=== PATIENT | male | born 1945 | race Caucasian/White ===

== ENCOUNTER → 2022-12-18 | Outpatient (CLI) | payer MEDICARE, SELFPAY ==
[2022-12-18 12:15] LABS: Hematocrit 44.1 % (40-54); Hemoglobin 13.9 g/dL (13.0-16.5); Mean Corp Hgb Conc 31.5 g/dL (32-36); Mean Corpuscular Volume 98.2 fL (80-94); Mean Platelet Vol. 10.6 fl (6.2-12.0); Platelet Count 202 K/mm3 (150-450); RBC Distribution Width CV 15.1 % (11.6-14.6); RBC Distribution Width SD 54.8 fl (35.1-43.9); Red Blood Count 4.49 M/mm3 (4.6-6.2); White Blood Count 6.7 K/mm3 (4.4-11.0)
[2022-12-18 12:52] LABS: PTHIN 68.7 pg/mL (18.4-80.1)
[2022-12-18 12:55] LABS: Vitamin D,25 Hydroxy 64.5 ng/mL
[2022-12-18 13:02] LABS: ALB/GLOB Ratio 0.9 RATIO (0.9-2.4); AST(SGOT) 14 U/L (15-37); Alanine Aminotransfer ALT/SGPT 20 U/L (16-61); Albumin, Serum 3.6 g/dL (3.2-5.0); Alkaline Phosphatase 113 U/L (45-117); Anion Gap 4 (5-15); BUN 25 mg/dL (7-18); BUN/Creat Ratio 13.6 RATIO (10-20); Chloride 108 mmol/L (98-107); Cholesterol 133 mg/dL (200); Creatinine, Serum 1.84 mg/dL (0.70-1.30); EST Glomerular Filtration Rate 38 mL/min (>60); Est Glom Filt Rate - Afr Amer 46 mL/min (>60); Globulin 3.9 g/dL (2.2-4.2); Glucose 97 mg/dL (74-106); High Density Lipoprotein 52 mg/dL; Iron 42 ug/dL (65-175); Potassium 3.5 mmol/L (3.5-5.1); Protein, Total 7.5 g/dL (6.4-8.2); Sodium Level 142 mmol/L (136-145); Triglycerides 62 mg/dL; Uric Acid 6.8 mg/dL (3.5-7.2); Very Low Density Lipoprotein 12 mg/dL (5-40)
== END | disposition home or self-care (01) ==
LOC: MTLAB 09:44
PROVIDERS: PCP Family Medicine; Referring Provider Family Medicine; Visit Provider Family Medicine
DX: I12.9 Hypertensive chronic kidney disease with stage 1 through stage 4 chronic kidney disease, or unspecified chronic kidney disease (principal); N18.9 Chronic kidney disease, unspecified; E78.5 Hyperlipidemia, unspecified; M10.9 Gout, unspecified
CPT/HCPCS: 36415; 80053; 80061; 82306; 83540; 83970; 84550; 85027

== ENCOUNTER → 2023-03-09 | Outpatient (CLI) | payer MEDICARE, SELFPAY ==
--- NOTE | 2023-03-09 12:45 | RAD_ITS ---
STUDY: X-RAY CHEST REASON FOR EXAM: Male, 78 years old. Chest pain. TECHNIQUE: Frontal and lateral views of the chest. COMPARISON: None. FINDINGS: Elevation of the left hemidiaphragm with hyperinflation of the lungs and scattered healed parenchymal granulomatous calcifications. Cardiomegaly with aortic tortuosity and prominent central pulmonary arteries. Diffuse mild thoracic spondylosis. No abnormality of the visualized soft tissue structures of the upper abdomen. RAD/Chest PA and Lateral IMPRESSION: Cardiomegaly with hyperinflation and no acute or active cardiopulmonary disease. Electronically Signed: Austin Portillo MD at 15:46 EST ,
== END | disposition home or self-care (01) ==
LOC: MTRAD 12:41
PROVIDERS: PCP Family Medicine; Referring Provider Family Medicine; Visit Provider Family Medicine
DX: J40 Bronchitis, not specified as acute or chronic (principal)
CPT/HCPCS: 71046

== ENCOUNTER → 2023-03-19 | Outpatient (CLI) | payer MEDICARE, SELFPAY ==
--- OUTSIDE RECORDS SUMMARY | 2023-03-19 09:52 | XMS RPT_ITS | CCD ---
Author Name Unknown Address [address] [place] [address] Organization [facility] Care Team Providers Care Milk Pasteurizer Name Role Phone Blangozi HOOKER INSPECTOR.STRUCTURAL DESIGN ENGINEER, DNP, Adama Primary Care Provider Tammy GATES, Denise Canela Primary Care Provider Tammy GATES, Denise Canela Primary Care Provider ADAMA HENSON Attending Unavailable BLAZ, ADAMA Primary Care Unavailable BLAZ, ADAMA Primary Care Unavailable ANA MARÍA CRAWFORD Referring Unavailable BLAZ, ADAMA Primary Care Unavailable BLAADAMA Cortes Attending Unavailable BLAZ, ADAMA Referring Unavailable BLAZ, ADAMA Primary Care Unavailable BLAZ, ADAMA Primary Care Unavailable BLAZ, ADAMA Referring Unavailable BLAZ, ADAMA Primary Care Unavailable DENISE MUNOZ Attending Unavailable BLAZ, ADAMA Primary Care Unavailable DENISE MUNOZ A Referring Unavailable BLAZ, ADAMA Primary Care Unavailable DENISE MUNOZ A Referring Unavailable TAMMYDENISE JACKSON A Primary Care Unavailable DENISE MUNOZ A Referring Unavailable BLAZ, ADAMA Primary Care Unavailable BLAZ, ADAMA Referring Unavailable EDSON KING Attending Unavailable BLAZ, ADAMA Primary Care Unavailable DENISE MUNOZ A Primary Care Unavailable DENISE MUNOZ Referring Unavailable BLAZ, ADAMA Referring Unavailable BLAZ, ADAMA Primary Care Unavailable YUNIOR HENSONEL Attending Unavailable BLAZ, ADAMA Primary Care Unavailable BLAZ, ADAMA Referring Unavailable BLAZ, ADAMA Primary Care Unavailable BLAZ, ADAMA Referring Unavailable BLAZ, ADAMA Primary Care Unavailable MD MANE ZENAB Attending Unavailable Allergies Allergy Classification Reported Allergen(s) Allergy Type Date of Onset Reaction(s) Facility (14 sources) environmental [Other] Propensity to adverse reactions 9 [facility] Work Phone: (1 source) OTHER; Translations: [OTHER] Propensity to adverse reactions (disorder) 9 [facility] Repository Medications Current Medications Medication Drug Class(es) Dates Sig (Normalized) Sig (Original) perflutren lipid microspheres 1.3 mL in NaCl (PF) 0.9% 10 mL injection (DEFINITY) (7 sources) Start: 10-20-2021 End: 01-19-2023 perflutren lipid microspheres 1.3 mL in NaCl (PF) 0.9% 10 mL injection (DEFINITY) 125 ml sodium chloride 9 mg/ml prefilled syringe (7 sources) Start: 10-20-2021 End: 01-19-2023 sodium chloride 0.9 % (flush) 10 mL (BD POSIFLUSH) triamcinolone acetonide 1 mg/ml topical cream (9 sources) Corticosteroid Start: 07-22-2021 End: 08-05-2021 triamcinolone acetonide (KENALOG) 0.1 % cream Indications: Dermatitis due to plants, including poison taurus, sumac, and oak Apply to affected area twice daily for 14 days. 80 g 0 07/22/2021 08/05/2021 Active Completed/Discontinued Medications Medication Drug Class(es) Dates Sig (Normalized) Sig (Original) acetaminophen 500 mg oral tablet (20 sources) Start: 05-03-2008 ACETAMINOPHEN 500 MG TAB Indications: Gout, unspecified Take two tablets as needed 0 05/03/2008 Active Problems Active Problems Problem Classification Problem Date Documented Date Episodic/Chronic Administrative/social admission (2 sources) Patient encounter status; Translations: [Other specified counseling] Episodic Cardiac dysrhythmias (2 sources) Nonsustained ventricular tachycardia ; Translations: [Ventricular tachycardia] Chronic Chronic kidney disease (20 sources) Chronic kidney disease stage 3B ; Translations: [Stage 3b chronic kidney disease (HCC)] Onset: 06-13-2008 Chronic Chronic kidney disease (2 sources) Chronic kidney disease; Translations: [Stage 3b chronic kidney disease (HCC)] Onset: 08-14-2021 Disorders of lipid metabolism (20 sources) Mixed hyperlipidemia; Translations: [Mixed hyperlipidemia] Onset: 05-03-2008 Chronic Essential hypertension (20 sources) Benign essential hypertension; Translations: [Essential (primary) hypertension] Onset: 05-03-2008 Chronic Gout and other crystal arthropathies (20 sources) Gout; Translations: [Gout, unspecified] Onset: 05-03-2008 Chronic Osteoarthritis (20 sources) Osteoarthritis; Translations: [Unspecified osteoarthritis, unspecified site] Onset: 05-03-2008 2009 Chronic Other connective tissue disease (1 source) Swelling of left lower limb; Translations: [Other specified soft tissue disorders] Episodic Other nutritional; endocrine; and metabolic disorders (20 sources) Obese class II; Translations: [Obesity, unspecified] Onset: 07-10-2020 Chronic Other nutritional; endocrine; and metabolic disorders (1 source) Obesity, unspecified; Translations: [Obesity, Class II, BMI 35-39.9] Onset: 07-10-2020 Chronic Other nutritional; endocrine; and metabolic disorders (2 sources) Unintentional weight loss; Translations: [Abnormal weight loss] Episodic Other screening for suspected conditions (not mental disorders or infectious disease) (20 sources) Raised prostate specific antigen; Translations: [Elevated prostate specific antigen [PSA]] Onset: 05-25-2008 Episodic Other skin disorders (3 sources) Localized swelling of left lower leg; Translations: [Localized swelling, mass and lump, left lower limb] Episodic Other upper respiratory disease (20 sources) Allergic rhinitis; Translations: [Allergic rhinitis, unspecified] Onset: 05-03-2008 2009 Chronic Past or Other Problems Problem Classification Problem Date Documented Da te Episodic/Chronic Acquired foot deformities (20 sources) Bunion; Translations: [Bunion of unspecified foot] Onset: 08-29-2008 2009 Episodic Allergic reactions (20 sources) Contact dermatitis; Translations: [Unspecified contact dermatitis, unspecified cause] Onset: 05-03-2008 2009 Episodic Anal and rectal conditions (14 sources) Perirectal abscess; Translations: [Rectal abscess] Onset: 05-26-2012 05-26-2012 Episodic Diabetes mellitus without complication (20 sources) Prediabetes; Translations: [Prediabetes] Onset: 01-09-2021 Episodic Other and unspecified benign neoplasm (20 sources) Benign neoplasm of colon; Translations: [Benign neoplasm of colon, unspecified] Onset: 06-25-2008 2009 Episodic Other and unspecified benign neoplasm (20 sources) History of polyp of colon; Translations: [Personal history of colonic polyps] Onset: 08-24-2011 01-08-2017 Episodic Other connective tissue disease (14 sources) Calcaneal spur; Translations: [Calcaneal spur, unspecified foot] Onset: 07-11-2008 2009 Episodic Other connective tissue disease (20 sources) Pain in limb; Translations: [Pain in unspecified limb] Onset: 07-11-2008 06-07-2009 Episodic Other connective tissue disease (1 source) Other specified soft tissue disorders; Translations: [Left leg swelling] Onset: 07-28-2021 Episodic Other nutritional; endocrine; and metabolic disorders (1 source) Abnormal weight loss; Translations: [Weight loss, unintentional] Onset: 12-18-2021 Episodic Other skin disorders (1 source) Localized swelling, mass and lump, left lower limb; Translations: [Localized swelling of left lower leg] Onset: 08-14-2021 Episodic Screening and history of mental health and substance abuse codes (9 sources) Ex-smoker; Translations: [Personal history of nicotine dependence] Onset: 12-18-2021 Episodic Syncope (8 sources) Collapse; Translations: [Syncope and collapse] Onset: 08-05-2021 Episodic Viral infection (20 sources) Postherpetic neuralgia; Translations: [Other postherpetic nervous system involvement] Onset: 05-03-2008 Episodic Results Test Name Value Interpretation Reference Range Facil ity Vital Signs Date Time Vital Sign Value Performing Clinician Jasbir hughes 12-18-2021 09:10-0400 Body weight 102.06 kg Denise Munoz MD Work Phone: [facility] 12-18-2021 09:10-0400 Diastolic blood pressure 60 mm[Hg] Denise Munoz MD Work Phone: [facility] 12-18-2021 09:10-0400 Heart rate 76 /min Denise Munoz MD Work Phone: [facility] 12-18-2021 09:10-0400 Respiratory rate 16 /min Denise Munoz MD Work Phone: [facility] 12-18-2021 09:10-0400 Systolic blood pressure 108 mm[Hg] Denise Munoz MD Work Phone: [facility] 10-20-2021 10:27-0400 Body weight 102.06 kg Ryan Mane MD Work Phone: [facility] 10-20-2021 10:27-0400 Diastolic blood pressure 60 mm[Hg] Ryan Mane MD Work Phone: [facility] 10-20-2021 10:27-0400 Heart rate 72 /min Ryan Mane MD Work Phone: [facility] 10-20-2021 10:27-0400 Systolic blood pressure 120 mm[Hg] Ryan Mane MD Work Phone: [facility] 08-14-2021 10:41-0400 Body weight 107.05 kg Adama Henson APRN.STRUCTURAL DESIGN ENGINEER, DNP Work Phone: [facility] 08-14-2021 10:41-0400 Diastolic blood pressure 68 mm[Hg] Adama Henson APRN.STRUCTURAL DESIGN ENGINEER, DNP Work Phone: [facility] 08-14-2021 10:41-0400 Heart rate 79 /min Adama Henson APRN.STRUCTURAL DESIGN ENGINEER, DNP Work Phone: [facility] 08-14-2021 10:41-0400 Respiratory rate 16 /min Adama Henson APRN.STRUCTURAL DESIGN ENGINEER, DNP Work Phone: [facility] 08-14-2021 10:41-0400 SaO2% (BldA) [Mass fraction] 97 % Adama Henson APRN.STRUCTURAL DESIGN ENGINEER, DNP Work Phone: [facility] 08-14-2021 10:41-0400 Systolic blood pressure 126 mm[Hg] Adama Henson APRN.STRUCTURAL DESIGN ENGINEER, DNP Work Phone: [facility] 08-05-2021 09:16-0400 Body temperature 97.9 [degF] Adama Henson APRN.STRUCTURAL DESIGN ENGINEER, DNP Work Phone: [facility] 08-05-2021 09:16-0400 Body weight 108.86 kg Adama Henson APRN.STRUCTURAL DESIGN ENGINEER, DNP Work Phone: [facility] 08-05-2021 09:16-0400 Diastolic blood pressure 76 mm[Hg] Adama Henson APRN.STRUCTURAL DESIGN ENGINEER, DNP Work Phone: [facility] 08-05-2021 09:16-0400 Heart rate 82 /min Adama Henson APRN.STRUCTURAL DESIGN ENGINEER, DNP Work Phone: [facility] 08-05-2021 09:16-0400 Respiratory rate 14 /min Adama Henson APRN.STRUCTURAL DESIGN ENGINEER, DNP Work Phone: [facility] 08-05-2021 09:16-0400 SaO2% (BldA) [Mass fraction] 97 % Adama Henson APRN.STRUCTURAL DESIGN ENGINEER, DNP Work Phone: [facility] 08-05-2021 09:16-0400 Systolic blood pressure 128 mm[Hg] Adama Henson APRN.STRUCTURAL DESIGN ENGINEER, DNP Work Phone: [facility] 07-29-2021 09:13-0400 Body temperature 97.2 [degF] Adama Henson APRN.STRUCTURAL DESIGN ENGINEER, DNP Work Phone: [facility] 07-29-2021 09:13-0400 Body weight 108.86 kg Adama Henson APRN.STRUCTURAL DESIGN ENGINEER, DNP Work Phone: [facility] 07-29-2021 09:13-0400 Diastolic blood pressure 66 mm[Hg] Adama Henson APRN.STRUCTURAL DESIGN ENGINEER, DNP Work Phone: [facility] 07-29-2021 09:13-0400 Heart rate 86 /min Adama eHnson APRN.STRUCTURAL DESIGN ENGINEER, DNP Work Phone: [facility] 07-29-2021 09:13-0400 Respiratory rate 16 /min Adama Henson APRN.STRUCTURAL DESIGN ENGINEER, DNP Work Phone: [facility] 07-29-2021 09:13-0400 SaO2% (BldA) [Mass fraction] 96 % Adama Henson APRN.STRUCTURAL DESIGN ENGINEER, DNP Work Phone: [facility] 07-29-2021 09:13-0400 Systolic blood pressure 122 mm[Hg] Adama Henson APRN.STRUCTURAL DESIGN ENGINEER, DNP Work Phone: [facility] 07-28-2021 08:14-0400 Body temperature 97.7 [degF] Ana María Yvette HOOKER INSPECTOR.STRUCTURAL DESIGN ENGINEER Work Phone: [facility] 07-28-2021 08:14-0400 Body weight 108.41 kg Ana María Yvette HOOKER INSPECTOR.[facility] Work Phone: [facility] 07-28-2021 08:14-0400 Diastolic blood pressure 60 mm[Hg] Ana María Yvette HOOKER INSPECTOR.STRUCTURAL DESIGN ENGINEER Work Phone: [facility] 07-28-2021 08:14-0400 Heart rate 88 /min Ana María Yvette HOOKER INSPECTOR.[facility] Work Phone: [facility] 07-28-2021 08:14-0400 Respiratory rate 16 /min Ana María Yvette HOOKER INSPECTOR.[facility] Work Phone: [facility] 07-28-2021 08:14-0400 SaO2% (BldA) [Mass fraction] 95 % Ana María Yvette HOOKER INSPECTOR.STRUCTURAL DESIGN ENGINEER Work Phone: [facility] 07-28-2021 08:14-0400 Systolic blood pressure 124 mm[Hg] Ana María Yvette HOOKER INSPECTOR.STRUCTURAL DESIGN ENGINEER Work Phone: [facility] 07-22-2021 10:12-0400 Body weight 110.68 kg Edson King PA-C Work Phone: [facility] 07-22-2021 10:12-0400 Diastolic blood pressure 62 mm[Hg] Edson King PA-C Work Phone: [facility] 07-22-2021 10:12-0400 Heart rate 74 /min Edson King PA-C Work Phone: [facility] 07-22-2021 10:12-0400 SaO2% (BldA) [Mass fraction] 96 % Edson King PA-C Work Phone: [facility] 07-22-2021 10:12-0400 Systolic blood pressure 110 mm[Hg] Edson King PA-C Work Phone: [facility] 06-30-2021 13:40-0400 Body weight 111.13 kg Adama Henson APRN.[facility] Work Phone: [facility] 06-30-2021 13:40-0400 Diastolic blood pressure 70 mm[Hg] Adama Henson APRN.[employer]ES[employer] BALTAZAR Work Phone: [facility] 06-30-2021 13:40-0400 Heart rate 84 /min Adama Henson APRN.[employer]ES[employer] BALTAZAR Work Phone: [facility] 06-30-2021 13:40-0400 Respiratory rate 14 /min Adama Henson APRN.JES[employer] MANUEL BALTAZAR Work Phone: [facility] 06-30-2021 13:40-0400 SaO2% (BldA) [Mass fraction] 97 % Adama Henson APRN.CNP, DNP Work Phone: [facility] 06-30-2021 13:40-0400 Systolic blood pressure 122 mm[Hg] Adama Henson APRN.JESUS MANUEL BALTAZAR Work Phone: [facility] Encounters Encounter Date Encounter Type Care Provider Facility Start: 06-25-2022 Orders Only Edson King PA-C Work Phone: Urology Procedures Date Procedure Procedure Detail Performing Clinician Start: 12-18-2021 INFLUENZA SEASONAL QUADRIVALENT HIGH DOSE AGE 65+ Denise Munoz MD Work Phone: Start: 07-22-2021 Urnls dip stick/tabl et rgnt auto w/o microscopy Edson King PA-C Work Phone: Start: 06-30-2021 Adult depression scr eening assessment Adama Henson APRN.[employer] BALTAZAR Work Phone: Plan of Treatment Date Care Activity Detail Author Start: 12-18-2024 DIABETES SCREEN DIABETES SCREEN [facility] Start: 08-14-2024 DIABETES SCREEN DIABETES SCREEN [facility] Start: 07-29-2024 DIABETES SCREEN DIABETES SCREEN [facility] Start: 07-01-2024 DIABETES SCREEN DIABETES SCREEN [facility] Start: 01-07-2024 DIABETES SCREEN DIABETES SCREEN [facility] Start: 12-18-2022 ANNUAL PCP TEAM ENGINEERING RESEARCH MANAGER VÍCTOR DISEASE VISIT ANNUAL PCP TEAM CHRONIC DISEASE VISIT [facility] Start: 12-18-2022 BP CONTROLLED (<130/80) BP CONTROLLE D (<130/80) [facility] Start: 12-18-2022 HEMOGLOBIN/HEMATOCRIT HEMOGLOBIN/HEM ATOCRIT [facility] Start: 12-18-2022 SERUM CREATININE SERUM CREATININE Cl [facility] Start: 12-18-2022 Urine microalbumin profile DTAP,TDAP ,TD (1 - Tdap) [facility] Immunizations Immunization Date Immunization Notes Care Provider Fa cility 12-18-2021 influenza, high-dose , quadrivalent vaccine (FLUZONE HIGH DOSE QUADRIVALENT) Denise Munoz MD Work Phone: [facility] 12-18-2021 pneumococcal (PCV20) vaccine, 20 valent (PREVNAR 20) Denise Munoz MD Work Phone: [facility] 12-18-2021 pneumococcal Conjuga te, unspecified formulation Denise Munoz MD Work Phone: [facility] Work Phone: 12-11-2021 COVID-19 booster vaccine, age 12+ yr, bivalent ([employer]) Denise Munoz MD Work Phone: [facility] 01-09-2021 influenza, high-dose , quadrivalent vaccine (FLUZONE HIGH DOSE QUADRIVALENT) Adama Henson APRN.JESUS MANUEL BALTAZAR Work Phone: [facility] 04-16-2020 influenza, high-dose , quadrivalent vaccine (FLUZONE HIGH DOSE QUADRIVALENT) Adama Henson APRN.CNP, DNP Work Phone: [facility] 12-01-2008 influenza virus vacc ine, unspecified formulation Adama Henson APRN.CNP, DNP Work Phone: [facility] Work Phone: 12-01-2008 pneumococcal polysaccharide vaccine, 23 valent Adama Henson APRN.CNP, DNP Work Phone: [facility] Work Phone: 04-15-2007 tetanus and diphther ia toxoids, adsorbed, preservative free, for adult use (2 Lf of tetanus toxoid and 2 Lf of diphtheria toxoid) Adama Henson APRN.STRUCTURAL DESIGN ENGINEER, DNP Work Phone: [facility] Work Phone: Payers Date Payer Category Payer Medicare [id number] 2014 Medicare HU[employer]NA MEDICARE HU[employer]NA GOLD PLUS [id number] 2014-Present [phone] [address] [address] [place] [address] HMO [id number] 2014 Private Health Insurance [id number] Social History Date Type Detail Facility Start: 04-16-2020 End: 12-18-2021 Tobacco smoking status NHIS Ex-smoker [facility] Work Phone: End: 04-15-1972 History of tobacco use Current smoker [facility] Work Phone: Start: 01-09-2021 End: 06-25-2022 Alcohol intake Current drinker of alcohol (finding) [facility] Start: 08-12-2011 History SDOH Alcohol Comment once q 2mo. [facility] Start: 1945 Sex Assigned At Male C [facility] Work Phone: Start: 06-13-2021 End: 12-18-2021 Exposure to SARS-CoV-2 (event) Not sure [facility] Start: 07-21-2021 End: 07-31-2021 Exposure to SARS-CoV-2 (event) Unable to assess [facility] Work Phone: End: 04-15-1972 History of tobacco use Cigarette Smoker [facility] Work Phone: Start: 04-16-2020 End: 12-18-2021 Cigarettes smoked current (pack per day) - Reported 2 [facility] Start: 04-16-2020 End: 12-18-2021 Tobacco use and exposure Smokeless tobacco non-user [facility] Work Phone: Clinical Notes 06-13-2008 to 06-25-2022 Josette Diaz LPN - 06/25/2022 2:17 PM EDTTelephone Encounter - Rom Reese LPN - 01/07/2022 10:18 AM EDTTelephone Encounter - Denise Munoz MD - 01/06/2022 9:40 PM EDTPatient Instructions Note Date & Type Note Facility 06-25-2022 Note HNO ID: [id number] Author: Josette Diaz LPN Service: ? Author Type: ? Type: Progress Notes Filed: 07/15/2022 8:28 PM Note Text: Patient has appointment July 17, 2022 for yearly. Last office visit 07/19/2021 to follow up with PSA a week prior. PSA done 08/14/2021. Josette Diaz LPN [facility] 06-25-2022 History of Present illness Narrative Patient has appointment July 17, 2022 for yearly. Last office visit 07/19/2021 to follow up with PSA a week prior. PSA done 08/14/2021. Josette Diaz LPN documented in this encounter [facility] 01-07-2022 Miscellaneous Notes Pt notified of same. Rom Reese LPN Let patient know urine test was ok. No blood. documented in this encounter [facility] 12-25-2021 Note HNO ID: [id number] Author: Clau Ugalde RDMS Service: ? Author Type: Color Consultant Type: Progress Notes Filed: 12/25/2021 10:49 AM Note Text: Radiology Service Progress Note PATIENT NAME: Ag Hayes DATE OF SERVICE: December 25, 2021 TIME: 10:49 AM PATIENT IDENTITY VERIFICATION COMPLETED USING TWO (2) IDENTIFIERS: Name and Date of confirmed by patient verbally. FALL SCREENING: Has the patient had 2 falls in the last year or 1 fall with injury or currently using an Ambulatory Assistive Device (Walker, Cane, Wheelchair, Crutches, etc.)? No PATIENT GENDER DATA: Male PATIENT RELEVANT IMPLANT DATA REVIEWED: Not Applicable RADIOLOGY DEPARTMENT: Ultrasound PERIPHERAL IV DATA: Not applicable SIGNED BY: Clau Ugalde RDMS December 25, 2021 10:49 AM [facility] 12-25-2021 History of Present illness Narrative Radiology Service Progress Note PATIENT NAME: Ag Hayes DATE OF SERVICE: December 25, 2021 TIME: 10:49 AM PATIENT IDENTITY VERIFICATION COMPLETED USING TWO (2) IDENTIFIERS: Name and Date of confirmed by patient verbally. FALL SCREENING: Has the patient had 2 falls in the last year or 1 fall with injury or currently using an Ambulatory Assistive Device (Walker, Cane, Wheelchair, Crutches, etc.)? No PATIENT GENDER DATA: Male PATIENT RELEVANT IMPLANT DATA REVIEWED: Not Applicable RADIOLOGY DEPARTMENT: Ultrasound PERIPHERAL IV DATA: Not applicable SIGNED BY: Clau Ugalde RDMS December 25, 2021 10:49 AM documented in this encounter [facility] 12-24-2021 Miscellaneous Notes Patient notified and voiced understanding. Lisa Chavez MA Let patient know that his a1c is 5.8% which is still prediabetes but pretty stable/slightly improved. Kidney function is stable. Cholesterol normal Thyroid normal Blood counts are normal. Uric acid level in okay range Urine is still in process. Will call only if abnormal Thanks. Avis Gonzalez PA-C documented in this encounter [facility] 12-18-2021 Note HNO ID: [id number] Author: RT Shira(R) Service: Radiology Author Type: Technologist Type: Progress Notes Filed: 12/18/2021 10:46 AM Note Text: Radiology Service Progress Note PATIENT NAME: Ag Hayes DATE OF SERVICE: December 18, 2021 TIME: 10:20 AM PATIENT IDENTITY VERIFICATION COMPLETED USING TWO (2) IDENTIFIERS: Name and Date of confirmed by patient verbally. FALL SCREENING: Has the patient had 2 falls in the last year or 1 fall with injury or currently using an Ambulatory Assistive Device (Walker, Cane, Wheelchair, Crutches, etc.)? No PATIENT GENDER DATA: Male PATIENT RELEVANT IMPLANT DATA REVIEWED: Yes RADIOLOGY DEPARTMENT: General X-ray: Exam(s) Completed: Chest X-Ray PERIPHERAL IV DATA: Not applicable SIGNED BY: RT Shira(R) December 18, 2021 10:20 AM [facility] 12-18-2021 Note HNO ID: [id number] Author: Denise Munoz MD Service: ? Author Type: Physician Type: Progress Notes Filed: 12/18/2021 8:16 PM Note Text: Chief Complaint Patient presents with: Establish Care HPI Ag Hayes is a 76 year old male who presents here today for Transfer of care. Patient with Hx of HTN, Hyperlipidemia, elevated A1c, CKD, post-herpetic neuralgia, obesity, gout, allergic rhinitis, general arthritis as well as those reviewed and addressed below and in ROS. Patient has been doing ok. Patient needs new PCP since his previous provider left the practice. The gabapentin has helped cut down on the post herpetic pain and the allopurinol has reduced gout attacks. Last colonoscopy was 2017 with suggestion to repeat in 5 years. Past medical history, appointments, medications, allergies reviewed. 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 06/30/2021 Contact dermatitis and other eczema, due to unspecified cause 05/03/2008 Recurrent, fixed location; finger, right arm, thighs; always appears in same location; FIXED DRUG ERUPTION Coronary artery disease Elevated hemoglobin A1c 01/09/2021 Essential hypertension, benign 05/03/2008 Generalized arthritis 05/03/2008 Right knee, hands, feet Gout, unspecified Herpes zoster without mention of complication History of colonic polyps 08/24/2011 Hyperlipidemia, mixed 05/03/2008 Mental disorder Nonspecific abnormal results of liver function study 06/13/2008 Elevated Alk phos -- previously normal 01/19 ### Isoenzymes normal 2008 Obesity, Class II, BMI 35-39.9 07/10/2020 Pain in limb 07/11/2008 Chronic foot pain -- previously saw Dr. Ordoñez (podiatry) -- without improvement Perirectal abscess 05/26/2012 POST-HERPETIC NEURALGIA 05/03/2008 Pain is in the left back, thoracic at left nipple dermatome; chest and back Stage 3a chronic kidney disease (HCC) 08/14/2021 Previous Surgical History PAST SURGICAL HISTORY Procedure Laterality Date COLSC FLX W/RMVL OF TUMOR POLYP LESION SNARE TQ polyps at hepatic flexure, descending colon, 20cm COLSC FLX W/RMVL OF TUMOR POLYP LESION SNARE TQ 08/25/11/ polyps at 15 and 30cm - follow up in 3 years PAST SURGICAL HISTORY OF 1999 lump removed from left breast PAST SURGICAL HISTORY OF 1976 pilonidal cyst PAST SURGICAL HISTORY OF 09/12/2009 right finger surgery PAST SURGICAL HISTORY OF 2nd surgery on right finger TONSILLECTOMY PRIMARY/SECONDARY Tonsillectomy Family History FAMILY HISTORY Problem Relation Age of Onset Coronary Artery Disease Mother ruptured cardiac wall (aneurysm?) Alcohol/Drug Father Coronary Artery Disease Father severe alcoholism COPD Sister Patient Allergies ALLERGIES Allergen Reactions Environmental [Othe* Current Medications Current Outpatient Medications on File Prior to Visit Medication Sig gabapentin (NEURONTIN) 600 mg tablet Take 1 tablet by mouth three times daily. Take with 300 mg three times a day allopurinol (ZYLOPRIM) 300 mg tablet Take 1 tablet by mouth once daily. hydroCHLOROthiazide (HYDRODIURIL, ESIDRIX) 25 mg tablet Take 1 tablet by mouth once daily. atorvastatin (LIPITOR) 20 mg tablet Take 1 tablet by mouth daily at bedtime. For cholesterol. ACETAMINOPHEN 500 MG TAB Take two tablets as needed furosemide (LASIX) 20 mg tablet Take 1 tablet by mouth once daily for 7 days. gabapentin (NEURONTIN) 300 mg capsule Take 1 capsule by mouth three times daily. Take with 600 mg three times a day Current Facility-Administered Medications on File Prior to Visit Medication perflutren lipid microspheres 1.3 mL in NaCl (PF) 0.9% 10 mL injection (DEFINITY) sodium chloride 0.9 % (flush) 10 mL (BD POSIFLUSH) Social History Social History Tobacco Use Smoking status: Former Packs/day: 2.00 Years: 15.00 Pack years: 30.00 Types: Cigarettes Quit date: 04/15/1972 Years since quittin.7 Smokeless tobacco: Never Vaping Use Vaping Use: Never used Substance Use Topics Alcohol use: Yes Comment: once q 2mo. Drug use: No Review of Symptoms REVIEW OF SYSTEMS GENERAL: No malaise or fevers. Patient has lost roughly 30 lbs in the past 12-15 months with no changes to promote this. NECK: Negative for lumps, goiter, pain and significant neck swelling RESPIRATORY: Negative for cough, hemoptysis, wheezing, COPD, dyspnea or shortness of breath CARDIOVASCULAR: Negative for chest pain, hypertension, CHF or palpitations. No leg swelling GI: No nausea, vomiting, or diarrhea and No heartburn or reflux symptoms MUSCULOSKELETAL: see HPI ENDOCRINE: Negative for cold or heat intolerance, polyuria, polydipsia and goiter NEURO: No history of headaches, syncope, paralysis, seizures or tremors EXAM: BP 108/60 (BP Site: Le (more content not included)... [facility] 12-18-2021 History of Present illness Narrative Chief Complaint Patient presents with: Establish Care HPI Ag Hayes is a 76 year old male who presents here today for Transfer of care. Patient with Hx of HTN, Hyperlipidemia, elevated A1c, CKD, post-herpetic neuralgia, obesity, gout, allergic rhinitis, general arthritis as well as those reviewed and addressed below and in ROS. Patient has been doing ok. Patient needs new PCP since his previous provider left the practice. The gabapentin has helped cut down on the post herpetic pain and the allopurinol has reduced gout attacks. Last colonoscopy was 2016 with suggestion to repeat in 5 years. Past medical history, appointments, medications, allergies reviewed. 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 06/30/2021 Contact dermatitis and other eczema, due to unspecified cause 05/03/2008 Recurrent, fixed location; finger, right arm, thighs; always appears in same location; FIXED DRUG ERUPTION Coronary artery disease Elevated hemoglobin A1c 01/09/2021 Essential hypertension, benign 05/03/2008 Generalized arthritis 05/03/2008 Right knee, hands, feet Gout, unspecified Herpes zoster without mention of complication History of colonic polyps 08/24/2011 Hyperlipidemia, mixed 05/03/2008 Mental disorder Nonspecific abnormal results of liver function study 06/13/2008 Elevated Alk phos -- previously normal 01/19 ### Isoenzymes normal 2008 Obesity, Class II, BMI 35-39.9 07/10/2020 Pain in limb 07/11/2008 Chronic foot pain -- previously saw Dr. Ordoñez (podiatry) -- without improvement Perirectal abscess 05/26/2012 POST-HERPETIC NEURALGIA 05/03/2008 Pain is in the left back, thoracic at left nipple dermatome; chest and back Stage 3a chronic kidney disease (HCC) 08/14/2021 Previous Surgical History PAST SURGICAL HISTORY Procedure Laterality Date COLSC FLX W/RMVL OF TUMOR POLYP LESION SNARE TQ polyps at hepatic flexure, descending colon, 20cm COLSC FLX W/RMVL OF TUMOR POLYP LESION SNARE TQ 08/25/11/ polyps at 15 and 30cm - follow up in 3 years PAST SURGICAL HISTORY OF 1999 lump removed from left breast PAST SURGICAL HISTORY OF 1976 pilonidal cyst PAST SURGICAL HISTORY OF 09/12/2009 right finger surgery PAST SURGICAL HISTORY OF 2nd surgery on right finger TONSILLECTOMY PRIMARY/SECONDARY <AGE 10 Tonsillectomy Family History FAMILY HISTORY Problem Relation Age of Onset Coronary Artery Disease Mother ruptured cardiac wall (aneurysm?) Alcohol/Drug Father Coronary Artery Disease Father severe alcoholism COPD Sister Patient Allergies ALLERGIES Allergen Reactions Environmental [Othe* Current Medications Current Outpatient Medications on File Prior to Visit Medication Sig gabapentin (NEURONTIN) 600 mg tablet Take 1 tablet by mouth three times daily. Take with 300 mg three times a day allopurinol (ZYLOPRIM) 300 mg tablet Take 1 tablet by mouth once daily. hydroCHLOROthiazide (HYDRODIURIL, ESIDRIX) 25 mg tablet Take 1 tablet by mouth once daily. atorvastatin (LIPITOR) 20 mg tablet Take 1 tablet by mouth daily at bedtime. For cholesterol. ACETAMINOPHEN 500 MG TAB Take two tablets as needed furosemide (LASIX) 20 mg tablet Take 1 tablet by mouth once daily for 7 days. gabapentin (NEURONTIN) 300 mg capsule Take 1 capsule by mouth three times daily. Take with 600 mg three times a day Current Facility-Administered Medications on File Prior to Visit Medication perflutren lipid microspheres 1.3 mL in NaCl (PF) 0.9% 10 mL injection (DEFINITY) sodium chloride 0.9 % (flush) 10 mL (BD POSIFLUSH) Social History Social History Tobacco Use Smoking status: Former Packs/day: 2.00 Years: 15.00 Pack years: 30.00 Types: Cigarettes Quit date: 04/15/1972 Years since quittin.7 Smokeless tobacco: Never Vaping Use Vaping Use: Never used Substance Use Topics Alcohol use: Yes Comment: once q 2mo. Drug use: No Review of Symptoms REVIEW OF SYSTEMS GENERAL: No malaise or fevers. Patient has lost roughly 30 lbs in the past 12-15 months with no changes to promote this. NECK: Negative for lumps, goiter, pain and significant neck swelling RESPIRATORY: Negative for cough, hemoptysis, wheezing, COPD, dyspnea or shortness of breath CARDIOVASCULAR: Negative for chest pain, hypertension, CHF or palpitations. No leg swelling GI: No nausea, vomiting, or diarrhea and No heartburn or reflux symptoms MUSCULOSKELETAL: see HPI ENDOCRINE: Negative for cold or heat intolerance, polyuria, polydipsia and goiter NEURO: No history of headaches, syncope, paralysis, seizures or tremors EXAM: BP 108/60 (BP Site: Left Arm, BP Position: Sitting, BP Cuff Size: Large Adult) Pulse 76 Resp 16 Wt 102.1 kg (225 lb) BMI 32.28 kg/m Last 10 Encounter Wt Readings: Date: Wt: 12/18/2021 102.1 kg (225 lb) 10/20/2021 102.1 kg (225 lb) 08/14/2021 107 kg (236 lb) 08/05/2021 108.9 kg (240 lb) 07/29/2021 108.9 kg (240 lb) 07/28/2021 108.4 kg (239 lb) 07/22/2021 110.7 kg (244 lb) 06/30/2021 111.1 kg (245 lb) 01/09/2021 112.9 kg (249 lb) 09/13/2020 115.2 kg (254 lb) General Appearance: Well appearing, alert, in no acute distress, well-hydrated, well nourished. and Obese. Neck: Supple, no adenopathy; thyroid symmetric, normal size, no bruits. Lungs: Lungs clear to auscultation. No wheezing, rhonchi, rales.. Heart: RRR without murmur, gallop, or rubs. No ectopy. Abdomen: Normal abdominal exam, Abdomen soft, non-tender. Bowel sounds normal. No masses, organomegaly. Extremities: No deformities, edema, skin discoloration, Good capillary refill. . Peripheral Pulses: Normal. Health Maintenance List SHINGRIX VACCINE(1 of 2) Never done DTAP,TDAP,TD(1 - Tdap) due on 04/16/2007 PNEUMOCOCCAL: 65+(2 - PCV) due on 12/01/2009 DEPRESSION ASSESSMENT Never done INFLUENZA(1) due on 11/13/2021 HEMOGLOBIN/HEMATOCRIT due on 07/01/2022 ANNUAL PCP TEAM CHRONIC DISEASE VISIT due on 08/14/2022 BP CONTROLLED (<130/80) due on 10/20/2022 SERUM CREATININE due on 11/18/2022 DIABETES SCREEN due on 11/18/2024 ADVANCE DIRECTIVE DISCUSSION Completed HEPATITIS C SCREENING Completed COVID-19 VACCINE Completed Data reviewed Component Latest Ref Rng & Units 07/01/2021 WBC 3.70 - 11.00 k/uL 5.95 RBC 4.20 - 6.00 m/uL 4.77 Hemoglobin 13.0 - 17.0 g/dL 14.4 Hematocrit 39.0 - 51.0 % 45.8 MCV 80.0 - 100.0 fL 96.0 MCH 26.0 - 34.0 pg 30.2 MCHC 30.5 - 36.0 g/dL 31.4 RDW-CV 11.5 - 15.0 % 14.6 Platelet Count 150 - 400 k/uL 207 MPV 9.0 - 12.7 fL 10.3 Neut% % 60.8 Abs Neut (ANC) 1.45 - 7.50 k/uL 3.62 Lymph% % 28.7 Abs Lymph 1.00 - 4.00 k/uL 1.71 Graves% % 6.4 Abs Graves <0.87 k/uL 0.38 Eosin% % 2.2 Abs Eosin <0.46 k/uL 0.13 Baso% % 0.7 Abs Baso <0.11 k/uL 0.04 Immature Gran % % 1.2 IMMATURE GRANS (ABS) <0.10 k/uL 0.07 NRBC /100 WBC 0.0 Absolute nRBC <0.01 k/uL <0.01 DTYPE Auto Protein, Total 6.3 - 8.0 g/dL 7.3 Albumin 3.9 - 4.9 g/dL 4.0 Calcium 8.5 - 10.2 mg/dL 9.5 Bilirubin, Total 0.2 - 1.3 mg/dL 0.8 Alkaline Phosphatase 38 - 113 U/L 100 AST 14 - 40 U/L 18 ALT 10 - 54 U/L 17 Glucose 74 - 99 mg/dL 90 BUN 9 - 24 mg/dL 21 Creatinine 0.73 - 1.22 mg/dL 1.73 (H) Sodium 136 - 144 mmol/L 145 (H) Potassium 3.7 - 5.1 mmol/L 3.7 Chloride 97 - 105 mmol/L 105 CO2 22 - 30 mmol/L 28 Anion Gap 9 - 18 mmol/L 12 eGFR >=60 mL/min/1.73m 40 (L) Cholesterol, Total <200 mg/dL 130 Triglyceride <150 mg/dL 89 HDL Cholesterol >39 mg/dL 43 Non HDL Cholesterol <130 mg/dL 87 Fasting Time hrs 12 VLDL Cholesterol <30 mg/dL 18 TC:HDL Ratio <5.10 3.02 LDL Cholesterol <100 mg/dL 69 LDL:HDL Ratio <2.54 1.60 Hemoglobin A1C 4.3 - 5.6 % 5.9 (H) Estimated Average Glucose mg/dL 123 A/P ASSESSMENT/PLAN: 1. Essential hypertension, benign - ICD9: 401.1, ICD10: I10 (primary diagnosis) - good control - Continue current medication(s) - Recommended regular aerobic exercise. - Recommend home blood pressure monitoring, to bring results in on next visit - Goal of BP <130/80 check - COMP METABOLIC PANEL - URINALYSIS, WITH MICROSCOPIC - LIPID PANEL, NONFASTING 2. Hyperlipidemia, mixed - ICD9: 272.2, ICD10: E78.2 - to be determined upon return of lab results - Encouraged following a low fat, low cholesterol diet. - Discussed the benefits of regular aerobic exercise and weight loss. - Encouraged following a low carbohydrate, healthy oil intake diet. - Continue current therapy. Check - COMP METABOLIC PANEL - URINALYSIS, WITH MICROSCOPIC - LIPID PANEL, NONFASTING 3. Stage 3b chronic kidney disease (HCC) - ICD9: 585.3, ICD10: N18.32 - cont current tx. Check - COMP METABOLIC PANEL - URINALYSIS, WITH MICROSCOPIC - CBC + DIFF - CONSULT TO NEPHROLOGY: Luanne Flood 4. Elevated hemoglobin A1c - ICD9: 790.29, ICD10: R73.09 Check - COMP METABOLIC PANEL - HGB A1C 5. Obesity, Class II, BMI 35-39.9 - ICD9: 278.00, ICD10: E66.9 Weight decreasing 6. Post herpetic neuralgia - ICD9: 053.19, ICD10: B02.29 - cont gabapentin 7. Chronic gout without tophus, unspecified cause, unspecified site - ICD9: 274.02, ICD10: M1A.9XX0 Cont allopurinol. Check - URIC ACID BLOOD 8. Ex-smoker - ICD9: V15.82, ICD10: Z87.891 Check - XR CHEST 2V FRONTAL/LAT - US ABDOMEN COMPLETE 9. Weight loss, unintentional - ICD9: 783.21, ICD10: R63.4 Check - COMP METABOLIC PANEL - TSH BLD - CBC + DIFF - XR CHEST 2V FRONTAL/LAT - US ABDOMEN COMPLETE 10. Encounter for immunization - ICD9: V03.89, ICD10: Z23 - INFLUENZA SEASONAL QUADRIVALENT HIGH DOSE AGE 65+: given - PNEUMOCOCCAL VACCINE (PREVNAR 20): given If chest x-ray and abd US ok will proceed with CT of chest and Abd/pelv. Patient's weight loss developed after loss of and may be benign in nature. F/u 6 months extensive I spent a total of 45 minutes on the date of the service which included preparing to see the patient, [id number] patient care, completing clinical documentation, performing a medically appropriate examination, counseling and educating the patient/family/caregiver and ordering medications, tests, or procedures. Denise Munoz MD documented in this encounter [facility] 10-23-2021 Miscellaneous Notes Patient called. Verified name and date of . Informed of message from Carolyn Dey CNP. Patient states he doesn't care what it (echocardiogram) is for and is not having it done just to feed the pockets of so called specialist. Josette Diaz LPN Called pt and left message for pt to return call. Want to explain rationale for ordering of echocardiogram to pt when he returns call. Court Hayes RN Images from the original note were not included. Carolyn Dey APRN.[email or web address] You 3 hours ago (9:49 AM) It looks like Dr. Mane ordered an echocardiogram for further evaluation of syncope. It is usually standard to evaluate cardiac structure and function with an echocardiogram in a work-up for cause of syncope. Of course, it is the patient's right to decline if he does not want further testing and evaluation. Thank you, Carolyn Dey APRN.STRUCTURAL DESIGN ENGINEER Patient called in very upset about an echo being order. He feels that this test was only ordered to collect money from he, he cancelled and refused to reschedule. documented in this encounter [facility] 10-20-2021 Note HNO ID: [id number] Author: Ryan Mane MD Service: ? Author Type: Physician Type: Progress Notes Filed: 10/20/2021 11:47 AM Note Text: CARDIOLOGY CLINIC CONSULT NOTE REASON FOR CONSULT: Abnormal Holter monitor Episode of syncope REQUESTING PHYSICIAN: Adama Henson CNP HPI: Mr. Hayes is a 76 year old male with history of essential hypertension, hyperlipidemia and gout who is presenting for evaluation of an episode of syncope and findings on Holter monitor. Patient states he had an episode of syncope a couple of months ago. He recalls having sudden onset of lightheadedness while standing followed by a brief episode of loss of consciousness. The episode was witnessed and he was out only for a few seconds. He has had another similar episode last year. He subsequently had event monitor that did show evidence of PVCs, PACs and a run of nonsustained ventricular tachycardia. He also had carotid ultrasound that did not reveal any significant stenosis. PAST MEDICAL HISTORY Diagnosis Date Benign neoplasm of colon Coronary artery disease Essential hypertension, benign 05/03/2008 Gout, unspecified Herpes zoster without mention of complication Kidney disease Mental disorder Mixed hyperlipidemia 05/03/2008 Other and unspecified hyperlipidemia Snoring Unspecified essential hypertension PAST SURGICAL HISTORY Procedure Laterality Date COLSC FLX W/RMVL OF TUMOR POLYP LESION SNARE TQ polyps at hepatic flexure, descending colon, 20cm COLSC FLX W/RMVL OF TUMOR POLYP LESION SNARE TQ 08/25/11/ polyps at 15 and 30cm - follow up in 3 years PAST SURGICAL HISTORY OF 1999 lump removed from left breast PAST SURGICAL HISTORY OF 1976 pilonidal cyst PAST SURGICAL HISTORY OF 09/12/2009 right finger surgery PAST SURGICAL HISTORY OF 2nd surgery on right finger TONSILLECTOMY PRIMARY/SECONDARY Tonsillectomy SOCIAL HISTORY Social History Tobacco Use Smoking status: Former Packs/day: 2.00 Years: 15.00 Pack years: 30.00 Types: Cigarettes Quit date: 04/15/1972 Years since quittin.5 Smokeless tobacco: Never Vaping Use Vaping Use: Never used Substance Use Topics Alcohol use: Yes Comment: once q 2mo. Drug use: No FAMILY HISTORY Problem Relation Age of Onset Coronary Artery Disease Mother ruptured cardiac wall (aneurysm?) Alcohol/Drug Father Coronary Artery Disease Father severe alcoholism COPD Sister Family history was reviewed ALLERGIES Allergen Reactions Environmental [Othe* MEDICATIONS: gabapentin (NEURONTIN) 300 mg capsule Take 1 capsule by mouth three times daily. Take with 600 mg three times a day allopurinol (ZYLOPRIM) 300 mg tablet Take 1 tablet by mouth once daily. hydroCHLOROthiazide (HYDRODIURIL, ESIDRIX) 25 mg tablet Take 1 tablet by mouth once daily. atorvastatin (LIPITOR) 20 mg tablet Take 1 tablet by mouth daily at bedtime. For cholesterol. ACETAMINOPHEN 500 MG TAB Take two tablets as needed furosemide (LASIX) 20 mg tablet Take 1 tablet by mouth once daily for 7 days. gabapentin (NEURONTIN) 600 mg tablet Take 1 tablet by mouth three times daily. Take with 300 mg three times a day REVIEW OF SYSTEMS: GENERAL: Negative for:Weight loss and Weight gain HEENT: Negative for:Nosebleeds RESPIRATORY: Negative for:Shortness of breath GASTROINTESTINAL: Negative for:Blood in stool MUSCULOSKELETAL: Negtive for: Muscle or joint pain, stiffness, Joint swelling SKIN: No rash HEMATOLOGICAL/LYMPHATIC: Negative for: Easy bruising and Easy bleeding CARDIOVASCULAR: As stated in HPI. 10 system review negative except as stated in HPI PHYSICAL EXAMINATION: BP 120/60 (BP Site: Right Arm, BP Position: Sitting, BP Cuff Size: Large Adult) Pulse 72 Wt 102.1 kg (225 lb) BMI 32.28 kg/m? General: Well appearing, appears stated age and in no acute distress. Psych: Normal Affect. Alert and oriented to person, place and time. HEENT: Sclera are anicteric, conjunctive IV are moist without subconjunctival hemorrhage. PERRLA. Head is atraumatic. Oropharynx clear with moist mucous membranes. Neck: Neck is supple. No jugular venous distention, no carotid bruits. Lungs: Clear to auscultation bilaterally, no wheezing or rhonchi. Heart: S1, S2 normal, no murmur Abdomen. Soft, nontender, no organomegaly. Extremities: No peripheral edema Skin. Normal temperature, turgor and texture. No rashes, ulcers or subcutaneous nodules noted. Neuro: Grossly nonfocal LABS TSH 2.640 05/17/2019 Triglyceride 89 07/01/2021 HDL Cholesterol 43 07/01/2021 LDL Chol, Luanne 69 07/01/2021 Cholesterol, Total 130 07/01/2021 EK lead EKG 06/30/2021 shows normal sinus rhythm. IN and QT intervals are normal. There are no ST segment changes suggestive of ischemia or infarction. Holter monitor Patient had a min HR of 54 bpm, max HR of 182 bpm, and avg HR of 70 bpm. Predominant underlying rhythm was Sinus Rhythm. 1 run of Ventricular Tachyc (more content not included)... [facility] 10-20-2021 History of Present illness Narrative CARDIOLOGY CLINIC CONSULT NOTE REASON FOR CONSULT: Abnormal Holter monitor Episode of syncope REQUESTING PHYSICIAN: Adama Henson CNP HPI: Mr. Hayes is a 76 year old male with history of essential hypertension, hyperlipidemia and gout who is presenting for evaluation of an episode of syncope and findings on Holter monitor. Patient states he had an episode of syncope a couple of months ago. He recalls having sudden onset of lightheadedness while standing followed by a brief episode of loss of consciousness. The episode was witnessed and he was out only for a few seconds. He has had another similar episode last year. He subsequently had event monitor that did show evidence of PVCs, PACs and a run of nonsustained ventricular tachycardia. He also had carotid ultrasound that did not reveal any significant stenosis. PAST MEDICAL HISTORY Diagnosis Date Benign neoplasm of colon Coronary artery disease Essential hypertension, benign 05/03/2008 Gout, unspecified Herpes zoster without mention of complication Kidney disease Mental disorder Mixed hyperlipidemia 05/03/2008 Other and unspecified hyperlipidemia Snoring Unspecified essential hypertension PAST SURGICAL HISTORY Procedure Laterality Date COLSC FLX W/RMVL OF TUMOR POLYP LESION SNARE TQ polyps at hepatic flexure, descending colon, 20cm COLSC FLX W/RMVL OF TUMOR POLYP LESION SNARE TQ 08/25/11/ polyps at 15 and 30cm - follow up in 3 years PAST SURGICAL HISTORY OF 1999 lump removed from left breast PAST SURGICAL HISTORY OF 1976 pilonidal cyst PAST SURGICAL HISTORY OF 09/12/2009 right finger surgery PAST SURGICAL HISTORY OF 2nd surgery on right finger TONSILLECTOMY PRIMARY/SECONDARY <AGE 10 Tonsillectomy SOCIAL HISTORY Social History Tobacco Use Smoking status: Former Packs/day: 2.00 Years: 15.00 Pack years: 30.00 Types: Cigarettes Quit date: 04/15/1972 Years since quittin.5 Smokeless tobacco: Never Vaping Use Vaping Use: Never used Substance Use Topics Alcohol use: Yes Comment: once q 2mo. Drug use: No FAMILY HISTORY Problem Relation Age of Onset Coronary Artery Disease Mother ruptured cardiac wall (aneurysm?) Alcohol/Drug Father Coronary Artery Disease Father severe alcoholism COPD Sister Family history was reviewed ALLERGIES Allergen Reactions Environmental [Othe* MEDICATIONS: gabapentin (NEURONTIN) 300 mg capsule Take 1 capsule by mouth three times daily. Take with 600 mg three times a day allopurinol (ZYLOPRIM) 300 mg tablet Take 1 tablet by mouth once daily. hydroCHLOROthiazide (HYDRODIURIL, ESIDRIX) 25 mg tablet Take 1 tablet by mouth once daily. atorvastatin (LIPITOR) 20 mg tablet Take 1 tablet by mouth daily at bedtime. For cholesterol. ACETAMINOPHEN 500 MG TAB Take two tablets as needed furosemide (LASIX) 20 mg tablet Take 1 tablet by mouth once daily for 7 days. gabapentin (NEURONTIN) 600 mg tablet Take 1 tablet by mouth three times daily. Take with 300 mg three times a day REVIEW OF SYSTEMS: GENERAL: Negative for:Weight loss and Weight gain HEENT: Negative for:Nosebleeds RESPIRATORY: Negative for:Shortness of breath GASTROINTESTINAL: Negative for:Blood in stool MUSCULOSKELETAL: Negtive for: Muscle or joint pain, stiffness, Joint swelling SKIN: No rash HEMATOLOGICAL/LYMPHATIC: Negative for: Easy bruising and Easy bleeding CARDIOVASCULAR: As stated in HPI. 10 system review negative except as stated in HPI PHYSICAL EXAMINATION: BP 120/60 (BP Site: Right Arm, BP Position: Sitting, BP Cuff Size: Large Adult) Pulse 72 Wt 102.1 kg (225 lb) BMI 32.28 kg/m General: Well appearing, appears stated age and in no acute distress. Psych: Normal Affect. Alert and oriented to person, place and time. HEENT: Sclera are anicteric, conjunctive IV are moist without subconjunctival hemorrhage. PERRLA. Head is atraumatic. Oropharynx clear with moist mucous membranes. Neck: Neck is supple. No jugular venous distention, no carotid bruits. Lungs: Clear to auscultation bilaterally, no wheezing or rhonchi. Heart: S1, S2 normal, no murmur Abdomen. Soft, nontender, no organomegaly. Extremities: No peripheral edema Skin. Normal temperature, turgor and texture. No rashes, ulcers or subcutaneous nodules noted. Neuro: Grossly nonfocal LABS TSH 2.640 05/17/2019 Triglyceride 89 07/01/2021 HDL Cholesterol 43 07/01/2021 LDL Chol, Luanne 69 07/01/2021 Cholesterol, Total 130 07/01/2021 EK lead EKG 06/30/2021 shows normal sinus rhythm. IN and QT intervals are normal. There are no ST segment changes suggestive of ischemia or infarction. Holter monitor Patient had a min HR of 54 bpm, max HR of 182 bpm, and avg HR of 70 bpm. Predominant underlying rhythm was Sinus Rhythm. 1 run of Ventricular Tachycardia occurred lasting 14 beats with a max rate of 182 bpm (avg 155 bpm). 12 Supraventricular Tachycardia runs occurred, the run with the fastest interval lasting 14 beats with a max rate of 141 bpm, the longest lasting 19 beats with an avg rate of 115 bpm. Some episodes of Supraventricular Tachycardia may be possible Atrial Tachycardia with variable block. Isolated SVEs were rare (<1.0%), SVE Couplets were rare (<1.0%), and SVE Triplets were rare (<1.0%). Isolated VEs were rare (<1.0%, 5609), VE Couplets were rare (<1.0%, 14), and VE Triplets were rare Impression/Recommendations Abnormal Holter monitor with nonsustained ventricular tachycardia, SVT, rare premature atrial and premature ventricular complexes History of syncope Difficult to determine whether his 1 episode of syncope this summer may have been due to the rhythm abnormalities described above. We will start further work-up with doing an echocardiogram. He does not have any symptoms of myocardial ischemia and for that reason I will defer stress testing for now. It is possible that the syncopal episode may be due to orthostatic hypotension or vasovagal. Encouraged him to keep himself hydrated. He does not have any symptoms such as palpitations so we will hold off on starting him on a beta-stan right now. Essential hypertension Continue on hydrochlorothiazide Hyperlipidemia Continue on atorvastatin 20 mg daily. Follow-up in 6 months. Thank you for allowing me to participate in the care of this patient. Please don't hesitate to contact me if there are any questions regarding the care of our mutual patient. Ryan Mane MD, [facility] Cardiovascular Medicine Pager: [phone] October 20, 2021 documented in this encounter [facility] 08-14-2021 Note HNO ID: [id number] Author: Adama Henson APRN.DELANEY, JESUS MANUEL Service: ? Author Type: Nurse Practitioner Type: Progress Notes Filed: 08/14/2021 11:31 AM Note Text: Chief Complaint Patient presents with: Recheck HPI Ag Hayes is a 76 year old male who presents here today for a follow up on leg swelling. Presents to the [facility] as an established patient of mine. New patient of mine. No recent urgent care visits, ER visits, or hospitalizations. Past medical history: Hyperlipidemia, hypertension, obesity, stage III CKD, colon polyps, allergic rhinitis, gout, osteoarthritis, postherpetic neuralgia, shingles, elevated PSA, Obesity Specialist: Nephrology: Seen approximately every 6 months to monitor CKD Leg swelling: Seen last week for left lower leg swelling. Given Lasix x 7 days. Denies redness or pain. Ultrasound to rule out DVT was obtained and was negative for DVT. Here today for follow-up. States improvement in his symptoms compared to last week. Denies chest pain, shortness of breath, lightheadedness or dizziness. Denies fever or chills. Denies redness of the lower leg. No pain in the leg. No swelling of the right leg. Denies trauma or injury. No recent changes in his medication regimen. -I have been following him for episodes of collapsing over the past 6 months. He has had no further collapsing episodes. EKG and Zio patch heart monitor was completed. Cardiology appointment is scheduled for October. Carotid US to be completed tomorrow. Hypertension: Blood pressure controlled. Takes hydrochlorothiazide 25 mg daily. Denies elevated blood pressures. No chest pain or SOB. Otherwise feeling well. CKD stage III: Previously followed by nephrology every 6 months. Continues to maintain hydration throughout the day and monitor his blood pressure. No current urinary symptoms. Past medical history, appointments, medications, allergies reviewed 08/14/2021 Previous Medical History PAST MEDICAL HISTORY Diagnosis Date - Benign neoplasm of colon - Coronary artery disease - Essential hypertension, benign 05/03/2008 - Gout, unspecified - Herpes zoster without mention of complication - Kidney disease - Mental disorder - Mixed hyperlipidemia 05/03/2008 - Other and unspecified hyperlipidemia - Snoring - Unspecified essential hypertension Previous Surgical History PAST SURGICAL HISTORY Procedure Laterality Date - COLSC FLX W/RMVL OF TUMOR POLYP LESION SNARE TQ polyps at hepatic flexure, descending colon, 20cm - COLSC FLX W/RMVL OF TUMOR POLYP LESION SNARE TQ 08/25/11/ polyps at 15 and 30cm - follow up in 3 years - PAST SURGICAL HISTORY OF 2000 lump removed from left breast - PAST SURGICAL HISTORY OF 1976 pilonidal cyst - PAST SURGICAL HISTORY OF 09/12/2009 right finger surgery - PAST SURGICAL HISTORY OF 2nd surgery on right finger - TONSILLECTOMY PRIMARY/SECONDARY Tonsillectomy Family History FAMILY HISTORY Problem Relation Age of Onset - Coronary Artery Disease Mother ruptured cardiac wall (aneurysm?) - Alcohol/Drug Father - Coronary Artery Disease Father severe alcoholism - COPD Sister Patient Allergies ALLERGIES Allergen Reactions - Environmental [Othe* Current Medications Current Outpatient Medications on File Prior to Visit Medication Sig - cephALEXin (KEFLEX) 500 mg capsule Take 500 mg by mouth four times daily. - ATORVASTATIN CALCIUM (ATORVASTATIN ORAL) Take by mouth. - HYDROCHLOROTHIAZIDE 25 mg tablet Take 0.5 tablets by mouth once daily. TAKE ONEHALF(1/2) TABLET DAILY. - gabapentin 300 mg capsule Take 1 capsule by mouth three times daily. Start with one at bedtime and gradually increase to tid. - ALLOPURINOL 300 MG TAB Take one(1) tablet daily. - TRIAMCINOLONE ACETONIDE 0.1 % TOPICAL CREAM Apply to affected area(s) twice daily. - ASPIRIN 81 MG TAB Take one(1) tablet daily. - ACETAMINOPHEN 500 MG TAB Take two tablets as needed No current facility-administered medications on file prior to visit. Social History Social History Tobacco Use - Smoking status: Former Smoker Packs/day: 2.00 Years: 15.00 Pack years: 30.00 Quit date: 04/15/1972 Years since quittin.3 - Smokeless tobacco: Never Used Vaping Use - Vaping Use: Never used Substance Use Topics - Alcohol use: Yes Comment: once q 2mo. - Drug use: No Review of Symptoms GENERAL: No unintentional weight loss, malaise or fevers. NECK: Negative for lumps, pain RESPIRATORY: No wheezing, dyspnea or shortness of breath CARDIOVASCULAR: Negative for chest pain, leg swelling GI: No nausea, vomiting MUSCULOSKELETAL: generalized joint pain. No swelling HEMATOLOGY/LYMPHOLOGY: Negative for swollen nodes EXAM: BP 126/68 Pulse 79 Resp 16 Wt 107 kg (236 lb) SpO2 97% BMI 33.86 kg/m? General Appearance: Chronically ill appearing, but alert, in no acute distress, hydrated, well nourished. Obese Skin: Skin color, texture, turgor (more content not included)... [facility] 08-14-2021 Instructions Adama Henson APRN.JESUS MANUEL BALTAZAR - 08/14/2021 11:16 AM EDT Follow up in 6 months Complete lab work: Check kidney function and electrolytes today Carotid ultrasound scheduled for tomorrow. Clinic to call with results Return to the clinic or seek care at Express[facility]Urgent [facility] for any worsening signs or symptoms: such as fevers, chills, worsening swelling. For severe symptoms seek care at the closest ER. Plan of care, medicaiton side effects and management reviewed with patient. Healthy Habits: Recommend regular physical activity, nutrition and healthy eating habits. Consume a variety of foods every day focusing on fruits, vegetables and lean meats). Eat foods low in fat, saturated fat and cholesterol. Eat a limited amount of salt and sodium. Drink adequate amounts of water and limit sugary drinks. Exercise portion control in meal selection. Establish a mindset of a wellness approach to health. Thank you for allowing me to provide your care today. I look forward to seeing you again and maintaining your health. Adama Henson APRN.JESUS MANUEL BALTAZAR documented in this encounter [facility] 08-14-2021 History of Present illness Narrative Chief Complaint Patient presents with: Recheck HPI Ag Hayes is a 76 year old male who presents here today for a follow up on leg swelling. Presents to the [facility] as an established patient of mine. New patient of mine. No recent urgent care visits, ER visits, or hospitalizations. Past medical history: Hyperlipidemia, hypertension, obesity, stage III CKD, colon polyps, allergic rhinitis, gout, osteoarthritis, postherpetic neuralgia, shingles, elevated PSA, Obesity Specialist: Nephrology: Seen approximately every 6 months to monitor CKD Leg swelling: Seen last week for left lower leg swelling. Given Lasix x 7 days. Denies redness or pain. Ultrasound to rule out DVT was obtained and was negative for DVT. Here today for follow-up. States improvement in his symptoms compared to last week. Denies chest pain, shortness of breath, lightheadedness or dizziness. Denies fever or chills. Denies redness of the lower leg. No pain in the leg. No swelling of the right leg. Denies trauma or injury. No recent changes in his medication regimen. -I have been following him for episodes of collapsing over the past 6 months. He has had no further collapsing episodes. EKG and Zio patch heart monitor was completed. Cardiology appointment is scheduled for October. Carotid US to be completed tomorrow. Hypertension: Blood pressure controlled. Takes hydrochlorothiazide 25 mg daily. Denies elevated blood pressures. No chest pain or SOB. Otherwise feeling well. CKD stage III: Previously followed by nephrology every 6 months. Continues to maintain hydration throughout the day and monitor his blood pressure. No current urinary symptoms. Past medical history, appointments, medications, allergies reviewed 08/14/2021 Previous Medical History PAST MEDICAL HISTORY Diagnosis Date Benign neoplasm of colon Coronary artery disease Essential hypertension, benign 05/03/2008 Gout, unspecified Herpes zoster without mention of complication Kidney disease Mental disorder Mixed hyperlipidemia 05/03/2008 Other and unspecified hyperlipidemia Snoring Unspecified essential hypertension Previous Surgical History PAST SURGICAL HISTORY Procedure Laterality Date COLSC FLX W/RMVL OF TUMOR POLYP LESION SNARE TQ polyps at hepatic flexure, descending colon, 20cm COLSC FLX W/RMVL OF TUMOR POLYP LESION SNARE TQ 08/25/11/ polyps at 15 and 30cm - follow up in 3 years PAST SURGICAL HISTORY OF 1999 lump removed from left breast PAST SURGICAL HISTORY OF 1976 pilonidal cyst PAST SURGICAL HISTORY OF 09/12/2009 right finger surgery PAST SURGICAL HISTORY OF 2nd surgery on right finger TONSILLECTOMY PRIMARY/SECONDARY <AGE 10 Tonsillectomy Family History FAMILY HISTORY Problem Relation Age of Onset Coronary Artery Disease Mother ruptured cardiac wall (aneurysm?) Alcohol/Drug Father Coronary Artery Disease Father severe alcoholism COPD Sister Patient Allergies ALLERGIES Allergen Reactions Environmental [Othe* Current Medications Current Outpatient Medications on File Prior to Visit Medication Sig cephALEXin (KEFLEX) 500 mg capsule Take 500 mg by mouth four times daily. ATORVASTATIN CALCIUM (ATORVASTATIN ORAL) Take by mouth. HYDROCHLOROTHIAZIDE 25 mg tablet Take 0.5 tablets by mouth once daily. TAKE ONEHALF(1/2) TABLET DAILY. gabapentin 300 mg capsule Take 1 capsule by mouth three times daily. Start with one at bedtime and gradually increase to tid. ALLOPURINOL 300 MG TAB Take one(1) tablet daily. TRIAMCINOLONE ACETONIDE 0.1 % TOPICAL CREAM Apply to affected area(s) twice daily. ASPIRIN 81 MG TAB Take one(1) tablet daily. ACETAMINOPHEN 500 MG TAB Take two tablets as needed No current facility-administered medications on file prior to visit. Social History Social History Tobacco Use Smoking status: Former Smoker Packs/day: 2.00 Years: 15.00 Pack years: 30.00 Quit date: 04/15/1972 Years since quittin.3 Smokeless tobacco: Never Used Vaping Use Vaping Use: Never used Substance Use Topics Alcohol use: Yes Comment: once q 2mo. Drug use: No Review of Symptoms GENERAL: No unintentional weight loss, malaise or fevers. NECK: Negative for lumps, pain RESPIRATORY: No wheezing, dyspnea or shortness of breath CARDIOVASCULAR: Negative for chest pain, leg swelling GI: No nausea, vomiting MUSCULOSKELETAL: generalized joint pain. No swelling HEMATOLOGY/LYMPHOLOGY: Negative for swollen nodes EXAM: BP 126/68 Pulse 79 Resp 16 Wt 107 kg (236 lb) SpO2 97% BMI 33.86 kg/m General Appearance: Chronically ill appearing, but alert, in no acute distress, hydrated, well nourished. Obese Skin: Skin color, texture, turgor normal Head: Normocephalic, no masses Eyes: Anicteric sclera. Neck: Supple, no adenopathy; thyroid symmetric, normal size, no bruits. Lungs: Lungs clear to auscultation. No wheezing, rhonchi, rales. Heart: RRR without murmur, gallop, or rubs. No ectopy. Normal S1 and S2. Extremities: No deformities, edema, skin discoloration. MSK: FROM of upper and lower extremities. No joint swelling or redness. LE: Right leg at mid calf measures 40 cm and left leg measures 42 cm. no pitting edema noted on the left. No pitting edema or swelling noted on the right. No swelling above the knee on the left. No pain upon palpation. No redness. No cellulitis. No varicosities. Peripheral Pulses: Normal - radial and carotid 2+ Dorsalis pedis pulses are 1+ on the left side. Posterior tibial pulses are 1+ on the left side. Comments: No calf tenderness Psych: Attitude - Cooperative, easily engaged in conversation Appearance - Normal hygiene and grooming appropriate Affect - Euthymic (normal mood), Mental status: Alert, attentive. Speech is clear and fluent with good repetition, comprehension Coordination: No abnormal or extraneous movements. Gait/Stance: Posture is normal. Gait is steady with normal steps Health Maintenance List ANNUAL PCP TEAM CHRONIC DISEASE VISIT due on 1961 HEPATITIS C SCREENING due on 1961 BP CONTROLLED (<130/80) due on 1961 DTAP,TDAP,TD(1 - Tdap) due on 1962 SHINGRIX VACCINE(1 of 2) due on 1993 ADVANCE DIRECTIVE DISCUSSION due on 2008 INFLUENZA(1) due on 11/14/2019 COLORECTAL CANCER SCREENING due on 01/13/2020 SERUM CREATININE due on 02/08/2021 HEMOGLOBIN/HEMATOCRIT due on 02/08/2021 DIABETES SCREEN due on 05/16/2022 PNEUMOVAX AGE 65 AND OVER WITH 5YR LOOKBACK Completed MENINGOCOCCAL CONJUGATE Completed Data reviewed Last 5 Encounter BP Readings: Date: BP: 07/29/2021 122/66 07/28/2021 124/60 07/22/2021 110/62 06/30/2021 122/70 01/09/2021 124/66 BMI Readings from Last 5 Encounters: 08/14/21 : 33.86 kg/m 08/05/21 : 34.44 kg/m 07/29/21 : 34.44 kg/m 07/28/21 : 34.29 kg/m 07/22/21 : 35.01 kg/m Last 5 Encounter Wt Readings: Date: Wt: 07/29/2021 108.9 kg (240 lb) 07/28/2021 108.4 kg (239 lb) 07/22/2021 110.7 kg (244 lb) 06/30/2021 111.1 kg (245 lb) 01/09/2021 112.9 kg (249 lb) Medication and allergy list reviewed, reconciled and updated 08/05/2021 Results US DVT LOWER LT (Order [id number]) Patient Info Patient Name Sex Ag Lugo ([id number]) Male 1945 07/28/2021 12:08 PM - Radiology, [place] In Impression IMPRESSION: Negative study for proximal DVT in the left lower extremity. Negative study for calf DVT in the left lower extremity. Negative study for superficial thrombophlebitis in the imaged segments of the left lower extremity. Desulphuring Operator: GUILLERMO Transcribe Date/Time: Jul 28 2021 12:04P Dictated by : BRADLY YOUNGBLOOD MD This examination was interpreted and the report reviewed and electronically signed by: BRADLY YOUNGBLOOD MD on Jul 28 2021 12:06PM EST Results-Findings * * *Final Report* * * DATE OF EXAM: Jul 28 2021 12:02PM WRU 1006 - US DVT LOWER LT / PROCEDURE REASON: Left leg swelling * * * * Physician Interpretation * * * * EXAMINATION: LEFT LOWER EXTREMITY DEEP VENOUS ULTRASOUND WITH DOPPLER IMAGING CLINICAL HISTORY: Left leg swelling TECHNIQUE: Grayscale with compression maneuvers, color Doppler and spectral Doppler imaging of the left proximal deep veins was performed. Grayscale with compression maneuvers of the peroneal and posterior tibial veins was performed. The left great and small saphenous veins were evaluated at their insertion to the deep system. The contralateral common femoral vein was imaged for comparison. Images were obtained and stored in a permanent archive. MQ: [id number] COMPARISON: None RESULT: LEFT LOWER EXTREMITY PROXIMAL DEEP VEINS Distal External Iliac, Common Femoral and proximal Profunda Veins: Compression: Normal Doppler: Normal, spontaneous respirophasic flow. Normal response to augmentation. Femoral vein: Compression: Normal Doppler: Normal, spontaneous flow. Normal response to augmentation. Popliteal vein: Compression: Normal Doppler: Normal, spontaneous flow. Normal response to augmentation. CALF DEEP VEINS Peroneal veins: Normal compression. Posterior tibial veins: Normal compression. Gastrocnemius and Soleal veins: Not imaged. SUPERFICIAL VEINS Great saphenous: Patent and compressible at insertion into common femoral vein; not otherwise assessed. Small Saphenous: Patent and compressible in the proximal calf, not otherwise assessed. RIGHT LOWER EXTREMITY (FOR COMPARISON) Common Femoral Vein: Compression: Normal Doppler: Normal, spontaneous respirophasic flow. Normal response to augmentation. Result History US DVT LOWER LT (Order #[id number]) on 07/28/2021 - Order Result History Report Result Information Status Provider Status Component Latest Ref Rng & Units 07/29/2021 Protein, Total 6.3 - 8.0 g/dL 7.2 Albumin 3.9 - 4.9 g/dL 4.1 Calcium 8.5 - 10.2 mg/dL 9.8 Bilirubin, Total 0.2 - 1.3 mg/dL 1.2 Alkaline Phosphatase 38 - 113 U/L 104 AST 14 - 40 U/L 18 ALT 10 - 54 U/L 12 Glucose 74 - 99 mg/dL 112 (H) BUN 9 - 24 mg/dL 22 Creatinine 0.73 - 1.22 mg/dL 1.66 (H) Sodium 136 - 144 mmol/L 140 Potassium 3.7 - 5.1 mmol/L 3.5 (L) Chloride 97 - 105 mmol/L 100 CO2 22 - 30 mmol/L 29 Anion Gap 9 - 18 mmol/L 11 eGFR >=60 mL/min/1.73m 42 (L) NT Pro BNP <450 pg/mL 62 ASSESSMENT/PLAN: 1. Localized swelling of left lower leg - ICD9: 782.2, ICD10: R22.42 (primary diagnosis) MDM: Improved/resolving Ultrasound negative for DVT. Reviewed labs with patient. Labs clinically stable. No acute findings. No chest pain, shortness of breath, fevers or chills. Plan: check BMP Continue with his regular medications Carotid vascular US - tomorrow Pending cardiology consultation Consider compression stocking Elevate leg during day. Go to ER for any worsening symptoms, chest pain, shortness of breath, redness of the lower extremity. Contact my office for any worsening swelling. 2. Collapse fleeting - ICD9: 780.2, ICD10: R55 MDM: Clinically stable with an unremarkable exam today. - Unclear etiology for these episodes where he collapses but does not lose consciousness or blackout. Does not appear to be musculoskeletal related. No further episodes since his Zio patch completed an additional work-up. He was referred to cardiology and has appointment scheduled for early October. Inform patient for any recurrent episodes to follow-up with me here in the clinic and we can see about a sooner cardiology consultation. Plan: Cardiology consult pending. Carotid US is scheduled for tomorrow. 3. Stage 3b chronic kidney disease (HCC) - ICD9: 585.3, ICD10: N18.32 (primary diagnosis) Clinically stable. Reviewed labs with patient. Stable GFR. Continue to monitor renal function. Repeat lab work for kidney function today Continue follow-up with nephrology - open to seeing [facility] Neprhology team. Maintain adequate blood pressure, low protein diet and adequate hydration to maintain adequate kidney function follow up in 6 months 4. Obesity, Class II, BMI 35-39.9 - ICD9: 278.00, ICD10: E66.9 Recommend regular physical activity, nutrition and healthy eating habits. Consume a variety of foods every day focusing on fruits, vegetables and lean meats). Eat foods low in fat, saturated fat and cholesterol. Eat a limited amount of salt and sodium. Drink adequate amounts of water and limit sugary drinks. Exercise portion control in meal selection. Establish a mindset of a wellness approach to health. 5. Prediabetes - ICD9: 790.29, ICD10: R73.03 Reviewed lab work with patient Hemoglobin A1c was stable. Recommend repeat A1c and check BS Goals: 1. Healthful eating pattern to improve overall health 2. Attain individualized glycemic, BP, and lipid goals 3. Achieve and maintain body weight goals 4. Delay or prevent diabetes complications follow up in 6 months 6. Essential hypertension, benign - ICD9: 401.1, ICD10: I10 - good control - Continue current medication(s) - Encouraged dietary sodium restriction/DASH diet - Recommended regular aerobic exercise. - Discussed need and benefit for weight loss. - Goal of BP <140/90 - Recommend home or pharmacy blood pressure monitoring follow up in 6 months Adama Henson APRN.JESUS MANUEL BALTAZAR This note was completed with [employer] dictation software. Note was reviewed for accuracy. There may be minor misspellings or grammar miscues with [employer] Dictation. I spent a total of 26 minutes on the date of the service which included preparing to see the patient, [id number] patient care, completing clinical documentation, performing a medically appropriate examination, counseling and educating the patient/family/caregiver and ordering medications, tests, or procedures. [place] [id number] This note was copied from previous note and exam dated 08/05/21 . Author is Adama Henson APRN.JESUS MANUEL BALTAZAR note reviewed and changes have been made or updates noted in the copy & paste portion of an encounter. documented in this encounter [facility] 08-05-2021 Note HNO ID: [id number] Author: Adama Henson APRN.JESUS MANUEL BALTAZAR Service: ? Author Type: Nurse Practitioner Type: Progress Notes Filed: 08/05/2021 10:14 AM Note Text: Chief Complaint Patient presents with: Recheck HPI Ag Hayes is a 76 year old male who presents here today for a follow up from urgent care. Presents to the [facility] as an established patient of [facility]. New patient of [facility]. No recent urgent care visits, ER visits, or hospitalizations. Past medical history: Hyperlipidemia, hypertension, obesity, stage III CKD, colon polyps, allergic rhinitis, gout, osteoarthritis, postherpetic neuralgia, shingles, elevated PSA, Obesity Specialist: Nephrology: Seen approximately every 6 months to monitor CKD Leg swelling: Seen last week for left lower leg swelling. Given Lasix x 4 days. Denies redness or pain. Ultrasound to rule out DVT was obtained and was negative for DVT. Here today for follow-up. States minor improvement in his symptoms compared to last week. Denies chest pain, shortness of breath, lightheadedness or dizziness. Denies fever or chills. Denies redness of the lower leg. No pain in the leg. No swelling of the right leg. Denies trauma or injury. No recent changes in his medication regimen. -I have been following him for episodes of collapsing over the past 6 months. He has had no further collapsing episodes. EKG and Zio patch heart monitor was completed. Cardiology appointment is scheduled for October. Yesterday I ordered a carotid US to be completed. Will need to schedule. Hypertension: Blood pressure controlled. Takes hydrochlorothiazide 25 mg daily. Denies elevated blood pressures. No chest pain or SOB. Otherwise feeling well. CKD stage III: Previously followed by nephrology every 6 months. Recent lab work completed shows slightly decreased GFR to 43. Continues to maintain hydration throughout the day and monitor his blood pressure. No current urinary symptoms. Elevated PSA: Recently seen by Edson King in urology on July 22. Repeat PSA was improved. Recommended follow-up in 1 year Past medical history, appointments, medications, allergies reviewed 08/05/2021 Previous Medical History PAST MEDICAL HISTORY Diagnosis Date - Benign neoplasm of colon - Coronary artery disease - Essential hypertension, benign 05/03/2008 - Gout, unspecified - Herpes zoster without mention of complication - Kidney disease - Mental disorder - Mixed hyperlipidemia 05/03/2008 - Other and unspecified hyperlipidemia - Snoring - Unspecified essential hypertension Previous Surgical History PAST SURGICAL HISTORY Procedure Laterality Date - COLSC FLX W/RMVL OF TUMOR POLYP LESION SNARE TQ polyps at hepatic flexure, descending colon, 20cm - COLSC FLX W/RMVL OF TUMOR POLYP LESION SNARE TQ 08/25/11/ polyps at 15 and 30cm - follow up in 3 years - PAST SURGICAL HISTORY OF 1999 lump removed from left breast - PAST SURGICAL HISTORY OF 1976 pilonidal cyst - PAST SURGICAL HISTORY OF 09/12/2009 right finger surgery - PAST SURGICAL HISTORY OF 2nd surgery on right finger - TONSILLECTOMY PRIMARY/SECONDARY Tonsillectomy Family History FAMILY HISTORY Problem Relation Age of Onset - Coronary Artery Disease Mother ruptured cardiac wall (aneurysm?) - Alcohol/Drug Father - Coronary Artery Disease Father severe alcoholism - COPD Sister Patient Allergies ALLERGIES Allergen Reactions - Environmental [Othe* Current Medications Current Outpatient Medications on File Prior to Visit Medication Sig - cephALEXin (KEFLEX) 500 mg capsule Take 500 mg by mouth four times daily. - ATORVASTATIN CALCIUM (ATORVASTATIN ORAL) Take by mouth. - HYDROCHLOROTHIAZIDE 25 mg tablet Take 0.5 tablets by mouth once daily. TAKE ONEHALF(1/2) TABLET DAILY. - gabapentin 300 mg capsule Take 1 capsule by mouth three times daily. Start with one at bedtime and gradually increase to tid. - ALLOPURINOL 300 MG TAB Take one(1) tablet daily. - TRIAMCINOLONE ACETONIDE 0.1 % TOPICAL CREAM Apply to affected area(s) twice daily. - ASPIRIN 81 MG TAB Take one(1) tablet daily. - ACETAMINOPHEN 500 MG TAB Take two tablets as needed No current facility-administered medications on file prior to visit. Social History Social History Tobacco Use - Smoking status: Former Smoker Packs/day: 2.00 Years: 15.00 Pack years: 30.00 Quit date: 04/15/1972 Years since quittin.3 - Smokeless tobacco: Never Used Vaping Use - Vaping Use: Never used Substance Use Topics - Alcohol use: Yes Comment: once q 2mo. - Drug use: No Review of Symptoms GENERAL: No unintentional weight loss, malaise or fevers. NECK: Negative for lumps, pain RESPIRATORY: No wheezing, dyspnea or shortness of breath CARDIOVASCULAR: Negative for chest pain, leg swelling GI: No nausea, vomiting, or diarrhea. : No dysuria, No hematuria. MUSCULOSKELETAL: generalized joint pain. No swelling HEMATOLO (more content not included)... [facility] 08-05-2021 Instructions Adama Henson APRN.CNP, DNP - 08/05/2021 9:48 AM EDT Follow up with Adama Henson APRN.CNP, DNP in 1 week Schedule carotid ultrasound -clinic to call with results Lasix x7 days Complete advance directives form Return to the clinic or seek care at [facility] for any worsening signs or symptoms: such as fevers, chills, worsening pain, or swelling. For severe symptoms seek care at the closest ER. Plan of care, medicaiton side effects and management reviewed with patient. Healthy Habits: Recommend regular physical activity, nutrition and healthy eating habits. Consume a variety of foods every day focusing on fruits, vegetables and lean meats). Eat foods low in fat, saturated fat and cholesterol. Eat a limited amount of salt and sodium. Drink adequate amounts of water and limit sugary drinks. Exercise portion control in meal selection. Establish a mindset of a wellness approach to health. Thank you for allowing me to provide your care today. I look forward to seeing you again and maintaining your health. Adama Henson APRN.JESUS MANUEL BALTAZAR documented in this encounter [facility] 08-05-2021 History of Present illness Narrative Chief Complaint Patient presents with: Recheck HPI Ag Hayes is a 76 year old male who presents here today for a follow up from urgent care. Presents to the [facility] as an established patient of Functional Neuromodulation. New patient of Functional Neuromodulation. No recent urgent care visits, ER visits, or hospitalizations. Past medical history: Hyperlipidemia, hypertension, obesity, stage III CKD, colon polyps, allergic rhinitis, gout, osteoarthritis, postherpetic neuralgia, shingles, elevated PSA, Obesity Specialist: Nephrology: Seen approximately every 6 months to monitor CKD Leg swelling: Seen last week for left lower leg swelling. Given Lasix x 4 days. Denies redness or pain. Ultrasound to rule out DVT was obtained and was negative for DVT. Here today for follow-up. States minor improvement in his symptoms compared to last week. Denies chest pain, shortness of breath, lightheadedness or dizziness. Denies fever or chills. Denies redness of the lower leg. No pain in the leg. No swelling of the right leg. Denies trauma or injury. No recent changes in his medication regimen. -I have been following him for episodes of collapsing over the past 6 months. He has had no further collapsing episodes. EKG and Zio patch heart monitor was completed. Cardiology appointment is scheduled for October. Yesterday I ordered a carotid US to be completed. Will need to schedule. Hypertension: Blood pressure controlled. Takes hydrochlorothiazide 25 mg daily. Denies elevated blood pressures. No chest pain or SOB. Otherwise feeling well. CKD stage III: Previously followed by nephrology every 6 months. Recent lab work completed shows slightly decreased GFR to 43. Continues to maintain hydration throughout the day and monitor his blood pressure. No current urinary symptoms. Elevated PSA: Recently seen by Edson King in urology on July 22. Repeat PSA was improved. Recommended follow-up in 1 year Past medical history, appointments, medications, allergies reviewed 08/05/2021 Previous Medical History PAST MEDICAL HISTORY Diagnosis Date Benign neoplasm of colon Coronary artery disease Essential hypertension, benign 05/03/2008 Gout, unspecified Herpes zoster without mention of complication Kidney disease Mental disorder Mixed hyperlipidemia 05/03/2008 Other and unspecified hyperlipidemia Snoring Unspecified essential hypertension Previous Surgical History PAST SURGICAL HISTORY Procedure Laterality Date COLSC FLX W/RMVL OF TUMOR POLYP LESION SNARE TQ polyps at hepatic flexure, descending colon, 20cm COLSC FLX W/RMVL OF TUMOR POLYP LESION SNARE TQ 08/25/11/ polyps at 15 and 30cm - follow up in 3 years PAST SURGICAL HISTORY OF 1999 lump removed from left breast PAST SURGICAL HISTORY OF 1976 pilonidal cyst PAST SURGICAL HISTORY OF 09/12/2009 right finger surgery PAST SURGICAL HISTORY OF 2nd surgery on right finger TONSILLECTOMY PRIMARY/SECONDARY <AGE 10 Tonsillectomy Family History FAMILY HISTORY Problem Relation Age of Onset Coronary Artery Disease Mother ruptured cardiac wall (aneurysm?) Alcohol/Drug Father Coronary Artery Disease Father severe alcoholism COPD Sister Patient Allergies ALLERGIES Allergen Reactions Environmental [Othe* Current Medications Current Outpatient Medications on File Prior to Visit Medication Sig cephALEXin (KEFLEX) 500 mg capsule Take 500 mg by mouth four times daily. ATORVASTATIN CALCIUM (ATORVASTATIN ORAL) Take by mouth. HYDROCHLOROTHIAZIDE 25 mg tablet Take 0.5 tablets by mouth once daily. TAKE ONEHALF(1/2) TABLET DAILY. gabapentin 300 mg capsule Take 1 capsule by mouth three times daily. Start with one at bedtime and gradually increase to tid. ALLOPURINOL 300 MG TAB Take one(1) tablet daily. TRIAMCINOLONE ACETONIDE 0.1 % TOPICAL CREAM Apply to affected area(s) twice daily. ASPIRIN 81 MG TAB Take one(1) tablet daily. ACETAMINOPHEN 500 MG TAB Take two tablets as needed No current facility-administered medications on file prior to visit. Social History Social History Tobacco Use Smoking status: Former Smoker Packs/day: 2.00 Years: 15.00 Pack years: 30.00 Quit date: 04/15/1972 Years since quittin.3 Smokeless tobacco: Never Used Vaping Use Vaping Use: Never used Substance Use Topics Alcohol use: Yes Comment: once q 2mo. Drug use: No Review of Symptoms GENERAL: No unintentional weight loss, malaise or fevers. NECK: Negative for lumps, pain RESPIRATORY: No wheezing, dyspnea or shortness of breath CARDIOVASCULAR: Negative for chest pain, leg swelling GI: No nausea, vomiting, or diarrhea. : No dysuria, No hematuria. MUSCULOSKELETAL: generalized joint pain. No swelling HEMATOLOGY/LYMPHOLOGY: Negative for swollen nodes EXAM: BP 128/76 Pulse 82 Temp 36.6 C (97.9 F) Resp 14 Wt 108.9 kg (240 lb) SpO2 97% BMI 34.44 kg/m General Appearance: Chronically ill appearing, but alert, in no acute distress, hydrated, well nourished. Obese Skin: Skin color, texture, turgor normal Head: Normocephalic, no masses Eyes: Anicteric sclera. Neck: Supple, no adenopathy; thyroid symmetric, normal size, no bruits. Lungs: Lungs clear to auscultation. No wheezing, rhonchi, rales. Heart: RRR without murmur, gallop, or rubs. No ectopy. Normal S1 and S2. Extremities: No deformities, edema, skin discoloration. Good capillary refill. MSK: FROM of upper and lower extremities. No joint swelling or redness. LE: Right leg at mid calf measures 40 cm and left leg measures 44 cm. Mild swelling, no pitting edema noted on the left. No pitting edema or swelling noted on the right. No swelling above the knee on the left. No pain upon palpation. No redness. No cellulitis. No varicosities. Peripheral Pulses: Normal - radial and carotid 2+ Dorsalis pedis pulses are 2+ on the right side and 1+ on the left side. Posterior tibial pulses are 2+ on the right side and 1+ on the left side. Comments: No calf tenderness Psych: Attitude - Cooperative, easily engaged in conversation Appearance - Normal hygiene and grooming appropriate Affect - Euthymic (normal mood), Mental status: Alert, attentive. Speech is clear and fluent with good repetition, comprehension Coordination: No abnormal or extraneous movements. Gait/Stance: Posture is normal. Gait is steady with normal steps Health Maintenance List ANNUAL PCP TEAM CHRONIC DISEASE VISIT due on 1961 HEPATITIS C SCREENING due on 1961 BP CONTROLLED (<130/80) due on 1961 DTAP,TDAP,TD(1 - Tdap) due on 1962 SHINGRIX VACCINE(1 of 2) due on 1993 ADVANCE DIRECTIVE DISCUSSION due on 2008 INFLUENZA(1) due on 11/14/2019 COLORECTAL CANCER SCREENING due on 01/13/2020 SERUM CREATININE due on 02/08/2021 HEMOGLOBIN/HEMATOCRIT due on 02/08/2021 DIABETES SCREEN due on 05/16/2022 PNEUMOVAX AGE 65 AND OVER WITH 5YR LOOKBACK Completed MENINGOCOCCAL CONJUGATE Completed Data reviewed Last 5 Encounter BP Readings: Date: BP: 07/29/2021 122/66 07/28/2021 124/60 07/22/2021 110/62 06/30/2021 122/70 01/09/2021 124/66 BMI Readings from Last 5 Encounters: 08/05/21 : 34.44 kg/m 07/29/21 : 34.44 kg/m 07/28/21 : 34.29 kg/m 07/22/21 : 35.01 kg/m 06/30/21 : 35.15 kg/m Last 5 Encounter Wt Readings: Date: Wt: 07/29/2021 108.9 kg (240 lb) 07/28/2021 108.4 kg (239 lb) 07/22/2021 110.7 kg (244 lb) 06/30/2021 111.1 kg (245 lb) 01/09/2021 112.9 kg (249 lb) Medication and allergy list reviewed, reconciled and updated 08/05/2021 Results US DVT LOWER LT (Order [id number]) Patient Info Patient Name Sex Ag Lugo ([id number]) Male 1945 07/28/2021 12:08 PM - Radiology, [facility] In Impression IMPRESSION: Negative study for proximal DVT in the left lower extremity. Negative study for calf DVT in the left lower extremity. Negative study for superficial thrombophlebitis in the imaged segments of the left lower extremity. Desulphuring Operator: PSCB Transcribe Date/Time: Jul 28 2021 12:04P Dictated by : BRADLY YOUNGBLOOD MD This examination was interpreted and the report reviewed and electronically signed by: BRADLY YOUNGBLOOD MD on Jul 28 2021 12:06PM EST Results-Findings * * *Final Report* * * DATE OF EXAM: Jul 28 2021 12:02PM WRU 1006 - US DVT LOWER LT / PROCEDURE REASON: Left leg swelling * * * * Physician Interpretation * * * * EXAMINATION: LEFT LOWER EXTREMITY DEEP VENOUS ULTRASOUND WITH DOPPLER IMAGING CLINICAL HISTORY: Left leg swelling TECHNIQUE: Grayscale with compression maneuvers, color Doppler and spectral Doppler imaging of the left proximal deep veins was performed. Grayscale with compression maneuvers of the peroneal and posterior tibial veins was performed. The left great and small saphenous veins were evaluated at their insertion to the deep system. The contralateral common femoral vein was imaged for comparison. Images were obtained and stored in a permanent archive. MQ: [id number] COMPARISON: None RESULT: LEFT LOWER EXTREMITY PROXIMAL DEEP VEINS Distal External Iliac, Common Femoral and proximal Profunda Veins: Compression: Normal Doppler: Normal, spontaneous respirophasic flow. Normal response to augmentation. Femoral vein: Compression: Normal Doppler: Normal, spontaneous flow. Normal response to augmentation. Popliteal vein: Compression: Normal Doppler: Normal, spontaneous flow. Normal response to augmentation. CALF DEEP VEINS Peroneal veins: Normal compression. Posterior tibial veins: Normal compression. Gastrocnemius and Soleal veins: Not imaged. SUPERFICIAL VEINS Great saphenous: Patent and compressible at insertion into common femoral vein; not otherwise assessed. Small Saphenous: Patent and compressible in the proximal calf, not otherwise assessed. RIGHT LOWER EXTREMITY (FOR COMPARISON) Common Femoral Vein: Compression: Normal Doppler: Normal, spontaneous respirophasic flow. Normal response to augmentation. Result History US DVT LOWER LT (Order #[id number]) on 07/28/2021 - Order Result History Report Result Information Status Provider Status Component Latest Ref Rng & Units 07/29/2021 Protein, Total 6.3 - 8.0 g/dL 7.2 Albumin 3.9 - 4.9 g/dL 4.1 Calcium 8.5 - 10.2 mg/dL 9.8 Bilirubin, Total 0.2 - 1.3 mg/dL 1.2 Alkaline Phosphatase 38 - 113 U/L 104 AST 14 - 40 U/L 18 ALT 10 - 54 U/L 12 Glucose 74 - 99 mg/dL 112 (H) BUN 9 - 24 mg/dL 22 Creatinine 0.73 - 1.22 mg/dL 1.66 (H) Sodium 136 - 144 mmol/L 140 Potassium 3.7 - 5.1 mmol/L 3.5 (L) Chloride 97 - 105 mmol/L 100 CO2 22 - 30 mmol/L 29 Anion Gap 9 - 18 mmol/L 11 eGFR >=60 mL/min/1.73m 42 (L) NT Pro BNP <450 pg/mL 62 ASSESSMENT/PLAN: 1. Localized swelling of left lower leg - ICD9: 782.2, ICD10: R22.42 (primary diagnosis) MDM: Mild improvement. Ultrasound negative for DVT. Reviewed labs with patient. Labs clinically stable. No acute findings. No chest pain, shortness of breath, fevers or chills. Swelling with minor improvement in the lower extremity with lasix. No use of compression stockings. Clinically he is stable. Consider recheck potassium levels at follow up DDx: Rule out electrolyte imbalance/derangement/early CHF, worsening CKD/venous insufficiency. Plan: Short course of Lasix at 20 mg daily x 7days. Continue with his regular medications Consider echocardiogram Schedule Carotid vascular US Pending cardiology consultation Consider compression stocking Elevate leg during day. Go to ER for any worsening symptoms, chest pain, shortness of breath, redness of the lower extremity. Contact my office for any worsening swelling. - FUROSEMIDE 20 MG TABLET 2. Collapse fleeting - ICD9: 780.2, ICD10: R55 MDM: Clinically stable with an unremarkable exam today. - Unclear etiology for these episodes where he collapses but does not lose consciousness or blackout. Does not appear to be musculoskeletal related. No further episodes since his Zio patch completed an additional work-up. He was referred to cardiology and has appointment scheduled for early October. Inform patient for any recurrent episodes to follow-up with me here in the clinic and we can see about a sooner cardiology consultation. Plan: Cardiology consult pending. I would consider a echocardiogram, bilat carotid US, or NCCT of brain to further evaluate. Zio results pending. Patient to schedule Bilat carotid US. 3. Stage 3b chronic kidney disease (HCC) - ICD9: 585.3, ICD10: N18.32 (primary diagnosis) Clinically stable. Reviewed labs with patient. Stable GFR. Continue to monitor renal function. Repeat lab work for kidney function Continue follow-up with nephrology - open to seeing [facility] Neprhology team. Maintain adequate blood pressure, low protein diet and adequate hydration to maintain adequate kidney function. - US KIDNEY/BLADDER 4. Obesity, Class II, BMI 35-39.9 - ICD9: 278.00, ICD10: E66.9 Recommend regular physical activity, nutrition and healthy eating habits. Consume a variety of foods every day focusing on fruits, vegetables and lean meats). Eat foods low in fat, saturated fat and cholesterol. Eat a limited amount of salt and sodium. Drink adequate amounts of water and limit sugary drinks. Exercise portion control in meal selection. Establish a mindset of a wellness approach to health. 5. Prediabetes - ICD9: 790.29, ICD10: R73.03 Reviewed lab work with patient Hemoglobin A1c was 5.9%. Recommend repeat A1c and check BS Goals: 1. Healthful eating pattern to improve overall health 2. Attain individualized glycemic, BP, and lipid goals 3. Achieve and maintain body weight goals 4. Delay or prevent diabetes complications 6. Essential hypertension, benign - ICD9: 401.1, ICD10: I10 - good control - Continue current medication(s) - Encouraged dietary sodium restriction/DASH diet - Recommended regular aerobic exercise. - Discussed need and benefit for weight loss. - Goal of BP <140/90 - Recommend home or pharmacy blood pressure monitoring 7. Advanced care planning/counseling discussion - ICD9: V65.49, ICD10: Z71.89 - ADVANCE CARE PLAN DISCUSSION Adama Blaz, HOOKER INSPECTOR.JESUS MANUEL BALTAZAR This note was completed with [employer] dictation software. Note was reviewed for accuracy. There may be minor misspellings or grammar miscues with [employer] Dictation. I spent a total of 22 minutes on the date of the service which included preparing to see the patient, [id number] patient care, completing clinical documentation, performing a medically appropriate examination, counseling and educating the patient/family/caregiver and ordering medications, tests, or procedures. [place] [id number] This note was copied from previous note and exam dated 07/29/21 . Author is Adama Henson APRN.JESUS MANUEL BALTAZAR note reviewed and changes have been made or updates noted in the copy & paste portion of an encounter. documented in this encounter [facility] 08-05-2021 Miscellaneous Notes Patient notified and verbalized understanding Ani Lombardo Cma Team - Inform the patient that it looks like he has a cardiology appointment in October. His Zio patch heart monitor showed several periods of increased heart rate versus possible atrial flutter. I did already refer him to cardiology. Please make sure he has that appointment scheduled. I think given his past episodes of collapsing it would be reasonable to ultrasound his carotid arteries to rule out stenosis/narrowing of his carotid arteries as the cause for his collapsing episodes. If his cardiology work-up would be unremarkable then I would recommend we obtain a noncontrast CT of his brain to further evaluate along with neurology consultation. But for right now I think we should just proceed with the ultrasound of the carotids and cardiology consult. Orders signed Orders Placed This Encounter US CAROTID ARTERIES [facility] Order Comments: 76-year-old male with episodes of collapsing. Presyncope. Pending cardiology consultation. Zio patch Holter monitor completed. Please evaluate Standing Status: Future Standing Expiration Date: 08/04/2022 Adama Henson DNP, CNP [facility] documented in this encounter [facility] 07-31-2021 Miscellaneous Notes Attempted to contact pt, phone number listed not working. Patient called stating he has received multiple calls regarding his appt. Please call patient and advise. I have been unable to find any documentation other than that patient is to be scheduled on 10/20. He is upset and wants to know why calls are being made. documented in this encounter [facility] 07-30-2021 Miscellaneous Notes Pt notified of lab results & states understanding. Liz Elias LPN Left message for patient to return call to office Ani Lombardo Cma ----- Message from Adama Henson APRN.JESUS MANUEL BALTAZAR sent at 07/30/2021 7:41 AM EDT ----- Please inform the patient: Lab results show, slightly improved kidney function. Potassium was just slightly low. Recommend eating potassium rich foods. Otherwise the rest of his lab work was in the acceptable range. Continue with current plan Adama Henson APRN.CNP, DNP documented in this encounter [facility] 07-29-2021 Note HNO ID: [id number] Author: Adama Henson APRN.JESUS MANUEL BALTAZAR Service: ? Author Type: Nurse Practitioner Type: Progress Notes Filed: 08/03/2021 1:51 PM Note Text: Chief Complaint Patient presents with: Leg Edema: left leg HPI Ag Hayes is a 76 year old male who presents here today for a follow up from urgent care. Presents to the [facility] as an established patient of Functional Neuromodulation. New patient of Functional Neuromodulation. No recent urgent care visits, ER visits, or hospitalizations. Past medical history: Hyperlipidemia, hypertension, obesity, stage III CKD, colon polyps, allergic rhinitis, gout, osteoarthritis, postherpetic neuralgia, shingles, elevated PSA, Obesity Specialist: Nephrology: Seen approximately every 6 months to monitor CKD Seen 1 month ago. Leg swelling: Seen yesterday in urgent care for left lower leg swelling. Denied redness or pain. Ultrasound to rule out DVT was obtained yesterday and was negative for DVT. Here today for follow-up. No lab work completed yesterday. Patient states no significant change in his symptoms compared to yesterday. Denies chest pain, shortness of breath, lightheadedness or dizziness. Denies fever or chills. Denies redness of the lower leg. No pain in the leg. No swelling of the right leg. Denies trauma or injury. No recent changes in his medication regimen. -I have been following him for episodes of collapsing over the past 6 months. He has had no further collapsing episodes. EKG and Zio patch heart monitor was completed. Cardiology appointment is scheduled for October. Hypertension: Blood pressure controlled. Takes hydrochlorothiazide 25 mg daily. Denies elevated blood pressures. No chest pain or SOB. Otherwise feeling well. CKD stage III: Previously followed by nephrology every 6 months. Recent lab work completed shows slightly decreased GFR to 43. Continues to maintain hydration throughout the day and monitor his blood pressure. No current urinary symptoms. Elevated PSA: Recently seen by Edson King in urology on July 22. Repeat PSA was improved. Recommended follow-up in 1 year Past medical history, appointments, medications, allergies reviewed 06/30/2021 Previous Medical History PAST MEDICAL HISTORY Diagnosis Date - Benign neoplasm of colon - Coronary artery disease - Essential hypertension, benign 05/03/2008 - Gout, unspecified - Herpes zoster without mention of complication - Kidney disease - Mental disorder - Mixed hyperlipidemia 05/03/2008 - Other and unspecified hyperlipidemia - Snoring - Unspecified essential hypertension Previous Surgical History PAST SURGICAL HISTORY Procedure Laterality Date - COLSC FLX W/RMVL OF TUMOR POLYP LESION SNARE TQ polyps at hepatic flexure, descending colon, 20cm - COLSC FLX W/RMVL OF TUMOR POLYP LESION SNARE TQ 08/25/11/ polyps at 15 and 30cm - follow up in 3 years - PAST SURGICAL HISTORY OF 1999 lump removed from left breast - PAST SURGICAL HISTORY OF 1976 pilonidal cyst - PAST SURGICAL HISTORY OF 09/12/2009 right finger surgery - PAST SURGICAL HISTORY OF 2nd surgery on right finger - TONSILLECTOMY PRIMARY/SECONDARY Tonsillectomy Family History FAMILY HISTORY Problem Relation Age of Onset - Coronary Artery Disease Mother ruptured cardiac wall (aneurysm?) - Alcohol/Drug Father - Coronary Artery Disease Father severe alcoholism - COPD Sister Patient Allergies ALLERGIES Allergen Reactions - Environmental [Othe* Current Medications Current Outpatient Medications on File Prior to Visit Medication Sig - cephALEXin (KEFLEX) 500 mg capsule Take 500 mg by mouth four times daily. - ATORVASTATIN CALCIUM (ATORVASTATIN ORAL) Take by mouth. - HYDROCHLOROTHIAZIDE 25 mg tablet Take 0.5 tablets by mouth once daily. TAKE ONEHALF(1/2) TABLET DAILY. - gabapentin 300 mg capsule Take 1 capsule by mouth three times daily. Start with one at bedtime and gradually increase to tid. - ALLOPURINOL 300 MG TAB Take one(1) tablet daily. - TRIAMCINOLONE ACETONIDE 0.1 % TOPICAL CREAM Apply to affected area(s) twice daily. - ASPIRIN 81 MG TAB Take one(1) tablet daily. - ACETAMINOPHEN 500 MG TAB Take two tablets as needed No current facility-administered medications on file prior to visit. Social History Social History Tobacco Use - Smoking status: Former Smoker Packs/day: 2.00 Years: 15.00 Pack years: 30.00 Quit date: 04/15/1972 Years since quittin.3 - Smokeless tobacco: Never Used Vaping Use - Vaping Use: Never used Substance Use Topics - Alcohol use: Yes Comment: once q 2mo. - Drug use: No Review of Symptoms GENERAL: No unintentional weight loss, malaise or fevers. NECK: Negative for lumps, pain RESPIRATORY: No wheezing, dyspnea or shortness of breath CARDIOVASCULAR: Negative for chest pain, leg swelling GI: No nausea, vomiting, or diarrhea. : No dysuria, No hematuria. MUSCULOSKELETAL: generalized joint pain. No swelling ELIO (more content not included)... [facility] 07-29-[facility] Instructions Adama Henson APRN.JESUS MANUEL BALTAZAR - 07/29/2021 9:36 AM EDT Follow up with Adama Henson APRN.CNP, DNP in 1 week Trial of Lasix for 4 days Lab work today Continue to monitor symptoms. Elevate legs throughout the day Avoid strenuous activity or being on your feet all day Go to ER for any worsening symptoms Return to the clinic or seek care at [facility] for any worsening signs or symptoms: such as fevers, chills, worsening pain or swelling. For severe symptoms seek care at the closest ER. Plan of care, medicaiton side effects and management reviewed with patient. Healthy Habits: Recommend regular physical activity, nutrition and healthy eating habits. Consume a variety of foods every day focusing on fruits, vegetables and lean meats). Eat foods low in fat, saturated fat and cholesterol. Eat a limited amount of salt and sodium. Drink adequate amounts of water and limit sugary drinks. Exercise portion control in meal selection. Establish a mindset of a wellness approach to health. Thank you for allowing me to provide your care today. I look forward to seeing you again and maintaining your health. Adama Henson APRN.JESUS MANUEL BALTAZAR documented in this encounter [facility] 07-29-2021 History of Present illness Narrative Chief Complaint Patient presents with: Leg Edema: left leg HPI Ag Hayes is a 76 year old male who presents here today for a follow up from urgent care. Presents to the [facility] as an established patient of Functional Neuromodulation. New patient of Functional Neuromodulation. No recent urgent care visits, ER visits, or hospitalizations. Past medical history: Hyperlipidemia, hypertension, obesity, stage III CKD, colon polyps, allergic rhinitis, gout, osteoarthritis, postherpetic neuralgia, shingles, elevated PSA, Obesity Specialist: Nephrology: Seen approximately every 6 months to monitor CKD Seen 1 month ago. Leg swelling: Seen yesterday in urgent care for left lower leg swelling. Denied redness or pain. Ultrasound to rule out DVT was obtained yesterday and was negative for DVT. Here today for follow-up. No lab work completed yesterday. Patient states no significant change in his symptoms compared to yesterday. Denies chest pain, shortness of breath, lightheadedness or dizziness. Denies fever or chills. Denies redness of the lower leg. No pain in the leg. No swelling of the right leg. Denies trauma or injury. No recent changes in his medication regimen. -I have been following him for episodes of collapsing over the past 6 months. He has had no further collapsing episodes. EKG and Zio patch heart monitor was completed. Cardiology appointment is scheduled for October. Hypertension: Blood pressure controlled. Takes hydrochlorothiazide 25 mg daily. Denies elevated blood pressures. No chest pain or SOB. Otherwise feeling well. CKD stage III: Previously followed by nephrology every 6 months. Recent lab work completed shows slightly decreased GFR to 43. Continues to maintain hydration throughout the day and monitor his blood pressure. No current urinary symptoms. Elevated PSA: Recently seen by Edson King in urology on July 22. Repeat PSA was improved. Recommended follow-up in 1 year Past medical history, appointments, medications, allergies reviewed 06/30/2021 Previous Medical History PAST MEDICAL HISTORY Diagnosis Date Benign neoplasm of colon Coronary artery disease Essential hypertension, benign 05/03/2008 Gout, unspecified Herpes zoster without mention of complication Kidney disease Mental disorder Mixed hyperlipidemia 05/03/2008 Other and unspecified hyperlipidemia Snoring Unspecified essential hypertension Previous Surgical History PAST SURGICAL HISTORY Procedure Laterality Date COLSC FLX W/RMVL OF TUMOR POLYP LESION SNARE TQ polyps at hepatic flexure, descending colon, 20cm COLSC FLX W/RMVL OF TUMOR POLYP LESION SNARE TQ 08/25/11/ polyps at 15 and 30cm - follow up in 3 years PAST SURGICAL HISTORY OF 1999 lump removed from left breast PAST SURGICAL HISTORY OF 1976 pilonidal cyst PAST SURGICAL HISTORY OF 09/12/2009 right finger surgery PAST SURGICAL HISTORY OF 2nd surgery on right finger TONSILLECTOMY PRIMARY/SECONDARY <AGE 10 Tonsillectomy Family History FAMILY HISTORY Problem Relation Age of Onset Coronary Artery Disease Mother ruptured cardiac wall (aneurysm?) Alcohol/Drug Father Coronary Artery Disease Father severe alcoholism COPD Sister Patient Allergies ALLERGIES Allergen Reactions Environmental [Othe* Current Medications Current Outpatient Medications on File Prior to Visit Medication Sig cephALEXin (KEFLEX) 500 mg capsule Take 500 mg by mouth four times daily. ATORVASTATIN CALCIUM (ATORVASTATIN ORAL) Take by mouth. HYDROCHLOROTHIAZIDE 25 mg tablet Take 0.5 tablets by mouth once daily. TAKE ONEHALF(1/2) TABLET DAILY. gabapentin 300 mg capsule Take 1 capsule by mouth three times daily. Start with one at bedtime and gradually increase to tid. ALLOPURINOL 300 MG TAB Take one(1) tablet daily. TRIAMCINOLONE ACETONIDE 0.1 % TOPICAL CREAM Apply to affected area(s) twice daily. ASPIRIN 81 MG TAB Take one(1) tablet daily. ACETAMINOPHEN 500 MG TAB Take two tablets as needed No current facility-administered medications on file prior to visit. Social History Social History Tobacco Use Smoking status: Former Smoker Packs/day: 2.00 Years: 15.00 Pack years: 30.00 Quit date: 04/15/1972 Years since quittin.3 Smokeless tobacco: Never Used Vaping Use Vaping Use: Never used Substance Use Topics Alcohol use: Yes Comment: once q 2mo. Drug use: No Review of Symptoms GENERAL: No unintentional weight loss, malaise or fevers. NECK: Negative for lumps, pain RESPIRATORY: No wheezing, dyspnea or shortness of breath CARDIOVASCULAR: Negative for chest pain, leg swelling GI: No nausea, vomiting, or diarrhea. : No dysuria, No hematuria. MUSCULOSKELETAL: generalized joint pain. No swelling HEMATOLOGY/LYMPHOLOGY: Negative for swollen nodes EXAM: BP 122/66 Pulse 86 Temp 36.2 C (97.2 F) Resp 16 Wt 108.9 kg (240 lb) SpO2 96% BMI 34.44 kg/m General Appearance: Chronically ill appearing, but alert, in no acute distress, hydrated, well nourished. Obese Skin: Skin color, texture, turgor normal, no suspicious rashes Head: Normocephalic, no masses, lesions, tenderness Eyes: Anicteric sclera. Neck: Supple, no adenopathy; thyroid symmetric, normal size, no bruits. Lymph Nodes: No cervical lymphadenopathy, No supraclavicular lymphadenopathy Lungs: Lungs clear to auscultation. No wheezing, rhonchi, rales. Heart: RRR without murmur, gallop, or rubs. No ectopy. Normal S1 and S2. Abdomen: Abdomen soft, round, non-tender. No masses, organomegaly. No epigastric tenderness. No upper quadrant abdominal tenderness. No lower quadrant abdominal tenderness. No rebound tenderness Extremities: No deformities, edema, skin discoloration. Good capillary refill. MSK: FROM of upper and lower extremities. No joint swelling or redness. LE: Right leg at mid calf measures 40.5 cm and left leg measures 45 cm. Mild swelling with 1+ pitting edema noted on the left. No pitting edema or swelling noted on the right. No swelling above the knee on the left. No pain upon palpation. No redness. No cellulitis. No varicosities. Peripheral Pulses: Normal - radial and carotid 2+ Dorsalis pedis pulses are 2+ on the right side and 1+ on the left side. Posterior tibial pulses are 2+ on the right side and 1+ on the left side. Comments: No calf tenderness Psych: Attitude - Cooperative, easily engaged in conversation Appearance - Normal hygiene and grooming appropriate Affect - Euthymic (normal mood), Mental status: Alert, attentive. Speech is clear and fluent with good repetition, comprehension Coordination: No abnormal or extraneous movements. Gait/Stance: Posture is normal. Gait is steady with normal steps Health Maintenance List ANNUAL PCP TEAM CHRONIC DISEASE VISIT due on 1961 HEPATITIS C SCREENING due on 1961 BP CONTROLLED (<130/80) due on 1961 DTAP,TDAP,TD(1 - Tdap) due on 1962 SHINGRIX VACCINE(1 of 2) due on 1993 ADVANCE DIRECTIVE DISCUSSION due on 2008 INFLUENZA(1) due on 11/14/2019 COLORECTAL CANCER SCREENING due on 01/13/2020 SERUM CREATININE due on 02/08/2021 HEMOGLOBIN/HEMATOCRIT due on 02/08/2021 DIABETES SCREEN due on 05/16/2022 PNEUMOVAX AGE 65 AND OVER WITH 5YR LOOKBACK Completed MENINGOCOCCAL CONJUGATE Completed Data reviewed Last 5 Encounter BP Readings: Date: BP: 07/28/2021 124/60 07/22/2021 110/62 06/30/2021 122/70 01/09/2021 124/66 09/13/2020 122/72 BMI Readings from Last 5 Encounters: 07/29/21 : 34.44 kg/m 07/28/21 : 34.29 kg/m 07/22/21 : 35.01 kg/m 06/30/21 : 35.15 kg/m 01/09/21 : 35.73 kg/m Last 5 Encounter Wt Readings: Date: Wt: 07/28/2021 108.4 kg (239 lb) 07/22/2021 110.7 kg (244 lb) 06/30/2021 111.1 kg (245 lb) 01/09/2021 112.9 kg (249 lb) 09/13/2020 115.2 kg (254 lb) Medication and allergy list reviewed, reconciled and updated 07/29/2021 Results US DVT LOWER LT (Order [id number]) Patient Info Patient Name Sex Ag Lugo ([id number]) Male 1945 07/28/2021 12:08 PM - Radiology, [place] In Impression IMPRESSION: Negative study for proximal DVT in the left lower extremity. Negative study for calf DVT in the left lower extremity. Negative study for superficial thrombophlebitis in the imaged segments of the left lower extremity. Desulphuring Operator: GUILLERMO Transcribe Date/Time: Jul 28 2021 12:04P Dictated by : BRADLY YOUNGBLOOD MD This examination was interpreted and the report reviewed and electronically signed by: BRADLY YOUNGBLOOD MD on Jul 28 2021 12:06PM EST Results-Findings * * *Final Report* * * DATE OF EXAM: Jul 28 2021 12:02PM WRU 1006 - US DVT LOWER LT / PROCEDURE REASON: Left leg swelling * * * * Physician Interpretation * * * * EXAMINATION: LEFT LOWER EXTREMITY DEEP VENOUS ULTRASOUND WITH DOPPLER IMAGING CLINICAL HISTORY: Left leg swelling TECHNIQUE: Grayscale with compression maneuvers, color Doppler and spectral Doppler imaging of the left proximal deep veins was performed. Grayscale with compression maneuvers of the peroneal and posterior tibial veins was performed. The left great and small saphenous veins were evaluated at their insertion to the deep system. The contralateral common femoral vein was imaged for comparison. Images were obtained and stored in a permanent archive. MQ: [id number] COMPARISON: None RESULT: LEFT LOWER EXTREMITY PROXIMAL DEEP VEINS Distal External Iliac, Common Femoral and proximal Profunda Veins: Compression: Normal Doppler: Normal, spontaneous respirophasic flow. Normal response to augmentation. Femoral vein: Compression: Normal Doppler: Normal, spontaneous flow. Normal response to augmentation. Popliteal vein: Compression: Normal Doppler: Normal, spontaneous flow. Normal response to augmentation. CALF DEEP VEINS Peroneal veins: Normal compression. Posterior tibial veins: Normal compression. Gastrocnemius and Soleal veins: Not imaged. SUPERFICIAL VEINS Great saphenous: Patent and compressible at insertion into common femoral vein; not otherwise assessed. Small Saphenous: Patent and compressible in the proximal calf, not otherwise assessed. RIGHT LOWER EXTREMITY (FOR COMPARISON) Common Femoral Vein: Compression: Normal Doppler: Normal, spontaneous respirophasic flow. Normal response to augmentation. Result History US DVT LOWER LT (Order #[id number]) on 07/28/2021 - Order Result History Report Result Information Status Provider Status ASSESSMENT/PLAN: 1. Localized swelling of left lower leg - ICD9: 782.2, ICD10: R22.42 (primary diagnosis) MDM: Ultrasound negative for DVT. No lab work completed yesterday. Will perform follow-up lab work with a BNP and a CMP today. No chest pain, shortness of breath, fevers or chills. Swelling has not worsened in the lower extremity. No use of compression stockings. Clinically he is stable and no significant change as compared to yesterday. DDx: Rule out electrolyte imbalance/derangement/early CHF, worsening CKD/venous insufficiency. Plan: Short course of Lasix at 20 mg daily. Continue with his regular medications Check a CMP and BNP today Consider echocardiogram Pending cardiology consultation Consider compression stocking Elevate leg during day. Go to ER for any worsening symptoms, chest pain, shortness of breath, redness of the lower extremity. Contact my office for any worsening swelling. - FUROSEMIDE 20 MG TABLET - COMP METABOLIC PANEL - NT PRO BNP 2. Collapse fleeting - ICD9: 780.2, ICD10: R55 MDM: Clinically stable with an unremarkable exam today. - Unclear etiology for these episodes where he collapses but does not lose consciousness or blackout. Does not appear to be musculoskeletal related. No further episodes since his Zio patch completed an additional work-up. He was referred to cardiology and has appointment scheduled for early October. Inform patient for any recurrent episodes to follow-up with me here in the clinic and we can see about a sooner cardiology consultation. Plan: Cardiology consult pending. Additionally with the swelling that is noted I would consider a echocardiogram to further evaluate. 3. Stage 3b chronic kidney disease (HCC) - ICD9: 585.3, ICD10: N18.32 (primary diagnosis) Clinically stable. Reviewed labs with patient. Stable GFR. Continue to monitor renal function. Repeat lab work for kidney function Continue follow-up with nephrology - open to seeing [facility] Neprhology team. Maintain adequate blood pressure, low protein diet and adequate hydration to maintain adequate kidney function. - US KIDNEY/BLADDER 4. Obesity, Class II, BMI 35-39.9 - ICD9: 278.00, ICD10: E66.9 Recommend regular physical activity, nutrition and healthy eating habits. Consume a variety of foods every day focusing on fruits, vegetables and lean meats). Eat foods low in fat, saturated fat and cholesterol. Eat a limited amount of salt and sodium. Drink adequate amounts of water and limit sugary drinks. Exercise portion control in meal selection. Establish a mindset of a wellness approach to health. 5. Prediabetes - ICD9: 790.29, ICD10: R73.03 Reviewed lab work with patient Hemoglobin A1c was 5.9%. Recommend repeat A1c and check BS Goals: 1. Healthful eating pattern to improve overall health 2. Attain individualized glycemic, BP, and lipid goals 3. Achieve and maintain body weight goals 4. Delay or prevent diabetes complications 6. Essential hypertension, benign - ICD9: 401.1, ICD10: I10 - good control - Continue current medication(s) - Encouraged dietary sodium restriction/DASH diet - Recommended regular aerobic exercise. - Discussed need and benefit for weight loss. - Goal of BP <140/90 - Recommend home or pharmacy blood pressure monitoring Adama Henson This note was completed with [employer] dictation software. Note was reviewed for accuracy. There may be minor misspellings or grammar miscues with [employer] Dictation. I spent a total of 35 minutes on the date of the service which included preparing to see the patient, [id number] patient care, completing clinical documentation, performing a medically appropriate examination, counseling and educating the patient/family/caregiver and ordering medications, tests, or procedures. [place] [id number] This note was copied from previous note and exam dated 06/30/21 . Author is Adama Henson APRN.STRUCTURAL DESIGN ENGINEER, DNP note reviewed and changes have been made or updates noted in the copy & paste portion of an encounter. documented in this encounter [facility] 07-28-2021 Miscellaneous Notes Patient notified that US did not show any DVT. Advise that we will set up follow up with PCP for further evaluation documented in this encounter [facility] 07-28-2021 Note HNO ID: [id number] Author: Ana María Crawford APRN.CNP Service: ? Author Type: Nurse Practitioner Type: Progress Notes Filed: 07/29/2021 2:34 PM Note Text: Subjective The history is provided by the patient. No manager of business operations was used. BURT Hayes is a 76 year old male who presents today for CC of unilateral left leg swelling. This started over the weekend. He denies any pain or tenderness. He has not used any medication. H/o CKD, HTN. BP 124/60 Pulse 88 Temp 36.5 ?C (97.7 ?F) Resp 16 Wt 108.4 kg (239 lb) SpO2 95% BMI 34.29 kg/m? Social History Tobacco Use - Smoking status: Former Smoker Packs/day: 2.00 Years: 15.00 Pack years: 30.00 Quit date: 04/15/1972 Years since quittin.3 - Smokeless tobacco: Never Used Vaping Use - Vaping Use: Never used Substance Use Topics - Alcohol use: Yes Comment: once q 2mo. - Drug use: No PAST MEDICAL HISTORY Diagnosis Date - Benign neoplasm of colon - Coronary artery disease - Essential hypertension, benign 05/03/2008 - Gout, unspecified - Herpes zoster without mention of complication - Kidney disease - Mental disorder - Mixed hyperlipidemia 05/03/2008 - Other and unspecified hyperlipidemia - Snoring - Unspecified essential hypertension I have confirmed and edited as necessary, the [facility] Review of Systems Constitutional: Negative for chills and fever. Musculoskeletal: Negative for joint pain and myalgias. Left lower leg swelling Skin: Negative for itching and rash. All other systems reviewed and are negative. Objective Physical Exam Vitals and nursing note reviewed. Cardiovascular: Pulses: Dorsalis pedis pulses are 2+ on the right side and 1+ on the left side. Posterior tibial pulses are 2+ on the right side and 1+ on the left side. Comments: No calf tenderness Pulmonary: Effort: Pulmonary effort is normal. Musculoskeletal: Right lower leg: No edema. Left lower le+ Edema present. Skin: General: Skin is warm and dry. Neurological: Mental Status: He is alert and oriented to person, place, and time. Psychiatric: Mood and Affect: Affect normal. [facility] 07-28-2021 Instructions Ana María Crawford APRN.CNP - 07/28/2021 8:42 AM EDT Left lower leg swelling Will check ultrasound to check for clot If negative, would recommend to follow up with PCP for further treatment and evaluation. Ana María Crawford APRN.DELANEY documented in this encounter [facility] 07-28-2021 History of Present illness Narrative Subjective The history is provided by the patient. No manager of business operations was used. HPI Ag Hayes is a 76 year old male who presents today for CC of unilateral left leg swelling. This started over the weekend. He denies any pain or tenderness. He has not used any medication. H/o CKD, HTN. BP 124/60 Pulse 88 Temp 36.5 C (97.7 F) Resp 16 Wt 108.4 kg (239 lb) SpO2 95% BMI 34.29 kg/m Social History Tobacco Use Smoking status: Former Smoker Packs/day: 2.00 Years: 15.00 Pack years: 30.00 Quit date: 04/15/1972 Years since quittin.3 Smokeless tobacco: Never Used Vaping Use Vaping Use: Never used Substance Use Topics Alcohol use: Yes Comment: once q 2mo. Drug use: No PAST MEDICAL HISTORY Diagnosis Date Benign neoplasm of colon Coronary artery disease Essential hypertension, benign 05/03/2008 Gout, unspecified Herpes zoster without mention of complication Kidney disease Mental disorder Mixed hyperlipidemia 05/03/2008 Other and unspecified hyperlipidemia Snoring Unspecified essential hypertension I have confirmed and edited as necessary, the [facility]\ Review of Systems Constitutional: Negative for chills and fever. Musculoskeletal: Negative for joint pain and myalgias. Left lower leg swelling Skin: Negative for itching and rash. All other systems reviewed and are negative. Objective Physical Exam Vitals and nursing note reviewed. Cardiovascular: Pulses: Dorsalis pedis pulses are 2+ on the right side and 1+ on the left side. Posterior tibial pulses are 2+ on the right side and 1+ on the left side. Comments: No calf tenderness Pulmonary: Effort: Pulmonary effort is normal. Musculoskeletal: Right lower leg: No edema. Left lower le+ Edema present. Skin: General: Skin is warm and dry. Neurological: Mental Status: He is alert and oriented to person, place, and time. Psychiatric: Mood and Affect: Affect normal. documented in this encounter [facility] 07-22-2021 Miscellaneous Notes Team - Inform patient he should not be using this continuously. It should be used for only 2 weeks at at time. Then he should not need it anymore. If he is using this topical steroid continuously it can significantly thin his skin. I would recommend a Dermatology evaluation if he is using it continually. The following approved medication requests have been transmitted electronically. Pending Prescriptions Disp Refills TRIAMCINOLONE ACETONIDE 0.1 % TOPICAL CREAM 80 g 0 Sig: Apply to affected area twice daily for 14 days. BRIEN: No Adama Henson APRN.JESUS MANUEL BALTAZAR Patient has been identified by name and date of : Yes Patient phones for refill(s): Pending Prescriptions Disp Refills TRIAMCINOLONE ACETONIDE 0.1 % TOPICAL CREAM 80 g 1 Sig: APPLY TO THE AFFECTED AREA(S) TWO TIMES DAILY BRIEN: Yes Date of last office visit in primary care: 06/30/21 Last 2 Encounter Wt Readings: Date: Wt: 07/22/2021 110.7 kg (244 lb) 06/30/2021 111.1 kg (245 lb) Previous labs/tests for medication: Not applicable Please advise. Thank you. Tamie Shah LPN documented in this encounter [facility] 07-22-2021 Note HNO ID: [id number] Author: Edson King PA-C Service: ? Author Type: Physician Upper And Bottom Lacer Hand Type: Progress Notes Filed: 07/22/2021 3:43 PM Note Text: [facility] [place] [facility] UROLOGY CONSULT PATIENT INFO: Ag Hayes 76 year old HPI: Ag Hayes 5 year old male who presents today for recent elevated PSA of 3.31, patient states no history of prostate problems Pt. found to have a slightly elevated PSA,. Does not take any prostate medications. PVR 0 ml PSA (ng/mL) Date Value 07/01/2021 3.05 07/10/2020 3.31 PSA Screening (ng/mL) Date Value 07/08/2020 3.40 MEDICATIONS: Current Outpatient Medications Medication Sig Dispense Refill - gabapentin (NEURONTIN) 600 mg tablet Take 1 tablet by mouth three times daily. Take with 300 mg three times a day 270 tablet 3 - gabapentin (NEURONTIN) 300 mg capsule Take 1 capsule by mouth three times daily. Take with 600 mg three times a day 270 capsule 3 - allopurinol (ZYLOPRIM) 300 mg tablet Take 1 tablet by mouth once daily. 90 tablet 3 - hydroCHLOROthiazide (HYDRODIURIL, ESIDRIX) 25 mg tablet Take 1 tablet by mouth once daily. 90 tablet 3 - atorvastatin (LIPITOR) 20 mg tablet Take 1 tablet by mouth daily at bedtime. For cholesterol. 90 tablet 3 - ACETAMINOPHEN 500 MG TAB Take two tablets as needed 0 No current facility-administered medications for this visit. MEDICATION ALLERGIES: ALLERGIES Allergen Reactions - Environmental [Othe* PAST MEDICAL HISTORY: PAST MEDICAL HISTORY Diagnosis Date - Benign neoplasm of colon - Coronary artery disease - Essential hypertension, benign 05/03/2008 - Gout, unspecified - Herpes zoster without mention of complication - Kidney disease - Mental disorder - Mixed hyperlipidemia 05/03/2008 - Other and unspecified hyperlipidemia - Snoring - Unspecified essential hypertension PHYSICAL EXAM: Blood pressure 110/62, pulse 74, weight 110.7 kg (244 lb), SpO2 96 %. GENERAL:WNL nutrition, no deformities, healthy appearing GENITOURINARY: MALE EXAM: Rectal Exam: Prostate: size (30 grams), symmetrical, nontender, w/o nodules. Procedures: PVR:0 ml LABS: Urine dip shows: Results for orders placed or performed in visit on 07/22/21 UA DIP, URINE (POC) Result Value Ref Range GLUCOSE UA (POCT) Negative Negative mg/dL BILIRUBIN UA (POCT) Negative Negative KETONE UA (POCT) Negative Negative mg/dL SPECIFIC GRAVITY UA (POCT) 1.015 1.005 - 1.030 HEMOGLOBIN/BLOOD UA (POCT) Negative Negative PH UA (POCT) 6.0 4.5 - 8.0 PROTEIN UA (POCT) Negative Negative mg/dL UROBILINOGEN UA (POCT) 0.2 Normal E.U./dL NITRITE UA (POCT) Negative Negative LEUKOCYTES UA (POCT) Negative Negative COLOR UA (POCT) Yellow CLARITY UA (POCT) Clear ASSESSMENT/PLAN: 76 year old male Elevated PSA, of 3.05 down from [place] > No LUTS > 1 year Appt maye/ CHEKO [place], NEAL with PSA prior CHEKO [place], FAITHC [facility] 07-22-2021 History of Present illness Narrative Images from the original note were not included. [facility] [place] [facility] UROLOGY CONSULT PATIENT INFO: Ag Hayes 76 year old HPI: Ag Hayes 5 year old male who presents today for recent elevated PSA of 3.31, patient states no history of prostate problems Pt. found to have a slightly elevated PSA,. Does not take any prostate medications. PVR 0 ml PSA (ng/mL) Date Value 07/01/2021 3.05 07/10/2020 3.31 PSA Screening (ng/mL) Date Value 07/08/2020 3.40 MEDICATIONS: Current Outpatient Medications Medication Sig Dispense Refill gabapentin (NEURONTIN) 600 mg tablet Take 1 tablet by mouth three times daily. Take with 300 mg three times a day 270 tablet 3 gabapentin (NEURONTIN) 300 mg capsule Take 1 capsule by mouth three times daily. Take with 600 mg three times a day 270 capsule 3 allopurinol (ZYLOPRIM) 300 mg tablet Take 1 tablet by mouth once daily. 90 tablet 3 hydroCHLOROthiazide (HYDRODIURIL, ESIDRIX) 25 mg tablet Take 1 tablet by mouth once daily. 90 tablet 3 atorvastatin (LIPITOR) 20 mg tablet Take 1 tablet by mouth daily at bedtime. For cholesterol. 90 tablet 3 ACETAMINOPHEN 500 MG TAB Take two tablets as needed 0 No current facility-administered medications for this visit. MEDICATION ALLERGIES: ALLERGIES Allergen Reactions Environmental [Othe* PAST MEDICAL HISTORY: PAST MEDICAL HISTORY Diagnosis Date Benign neoplasm of colon Coronary artery disease Essential hypertension, benign 05/03/2008 Gout, unspecified Herpes zoster without mention of complication Kidney disease Mental disorder Mixed hyperlipidemia 05/03/2008 Other and unspecified hyperlipidemia Snoring Unspecified essential hypertension PHYSICAL EXAM: Blood pressure 110/62, pulse 74, weight 110.7 kg (244 lb), SpO2 96 %. GENERAL:WNL nutrition, no deformities, healthy appearing GENITOURINARY: MALE EXAM: Rectal Exam: Prostate: size (30 grams), symmetrical, nontender, w/o nodules. Procedures: PVR:0 ml LABS: Urine dip shows: Results for orders placed or performed in visit on 07/22/21 UA DIP, URINE (POC) Result Value Ref Range GLUCOSE UA (POCT) Negative Negative mg/dL BILIRUBIN UA (POCT) Negative Negative KETONE UA (POCT) Negative Negative mg/dL SPECIFIC GRAVITY UA (POCT) 1.015 1.005 - 1.030 HEMOGLOBIN/BLOOD UA (POCT) Negative Negative PH UA (POCT) 6.0 4.5 - 8.0 PROTEIN UA (POCT) Negative Negative mg/dL UROBILINOGEN UA (POCT) 0.2 Normal E.U./dL NITRITE UA (POCT) Negative Negative LEUKOCYTES UA (POCT) Negative Negative COLOR UA (POCT) Yellow CLARITY UA (POCT) Clear ASSESSMENT/PLAN: 76 year old male Elevated PSA, of 3.[address] [facility] > No LUTS > 1 year Appt w/ CHEKO Lassiter MT, PA-C with PSA prior CHEKO Castro MT, PA-C documented in this encounter [facility] 07-18-2021 Miscellaneous Notes Patient contacted and given provider's message below and patient verbalized understanding. Transferred to animation artist to make cardiology appt. Frankie Ibrahim RN Team - Inform the patient he had 1 short run of V. tach along with SVT (essentially his heart beating very fast for short amounts of time). This could be the cause of his syncopal episodes. I would like him to follow-up with cardiology for consultation and further evaluation/testing. I went ahead and placed a cardiology consult. Orders signed Orders Placed This Encounter CONSULT TO CARDIOLOGY Order Comments: 76-year-old male with a 6-month history of intermittent episodes of presyncope/syncope. Recent Holter monitor showed run of Ventricular Tachycardia occurred lasting 14 beats with a max rate of 182 bpm (avg 155 bpm). 12 Supraventricular Tachycardia runs occurred, the run with the fastest interval lasting 14 beats with a max rate of 141 bpm, the longest lasting 19 beats with an avg rate of 115 bpm. Some episodes of Supraventricular Tachycardia may be possible Atrial Tachycardia with variable block. Please eval and treat. Standing Status: Future Standing Expiration Date: 07/18/2022 Order Specific Question: Does consulting provider have [facility] Epic access? Answer: Yes Adama Henson DNP, CNP [facility] documented in this encounter [facility] 07-02-2021 Miscellaneous Notes Orders signed. Patch was placed in office but a second patch was mailed to patient by our clinical team.. Orders Placed This Encounter OUTSIDE VENDOR CARDIAC OUTPATIENT EXTENDED RHYTHM RECORDING (WITHOUT TELEMETRY) Order Comments: 76-year-old male with Zio patch placed in office. This is administrative order as another Zio patch was mailed out to the patient by [facility] staff Order Specific Question: Vendor Answer: ZIO Order Specific Question: ICD/Pacemaker? Answer: Yes Order Specific Question: Duration Answer: 14 Days Order Specific Question: Prior Testing Performed? Answer: Holter Adama Henson DNP, CNP [facility] ----- Message from Maria Guadalupe Krishna sent at 07/02/2021 11:48 AM EDT ----- Regarding: zio patch Amadoulo May you place another zio order, we had a mail out on accident and it was actually placed in office. Sorry for the inconvenience Thank you! Maria Guadalupe Krishna documented in this encounter [facility] 06-30-2021 History of Present illness Narrative EVENT MONITOR DISPOSABLE PATCH INSTRUCTIONS Patient Name: Ag Hayes Clinic Number: [id number] Skin prepped and cleansed with alcohol Patch secured to prepped area Monitor Activated Serial #: [id number] Patient Instructed: 1.) Prescribed order timeframe 2.) Bathing guidelines 3.) Usage of event button and diary documentation 4.) Return of monitor at the end of prescribed order 5.) Call with problems [phone] or [phone] ext. [phone] Patient expresses a good understanding of instructions nAi Lombardo Cma Chief Complaint Patient presents with: F/U 6 months HPI Ag Hayes is a 76 year old male who presents here today for a established physical exam. Presents to the [facility] as an established patient of Functional Neuromodulation. New patient of Functional Neuromodulation. No recent urgent care visits, ER visits, or hospitalizations. Past medical history: Hyperlipidemia, hypertension, obesity, stage III CKD, colon polyps, allergic rhinitis, gout, osteoarthritis, postherpetic neuralgia, shingles, elevated PSA, Obesity Specialist: Nephrology: Seen approximately every 6 months to monitor CKD Collapsing: Seen the patient 6 months ago for a visit. Previous patient of Dr. Ezra bruno. Over the past year he states he has been having intermittent periods where he falls down and collapses. States he does not lose consciousness. Denies any fever, chills. Denies lightheadedness or dizziness. Denies chest pain, shortness of breath, headache,knee pain. Denies passing out. States he is not blacking out. States he just feels a sense that he is going to fall and then does and is unable to catch himself. Last time this occurred was approximately 3 to 4 weeks ago. Denies previous EKG. No previous cardiology evaluation. No previous cardiac testing. Hypertension: Blood pressure controlled. Takes hydrochlorothiazide 25 mg daily. Denies elevated blood pressures. No chest pain or SOB. Otherwise feeling well. CKD stage III: Previously followed by nephrology every 6 months. Recent lab work completed shows slightly decreased GFR to 43. Continues to maintain hydration throughout the day and monitor his blood pressure. No current urinary symptoms. Elevated PSA: Elevated PSA of 3.4. Was referred to urology. Not experience any LUTS. Occasional nighttime frequency. Denies blood in urine. Otherwise feeling well. Was seen by Edson King for urology. Plan is continue to monitor and follow up in July of 2021 with Edson King. Past medical history, appointments, medications, allergies reviewed 06/30/2021 Previous Medical History PAST MEDICAL HISTORY Diagnosis Date Benign neoplasm of colon Coronary artery disease Essential hypertension, benign 05/03/2008 Gout, unspecified Herpes zoster without mention of complication Kidney disease Mental disorder Mixed hyperlipidemia 05/03/2008 Other and unspecified hyperlipidemia Snoring Unspecified essential hypertension Previous Surgical History PAST SURGICAL HISTORY Procedure Laterality Date COLONOS W/REM POLYP SNARE polyps at hepatic flexure, descending colon, 20cm COLONOS W/REM POLYP SNARE 08/25/11/ polyps at 15 and 30cm - follow up in 3 years PAST SURGICAL HISTORY OF 1999 lump removed from left breast PAST SURGICAL HISTORY OF 1976 pilonidal cyst PAST SURGICAL HISTORY OF 09/12/2009 right finger surgery PAST SURGICAL HISTORY OF 2nd surgery on right finger REMOVAL OF TONSILS,<12 Y/O Tonsillectomy Family History FAMILY HISTORY Problem Relation Age of Onset Coronary Artery Disease Mother ruptured cardiac wall (aneurysm?) Alcohol/Drug Father Coronary Artery Disease Father severe alcoholism COPD Sister Patient Allergies ALLERGIES Allergen Reactions Environmental [Othe* Current Medications Current Outpatient Medications on File Prior to Visit Medication Sig cephALEXin (KEFLEX) 500 mg capsule Take 500 mg by mouth four times daily. ATORVASTATIN CALCIUM (ATORVASTATIN ORAL) Take by mouth. HYDROCHLOROTHIAZIDE 25 mg tablet Take 0.5 tablets by mouth once daily. TAKE ONEHALF(1/2) TABLET DAILY. gabapentin 300 mg capsule Take 1 capsule by mouth three times daily. Start with one at bedtime and gradually increase to tid. ALLOPURINOL 300 MG TAB Take one(1) tablet daily. TRIAMCINOLONE ACETONIDE 0.1 % TOPICAL CREAM Apply to affected area(s) twice daily. ASPIRIN 81 MG TAB Take one(1) tablet daily. ACETAMINOPHEN 500 MG TAB Take two tablets as needed No current facility-administered medications on file prior to visit. Social History Social History Tobacco Use Smoking status: Former Smoker Packs/day: 2.00 Years: 15.00 Pack years: 30.00 Quit date: 04/15/1972 Years since quittin.2 Smokeless tobacco: Never Used Vaping Use Vaping Use: Never used Substance Use Topics Alcohol use: Yes Comment: once q 2mo. Drug use: No Review of Symptoms GENERAL: No unintentional weight loss, malaise or fevers. NECK: Negative for lumps, pain RESPIRATORY: No wheezing, dyspnea or shortness of breath CARDIOVASCULAR: Negative for chest pain, leg swelling GI: No nausea, vomiting, or diarrhea. : No dysuria, No hematuria. MUSCULOSKELETAL: generalized joint pain. No swelling HEMATOLOGY/LYMPHOLOGY: Negative for swollen nodes EXAM: BP 122/70 Pulse 84 Resp 14 Wt 111.1 kg (245 lb) SpO2 97% BMI 35.15 kg/m General Appearance: Chronically ill appearing, but alert, in no acute distress, hydrated, well nourished. Obese Skin: Skin color, texture, turgor normal, no suspicious rashes Head: Normocephalic, no masses, lesions, tenderness Eyes: Anicteric sclera. Neck: Supple, no adenopathy; thyroid symmetric, normal size, no bruits. Lymph Nodes: No cervical lymphadenopathy, No supraclavicular lymphadenopathy Lungs: Lungs clear to auscultation. No wheezing, rhonchi, rales. Heart: RRR without murmur, gallop, or rubs. No ectopy. Normal S1 and S2. Abdomen: Abdomen soft, round, non-tender. No masses, organomegaly. No epigastric tenderness. No upper quadrant abdominal tenderness. No lower quadrant abdominal tenderness. No rebound tenderness Extremities: No deformities, edema, skin discoloration. Good capillary refill. MSK: FROM of upper and lower extremities. No joint swelling or redness. Peripheral Pulses: Normal - radial and carotid 2+ Psych: Attitude - Cooperative, easily engaged in conversation Appearance - Normal hygiene and grooming appropriate Affect - Euthymic (normal mood), Mental status: Alert, attentive. Speech is clear and fluent with good repetition, comprehension Coordination: No abnormal or extraneous movements. Gait/Stance: Posture is normal. Gait is steady with normal steps Health Maintenance List ANNUAL PCP TEAM CHRONIC DISEASE VISIT due on 1961 HEPATITIS C SCREENING due on 1961 BP CONTROLLED (<130/80) due on 1961 DTAP,TDAP,TD(1 - Tdap) due on 1962 SHINGRIX VACCINE(1 of 2) due on 1993 ADVANCE DIRECTIVE DISCUSSION due on 2008 INFLUENZA(1) due on 11/14/2019 COLORECTAL CANCER SCREENING due on 01/13/2020 SERUM CREATININE due on 02/08/2021 HEMOGLOBIN/HEMATOCRIT due on 02/08/2021 DIABETES SCREEN due on 05/16/2022 PNEUMOVAX AGE 65 AND OVER WITH 5YR LOOKBACK Completed MENINGOCOCCAL CONJUGATE Completed Data reviewed Last 5 Encounter BP Readings: Date: BP: 06/30/2021 122/70 01/09/2021 124/66 09/13/2020 122/72 07/19/2020 118/74 07/10/2020 138/74 BMI Readings from Last 5 Encounters: 06/30/21 : 35.15 kg/m 01/09/21 : 35.73 kg/m 09/13/20 : 36.45 kg/m 07/19/20 : 37.31 kg/m 07/10/20 : 37.02 kg/m Last 5 Encounter Wt Readings: Date: Wt: 06/30/2021 111.1 kg (245 lb) 01/09/2021 112.9 kg (249 lb) 09/13/2020 115.2 kg (254 lb) 07/19/2020 117.9 kg (260 lb) 07/10/2020 117 kg (258 lb) Medication and allergy list reviewed, reconciled and updated 06/30/2021 Component Latest Ref Rng & Units 07/08/2020 07/08/2020 8:25 AM 8:25 AM WBC 3.70 - 11.00 k/uL 6.87 RBC 4.20 - 6.00 m/uL 4.76 Hemoglobin 13.0 - 17.0 g/dL 14.6 Hematocrit 39.0 - 51.0 % 46.1 MCV 80.0 - 100.0 fL 96.8 MCH 26.0 - 34.0 pG 30.7 MCHC 30.5 - 36.0 g/dL 31.7 RDW-CV 11.5 - 15.0 % 14.6 Platelet Count 150 - 400 k/uL 206 MPV 9.0 - 12.7 fL 10.7 Neut% % 67.7 Abs Neut (ANC) 1.45 - 7.50 k/uL 4.65 Lymph% % 23.1 Abs Lymph 1.00 - 4.00 k/uL 1.59 Graves% % 7.0 Abs Graves <0.87 k/uL 0.48 Eosin% % 1.6 Abs Eosin <0.46 k/uL 0.11 Baso% % 0.6 Abs Baso <0.11 k/uL 0.04 Nucleated Reds 0 /100 WBC 0.0 Absolute nRBC <0.01 k/uL <0.01 Diff Type Auto Diff Protein, Total 6.3 - 8.0 g/dL 6.9 6.9 Albumin 3.9 - 4.9 g/dL 4.0 4.0 Calcium 8.5 - 10.2 mg/dL 9.5 9.5 Bilirubin, Total 0.2 - 1.3 mg/dL 0.7 0.7 Alkaline Phosphatase 38 - 113 U/L 104 104 AST 14 - 40 U/L 20 22 Glucose 74 - 99 mg/dL 96 98 BUN 9 - 24 mg/dL 20 20 Creatinine 0.73 - 1.22 mg/dL 1.81 (H) 1.76 (H) Sodium 136 - 144 mmol/L 145 (H) 144 Potassium 3.7 - 5.1 mmol/L 4.3 4.5 Chloride 97 - 105 mmol/L 103 104 CO2 22 - 30 mmol/L 28 27 Anion Gap 9 - 18 mmol/L 14 13 ALT 10 - 54 U/L 13 12 eGFR- 44 46 eGFR-All Other Races . 37 38 Cholesterol, Total <200 mg/dL 133 Triglyceride <150 mg/dL 109 HDL Cholesterol >39 mg/dL 39 (L) LDL Cholesterol <100 mg/dL 72 Non HDL Cholesterol <130 mg/dL 94 Fasting Time hrs 10 VLDL Cholesterol <30 mg/dL 22 TC:HDL Ratio <5.10 3.41 LDL:HDL Ratio <2.54 1.85 Hemoglobin A1C 4.3 - 5.6 % 5.9 (H) Estimated Average Glucose mg/dL 123 PSA Screening 0.00 - 2.59 ng/mL 3.40 (H) Component Latest Ref Rng & Units 01/06/2021 Albumin 3.9 - 4.9 g/dL 4.1 Calcium 8.5 - 10.2 mg/dL 9.5 Phosphorus 2.7 - 4.8 mg/dL 2.9 Glucose 74 - 99 mg/dL 98 BUN 9 - 24 mg/dL 24 Creatinine 0.73 - 1.22 mg/dL 1.57 (H) Sodium 136 - 144 mmol/L 142 Potassium 3.7 - 5.1 mmol/L 3.8 Chloride 97 - 105 mmol/L 104 CO2 22 - 30 mmol/L 25 Anion Gap 9 - 18 mmol/L 13 eGFR- 52 eGFR-All Other Races . 43 Hemoglobin A1C 4.3 - 5.6 % 5.9 (H) Estimated Average Glucose mg/dL 123 ASSESSMENT/PLAN: 1. Collapse fleeting - ICD9: 780.2, ICD10: R55 MDM: Clinically stable with an unremarkable exam today. - Unclear etiology for these episodes where he collapses but does not lose consciousness or blackout. Does not appear to be musculoskeletal related. He does not appear to be physically debilitated at this time. He is prediabetic but last 2 blood sugar was under 100. Does not appear to be hypoglycemia. Twelve-lead EKG completed today. There was a moderate amount of artifact on the EKG but otherwise it was normal sinus rhythm. No acute ST or T wave changes. Ventricular rate was 73. IN interval was 146 and QRS was 96. He could be experiencing a silent arrhythmia. I am recommending a Zio patch 14-day heart monitor to see if we can capture any type of silent arrhythmia that he may be experiencing. Given patient instructions to go to the ER if he would have an episode where he did lose consciousness or blackout. No neurologic flags during today's exam. 12 Lead EKG completed and initial review below: - normal sinus rhythm at 73 beats per minute, normal axis, normal intervals, no acute ST-T wave changes. Reviewed by Adama Henson, JESUS MANUEL, STRUCTURAL DESIGN ENGINEER Plan: Ziopatch, labs, and go to ER for any further episodes or worsening symptoms. Pending results consider Cardiology consult. - ZIOPACTH COMMERCIAL RETOUCHER - HGB A1C - COMP METABOLIC PANEL - CBC + DIFF - ECG COMPLETE - SED RATE WESTERGREN 2. Stage 3b chronic kidney disease (HCC) - ICD9: 585.3, ICD10: N18.32 (primary diagnosis) Clinically stable. Reviewed labs with patient. Stable GFR. Continue to monitor renal function. Repeat lab work for kidney function Repeat renal bladder ultrasound for surveillance. Have patient schedule Continue follow-up with nephrology - open to seeing [facility] Neprhology team. Maintain adequate blood pressure, low protein diet and adequate hydration to maintain adequate kidney function. - US KIDNEY/BLADDER 3. Obesity, Class II, BMI 35-39.9 - ICD9: 278.00, ICD10: E66.9 Recommend regular physical activity, nutrition and healthy eating habits. Consume a variety of foods every day focusing on fruits, vegetables and lean meats). Eat foods low in fat, saturated fat and cholesterol. Eat a limited amount of salt and sodium. Drink adequate amounts of water and limit sugary drinks. Exercise portion control in meal selection. Establish a mindset of a wellness approach to health. 4. Elevated PSA - ICD9: 790.93, ICD10: R97.20 Stable. Repeat PSA Continue follow-up with urology in July 5. Prediabetes - ICD9: 790.29, ICD10: R73.03 Reviewed lab work with patient Hemoglobin A1c was 5.9%. Recommend repeat A1c and check BS Goals: 1. Healthful eating pattern to improve overall health 2. Attain individualized glycemic, BP, and lipid goals 3. Achieve and maintain body weight goals 4. Delay or prevent diabetes complications 6. Essential hypertension, benign - ICD9: 401.1, ICD10: I10 - good control - Continue current medication(s) - Encouraged dietary sodium restriction/DASH diet - Recommended regular aerobic exercise. - Discussed need and benefit for weight loss. - Goal of BP <140/90 - Recommend home or pharmacy blood pressure monitoring 7. Gout, unspecified - ICD9: 274.9, ICD10: M10.9 Clinically stable. Continue current medications - ALLOPURINOL 300 MG TABLET 8. Hyperlipidemia, mixed - ICD9: 272.2, ICD10: E78.2 - good control and - to be determined upon return of lab results - Continue current medication. - Encouraged following a low fat, low cholesterol diet. - Check fasting lipid panel - Encouraged following a low carbohydrate, healthy oil intake diet. - Continue current therapy. - ATORVASTATIN 20 MG TABLET 9. Post herpetic neuralgia - ICD9: 053.19, ICD10: B02.29 Clinically stable. Continue current medications - GABAPENTIN 600 MG TABLET - GABAPENTIN 300 MG CAPSULE Adama Henson This note was completed with [employer] dictation software. Note was reviewed for accuracy. There may be minor misspellings or grammar miscues with [employer] Dictation. I spent a total of 35 minutes on the date of the service which included preparing to see the patient, [id number] patient care, completing clinical documentation, performing a medically appropriate examination, counseling and educating the patient/family/caregiver and ordering medications, tests, or procedures. [place] [id number] This note was copied from previous note and exam dated 01/09/21 . Author is Adama Henson APRN.JESUS MANUEL BALTAZAR note reviewed and changes have been made or updates noted in the copy & paste portion of an encounter. documented in this encounter [facility] 06-30-2021 Instructions Adama Henson APRN.CNP, DNP - 06/30/2021 2:32 PM EDT Follow up with Adama Henson APRN.CNP, DNP in 6 months - Heart monitor patch applied today for two weeks. - Schedule renal ultrasound - Complete fasting lab work - follow up with Urology in July - Encouraged regular physical activity and weight loss - Adhere to a low-cholesterol, low-fat, and low carb diet. Please ensure that they are eating lots of fruits and vegetables, eat lean cuts of meat, and limit surgry drinks. Perform regular physical activity and limit fast food. - BP goal of <130/80 - LDL goal of <100 - A1C Goal <7%. - Recheck labs to monitor A1C, blood sugar and kidney function Return to the clinic or seek care at [facility] for any worsening signs or symptoms. Go to ER for any episodes where you lose consciousness or blackout. Healthy Habits: Recommend regular physical activity, nutrition and healthy eating habits. Consume a variety of foods every day focusing on fruits, vegetables and lean meats). Eat foods low in fat, saturated fat and cholesterol. Eat a limited amount of salt and sodium. Drink adequate amounts of water and limit sugary drinks. Exercise portion control in meal selection. Establish a mindset of a wellness approach to health. Thank you for allowing me to provide your care today. I look forward to seeing you again and maintaining your health. Adama Henson APRN.JESUS MANUEL BALTAZAR documented in this encounter [facility] documented as of this encounter (statuses as of 08/14/2021) [facility] History of Past illness Narrative* Problem Noted Date Resolved Date Chronic kidney disease, unspecified 06/13/2008 08/14/2021 Overview: Creat 1.8-2.1 dating back to 2005, per old records review 07/05/08 -- [facility] documented as of this encounter (statuses as of 09/03/2021) [facility] History of Past illness Narrative* Problem Noted Date Resolved Date Chronic kidney disease, unspecified 06/13/2008 08/14/2021 Overview: Creat 1.8-2.1 dating back to 2005, per old records review 07/05/08 -- [facility] documented as of this encounter (statuses as of 10/20/2021) [facility] History of Past illness Narrative* Problem Noted Date Resolved Date Chronic kidney disease, unspecified 06/13/2008 08/14/2021 Overview: Creat 1.8-2.1 dating back to 2005, per old records review 07/05/08 -- [facility] documented as of this encounter (statuses as of 12/19/2021) [facility] History of Past illness Narrative* Problem Noted Date Resolved Date Chronic kidney disease, unspecified 06/13/2008 08/14/2021 Overview: Creat 1.8-2.1 dating back to 2005, per old records review 07/05/08 -- [facility] documented as of this encounter (statuses as of 12/24/2021) [facility] History of Past illness Narrative* Problem Noted Date Resolved Date Chronic kidney disease, unspecified 06/13/2008 08/14/2021 Overview: Creat 1.8-2.1 dating back to 2005, per old records review 07/05/08 -- [facility] documented as of this encounter (statuses as of 12/26/2021) [facility] History of Past illness Narrative* Problem Noted Date Resolved Date Chronic kidney disease, unspecified 06/13/2008 08/14/2021 Overview: Creat 1.8-2.1 dating back to 2005, per old records review 07/05/08 -- [facility] documented as of this encounter (statuses as of 01/07/2022) [facility] History of Past illness Narrative* Problem Noted Date Resolved Date Chronic kidney disease, unspecified 06/13/2008 08/14/2021 Overview: Creat 1.8-2.1 dating back to 2005, per old records review 07/05/08 -- [facility] documented as of this encounter (statuses as of 01/18/2022) [facility] History of Past illness Narrative* Problem Noted Date Resolved Date Chronic kidney disease, unspecified 06/13/2008 08/14/2021 Overview: Creat 1.8-2.1 dating back to 2005, per old records review 07/05/08 -- [facility] documented as of this encounter (statuses as of 07/16/2022) [facility] Collapse fleeting- Primary Syncope and collapse Stage 3b chronic kidney disease (HCC) Obesity, Class II, BMI 35-39.9 Obesity, unspecified Elevated PSA Elevated prostate specific antigen (PSA) Prediabetes Other abnormal glucose Essential hypertension, benign Gout, unspecified Hyperlipidemia, mixed Mixed hyperlipidemia Post herpetic neuralgia Herpes zoster with other nervous system complications 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, unspecified laterality [facility] Diagnosis Collapse fleeting- Primary Syncope and collapse [facility] Diagnosis Collapse fleeting- Primary Syncope and collapse Abnormal Holter monitor finding Nonspecific abnormal electrocardiogram (ECG) (EKG) [facility] Diagnosis Dermatitis due to plants, including poison taurus, sumac, and oak Contact dermatitis and other eczema due to plants (except food) [facility] Diagnosis Elevated PSA- Primary Elevated prostate specific antigen (PSA) [facility] Diagnosis Localized swelling of left lower leg- Primary Collapse fleeting Syncope and collapse Stage 3b chronic kidney disease (HCC) Obesity, Class II, BMI 35-39.9 Obesity, unspecified Prediabetes Other abnormal glucose Essential hypertension, benign [facility] Diagnosis Left leg swelling- Primary Swelling of limb [facility] Diagnosis Collapse fleeting- Primary Syncope and collapse [facility] Diagnosis Localized swelling of left lower leg- Primary Collapse fleeting Syncope and collapse Stage 3b chronic kidney disease (HCC) Obesity, Class II, BMI 35-39.9 Obesity, unspecified Prediabetes Other abnormal glucose Essential hypertension, benign Advanced care planning/counseling discussion Other specified counseling [facility] Diagnosis Localized swelling of left lower leg- Primary Collapse fleeting Syncope and collapse Stage 3a chronic kidney disease (HCC) Obesity, Class II, BMI 35-39.9 Obesity, unspecified Prediabetes Other abnormal glucose Essential hypertension, benign [facility] Diagnosis NSVT (nonsustained ventricular tachycardia) ([facility])- Primary Paroxysmal ventricular tachycardia Premature atrial complex Supraventricular premature beats Essential hypertension Unspecified essential hypertension Mixed hyperlipidemia [facility]* Diagnosis Essential hypertension, benign- Primary Hyperlipidemia, mixed Mixed hyperlipidemia Stage 3b chronic kidney disease (HCC) Elevated hemoglobin A1c Other abnormal blood chemistry Obesity, Class II, BMI 35-39.9 Obesity, unspecified Post herpetic neuralgia Herpes zoster with other nervous system complications Chronic gout without tophus, unspecified cause, unspecified site Ex-smoker Personal history of tobacco use, presenting hazards to health Weight loss, unintentional Loss of weight Encounter for immunization Need for other specified prophylactic vaccination against single bacterial disease [facility] Diagnosis Ex-smoker Personal history of tobacco use, presenting hazards to health Weight loss, unintentional Loss of weight [facility] Diagnosis Elevated PSA- Primary Elevated prostate specific antigen (PSA) documented in this encounter [facility] for referral (narrative)* Outpatient Procedure (Routine) - Pending Review Specialty Diagnoses / Procedures Referred By Contac t Referred To Contact [facility] [place] Diagnoses Essential hypertension, benign Collapse fleeting Procedures ECG COMPLETE ECG ROUTINE ECG W/LEAST 12 LDS W/I&R Adama Henson APRN.CNP, DNP [address] [place] [address] [facility] [place] [address] [place] [address] Referral ID Status Reason Start Date Expiration Date Visits Requested Visits Authorized [id number] Pending Review Auto-Generat ed Referral 06/30/2021 06/30/2022 1 1 [facility] for referral (narrative)* Diagnostic Procedure Only (Urgent) - Closed Specialty Diagnoses / Procedures Referred By Contac t Referred To Contact US IMAGING Diagnoses Left leg swelling Procedures US DVT LOWER LT DUP-SCAN XTR VEINS UNILATERAL/LIMITED STUDY Ana María Crawford APRN.CNP [address] [place] [address] Us Imaging Referral ID Status Reason Start Date Expiration Date V isits Requested Visits Authorized [id number] Closed Auto-Generate d Referral 07/28/2021 08/27/2022 1 1 [facility] for referral (narrative)* Outpatient Procedure (Routine) - Authorized Specialty Diagnoses / Procedures Referred By Contac t Referred To Contact [facility] [place] Diagnoses Collapse fleeting Procedures US CAROTID ARTERIES EMELY VAS LAB DUPLEX SCAN EXTRACRANIAL ART COMPL BI STUDY Adama Henson APRN.CNP, DNP [address] [place] [address] [address] Referral ID Status Reason Start Date Expiration Date Visits Requested Visits Authorized [id number] Authorized Auto-Generat ed Referral 08/11/2021 08/04/2022 1 1 [facility] for referral (narrative)* Outpatient Procedure (Routine) - Pending Review Specialty Diagnoses / Procedures Referred By Contac t Referred To Contact [facility] [place] Diagnoses NSVT (nonsustained ventricular tachycardia) (HCC) Procedures ECHO ECHO TTHRC R-T 2D W/WOM-MODE COMPL SPEC&COLR D Ryan Mane MD [address], [address] [place] [address] [place] [id number] Referral ID Status Reason Start Date Expiration Date Visits Requested Visits Authorized [id number] Pending Review Auto-Generat ed Referral 10/20/2021 10/20/2022 1 1 [facility] for referral (narrative)* Diagnostic Procedure Only (Routine) - Closed Specialty Diagnoses / Procedures Referred By Contac t Referred To Contact US IMAGING Diagnoses Ex-smoker Weight loss, unintentional Procedures US ABDOMEN COMPLETE US ABDOMINAL REAL TIME W/IMAGE DOCUMENTATION Denise Munoz MD [address] [place] [address] Us Imaging Referral ID Status Reason Start Date Expiration Date V isits Requested Visits Authorized [id number] Closed Auto-Generate d Referral 12/18/2021 01/17/2023 1 1 [facility] Advance Directives No Advanced Directives Records FoundDocuments on File Type Date Recorded 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) 01/12/2017 7:27 AM Documents on File Type Date Recorded 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) 01/12/2017 7:27 AM Documents on File Type Date Recorded 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) 11/03/2021 1:18 PM Documents on File Type Date Recorded 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) 11/03/2021 1:18 PM Reason for Referral Specialty Diagnoses / Procedures Referred By Contac t Referred To Contact Cardiology Diagnoses Collapse fleeting Abnormal Holter monitor finding Procedures CONSULT TO CARDIOLOGY OFFICE/OUTPATIENT [facility] 60-74 MINUTES Adama Henson APRN.STRUCTURAL DESIGN ENGINEER, DNP [address] [place] [address] Referral ID Status Reason Start Date Expiration Date Visits Requested Visits Authorized [id number] Pending Review PCP Requested Referral 08/01/2021 07/18/2022 1 1 Specialty Diagnoses / Procedures Referred By Contac t Referred To Contact Nephrology Diagnoses Stage 3b chronic kidney disease (HCC) Procedures CONSULT TO NEPHROLOGY OFFICE/OUTPATIENT [facility] 60-74 MINUTES Denise Munoz MD [address] [place] [address] Referral ID Status Reason Start Date Expiration Date Visits Requested Visits Authorized [id number] Pending Review PCP Requested Referral 12/18/2021 12/18/2022 1 1 Specialty Diagnoses / Procedures Referred By Contac t Referred To Contact US IMAGING Diagnoses Ex-smoker Weight loss, unintentional Procedures US ABDOMEN COMPLETE US ABDOMINAL REAL TIME W/IMAGE DOCUMENTATION Denise Munoz MD [address] [place] [address] Us Imaging Referral ID Status Reason Start Date Expiration Date Visits Requested Visits Authorized [id number] Authorized Auto-Generat ed Referral 12/18/2021 01/17/2023 1 1 Summary Purpose Family History No Family History Records Found Additional Source Comments Source Comments (unrecognize d section and content) In the event this informatio n is protected by the Federal Confidentiality of Alcohol and Drug Abuse Patient Records regulations: The Federal rules restrict any use of the information to criminally investigate or prosecute any alcohol or drug abuse patient.[facility] this information is protected by the Federal Confidentiality of Alcohol and Drug Abuse Patient Records regulations: The Federal rules restrict any use of the information to criminally investigate or prosecute any alcohol or drug abuse patient.[facility] event this information is protected by the Federal Confidentiality of Alcohol and Drug Abuse Patient Records regulations: The Federal rules restrict any use of the information to criminally investigate or prosecute any alcohol or drug abuse patient.[facility] event this information is protected by the Federal Confidentiality of Alcohol and Drug Abuse Patient Records regulations: The Federal rules restrict any use of the information to criminally investigate or prosecute any alcohol or drug abuse patient.[facility] event this information is protected by the Federal Confidentiality of Alcohol and Drug Abuse Patient Records regulations: The Federal rules restrict any use of the information to criminally investigate or prosecute any alcohol or drug abuse patient.[facility] the event this information is protected by the Federal Confidentiality of Alcohol and Drug Abuse Patient Records regulations: The Federal rules restrict any use of the information to criminally investigate or prosecute any alcohol or drug abuse patient.[facility] the event this information is protected by the Federal Confidentiality of Alcohol and Drug Abuse Patient Records regulations: The Federal rules restrict any use of the information to criminally investigate or prosecute any alcohol or drug abuse patient.[facility] the event this information is protected by the Federal Confidentiality of Alcohol and Drug Abuse Patient Records regulations: The Federal rules restrict any use of the information to criminally investigate or prosecute any alcohol or drug abuse patient.[facility] the event this information is protected by the Federal Confidentiality of Alcohol and Drug Abuse Patient Records regulations: The Federal rules restrict any use of the information to criminally investigate or prosecute any alcohol or drug abuse patient.[facility] the event this information is protected by the Federal Confidentiality of Alcohol and Drug Abuse Patient Records regulations: The Federal rules restrict any use of the information to criminally investigate or prosecute any alcohol or drug abuse patient.[facility] the event this information is protected by the Federal Confidentiality of Alcohol and Drug Abuse Patient Records regulations: The Federal rules restrict any use of the information to criminally investigate or prosecute any alcohol or drug abuse patient.[facility] the event this information is protected by the Federal Confidentiality of Alcohol and Drug Abuse Patient Records regulations: The Federal rules restrict any use of the information to criminally investigate or prosecute any alcohol or drug abuse patient.[facility] the event this information is protected by the Federal Confidentiality of Alcohol and Drug Abuse Patient Records regulations: The Federal rules restrict any use of the information to criminally investigate or prosecute any alcohol or drug abuse patient.[facility] the event this information is protected by the Federal Confidentiality of Alcohol and Drug Abuse Patient Records regulations: The Federal rules restrict any use of the information to criminally investigate or prosecute any alcohol or drug abuse patient.[facility] the event this information is protected by the Federal Confidentiality of Alcohol and Drug Abuse Patient Records regulations: The Federal rules restrict any use of the information to criminally investigate or prosecute any alcohol or drug abuse patient.[facility] the event this information is protected by the Federal Confidentiality of Alcohol and Drug Abuse Patient Records regulations: The Federal rules restrict any use of the information to criminally investigate or prosecute any alcohol or drug abuse patient.[facility] the event this information is protected by the Federal Confidentiality of Alcohol and Drug Abuse Patient Records regulations: The Federal rules restrict any use of the information to criminally investigate or prosecute any alcohol or drug abuse patient.[facility] the event this information is protected by the Federal Confidentiality of Alcohol and Drug Abuse Patient Records regulations: The Federal rules restrict any use of the information to criminally investigate or prosecute any alcohol or drug abuse patient.[facility] the event this information is protected by the Federal Confidentiality of Alcohol and Drug Abuse Patient Records regulations: The Federal rules restrict any use of the information to criminally investigate or prosecute any alcohol or drug abuse patient.[facility] event this information is protected by the Federal Confidentiality of Alcohol and Drug Abuse Patient Records regulations: The Federal rules restrict any use of the information to criminally investigate or prosecute any alcohol or drug abuse patient.[facility] Reason for Visit (unrecogniz ed section and content) Reason Comments Orders Reason Comments Results Orders Reason Comments Refill Request Reason Comments Follow Up Elevated PSA Reason Comments Leg Edema left leg Reason Comments Edema left foot, ankle and calf and swelling x 3 days Reason Comments Results Reason Comments Patient Question Reason Comments Recheck Reason Comments Appointment Specialty Diagnoses / Procedures Referred By Contac t Referred To Contact Cardiology Diagnoses Collapse fleeting Abnormal Holter monitor finding Procedures CONSULT TO CARDIOLOGY OFFICE/OUTPATIENT [facility] 60-74 MINUTES Adama Henson APRN.CNP, DNP [address] [place] [address] Referral ID Status Reason Start Date Expiration Date Visits Requested Visits Authorized [id number] Pending Review PCP Requested Referral 08/01/2021 07/18/2022 1 1 Reason Comments Establish Care Reason Comments Radiology US Specialty Diagnoses / Procedures Referred By Contac t Referred To Contact US IMAGING Diagnoses Ex-smoker Weight loss, unintentional Procedures US ABDOMEN COMPLETE US ABDOMINAL REAL TIME W/IMAGE DOCUMENTATION Denise Munoz MD [address] [place] [address] Us Imaging Referral ID Status Reason Start Date Expiration Date V isits Requested Visits Authorized [id number] Closed Auto-Generate d Referral 12/18/2021 01/17/2023 1 1 Reason Comments Appointment Cancelled Care Teams (unrecognized sec tion and content) Milk Pasteurizer Relationship Specialty Start Date End Date Adama Henson APRN.CNP, DNP [address] [place], [place] [id number] PCP - General Family Practice 04/16/20 Milk Pasteurizer Relationship Specialty Start Date End Date Adama Henson APRN.CNP, DNP [address] [place], [place] [id number] PCP - General Family Practice 04/16/20 Milk Pasteurizer Relationship Specialty Start Date End Date Adama Henson HOOKER INSPECTOR.STRUCTURAL DESIGN ENGINEER, DNP [address] [place] [address] PCP - General Family Practice 04/16/20 Milk Pasteurizer Relationship Specialty Start Date End Date Adama Henson, HOOKER INSPECTOR.DELANEY, JESUS MANUEL [address] [facility] [address] PCP - General Family Practice 04/16/20 Milk Pasteurizer Relationship Specialty Start Date End Date Adama Henson, HOOKER INSPECTOR.STRUCTURAL DESIGN ENGINEER, JESUS MANUEL [address] [place] [address] PCP - General Family Practice 04/16/20 Milk Pasteurizer Relationship Specialty Start Date End Date Adama Henson, HOOKER INSPECTOR.JESUS MANUEL BALTAZAR [address] [place] [address] PCP - General Family Practice 04/16/20 Milk Pasteurizer Relationship Specialty Start Date End Date Adama Henson, HOOKER INSPECTOR.DELANEY, JESUS MANUEL [address] [place] [address] PCP - General Family Practice 04/16/20 Milk Pasteurizer Relationship Specialty Start Date End Date Adama Henson, HOOKER INSPECTOR.JESUS MANUEL BALTAZAR [address] [place] [address] PCP - General Family Practice 04/16/20 Milk Pasteurizer Relationship Specialty Start Date End Date Adama Henson, HOOKER INSPECTOR.DELANEY, DNP [address] [place] [address] PCP - General Family Practice 04/16/20 Milk Pasteurizer Relationship Specialty Start Date End Date Adama Henson, HOOKER INSPECTOR.DELANEY, DNP [address] [place] [address] PCP - General Family Practice 04/16/20 Milk Pasteurizer Relationship Specialty Start Date End Date Denise Munzo MD [address] [place] [address] PCP - General Family [facility] 12/18/21 Milk Pasteurizer Relationship Specialty Start Date End Date Denise Munoz MD [address] [place] [address] PCP - General Family [facility] 12/18/21 Milk Pasteurizer Relationship Specialty Start Date End Date Denise Munoz MD [address] [place] [address] PCP - General [facility] 12/18/21 Milk Pasteurizer Relationship Specialty Start Date End Date Denise Munoz MD [address] [place] [address] PCP - [facility] 12/18/21 Milk Pasteurizer Relationship Specialty Start Date End Date Adama Henson APRN.STRUCTURAL DESIGN ENGINEER, DNP [address] [place] [address] PCP - General [facility] 04/16/20 12/17/21 Denise Munoz MD [address] [place] [address] PCP - General [facility] 12/18/21 Milk Pasteurizer Relationship Specialty Start Date End Date Denise Munoz MD [address] [place] [address] [facility] - General [facility] 12/18/21 (unrecognized sect ion and content) No Status Records Found INFORMATION SOURCE (unrecogn ized section and content) FOR RECORDS PERTAINING TO PATIENTS WHO ARE OR HAVE BEEN ENROLLED IN A CHEMICAL DEPENDENCY/SUBSTANCEABUSE PROGRAM, SOME INFORMATION MAY BE OMITTED. This clinical summary was aggregated from multiple sources. Caution should be exercised in using it in the provision of clinical care. This summary normalizes information from multiple sources, and as a consequence, information in this document may materially change the coding, format and clinical context of patient data. In addition, data may be omitted in some cases. CLINICAL DECISIONS SHOULD BE BASED ON THE PRIMARY CLINICAL RECORDS. [facility] provides no warranty or guarantee of the accuracy or completeness of information in this document.
[2023-03-19 11:17] LABS: Anion Gap 10 (5-15); BUN 28 mg/dL (7-18); BUN/Creat Ratio 17.5 RATIO (10-20); Calcium,Total 9.2 mg/dL (8.5-10.1); Chloride 108 mmol/L (98-107); EST Glomerular Filtration Rate 44 mL/min (>60); Est Glom Filt Rate - Afr Amer 54 mL/min (>60); Glucose 96 mg/dL (74-106); Potassium 4.3 mmol/L (3.5-5.1); Sodium Level 144 mmol/L (136-145)
== END | disposition home or self-care (01) ==
LOC: MFPLAB 09:08
PROVIDERS: PCP Family Medicine; Visit Provider Family Medicine
DX: N18.9 Chronic kidney disease, unspecified (principal)
CPT/HCPCS: 36415; 80048

== ENCOUNTER → 2023-05-04 | Outpatient (CLI) | payer MEDICARE, SELFPAY ==
[2023-05-04 15:45] LABS: Anion Gap 2 (5-15); BUN 24 mg/dL (7-18); Calcium,Total 9.3 mg/dL (8.5-10.1); Chloride 110 mmol/L (98-107); Creatinine, Serum 1.72 mg/dL (0.70-1.30); EST Glomerular Filtration Rate 41 mL/min (>60); Est Glom Filt Rate - Afr Amer 49 mL/min (>60); Glucose 92 mg/dL (74-106); Potassium 4.3 mmol/L (3.5-5.1); Sodium Level 142 mmol/L (136-145)
== END | disposition home or self-care (01) ==
LOC: MFPLAB 12:04
PROVIDERS: PCP Family Medicine; Visit Provider Family Medicine
DX: I10 Essential (primary) hypertension (principal)
CPT/HCPCS: 36415; 80048

== ENCOUNTER → 2023-05-14 | Outpatient (CLI) | payer MEDICARE, SELFPAY ==
--- OUTSIDE RECORDS SUMMARY | 2023-05-14 12:18 | XMS RPT_ITS | CCD ---
Author Name Unknown Address [address] [place] [address] Organization [facility] Care Team Providers Care Predator Control Trapper Name Role Phone Blangozi BATTERY CHARGER.DIRECTOR OF LEARNING, DNP, Adama Primary Care Provider Tammy GATES, Denise Canela Primary Care Provider Tammy GATES, Denise Canela Primary Care Provider [phone] ADAMA HENSON Attending Unavailable BLAZ, ADAMA Primary [...] Referring Unavailable BLAZ, ADAMA Primary Care Unavailable DENIES MUNOZ A Referring Unavailable TAMMYDENISE JACKSON A [...] environmental [Other] Propensity to adverse reactions [address] [facility] Work Phone: (1 source) OTHER; Translations: [OTHER] Propensity to adverse reactions (disorder) 9 [facility] Repository Medications Current Medications Medication Drug Class(es) [...] 102.06 kg Denise Munoz MD Work Phone: [facility] 12-18-2021 09:10-0400 Diastolic blood pressure 60 mm[Hg] Denise Munoz MD Work Phone: [facility] 12-18-2021 09:10-0400 Heart rate 76 /min Denise Munoz MD Work Phone: [facility] 12-18-2021 09:10-0400 Respiratory rate 16 /min Denise Munoz MD Work Phone: [facility] 12-18-2021 09:10-0400 Systolic blood pressure 108 mm[Hg] Denise Munoz MD Work Phone: [facility] 10-20-2021 10:27-0400 Body weight 102.06 kg Ryan Mane MD Work Phone: [facility] 10-20-2021 10:27-0400 Diastolic blood pressure 60 mm[Hg] Ryan Mane MD Work Phone: [facility] 10-20-2021 10:27-0400 Heart rate 72 /min Ryan Mane MD Work Phone: [facility] 10-20-2021 10:27-0400 Systolic blood pressure 120 mm[Hg] Ryan Mane MD Work Phone: [facility] 08-14-2021 10:41-0400 Body weight 107.05 kg Adama Henson APRN.DELANEY, DNP Work Phone: [facility] 08-14-2021 10:41-0400 Diastolic blood pressure 68 mm[Hg] Adama Henson APRN.DIRECTOR OF LEARNING, DNP Work Phone: [facility] 08-14-2021 10:41-0400 Heart rate 79 /min Adama Henson APRN.DIRECTOR OF LEARNING, DNP Work Phone: [facility] 08-14-2021 10:41-0400 Respiratory rate 16 /min Adama Henson APRN.DIRECTOR OF LEARNING, DNP Work Phone: [facility] 08-14-2021 10:41-0400 SaO2% (BldA) [Mass fraction] 97 % Adaam Henson APRN.DIRECTOR OF LEARNING, DNP Work Phone: [facility] 08-14-2021 10:41-0400 Systolic blood pressure 126 mm[Hg] Adama Henson APRN.DIRECTOR OF LEARNING, DNP Work Phone: [facility] 08-05-2021 09:16-0400 Body temperature 97.9 [degF] Adama Henson APRN.DIRECTOR OF LEARNING, DNP Work Phone: [facility] 08-05-2021 09:16-0400 Body weight 108.86 kg Adama Henson APRN.DIRECTOR OF LEARNING, DNP Work Phone: [facility] 08-05-2021 09:16-0400 Diastolic blood pressure 76 mm[Hg] Adama Henson APRN.DIRECTOR OF LEARNING, DNP Work Phone: [facility] 08-05-2021 09:16-0400 Heart rate 82 /min Adama Henson APRN.DIRECTOR OF LEARNING, DNP Work Phone: [facility] 08-05-2021 09:16-0400 Respiratory rate 14 /min Adama Henson APRN.DIRECTOR OF LEARNING, DNP Work Phone: [facility] 08-05-2021 09:16-0400 SaO2% (BldA) [Mass fraction] 97 % Adama Henson APRN.DIRECTOR OF LEARNING, DNP Work Phone: [facility] 08-05-2021 09:16-0400 Systolic blood pressure 128 mm[Hg] Adama Henson APRN.DIRECTOR OF LEARNING, DNP Work Phone: [facility] 07-29-2021 09:13-0400 Body temperature 97.2 [degF] Adama Henson APRN.DIRECTOR OF LEARNING, DNP Work Phone: [facility] 07-29-2021 09:13-0400 Body weight 108.86 kg Adama Henson APRN.DIRECTOR OF LEARNING, DNP Work Phone: [facility] 07-29-2021 09:13-0400 Diastolic blood pressure 66 mm[Hg] Adama Henson APRN.DIRECTOR OF LEARNING, DNP Work Phone: [facility] 07-29-2021 09:13-0400 Heart rate 86 /min Adama Henson APRN.DIRECTOR OF LEARNING, DNP Work Phone: [facility] 07-29-2021 09:13-0400 Respiratory rate 16 /min Adama Henson APRN.DIRECTOR OF LEARNING, DNP Work Phone: [facility] 07-29-2021 09:13-0400 SaO2% (BldA) [Mass fraction] 96 % Adama Henson APRN.DIRECTOR OF LEARNING, DNP Work Phone: [facility] 07-29-2021 09:13-0400 Systolic blood pressure 122 mm[Hg] Adama Henson APRN.DIRECTOR OF LEARNING, DNP Work Phone: [facility] 07-28-2021 08:14-0400 Body temperature 97.7 [degF] Ana María Yvette BATTERY CHARGER.DIRECTOR OF LEARNING Work Phone: [facility] 07-28-2021 08:14-0400 Body weight 108.41 kg Ana María Yvette BATTERY CHARGER.[facility] Work Phone: [facility] 07-28-2021 08:14-0400 Diastolic blood pressure 60 mm[Hg] Ana María Yvette BATTERY CHARGER.DIRECTOR OF LEARNING Work Phone: [facility] 07-28-2021 08:14-0400 Heart rate 88 /min Ana María Yvette BATTERY CHARGER.[facility] Work Phone: [facility] 07-28-2021 08:14-0400 Respiratory rate 16 /min Ana María Yvette BATTERY CHARGER.[facility] Work Phone: [facility] 07-28-2021 08:14-0400 SaO2% (BldA) [Mass fraction] 95 % Ana María Yvette BATTERY CHARGER.DIRECTOR OF LEARNING Work Phone: [facility] 07-28-2021 08:14-0400 Systolic blood pressure 124 mm[Hg] Ana María Yvette BATTERY CHARGER.DIRECTOR OF LEARNING Work Phone: [facility] 07-22-2021 10:12-0400 Body weight 110.68 kg Edson King PA-C Work Phone: [facility] 07-22-2021 10:12-0400 Diastolic blood pressure 62 mm[Hg] Edson King PA-C Work Phone: [facility] 07-22-2021 10:12-0400 Heart rate 74 /min Edson King PA-C Work Phone: [facility] 07-22-2021 10:12-0400 SaO2% (BldA) [Mass fraction] 96 % Edson King PA-C Work Phone: [facility] 07-22-2021 10:12-0400 Systolic blood pressure 110 mm[Hg] Edson King PA-C Work Phone: [facility] 06-30-2021 13:40-0400 Body weight 111.13 kg Adama Henson APRN.JESUS MANUEL BALTAZAR Work Phone: [facility] 06-30-2021 13:40-0400 Diastolic blood pressure 70 mm[Hg] Adama Henson APRN.JESUS MANUEL BALTAZAR Work Phone: [facility] 06-30-2021 13:40-0400 Heart rate 84 /min Adama Henson APRN.JESUS MANUEL BALTAZAR Work Phone: [facility] 06-30-2021 13:40-0400 Respiratory rate 14 /min Adama Henson APRN.JESUS MANUEL BALTAZAR Work Phone: [facility] 06-30-2021 13:40-0400 SaO2% (BldA) [Mass fraction] 97 % Adama Henson APRN.CNP, DNP Work Phone: [facility] 06-30-2021 13:40-0400 Systolic blood pressure 122 mm[Hg] Adama Henson APRN.JESUS MANUEL BALTAZAR Work Phone: [facility] Encounters Encounter Date Encounter Type Care [...] Author Start: 12-18-2024 DIABETES SCREEN DIABETES SCREEN [facility] Start: 08-14-2024 DIABETES SCREEN DIABETES SCREEN [facility] Start: 07-29-2024 DIABETES SCREEN DIABETES SCREEN [facility] Start: 07-01-2024 DIABETES SCREEN DIABETES SCREEN [facility] Start: 01-07-2024 DIABETES SCREEN DIABETES SCREEN [facility] Start: 12-18-2022 ANNUAL PCP TEAM WAITER VÍCTOR DISEASE VISIT ANNUAL PCP TEAM CHRONIC DISEASE VISIT [facility] Start: 12-18-2022 BP CONTROLLED (<130/80) BP CONTROLLE D (<130/80) [facility] Start: 12-18-2022 HEMOGLOBIN/HEMATOCRIT HEMOGLOBIN/HEM ATOCRIT [facility] Start: 12-18-2022 SERUM CREATININE SERUM CREATININE Cl [facility] Start: 12-18-2022 Urine microalbumin profile DTAP,TDAP ,TD (1 - Tdap) [facility] Immunizations Immunization Date Immunization Notes Care Provider Fa cility 12-18-2021 influenza, high-dose , quadrivalent vaccine (FLUZONE HIGH DOSE QUADRIVALENT) Denise Munoz MD Work Phone: [facility] 12-18-2021 pneumococcal (PCV20) vaccine, 20 valent (PREVNAR 20) Denise Munoz MD Work Phone: [facility] 12-18-2021 pneumococcal Conjuga te, unspecified formulation Denise Munoz MD Work Phone: [facility] Work Phone: 12-11-2021 COVID-19 booster vaccine, age 12+ yr, bivalent ([email or web address]) Denise Munoz MD Work Phone: [facility] 01-09-2021 influenza, high-dose , quadrivalent vaccine (FLUZONE HIGH DOSE QUADRIVALENT) Adama Henson APRN.JESUS MANUEL BALTAZAR Work Phone: [facility] 04-16-2020 influenza, high-dose , quadrivalent vaccine (FLUZONE HIGH DOSE QUADRIVALENT) Adama Henson APRN.CNP, DNP Work Phone: [facility] 12-01-2008 influenza virus vacc ine, unspecified formulation Adama Henson APRN.CNP, DNP Work Phone: [facility] Work Phone: 12-01-2008 pneumococcal polysaccharide vaccine, 23 valent Adama Henson APRN.CNP, DNP Work Phone: [facility] Work Phone: 04-15-2007 tetanus and diphther ia toxoids, adsorbed, preservative free, for adult use (2 Lf of tetanus toxoid and 2 Lf of diphtheria toxoid) Adama Henson APRN.DIRECTOR OF LEARNING, DNP Work Phone: [facility] Work Phone: Payers Date Payer Category Payer Medicare [id number] 2014 Medicare HUMANA MEDICARE HU[employer]NA GOLD PLUS [id number] 2014-Present [phone] [address] [address] [place] [address] HMO [id number] 2014 Private Health Insurance [id number] Social History Date Type Detail Facility Start: 04-16-2020 End: 12-18-2021 Tobacco smoking status NHIS Ex-smoker [facility] Work Phone: End: 04-15-1972 History of tobacco use Current smoker [facility] Work Phone: Start: 01-09-2021 End: 06-25-2022 Alcohol intake Current drinker of alcohol (finding) [facility] Start: 08-12-2011 History SDOH Alcohol Comment once q 2mo. [facility] Start: 1945 Sex Assigned At Male [facility] Work Phone: Start: 06-13-2021 End: 12-18-2021 Exposure to SARS-CoV-2 (event) Not sure [facility] Start: 07-21-2021 End: 07-31-2021 Exposure to SARS-CoV-2 (event) Unable to assess [facility] Work Phone: End: 04-15-1972 History of tobacco use Cigarette Smoker [facility] Work Phone: Start: 04-16-2020 End: 12-18-2021 Cigarettes smoked current (pack per day) - Reported [address] [facility] Start: 04-16-2020 End: 12-18-2021 Tobacco use and exposure Smokeless tobacco non-user [facility] Work Phone: Clinical Notes 06-13-2008 to 06-25-2022 Josette Diaz LPN - 06/25/2022 2:17 PM EDTTelephone Encounter - Rom Reese LPN - 01/07/2022 10:18 AM EDTTelephone Encounter - Denise Munoz MD - 01/06/2022 9:40 PM EDTPatient Instructions Note Date & Type Note Facility 06-25-2022 Note HNO ID: [id number] Author: Josette Diaz LPN Service: ? Author Type: ? Type: Progress Notes Filed: 07/15/2022 8:28 PM Note Text: Patient has appointment July 17, 2022 for yearly. Last office visit 07/19/2021 to follow up with PSA a week prior. PSA done 08/14/2021. Josette Diaz LPN [facility] 06-25-2022 History of Present illness Narrative Patient has appointment July 17, 2022 for yearly. Last office visit 07/19/2021 to follow up with PSA a week prior. PSA done 08/14/2021. Josette Diaz LPN documented in this encounter [facility] 01-07-2022 Miscellaneous Notes Pt notified of same. oRm Reese LPN Let patient know urine test was ok. No blood. documented in this encounter [facility] 12-25-2021 Note HNO ID: [id number] Author: Clau Ugalde RDMS Service: ? Author Type: Jewel Hole Driller Type: Progress Notes Filed: 12/25/2021 10:49 AM [...] Ugalde RDMS December 25, 2021 10:49 AM [facility] 12-25-2021 History of Present illness Narrative Radiology [...] 2021 10:49 AM documented in this encounter [facility] 12-24-2021 Miscellaneous Notes Patient notified and [...] Avis Gonzalez PA-C documented in this encounter [facility] 12-18-2021 Note HNO ID: [id number] Author: RT Shira(R) Service: Radiology Author Type: [...] RT Shira(R) December 18, 2021 10:20 AM [facility] 12-18-2021 Note HNO ID: [id number] Author: Denise Munoz MD Service: ? Author [...] (BP Site: Le (more content not included)... [facility] 12-18-2021 History of Present illness Narrative Chief [...] Abs Lymph 1.00 - 4.00 k/uL 1.71 Greene% % 6.4 Abs Greene <0.87 k/uL 0.38 Eosin% % 2.2 Abs [...] which included preparing to see the patient, [id number] patient care, completing clinical documentation, performing a medically appropriate examination, counseling and educating the patient/family/caregiver and ordering medications, tests, or procedures. Denise Munoz MD documented in this encounter [facility] 10-23-2021 Miscellaneous Notes Patient called. Verified [...] to pt when he returns call. Court Haeys RN Images from the original note were [...] testing and evaluation. Thank you, Carolyn Dey APRN.DIRECTOR OF LEARNING Patient called in very upset about an echo being order. He feels that this test was only ordered to collect money from he, he cancelled and refused to reschedule. documented in this encounter [facility] 10-20-2021 Note HNO ID: [id number] Author: Ryan Mane MD Service: ? Author [...] lead EKG 06/30/2021 shows normal sinus rhythm. AZ and QT intervals are normal. There are no ST segment changes suggestive of ischemia or infarction. Holter monitor Patient had a min HR of 54 bpm, max HR of 182 bpm, and avg HR of 70 bpm. Predominant underlying rhythm was Sinus Rhythm. 1 run of Ventricular Tachyc (more content not included)... [facility] 10-20-2021 History of Present illness Narrative CARDIOLOGY [...] lead EKG 06/30/2021 shows normal sinus rhythm. AZ and QT intervals are normal. There are [...] of our mutual patient. Ryan Mane MD, [facility] Cardiovascular Medicine Pager: [phone] October 20, 2021 documented in this encounter [facility] 08-14-2021 Note HNO ID: [id number] Author: Adama Henson APRN.DELANEY, JESUS MANUEL Service: ? Author Type: Nurse Practitioner Type: Progress Notes Filed: 08/14/2021 11:31 AM Note Text: Chief Complaint Patient presents with: Recheck HPI gA Hayes is a 76 year old male who presents here today for a follow up on leg swelling. Presents to the [facility] as an established patient of mine. [...] color, texture, turgor (more content not included)... [facility] 08-14-2021 Instructions Adama Henson APRN.JESUS MANUEL BALTAZAR [...] APRN.JESUS MANUEL BALTAZAR documented in this encounter [facility] 08-14-2021 History of Present illness Narrative Chief Complaint Patient presents with: Recheck HPI Ag Hayes is a 76 year old male who presents here today for a follow up on leg swelling. Presents to the [facility] as an established patient of [...] 08/05/2021 Results US DVT LOWER LT (Order [id number]) Patient Info Patient Name Sex Ag Lugo ([id number]) Male 1945 07/28/2021 12:08 PM - Radiology, Oru In Impression IMPRESSION: Negative study for proximal DVT in the left lower extremity. Negative study for calf DVT in the left lower extremity. Negative study for superficial thrombophlebitis in the imaged segments of the left lower extremity. Firebreak Cutter: GUILLERMO Transcribe Date/Time: Jul 28 2021 12:04P [...] Result History US DVT LOWER LT (Order #[id number]) on 07/28/2021 - Order Result History Report [...] MANUEL BALTAZAR This note was completed with Pie Digital dictation software. Note was reviewed for accuracy. There may be minor misspellings or grammar miscues with Pie Digital Dictation. I spent a total of 26 minutes on the date of the service which included preparing to see the patient, [id number] patient care, completing clinical documentation, performing a medically appropriate examination, counseling and educating the patient/family/caregiver and ordering medications, tests, or procedures. [place] [id number] This note was copied from previous note and exam dated 08/05/21 . Author is Adama Henson APRN.JESUS MANUEL BALTAZAR note reviewed and changes have been made or updates noted in the copy & paste portion of an encounter. documented in this encounter [facility] 08-05-2021 Note HNO ID: [id number] Author: Adama Henson APRN.JESUS MANUEL BALTAZAR Service: ? Author Type: Nurse Practitioner Type: Progress Notes Filed: 08/05/2021 10:14 AM Note Text: Chief Complaint Patient presents with: Recheck HPI Ag Hayes is a 76 year old male who presents here today for a follow up from urgent care. Presents to the [facility] as an established patient of [facility]. New patient of [facility]. No recent urgent care visits, ER visits, [...] No swelling HEMATOLO (more content not included)... [facility] 08-05-2021 Instructions Adama Henson APRN.CNP, DNP - [...] APRN.JESUS MANUEL BALTAZAR documented in this encounter [facility] 08-05-2021 History of Present illness Narrative Chief Complaint Patient presents with: Recheck HPI Ag Hayes is a 76 year old male who presents here today for a follow up from urgent care. Presents to the [facility] as an established patient of [facility]. New patient of [facility]. No recent urgent care visits, ER visits, [...] 08/05/2021 Results US DVT LOWER LT (Order [id number]) Patient Info Patient Name Sex Ag Lugo ([id number]) Male 1945 07/28/2021 12:08 PM - Radiology, Oru In Impression IMPRESSION: Negative study for proximal DVT in the left lower extremity. Negative study for calf DVT in the left lower extremity. Negative study for superficial thrombophlebitis in the imaged segments of the left lower extremity. Firebreak Cutter: PSCB Transcribe Date/Time: Jul 28 2021 12:04P [...] Result History US DVT LOWER LT (Order #[id number]) on 07/28/2021 - Order Result History Report [...] - ADVANCE CARE PLAN DISCUSSION Adama Blaz, BATTERY CHARGER.JESUS MANUEL BALTAZAR This note was completed with Pie Digital dictation software. Note was reviewed for accuracy. There may be minor misspellings or grammar miscues with Pie Digital Dictation. I spent a total of 22 minutes on the date of the service which included preparing to see the patient, [id number] patient care, completing clinical documentation, performing a medically appropriate examination, counseling and educating the patient/family/caregiver and ordering medications, tests, or procedures. [place] [id number] This note was copied from previous note and exam dated 07/29/21 . Author is Adama Henson APRN.JESUS MANUEL BALTAZAR note reviewed and changes have been made or updates noted in the copy & paste portion of an encounter. documented in this encounter [facility] 08-05-2021 Miscellaneous Notes Patient notified and [...] Expiration Date: 08/04/2022 Adama Henson DNP, CNP [facility] documented in this encounter [facility] 07-31-2021 Miscellaneous Notes Attempted to contact pt, phone number listed not working. Patient called stating he has received multiple calls regarding his appt. Please call patient and advise. I have been unable to find any documentation other than that patient is to be scheduled on 10/20. He is upset and wants to know why calls are being made. documented in this encounter [facility] 07-30-2021 Miscellaneous Notes Pt notified of [...] Henson APRN.CNP, DNP documented in this encounter [facility] 07-29-2021 Note HNO ID: [id number] Author: Adama Henson APRN.JESUS MANUEL BALTAZAR Service: ? Author Type: Nurse Practitioner Type: Progress Notes Filed: 08/03/2021 1:51 PM Note Text: Chief Complaint Patient presents with: Leg Edema: left leg HPI Ag Hayes is a 76 year old male who presents here today for a follow up from urgent care. Presents to the [facility] as an established patient of [facility]. New patient of [facility]. No recent urgent care visits, ER visits, [...] APRN.JESUS MANUEL BALTAZAR documented in this encounter [facility] 07-29-2021 History of Present illness Narrative Chief Complaint Patient presents with: Leg Edema: left leg HPI Ag Hayes is a 76 year old male who presents here today for a follow up from urgent care. Presents to the [facility] as an established patient of [facility]. New patient of [facility]. No recent urgent care visits, ER visits, [...] 07/29/2021 Results US DVT LOWER LT (Order [id number]) Patient Info Patient Name Sex Ag Lugo ([id number]) Male 1945 07/28/2021 12:08 PM - Radiology, Oru In Impression IMPRESSION: Negative study for proximal DVT in the left lower extremity. Negative study for calf DVT in the left lower extremity. Negative study for superficial thrombophlebitis in the imaged segments of the left lower extremity. Firebreak Cutter: GUILLERMO Transcribe Date/Time: Jul 28 2021 12:04P [...] Result History US DVT LOWER LT (Order #[id number]) on 07/28/2021 - Order Result History Report [...] Adama Henson This note was completed with Pie Digital dictation software. Note was reviewed for accuracy. There may be minor misspellings or grammar miscues with Pie Digital Dictation. I spent a total of 35 minutes on the date of the service which included preparing to see the patient, [id number] patient care, completing clinical documentation, performing a medically appropriate examination, counseling and educating the patient/family/caregiver and ordering medications, tests, or procedures. [place] [id number] This note was copied from previous note and exam dated 06/30/21 . Author is Adama Henson APRN.DIRECTOR OF LEARNING, DNP note reviewed and changes have been made or updates noted in the copy & paste portion of an encounter. documented in this encounter [facility] 07-28-2021 Miscellaneous Notes Patient notified that US did not show any DVT. Advise that we will set up follow up with PCP for further evaluation documented in this encounter [facility] 07-28-2021 Note HNO ID: [id number] Author: Ana María Crwaford APRN.CNP Service: ? Author Type: Nurse Practitioner Type: Progress Notes Filed: 07/29/2021 2:34 PM Note Text: Subjective The history is provided by the patient. No educational sign language interpreter was used. BURT Hayes is a 76 [...] have confirmed and edited as necessary, the [facility] Review of Systems Constitutional: Negative for chills [...] time. Psychiatric: Mood and Affect: Affect normal. [facility] 07-28-2021 Instructions Ana María Crawford APRN.CNP - 07/28/2021 8:42 AM EDT Left lower leg swelling Will check ultrasound to check for clot If negative, would recommend to follow up with PCP for further treatment and evaluation. Ana María Crawford APRN.DELANEY documented in this encounter [facility] 07-28-2021 History of Present illness Narrative Subjective The history is provided by the patient. No educational sign language interpreter was used. HPI Ag Hayes is a [...] have confirmed and edited as necessary, the [facility]\ Review of Systems Constitutional: Negative for chills [...] Affect: Affect normal. documented in this encounter [facility] 07-22-2021 Miscellaneous Notes Team - Inform [...] Tamie Shah LPN documented in this encounter [facility] 07-22-2021 Note HNO ID: [id number] Author: Edson King PA-C Service: ? Author Type: Physician Manpower Development Specialist Manager Type: Progress Notes Filed: 07/22/2021 3:43 PM Note Text: [facility] [place] [facility] UROLOGY CONSULT PATIENT INFO: Ag Hayes 76 [...] with PSA prior CHEKO [place], FAITHC [facility] 07-22-2021 History of Present illness Narrative Images from the original note were not included. [facility] [place] [facility] UROLOGY CONSULT PATIENT INFO: Ag Hayes 76 [...] male Elevated PSA, of 3.05 down from [facility] > No LUTS > 1 year Appt w/ CHEKO Lassiter MT, PA-C with PSA prior CHEKO Castro MT, PA-C documented in this encounter [facility] 07-18-2021 Miscellaneous Notes Patient contacted and given provider's message below and patient verbalized understanding. Transferred to food photographer to make cardiology appt. Frankie Ibrahim RN [...] access? Answer: Yes Adama Henson DNP, CNP [facility] documented in this encounter [facility] 07-02-2021 Miscellaneous Notes Orders signed. Patch [...] Performed? Answer: Holter Adama Henson DNP, CNP [facility] ----- Message from Maria Guadalupe Krishna sent at 07/02/2021 11:48 AM EDT ----- Regarding: zio patch Amadoulo May you place another zio order, we had a mail out on accident and it was actually placed in office. Sorry for the inconvenience Thank you! Maria Guadalupe Krishna documented in this encounter [facility] 06-30-2021 History of Present illness Narrative EVENT MONITOR DISPOSABLE PATCH INSTRUCTIONS Patient Name: Ag Hayes Clinic Number: [id number] Skin prepped and cleansed with alcohol Patch secured to prepped area Monitor Activated Serial #: [id number] Patient Instructed: 1.) Prescribed order timeframe 2.) Bathing guidelines 3.) Usage of event button and diary documentation 4.) Return of monitor at the end of prescribed order 5.) Call with problems [phone] or [phone] ext. [phone] Patient expresses a good understanding of instructions Ani Lombardo Cma Chief Complaint Patient presents with: F/U 6 months HPI Ag Hayes is a 76 year old male who presents here today for a established physical exam. Presents to the [facility] as an established patient of [facility]. New patient of [facility]. No recent urgent care visits, ER visits, [...] Abs Lymph 1.00 - 4.00 k/uL 1.59 Greene% % 7.0 Abs Greene <0.87 k/uL 0.48 Eosin% % 1.6 Abs [...] T wave changes. Ventricular rate was 73. [place] interval was 146 and QRS was 96. [...] changes. Reviewed by Adama Henson, JESUS MANUEL, DIRECTOR OF LEARNING Plan: Ziopatch, labs, and go to ER for any further episodes or worsening symptoms. Pending results consider Cardiology consult. - ZIOPACTH POLITICAL ANTHROPOLOGIST - HGB A1C - COMP METABOLIC PANEL [...] Adama Henson This note was completed with [employer] dictation software. Note was reviewed for accuracy. There may be minor misspellings or grammar miscues with [employer] Dictation. I spent a total of 35 minutes on the date of the service which included preparing to see the patient, [id number] patient care, completing clinical documentation, performing a medically appropriate examination, counseling and educating the patient/family/caregiver and ordering medications, tests, or procedures. [place] [id number] This note was copied from previous note and exam dated 01/09/21 . Author is Adama Henson APRN.JESUS MANUEL BALTAZAR note reviewed and changes have been made or updates noted in the copy & paste portion of an encounter. documented in this encounter [facility] 06-30-2021 Instructions Adama Henson APRN.CNP, DNP [...] APRN.JESUS MANUEL BALTAZAR documented in this encounter [facility] documented as of this encounter (statuses as of 08/14/2021) [facility] History of Past illness Narrative* Problem Noted Date Resolved Date Chronic kidney disease, unspecified 06/13/2008 08/14/2021 Overview: Creat 1.8-2.1 dating back to 2005, per old records review 07/05/08 -- [facility] documented as of this encounter (statuses as of 09/03/2021) [facility] History of Past illness Narrative* Problem Noted Date Resolved Date Chronic kidney disease, unspecified 06/13/2008 08/14/2021 Overview: Creat 1.8-2.1 dating back to 2005, per old records review 07/05/08 -- [facility] documented as of this encounter (statuses as of 10/20/2021) [facility] History of Past illness Narrative* Problem Noted Date Resolved Date Chronic kidney disease, unspecified 06/13/2008 08/14/2021 Overview: Creat 1.8-2.1 dating back to 2005, per old records review 07/05/08 -- [facility] documented as of this encounter (statuses as of 12/19/2021) [facility] History of Past illness Narrative* Problem Noted Date Resolved Date Chronic kidney disease, unspecified 06/13/2008 08/14/2021 Overview: Creat 1.8-2.1 dating back to 2005, per old records review 07/05/08 -- [facility] documented as of this encounter (statuses as of 12/24/2021) [facility] History of Past illness Narrative* Problem Noted Date Resolved Date Chronic kidney disease, unspecified 06/13/2008 08/14/2021 Overview: Creat 1.8-2.1 dating back to 2005, per old records review 07/05/08 -- [facility] documented as of this encounter (statuses as of 12/26/2021) [facility] History of Past illness Narrative* Problem Noted Date Resolved Date Chronic kidney disease, unspecified 06/13/2008 08/14/2021 Overview: Creat 1.8-2.1 dating back to 2005, per old records review 07/05/08 -- [facility] documented as of this encounter (statuses as of 01/07/2022) [facility] History of Past illness Narrative* Problem Noted Date Resolved Date Chronic kidney disease, unspecified 06/13/2008 08/14/2021 Overview: Creat 1.8-2.1 dating back to 2005, per old records review 07/05/08 -- [facility] documented as of this encounter (statuses as of 01/18/2022) [facility] History of Past illness Narrative* Problem Noted Date Resolved Date Chronic kidney disease, unspecified 06/13/2008 08/14/2021 Overview: Creat 1.8-2.1 dating back to 2005, per old records review 07/05/08 -- [facility] documented as of this encounter (statuses as of 07/16/2022) [facility] Diagnosis Collapse fleeting- Primary Syncope [...] tophus, unspecified laterality [facility] [place] [facility] Diagnosis Collapse fleeting- Primary Syncope and collapse [facility] [place] [facility] Diagnosis Collapse fleeting- Primary Syncope and collapse Abnormal Holter monitor finding Nonspecific abnormal electrocardiogram (ECG) (EKG) [facility] [place] [facility]* Diagnosis Dermatitis due to plants, including poison taurus, sumac, and oak Contact dermatitis and other eczema due to plants (except food) [facility] [place] [facility]* Diagnosis Elevated PSA- Primary Elevated prostate specific antigen (PSA) [facility] [place] [facility]* Diagnosis Localized swelling of left lower leg- Primary Collapse fleeting Syncope and collapse Stage 3b chronic kidney disease (HCC) Obesity, Class II, BMI 35-39.9 Obesity, unspecified Prediabetes Other abnormal glucose Essential hypertension, benign [facility] [place] [facility]* Diagnosis Left leg swelling- Primary Swelling of limb [facility] [place] [facility]* Diagnosis Collapse fleeting- Primary Syncope and collapse [facility] [place] [facility]* Diagnosis Localized swelling of left lower leg- Primary Collapse fleeting Syncope and collapse Stage 3b chronic kidney disease (HCC) Obesity, Class II, BMI 35-39.9 Obesity, unspecified Prediabetes Other abnormal glucose Essential hypertension, benign Advanced care planning/counseling discussion Other specified counseling [facility] [place] [facility] Diagnosis Localized swelling of left lower leg- Primary Collapse fleeting Syncope and collapse Stage 3a chronic kidney disease (HCC) Obesity, Class II, BMI 35-39.9 Obesity, unspecified Prediabetes Other abnormal glucose Essential hypertension, benign [facility] [place] [facility]* Diagnosis NSVT (nonsustained ventricular tachycardia) ([facility])- Primary Paroxysmal ventricular tachycardia Premature atrial complex Supraventricular premature beats Essential hypertension Unspecified essential hypertension Mixed hyperlipidemia [facility] [place] [facility]* Diagnosis Essential hypertension, benign- Primary Hyperlipidemia, [...] single bacterial disease [facility] [place] [facility]* Diagnosis Ex-smoker Personal history of tobacco use, presenting hazards to health Weight loss, unintentional Loss of weight [facility] [place] [facility]* Diagnosis Elevated PSA- Primary Elevated prostate specific antigen (PSA) documented in this encounter [facility] for referral (narrative)* Outpatient Procedure (Routine) - Pending Review Specialty Diagnoses / Procedures Referred By Contac t Referred To Contact [facility] [place] Diagnoses Essential hypertension, benign Collapse fleeting Procedures ECG COMPLETE ECG ROUTINE ECG W/LEAST 12 LDS W/I&R Adama Henson APRN.CNP, DNP [address] [place] [address] [facility] [place] [address] [place] [address] Referral ID Status Reason Start Date Expiration Date Visits Requested Visits Authorized [id number] Pending Review Auto-Generat ed Referral 06/30/2021 06/30/2022 1 1 [facility] for referral (narrative)* Diagnostic Procedure Only (Urgent) - Closed Specialty Diagnoses / Procedures Referred By Contac t Referred To Contact US IMAGING Diagnoses Left leg swelling Procedures US DVT LOWER LT DUP-SCAN XTR VEINS UNILATERAL/LIMITED STUDY Ana María Crawford APRN.CNP [address] [place] [address] Us Imaging Referral ID Status Reason Start Date Expiration Date V isits Requested Visits Authorized [id number] Closed Auto-Generate d Referral 07/28/2021 08/27/2022 1 1 [facility] for referral (narrative)* Outpatient Procedure (Routine) - Authorized Specialty Diagnoses / Procedures Referred By Contac t Referred To Contact [facility] [place] Diagnoses Collapse fleeting Procedures US CAROTID ARTERIES EMELY VAS LAB DUPLEX SCAN EXTRACRANIAL ART COMPL BI STUDY Adama Henson APRN.CNP, DNP [address] [place] [address] [address] Referral ID Status Reason Start Date Expiration Date Visits Requested Visits Authorized [id number] Authorized Auto-Generat ed Referral 08/11/2021 08/04/2022 1 1 [facility] for referral (narrative)* Outpatient Procedure (Routine) - Pending Review Specialty Diagnoses / Procedures Referred By Contac t Referred To Contact [facility] [place] Diagnoses NSVT (nonsustained ventricular tachycardia) (HCC) Procedures ECHO ECHO TTHRC R-T 2D W/WOM-MODE COMPL SPEC&COLR D Ryan Mane MD [address], [address] [place] [address] [place] [id number] Referral ID Status Reason Start Date Expiration Date Visits Requested Visits Authorized [id number] Pending Review Auto-Generat ed Referral 10/20/2021 10/20/2022 1 1 [facility] for referral (narrative)* Diagnostic Procedure Only (Routine) - Closed Specialty Diagnoses / Procedures Referred By Contac t Referred To Contact US IMAGING Diagnoses Ex-smoker Weight loss, unintentional Procedures US ABDOMEN COMPLETE US ABDOMINAL REAL TIME W/IMAGE DOCUMENTATION Denise Munoz MD [address] [place] [address] Us Imaging Referral ID Status Reason Start Date Expiration Date V isits Requested Visits Authorized [id number] Closed Auto-Generate d Referral 12/18/2021 01/17/[address] [facility] Advance Directives No Advanced Directives Records FoundDocuments on File Type Date Recorded Patient Greenskeeper Head Expl anation Advance Directive(s) 01/12/2017 7:27 AM Documents on File Type Date Recorded Patient Greenskeeper Head Expl anation Advance Directive(s) 01/12/2017 7:27 AM Documents on File Type Date Recorded Patient Greenskeeper Head Expl anation Advance Directive(s) 11/03/2021 1:18 PM Documents on File Type Date Recorded Patient Greenskeeper Head Expl anation Advance Directive(s) 11/03/2021 1:18 PM Reason for Referral Specialty Diagnoses / Procedures Referred By Contac t Referred To Contact Cardiology Diagnoses Collapse fleeting Abnormal Holter monitor finding Procedures CONSULT TO CARDIOLOGY OFFICE/OUTPATIENT [facility] 60-74 MINUTES Adama Henson APRN.DIRECTOR OF LEARNING, DNP [address] [place] [address] Referral ID Status Reason Start Date Expiration Date Visits Requested Visits Authorized [id number] Pending Review PCP Requested Referral 08/01/2021 07/18/2022 1 1 Specialty Diagnoses / Procedures Referred By Contac t Referred To Contact Nephrology Diagnoses Stage 3b chronic kidney disease (HCC) Procedures CONSULT TO NEPHROLOGY OFFICE/OUTPATIENT [facility] 60-74 MINUTES Denise Munoz MD [address] [place] [address] Referral ID Status Reason Start Date Expiration Date Visits Requested Visits Authorized [id number] Pending Review PCP Requested Referral 12/18/2021 12/18/2022 1 1 Specialty Diagnoses / Procedures Referred By Contac t Referred To Contact US IMAGING Diagnoses Ex-smoker Weight loss, unintentional Procedures US ABDOMEN COMPLETE US ABDOMINAL REAL TIME W/IMAGE DOCUMENTATION Denise Munoz MD [address] [place] [address] Us Imaging Referral ID Status Reason Start Date Expiration Date Visits Requested Visits Authorized [id number] Authorized Auto-Generat ed Referral 12/18/2021 01/17/2023 1 [...] or prosecute any alcohol or drug abuse patient.[facility] the event this information is protected by the Federal Confidentiality of Alcohol and Drug Abuse Patient Records regulations: The Federal rules restrict any use of the information to criminally investigate or prosecute any alcohol or drug abuse patient.[facility] the event this information is protected by the Federal Confidentiality of Alcohol and Drug Abuse Patient Records regulations: The Federal rules restrict any use of the information to criminally investigate or prosecute any alcohol or drug abuse patient.[facility] the event this information is protected by the Federal Confidentiality of Alcohol and Drug Abuse Patient Records regulations: The Federal rules restrict any use of the information to criminally investigate or prosecute any alcohol or drug abuse patient.[facility] the event this information is protected by the Federal Confidentiality of Alcohol and Drug Abuse Patient Records regulations: The Federal rules restrict any use of the information to criminally investigate or prosecute any alcohol or drug abuse patient.[facility] the event this information is protected by the Federal Confidentiality of Alcohol and Drug Abuse Patient Records regulations: The Federal rules restrict any use of the information to criminally investigate or prosecute any alcohol or drug abuse patient.[facility] the event this information is protected by the Federal Confidentiality of Alcohol and Drug Abuse Patient Records regulations: The Federal rules restrict any use of the information to criminally investigate or prosecute any alcohol or drug abuse patient.[facility] the event this information is protected by the Federal Confidentiality of Alcohol and Drug Abuse Patient Records regulations: The Federal rules restrict any use of the information to criminally investigate or prosecute any alcohol or drug abuse patient.[facility] the event this information is protected by the Federal Confidentiality of Alcohol and Drug Abuse Patient Records regulations: The Federal rules restrict any use of the information to criminally investigate or prosecute any alcohol or drug abuse patient.[facility] the event this information is protected by the Federal Confidentiality of Alcohol and Drug Abuse Patient Records regulations: The Federal rules restrict any use of the information to criminally investigate or prosecute any alcohol or drug abuse patient.[facility] the event this information is protected by the Federal Confidentiality of Alcohol and Drug Abuse Patient Records regulations: The Federal rules restrict any use of the information to criminally investigate or prosecute any alcohol or drug abuse patient.[facility] the event this information is protected by the Federal Confidentiality of Alcohol and Drug Abuse Patient Records regulations: The Federal rules restrict any use of the information to criminally investigate or prosecute any alcohol or drug abuse patient.[facility] the event this information is protected by the Federal Confidentiality of Alcohol and Drug Abuse Patient Records regulations: The Federal rules restrict any use of the information to criminally investigate or prosecute any alcohol or drug abuse patient.[facility] the event this information is protected by the Federal Confidentiality of Alcohol and Drug Abuse Patient Records regulations: The Federal rules restrict any use of the information to criminally investigate or prosecute any alcohol or drug abuse patient.[facility] the event this information is protected by the Federal Confidentiality of Alcohol and Drug Abuse Patient Records regulations: The Federal rules restrict any use of the information to criminally investigate or prosecute any alcohol or drug abuse patient.[facility] the event this information is protected by the Federal Confidentiality of Alcohol and Drug Abuse Patient Records regulations: The Federal rules restrict any use of the information to criminally investigate or prosecute any alcohol or drug abuse patient.[facility] the event this information is protected by the Federal Confidentiality of Alcohol and Drug Abuse Patient Records regulations: The Federal rules restrict any use of the information to criminally investigate or prosecute any alcohol or drug abuse patient.[facility] the event this information is protected by the Federal Confidentiality of Alcohol and Drug Abuse Patient Records regulations: The Federal rules restrict any use of the information to criminally investigate or prosecute any alcohol or drug abuse patient.[facility] the event this information is protected by the Federal Confidentiality of Alcohol and Drug Abuse Patient Records regulations: The Federal rules restrict any use of the information to criminally investigate or prosecute any alcohol or drug abuse patient.[facility] the event this information is protected by the Federal Confidentiality of Alcohol and Drug Abuse Patient Records regulations: The Federal rules restrict any use of the information to criminally investigate or prosecute any alcohol or drug abuse patient.[facility] Reason for Visit (unrecogniz ed section [...] monitor finding Procedures CONSULT TO CARDIOLOGY OFFICE/OUTPATIENT [facility] [place] 60-74 MINUTES Adama Henson APRN.CNP, DNP [address] [place] [address] Referral ID Status Reason Start Date Expiration Date Visits Requested Visits Authorized [id number] Pending Review PCP Requested Referral 08/01/2021 07/18/2022 1 1 Reason Comments Establish Care Reason Comments Radiology US Specialty Diagnoses / Procedures Referred By Contac t Referred To Contact US IMAGING Diagnoses Ex-smoker Weight loss, unintentional Procedures US ABDOMEN COMPLETE US ABDOMINAL REAL TIME W/IMAGE DOCUMENTATION Denise Munoz MD [address] [place] [address] Us Imaging Referral ID Status Reason Start Date Expiration Date V isits Requested Visits Authorized [id number] Closed Auto-Generate d Referral 12/18/2021 01/17/2023 1 1 Reason Comments Appointment Cancelled Care Teams (unrecognized sec tion and content) Predator Control Trapper Relationship Specialty Start Date End Date Adama Henson APRN.CNP, DNP [address] [place], [place] [id number] PCP - General Family Practice 04/16/20 Predator Control Trapper Relationship Specialty Start Date End Date Adama Henson APRN.CNP, DNP [address] [place], [place] [id number] PCP - General Family Practice 04/16/20 Predator Control Trapper Relationship Specialty Start Date End Date Adama Henson BATTERY CHARGER.DIRECTOR OF LEARNING, DNP [address] [place] [address] PCP - General Family Practice 04/16/20 Predator Control Trapper Relationship Specialty Start Date End Date Adama Henson, BATTERY CHARGER.DELANEY, JESUS MANUEL [address] [place] [address] PCP - General Family Practice 04/16/20 Predator Control Trapper Relationship Specialty Start Date End Date Adama Henson, BATTERY CHARGER.DIRECTOR OF LEARNING, JESUS MANUEL [address] [place] [address] PCP - General Family Practice 04/16/20 Predator Control Trapper Relationship Specialty Start Date End Date Adama Henson, BATTERY CHARGER.JESUS MANUEL BALTAZAR [address] [place] [address] PCP - General Family Practice 04/16/20 Predator Control Trapper Relationship Specialty Start Date End Date Adama Henson, BATTERY CHARGER.DELANEY, JESUS MANUEL [address] [place] [address] PCP - General Family Practice 04/16/20 Predator Control Trapper Relationship Specialty Start Date End Date Adama Henson, BATTERY CHARGER.JESUS MANUEL BALTAZAR [address] [place] [address] PCP - General Family Practice 04/16/20 Predator Control Trapper Relationship Specialty Start Date End Date Adama Henson, BATTERY CHARGER.DELANEY, DNP [address] [place] [address] PCP - General Family Practice 04/16/20 Predator Control Trapper Relationship Specialty Start Date End Date Adama Henson, BATTERY CHARGER.DELANEY, DNP [address] [place] [address] PCP - General Family Practice 04/16/20 Predator Control Trapper Relationship Specialty Start Date End Date Denise Munoz MD [address] [facility] [place] [address] PCP - General Family [facility] 12/18/21 Predator Control Trapper Relationship Specialty Start Date End Date Denise Munoz MD [address] [facility] [place] [address] PCP - General Family [facility] 12/18/21 Predator Control Trapper Relationship Specialty Start Date End Date Denise Munoz MD [address] [place] [address] PCP - General [facility] 12/18/21 Predator Control Trapper Relationship Specialty Start Date End Date Denise Munoz MD [address] [place] [address] PCP - [facility] 12/18/21 Predator Control Trapper Relationship Specialty Start Date End Date Adama Henson APRN.DIRECTOR OF LEARNING, DNP [address] [place] [address] PCP - General [facility] 04/16/20 12/17/21 Denise Munoz MD [address] [place] [address] PCP - General [facility] 12/18/21 Predator Control Trapper Relationship Specialty Start Date End Date Denise Munoz MD [address] [place] [address] [facility] - General [facility] 12/18/21 (unrecognized sect ion and content) No [...] BE BASED ON THE PRIMARY CLINICAL RECORDS. [facility]. provides no warranty or guarantee of the accuracy or completeness of information in this document.
[2023-05-14 16:14] LABS: Anion Gap 5 (5-15); BUN 19 mg/dL (7-18); BUN/Creat Ratio 12.9 RATIO (10-20); Calcium,Total 8.9 mg/dL (8.5-10.1); Chloride 110 mmol/L (98-107); Creatinine, Serum 1.47 mg/dL (0.70-1.30); EST Glomerular Filtration Rate 49 mL/min (>60); Est Glom Filt Rate - Afr Amer 59 mL/min (>60); Glucose 86 mg/dL (74-106); Sodium Level 143 mmol/L (136-145)
== END | disposition home or self-care (01) ==
LOC: MFPLAB 11:56
PROVIDERS: PCP Family Medicine; Visit Provider Family Medicine
DX: I10 Essential (primary) hypertension (principal)
CPT/HCPCS: 36415; 80048

== ENCOUNTER → 2023-08-31 | Outpatient (CLI) | payer MEDICARE, SELFPAY ==
--- NOTE | 2023-08-31 10:48 | RAD_ITS ---
STUDY: X-RAY - THORACIC SPINE REASON FOR EXAM: Male, 78 years old. Pain following a fall. TECHNIQUE: 3 view(s) of the thoracic spine were obtained. COMPARISON: None. FINDINGS: Normal kyphosis of the thoracic spine. There is no substantial scoliosis. There is multilevel endplate spondylosis of the thoracic vertebrae. There is multilevel disc space narrowing of the thoracic spine. The soft tissue structures are unremarkable. RAD/Thoracic Spine 3 Views IMPRESSION: Multilevel disc space narrowing and spondylosis. Electronically Signed: Guzman Robin MD at 11:51 EDT ,
--- NOTE | 2023-08-31 10:56 | RAD_ITS ---
STUDY: X-RAY - LUMBAR SPINE REASON FOR EXAM: Male, 78 years old. Lumbar spine pain following a fall. TECHNIQUE: 3 view(s) of the lumbar spine were obtained. COMPARISON: None FINDINGS: Normal lumbar lordosis. There is no substantial scoliosis. There is a normal alignment of the vertebrae. There is multilevel endplate spondylosis of the lumbar vertebrae. There is multi-level degenerative disc disease with multi-level disc space narrowing. Facet joint osteoarthritis. There is atherosclerotic calcification of the abdominal aorta without a demonstrated aneurysm. RAD/Lumbar Spine 2 or 3 Views IMPRESSION: Degenerative changes of the spine, as detailed above. Electronically Signed: Guzman Robin MD at 11:50 EDT ,
== END | disposition home or self-care (01) ==
LOC: MTRAD 10:48
PROVIDERS: PCP Family Medicine; Referring Provider Physician Assistant; Visit Provider Physician Assistant
DX: M54.50 Low back pain, unspecified (principal); W19.XXXA Unspecified fall, initial encounter
CPT/HCPCS: 72072; 72100

== ENCOUNTER → 2023-09-21 | Outpatient (CLI) | payer MEDICARE, SELFPAY ==
[2023-09-21 13:34] LABS: Anion Gap 7 (5-15); BUN 18 mg/dL (7-18); BUN/Creat Ratio 11.2 RATIO (10-20); Calcium,Total 8.9 mg/dL (8.5-10.1); Chloride 110 mmol/L (98-107); Creatinine, Serum 1.61 mg/dL (0.70-1.30); EST Glomerular Filtration Rate 44 mL/min (>60); Est Glom Filt Rate - Afr Amer 53 mL/min (>60); Glucose 101 mg/dL (74-106); Potassium 4.3 mmol/L (3.5-5.1); Sodium Level 143 mmol/L (136-145)
== END | disposition home or self-care (01) ==
LOC: MFPLAB 08:27
PROVIDERS: PCP Family Medicine; Visit Provider Family Medicine
DX: I10 Essential (primary) hypertension (principal)
CPT/HCPCS: 36415; 80048

== ENCOUNTER → 2023-10-07 | Outpatient (CLI) | payer MEDICARE, SELFPAY ==
[2023-10-07 12:33] LABS: Anion Gap 6 (5-15); BUN 27 mg/dL (7-18); BUN/Creat Ratio 15.8 RATIO (10-20); Calcium,Total 9.1 mg/dL (8.5-10.1); Chloride 107 mmol/L (98-107); Creatinine, Serum 1.71 mg/dL (0.70-1.30); EST Glomerular Filtration Rate 41 mL/min (>60); Est Glom Filt Rate - Afr Amer 50 mL/min (>60); Glucose 100 mg/dL (74-106); Potassium 3.7 mmol/L (3.5-5.1); Sodium Level 141 mmol/L (136-145)
== END | disposition home or self-care (01) ==
LOC: MTLAB 09:32
PROVIDERS: PCP Family Medicine; Referring Provider Family Medicine; Visit Provider Family Medicine
DX: N18.30 Chronic kidney disease, stage 3 unspecified (principal)
CPT/HCPCS: 36415; 80048

== ENCOUNTER → 2023-11-04 | Outpatient (CLI) | payer MEDICARE, SELFPAY ==
[2023-11-04 15:05] LABS: Hematocrit 43.5 % (40-54); Hemoglobin 13.8 g/dL (13.0-16.5); Mean Corp Hgb Conc 31.7 g/dL (32-36); Mean Corpuscular Hgb 29.9 pg (27.0-32.0); Mean Corpuscular Volume 94.2 fL (80-94); Mean Platelet Vol. 10.9 fl (6.2-12.0); Platelet Count 206 K/mm3 (150-450); RBC Distribution Width CV 15.8 % (11.6-14.6); RBC Distribution Width SD 54.5 fl (35.1-43.9); Red Blood Count 4.62 M/mm3 (4.6-6.2); White Blood Count 8.3 K/mm3 (4.4-11.0)
[2023-11-04 15:22] LABS: Anion Gap 9 (5-15); BUN 21 mg/dL (7-18); BUN/Creat Ratio 10.6 RATIO (10-20); Calcium,Total 9.1 mg/dL (8.5-10.1); Chloride 101 mmol/L (98-107); Creatinine, Serum 1.99 mg/dL (0.70-1.30); EST Glomerular Filtration Rate 35 mL/min (>60); Est Glom Filt Rate - Afr Amer 42 mL/min (>60); Glucose 94 mg/dL (74-106); Iron 29 ug/dL (65-175); Potassium 3.4 mmol/L (3.5-5.1); Sodium Level 138 mmol/L (136-145); Vitamin D,25 Hydroxy 64.8 ng/mL
[2023-11-04 15:44] LABS: PTHIN 110.3 pg/mL (18.4-80.1)
== END | disposition home or self-care (01) ==
LOC: MFPLAB 11:30
PROVIDERS: PCP Family Medicine; Visit Provider Family Medicine
DX: N18.30 Chronic kidney disease, stage 3 unspecified (principal)
CPT/HCPCS: 36415; 80048; 82306; 83540; 83970; 85027

== ENCOUNTER → 2023-11-10 | Outpatient (CLI) | payer MEDICARE, SELFPAY ==
[2023-11-10 15:57] LABS: BNP,B-Type NATRIURETIC PEPTIDE 18.6 pg/mL (0-100)
[2023-11-10 16:00] LABS: Anion Gap 8 (5-15); BUN 23 mg/dL (7-18); BUN/Creat Ratio 11.8 RATIO (10-20); Calcium,Total 9.3 mg/dL (8.5-10.1); Chloride 102 mmol/L (98-107); Creatinine, Serum 1.95 mg/dL (0.70-1.30); EST Glomerular Filtration Rate 35 mL/min (>60); Est Glom Filt Rate - Afr Amer 43 mL/min (>60); Glucose 101 mg/dL (74-106); Potassium 3.5 mmol/L (3.5-5.1); Sodium Level 139 mmol/L (136-145)
== END | disposition home or self-care (01) ==
LOC: MFPLAB 12:14
PROVIDERS: PCP Family Medicine; Visit Provider Family Medicine
DX: N18.30 Chronic kidney disease, stage 3 unspecified (principal)
CPT/HCPCS: 36415; 80048; 83880

== ENCOUNTER → 2023-11-19 | Outpatient (CLI) | payer MEDICARE, SELFPAY ==
--- NOTE | 2023-11-19 07:45 | VDLE_ITS ---
Reason For Study: LLE Edema RIGHT LEFT CFV is compressible, spontaneous, phasic, GSV is normal. competent and demonstrates normal CFV is compressible, spontaneous, phasic, augmentation. competent, and demonstrates normal Procedure augmentation. This is a venous duplex using B-mode, color FV is compressible, spontaneous, phasic, flow and spectral Doppler. competent and demonstrates normal Exam performed in department. augmentation. The exam was diagnostic. POP V is compressible, spontaneous, phasic, competent and demonstrates normal augmentation. T/P Trunk is compressible. PTV is compressible. LT PerV is compressible. VL/Venous Duplex US, Unilateral Interpretation Summary Deep veins of the left lower extremity are patent and compressible segmentally. There is no evidence of left lower extremity deep vein thrombosis. Valvular competence appears intac t within the proximal deep venous system on the left . The left great saphenous vein appears patent a nd compressible segmentally. The right common femoral vein is patent and compressible . Ordering Physician: Freddie Grande Referring Physician: Freddie Grande Performed By: Sharif Hawk RVT
== END | disposition home or self-care (01) ==
LOC: CVS 07:43
PROVIDERS: PCP Family Medicine; Referring Provider Family Medicine; Visit Provider Family Medicine
DX: R60.0 Localized edema (principal)
CPT/HCPCS: 93971

== ENCOUNTER → 2023-12-01 | Outpatient (CLI) | payer MEDICARE, SELFPAY ==
--- NOTE | 2023-12-01 09:45 | ECHOD_ITS ---
Reason For Study: EDEMA Procedure This was a 2D Doppler, Color Flow transthoracic echocardiogram. The study was technically difficult. Exam performed in department. Left Ventricle Mild concentric left ventricular hypertrophy. The left ventricular ejection fraction is 65 %. Normal diastology for age. Right Ventricle Normal right ventricle. Atria The left and right atria are normal. Mitral Valve The mitral valve is structurally normal. No prolapse or stenosis seen. Tricuspid Valve The tricuspid valve is not well visualized. Aortic Valve Aortic valve not well-visualized. Mildly calcified. Mildly increased gradient. Mild aortic valve stenosis. Pulmonic Valve The pulmonic valve is not well visualized. Great Vessels The aortic root is not well visualized. Pericardium/Pleural No pericardial effusion. MMode/2D Measurements & Calculations LVIDd: 4.9 cm IVSd: 1.4 cm LVOT diam: 2.1 cm LVIDs: 2.6 cm LVPWd: 1.4 cm LVOT area: 3.4 cm2 RVDd: 3.5 cm FS: 47.0 % Ao root diam: 3.5 cm LAV(MOD-bp): 39.5 ml LVAd ap4: 18.6 cm2 LAV(MOD-bp) Indexed: 17.3 ml/m2 LVLd ap4: 6.6 cm LAV(MOD-sp2): 41.8 ml EDV(MOD-sp4): 42.6 ml LAV(MOD-sp4): 32.8 ml EDV(sp4-el): 44.6 ml LVAs ap4: 9.5 cm2 LVLs ap4: 5.3 cm ESV(MOD-sp4): 13.6 ml ESV(sp4-el): 14.3 ml EF(MOD-sp4): 68.1 % EF(sp4-el): 67.9 % LVAd ap2: 17.3 cm2 SV(MOD-sp4): 29.0 ml SV(MOD-sp2): 28.6 ml LVLd ap2: 6.0 cm EDV(MOD-sp2): 41.4 ml EDV(sp2-el): 42.4 ml LVAs ap2: 8.7 cm2 LVLs ap2: 5.3 cm ESV(MOD-sp2): 12.9 ml ESV(sp2-el): 12.3 ml EF(MOD-sp2): 69.0 % SV(sp4-el): 30.3 ml LA dimension(2D): 4.4 cm LA A4 area: 14.9 cm2 RA A4 area: 12.7 cm2 TAPSE: 1.9 cm Time Measurements MV dec time: 0.28 sec Doppler Measurements & Calculations MV E max gurmeet: 67.2 cm/sec Lat Peak E' Gurmeet: 7.4 cm/sec Med Peak E' Gurmeet: 6.7 cm/sec MV A max gurmeet: 79.6 cm/sec E/E' lat: 9.0 E/E' med: 10.1 MV E/A: 0.84 Ao V2 max: 213.2 cm/sec LV V1 max: 105.3 cm/sec MV dec slope: 239.3 cm/sec2 Ao max P.2 mmHg LV V1 max P.4 mmHg Ao V2 mean: 149.5 cm/sec LV V1 mean P.4 mmHg Ao mean P.9 mmHg LV V1 mean: 71.6 cm/sec Ao V2 VTI: 38.1 cm LV V1 VTI: 22.3 cm AV (velocity ratio): 0.59 VALENTINO(I,D): 2.0 cm2 VALENTINO(V,D): 1.7 cm2 SV(LVOT): 76.0 ml ECHO/Echo Complete Interpretation Summary Mild concentric left ventricular hypertrophy. The left ventricular ejection fraction is 65 %. Aortic valve not well-visualized. Mildly calcified. Mildly increased gradient. Mild aortic valve stenosis. Technically difficult study. Ordering Physician: Freddie Grande Referring Physician: Ferddie Grande Performed By: Malorie Verde RDCS
== END | disposition home or self-care (01) ==
LOC: CVS 09:41
PROVIDERS: PCP Family Medicine; Referring Provider Family Medicine; Visit Provider Family Medicine
DX: E78.5 Hyperlipidemia, unspecified (principal); R60.0 Localized edema
CPT/HCPCS: 93306

== ENCOUNTER 2023-12-28 10:26 | Emergency (ER) | payer MEDICARE, SELFPAY ==
[2023-12-28 10:28] VITALS: PULSE 93; RESP 18; TEMP 36.6; O2SAT 97; BMI 35.6
[2023-12-28 12:22] VITALS: BP 142/66; PULSE 74; RESP 18
--- NOTE | 2023-12-28 12:56 | EDS_ITS ---
HPI History of Present Illness Chief Complaint: GI Bleed [facility] Medical History (Updated 08/31/23 @ 14:04 by Shukri SAMS, PA) Edema of both legs Backache Arthritis Home Medications ?Medication ?Instructions ?Recorded ?Last Taken ?Type B-complex with vitamin C 1 cap PO DAILY 08/31/23 Unknown History allopurinol 300 mg tablet 300 mg PO DAILY 08/31/23 Unknown History amlodipine 5 mg tablet 5 mg PO QDAY 08/31/23 Unknown History atorvastatin 20 mg tablet 20 mg PO QHS 08/31/23 Unknown History cholecalciferol (vitamin D3) 50 50 mcg PO DAILY 08/31/23 Unknown History mcg (2,000 unit) capsule gabapentin 600 mg tablet 1,200 mg PO BID 08/31/23 Unknown History hydrochlorothiazide 12.5 mg capsule 12.5 mg PO DAILY #14 caps 08/31/23 Unknown Rx mecobalamin (vitamin B12) 1,000 1,000 mcg sublingual DAILY 08/31/23 Unknown History mcg disintegrating tablet,sublingual milk thistle 175 mg tablet 175 mg PO BID 08/31/23 Unknown History psyllium husk 0.4 gram capsule 0.4 g PO DAILY 08/31/23 Unknown History (Daily Fiber) Allergy/AdvReac Type Severity Reaction Status Date / Time No Known Allergies Allergy Unverified 08/31/23 10:46 Social History Smoking Status: Former smoker EXAM Physical Exam Const Vital Signs: 12/28/23 10:28 12/28/23 12:22 12/28/23 14:08 Temperature 97.8 F Temperature Source Oral Pulse Rate 93 74 71 Respiratory Rate 18 18 18 Blood Pressure 142/66 H 142/73 H Blood Pressure Mean 91 96 Pulse Ox 97 96 Oxygen Delivery Method Room Air Room Air 12/28/23 14:08 Temperature 98.0 F Temperature Source Pulse Rate 71 Respiratory Rate 18 Blood Pressure 142/73 H Blood Pressure Mean 96 Pulse Ox 95 Oxygen Delivery Method MDM MDM MDM Narrative Medical decision making narrative: HISTORY OF PRESENT ILLNESS: 78 old male presents with bright red blood when wiping. States happened 15 years ago. He denies being on blood thinner. Denies Lightheadedness, dizziness, fatigue, chest pain, palpitation, shortness of breath, weakness dizziness REVIEW OF SYSTEMS: Pertinent positives: Bright red blood per rectum Pertinent negatives: Vomiting, fatigue, chest pain, lightheadedness, syncope PHYSICAL EXAM: Nursing triage notes reviewed, Vital signs reviewed Constitutional: please see mdm HENT: MMM Eyes: Pupils equal round and reactive to light, Extraocular muscles intact Neck: No stridor, no JVD, full neck ROM Lungs: Clear to auscultation, No wheezing or rales. No increased work of breathing, no conversational dyspnea, no accessory muscle use, no nasal flaring. No respiratory distress noted Heart: Regular rate and rhythm, No murmurs, No rubs and No gallops, 2+ distal pulses (radial, femoral, posterior tibial) in all extremities Abdomen: Soft, there is no tenderness, rigidity, rebound or guarding, no obvious peritoneal signs, no palpable pulsatile abdominal masses, no auscultated abdominal bruit : No CVAT Extremities: No edema Neuro: No focal neurological deficits, cranial nerves II through XII intact, 5/5 strength in all extremities. Intact sensation to light touch in all extremities, 2+ reflexes bilateral patella tendons. Normal gait. No ataxia. Skin: No rash or lesions noted Rectal: Performed dye colorist formulator in room MEDICAL DECISION MAKING: Chief Complaint: Primary blood per rectum External records reviewed: Prior medications reviewed Factors affecting care: Arthritis [facility] Narrative: Patient was hemodynamically stable, afebrile, nontoxic. Exam with obvious external rectal cleft fissure without active bleeding. No obvious foreign bodies noted. Fissure/skin tear was repaired with 3 absorbable 5-0 Chromic Gut sutures with close approximation and hemostasis. Silver nitrate was used into this to further prevent bleeding. Labs showed no evidence evidence of significant anemia Patient is appropriate discharge home with close PCP follow-up for reevaluation. The patient and/or family, caregivers express understanding. The patient and/or family, caregivers agrees with the plan. Shared decision making: I will have a discussion with the patient and or visitors regarding risk/benefits of further testing or admission. They will be made aware of of the risk/benefits inherent in this decision they will be given the opportunity to voice understanding. Total critical care time today provided was at least 0 minutes. This excludes separately billable procedures. Critical care time (if documented) is secondary to the patient having high probability of clinically significant/life threatening deterioration in the patient's condition which required my urgent intervention. Impression: 1. Bright red blood per rectum 2. Skin tear Dispo: Discharge home This note was generated with Celeno dictation software. It may contain incorrect words, spelling, and punctuation that were not noted in review of the chart prior to signing. Lab Data Labs: Laboratory Results - last 24 hr 12/28/23 13:15 WBC 7.0 RBC 4.43 L Hgb 13.5 Hct 42.1 MCV 95.0 H MCH 30.5 MCHC 32.1 RDW Std Deviation 52.4 H RDW Coeff of Winsome 15.0 H Plt Count 175 MPV 9.7 Sodium 141 Potassium 3.9 Chloride 106 Carbon Dioxide 32.0 Anion Gap 3 L BUN 24 H Creatinine 1.80 H Estim Creat Clear Calc 41.19 Est GFR (MDRD) Af Amer 47 L Est GFR (MDRD) Non-Af 39 L BUN/Creatinine Ratio 13.3 Glucose 96 Calcium 9.3 Discharge Plan Triage Chief Complaint: GI Bleed ED Provider: Ranjit Mcclain Dx/Rx/DC Orders Instructions: ED Skin Tear (Skin Avulsion) Prescriptions: No Action gabapentin 600 mg tablet 1,200 mg PO BID milk thistle 175 mg tablet 175 mg PO BID Rx Instructions: give with meal/snack allopurinol 300 mg tablet 300 mg PO DAILY atorvastatin 20 mg tablet 20 mg PO QHS amlodipine 5 mg tablet 5 mg PO QDAY mecobalamin (vitamin B12) 1,000 mcg tablet,disintegrating 1,000 mcg sublingual DAILY Rx Instructions: place tablet under tongue and allow to dissolve for at least30 secs before swallowing psyllium husk [Daily Fiber] 0.4 gram capsule 0.4 g PO DAILY B-complex with vitamin C Capsule 1 cap PO DAILY cholecalciferol (vitamin D3) 50 mcg (2,000 unit) capsule 50 mcg PO DAILY hydrochlorothiazide 12.5 mg capsule 12.5 mg PO DAILY Qty: 14 0RF Primary Care Provider: Freddie Grande Referrals: Freddie Grande MD [Primary Care Provider] - Activity Restrictions/Additional Instructions: Thank you for trusting us with your care today! A skin tear or gluteal cleft fistula was noted as a cause of your bleeding. Your labs show no evidence of significant blood loss or anemia. Absorbable stitches were placed. These should resorb in their own in 7 to 10 days. Please look out for signs of infection which include increasing pain, white-yellow discharge, fevers. Please follow with your primary care physician for reexamination the next 1 week. Please return to the emergency department if your symptoms change or worsen. Please follow with your primary care physician for further outpatient evaluation and management. Print Language: Persian Disposition Disposition: Home, Self Care
[2023-12-28] MEDS: Lidocaine 1% /Epi 1:100 (20ml) 20 ML Vial 5 ML INFILT (13:22)
[2023-12-28 13:23] LABS: Hematocrit 42.1 % (40-54); Hemoglobin 13.5 g/dL (13.0-16.5); Mean Corp Hgb Conc 32.1 g/dL (32-36); Mean Corpuscular Hgb 30.5 pg (27.0-32.0); Mean Platelet Vol. 9.7 fl (6.2-12.0); Platelet Count 175 K/mm3 (150-450); RBC Distribution Width SD 52.4 fl (35.1-43.9); Red Blood Count 4.43 M/mm3 (4.6-6.2)
[2023-12-28 13:37] LABS: Anion Gap 3 (5-15); BUN 24 mg/dL (7-18); BUN/Creat Ratio 13.3 RATIO (10-20); Calcium,Total 9.3 mg/dL (8.5-10.1); Chloride 106 mmol/L (98-107); EST Glomerular Filtration Rate 39 mL/min (>60); Est Glom Filt Rate - Afr Amer 47 mL/min (>60); Estimated Creatinine Clearance 41.19 ml/min; Glucose 96 mg/dL (74-106); Potassium 3.9 mmol/L (3.5-5.1); Sodium Level 141 mmol/L (136-145)
[2023-12-28 14:08] VITALS: BP 142/73; PULSE 71; RESP 18; TEMP 36.7; O2SAT 95; O2SAT 96
[2023-12-28] MEDS: Silver Nitrate (BKC) 2 EACH TOPICAL (14:26)
== END 2023-12-28 14:28 | disposition home or self-care (01) ==
PROVIDERS: Emergency Provider Emergency Medicine; PCP Family Medicine; Visit Provider Emergency Medicine
DX: K62.81 Anal sphincter tear (healed) (nontraumatic) (old) (principal); Z87.891 Personal history of nicotine dependence; K60.2 Anal fissure, unspecified
CPT/HCPCS: 80048; 85027; 99283

== ENCOUNTER → 2024-08-10 | Outpatient (CLI) | payer MEDICARE, SELFPAY ==
[2024-08-10 12:40] LABS: Hematocrit 41.9 % (40-54); Hemoglobin 13.5 g/dL (13.0-16.5); Mean Corp Hgb Conc 32.2 g/dL (32-36); Mean Corpuscular Hgb 30.5 pg (27.0-32.0); Mean Corpuscular Volume 94.6 fL (80-94); Mean Platelet Vol. 10.3 fl (6.2-12.0); Platelet Count 192 K/mm3 (150-450); RBC Distribution Width CV 15.2 % (11.6-14.6); RBC Distribution Width SD 53.2 fl (35.1-43.9); Red Blood Count 4.43 M/mm3 (4.6-6.2); White Blood Count 6.5 K/mm3 (4.4-11.0)
[2024-08-10 13:33] LABS: PTHIN 47 pg/mL (11-61)
[2024-08-10 13:54] LABS: AST(SGOT) 20 U/L (<=37); Alanine Aminotransfer ALT/SGPT 11 U/L (<=46); Albumin, Serum 3.8 g/dL (3.4-4.8); Alkaline Phosphatase 118 U/L (40-129); Anion Gap 12 (5-15); BUN 20 mg/dL (4-19); BUN/Creat Ratio 12.2 RATIO (10-20); Bilirubin, Direct 0.43 mg/dL (0.00-0.30); Carbon Dioxide 24.3 mmol/L (21.0-32.0); Chloride 106 mmol/L (98-108); Creatinine, Serum 1.64 mg/dL (0.70-1.20); EST Glomerular Filtration Rate 42 (>60); Globulin 3.1 g/dL (2.2-4.2); Glucose 97 mg/dL (70-99); Iron 44 ug/dL (65-175); Protein, Total 6.9 g/dL (5.9-8.4); Sodium Level 143 mmol/L (133-145); Total Bilirubin 1.02 mg/dL (0.00-1.30); Vitamin D,25 Hydroxy 48.4 ng/mL (30-100)
[2024-08-10 14:46] LABS: Cholesterol 119 mg/dL (<=200); High Density Lipoprotein 44 mg/dL; Low Density Lipoprotein Calc. 62 mg/dL; Triglycerides 64 mg/dL; Very Low Density Lipoprotein 13 mg/dL (5-40); cholesterol:hdl ratio screen 2.69
== END | disposition home or self-care (01) ==
LOC: MFPLAB 10:43
PROVIDERS: PCP Family Medicine; Referring Provider Family Medicine; Visit Provider Family Medicine
DX: N18.30 Chronic kidney disease, stage 3 unspecified (principal); E78.5 Hyperlipidemia, unspecified
CPT/HCPCS: 36415; 80048; 80061; 80076; 82306; 83540; 83970; 85027

== ENCOUNTER 2024-11-25 18:35 | Emergency (ER) | payer MEDICARE, SELFPAY ==
[2024-11-25 18:36] VITALS: BP 120/70; PULSE 92; RESP 18; TEMP 36.7; O2SAT 96
[2024-11-25 18:38] VITALS: BMI 36.3
[2024-11-25] MEDS: Lidocaine 1% (20 ml mdv) 20 ML Vial INFILT (19:37)
--- OUTSIDE RECORDS SUMMARY | 2024-11-25 19:39 | XMS RPT_ITS | CCD ---
Author Organization [facility]ini[facility] Care Team Providers Care Bottling Attendant Name Role Phone Sixto BUN MACHINE OPERATOR.PURCHASING EXPEDITOR, DNP, Adama Primary Care Provider Shantanu Munoz MD Primary Care Provider Shantanu Munoz MD Primary Care Provider ADAMA PRIDE Attending Unavailable BLAZ, ADAMA Primary Care Unavailable BLAZ, ADAMA Primary Care Unavailable ANA MARÍA CRAWFORD Referring Unavailable BLAZ, ADAMA Primary Care Unavailable BLAADAMA Cortes Attending Unavailable BLAZADAMA Referring Unavailable BLAZ, ADAMA Primary Care Unavailable BLAZ, ADAMA Primary Care Unavailable BLAZ, ADAMA Referring Unavailable BLAZ, ADAMA Primary Care Unavailable SHANTANU MUNOZ Attending Unavailable BLAZ, ADAMA Primary Care Unavailable SHANTANU MUNOZ Referring Unavailable BLAZ, ADAMA Primary Care Unavailable SHANTANU MUNOZ Referring Unavailable SHANTANU MUNOZ Primary Care Unavailable SHANTANU MUNOZ Referring Unavailable BLAZ, ADAMA Primary Care Unavailable BLAZ, ADAMA Referring Unavailable EDUAR KING Attending Unavailable BLAZ, ADAMA Primary Care Unavailable SHANTANU MUNOZ Primary Care Unavailable SHANTANU MUNOZ Referring Unavailable BLAZ, ADAMA Referring Unavailable BLAZ, ADAMA Primary Care Unavailable BLAADAMA Cortes Attending Unavailable BLAZ, ADAMA Primary Care Unavailable BLAZ, ADAMA Referring Unavailable BLAZ, ADAMA Primary Care Unavailable BLAZ, ADAMA Referring Unavailable BLAZ, ADAMA Primary Care Unavailable MD ALHAJI, RYAN Attending Unavailable Shantanu Munoz MD Primary Care Provider Freddie Grande Primary Care Unavailable Freddie Grande Attending Unavailable Freddie Grande Referring Unavailable Freddie Grande Primary Care Unavailable Ranjit Mcclain Attending Unavailable Shukri Beal Attending Unavailable Shukri Beal Referring Unavailable Ranney, Christopher Primary Care Unavailable Ranney, Christopher Primary Care Unavailable Christiane, Juner Attending Unavailable Ranney, Christopher Primary Care Unavailable Christiane, Freddie Attending Unavailable Ranney, Christjohner Referring Unavailable Ranney, Christopher Primary Care Unavailable Ranney, Christjohner Attending Unavailable Ranney, Christopher Primary Care Unavailable Shukri Beal Attending Unavailable Ranney, Christjohner Referring Unavailable Shukri Beal Attending Unavailable Ranney, Christopher Primary Care Unavailable Ranney, Christjohner Referring Unavailable Ranney, Christopher Primary Care Unavailable Martina Benavides Attending Unavailable Ranney, Christopher Primary Care Unavailable Tyshawnney, Juner Attending Unavailable Ranney, Christopher Primary Care Unavailable Christiane, Freddie Attending Unavailable Christiane, Juner Referring Unavailable Ranney, Christopher Primary Care Unavailable Freddie Grande Attending Unavailable Christiane, Freddie Referring Unavailable Christiane GATES, Dr. Frazier Primary Care Provider Christiane GATES, Dr. Frazier Attending Provider Dr. Freddie Grande MD Referring Provider Allergies Allergy Classification Reported Allergen(s) Allergy Type Date of Onset Reaction(s) Facility (14 sources) environmental [Other] Propensity to adverse reactions 9 [facility] Work Phone: (1 source) OTHER; Translations: [OTHER] Propensity to adverse reactions (disorder) 9 [facility] Repository Medications Current Medications Medication Drug Class(es) Dates Sig (Normalized) Sig (Original) acetaminophen 500 mg oral tablet (20 sources) Start: 05-03-2008 ACETAMINOPHEN 500 MG TAB Indications: Gout, unspecified Take two tablets as needed 0 05/03/2008 Active Comment on above: Take two tablets as needed allopurinol 300 mg oral tablet (20 sources) Xanthine Oxidase Inhibitor Start: 08-31-2023 take 1 tablet by mouth once daily Allopurinol 300 mg tablet Active 300 mg PO DAILY August 31, 2023 12:00am Start: 02-10-2021 End: 06-30-2021 take 1 tablet by mouth once daily allopurinol (ZYLOPRIM) 300 mg tablet Indications: Gout, unspecified Take 1 tablet by mouth once daily. 90 tablet 3 06/30/2021 Active Comment on above: Take 1 tablet by zainab th once daily. amLODIPine 5 mg oral tablet (1 source) Dihydropyridine Calcium Channel Stan Start: 08-31-19 take 1 tablet by mouth once daily Amlodipine 5 mg tablet Active 5 mg PO daily August 31, 2023 12:00am atorvastatin 20 mg oral tablet (20 sources) HMG-CoA Reductase Inhibitor Start: 08-31-19 take 1 tablet by mouth at bedtime Atorvastatin 20 mg tablet Active 20 mg PO AT BEDTIME August 31, 2023 12:00am Start: 02-10-2021 End: 06-30-2021 take 1 tablet by mouth once daily at bedtime for hyperlipidemia atorvastatin (LIPITOR) 20 mg tablet Indications: Hyperlipidemia, mixed Take 1 tablet by mouth daily at bedtime. For cholesterol. 90 tablet 3 06/30/2021 Active Comment on above: Take 1 tablet by zainab th daily at bedtime. For cholesterol. B-Complex With Vitamin C capsule (1 source) Start: B-Complex With Vitamin C capsule Active 1 NMA PO DAILY August 31, 2023 12:00am benzonatate 200 mg oral capsule (1 source) Non-narcotic Antitussive Start: take 1 capsule by mouth three times daily as needed for cough Benzonatate 200 mg capsule Active 200 mg PO THREE TIMES A DAY as needed for cough April 05, 2024 1:00am cholecalciferol 0.05 mg oral capsule (1 source) Vitamin D Start: take 1 capsule by mouth once daily Cholecalciferol (Vitamin D3) 50 mcg (2,000 unit) capsule Active 50 ug PO DAILY August 31, 2023 12:00am gabapentin 600 mg oral tablet (20 sources) Anti-epileptic Agent Start: take 2 tablets by mouth twice daily Gabapentin 600 mg tablet Active 1200 mg PO TWICE A DAY August 31, 2023 12:00am Start: 03-01-2021 End: 06-30-2022 take 1 capsule by mouth three times daily gabapentin (NEURONTIN) 300 mg capsule Indications: Post herpetic neuralgia Take 1 capsule by mouth three times daily. Take with 600 mg three times a day 270 capsule 3 06/30/2021 Active Start: 12-09-2020 End: 06-30-2022 take 1 tablet by mouth three times daily gabapentin (NEURONTIN) 600 mg tablet Indications: Post herpetic neuralgia Take 1 tablet by mouth three times daily. Take with 300 mg three times a day 270 tablet 3 06/30/2021 Active Comment on above: Take 1 tablet by [facility] three times daily. Take with 300 mg three times a day Take 1 capsule by [facility] three times daily. Take with 600 mg three times a day Take 1 tablet by [facility] three times daily for 180 days. Take with 300 mg three times a day Take 1 capsule by [facility] three times daily for 180 days. Take with 600 mg three times a day hydroCHLOROthiazide 12.5 mg oral capsule (20 sources) Thiazide Diuretic Start: 2023 take 1 capsule by mouth once daily Hydrochlorothiazide 12.5 mg capsule Active 12.5 mg PO DAILY August 31, 2023 12:00am Start: 02-10-2021 End: 06-30-2021 take 1 tablet by mouth once daily hydroCHLOROthiazide (HYDRODIURIL, ESIDRIX) 25 mg tablet Indications: Essential hypertension, benign Take 1 tablet by mouth once daily. 90 tablet 3 06/30/2021 Active Comment on above: Take 1 tablet by [facility] once daily. mecobalamin 1 mg sublingual tablet (1 source) Start: 2023 Mecobalamin (Vitamin B12) 1,000 mcg tablet,disintegrating Active 1000 ug SL DAILY August 31, 2023 12:00am place tablet under tongue and allow to dissolve for at least30 secs before swallowing methylPREDNISolone 4 mg oral tablet (1 source) Corticosteroid Start: 2024 take 1 tablet by mouth once Methylprednisolone (Medrol (Jefry)) 4 mg tablets,dose pack Active 0 PO per package directions April 05, 2024 1:00am PO PER PKG DIR Milk Thistle (1 source) Start: 2023 take 1 tablet by mouth twice daily Milk Thistle 175 mg tablet Active 175 mg PO TWICE A DAY August 31, 2023 12:00am give with meal/snack psyllium 400 mg oral capsule (1 source) Start: 2023 Psyllium Husk (Daily Fiber) 0.4 gram capsule Active 0.4 g PO DAILY August 31, 2023 12:00am triamcinolone acetonide 1 mg/ml topical cream (9 sources) Corticosteroid Start: 2021 End: 2021 triamcinolone acetonide (KENALOG) 0.1 % cream Indications: Dermatitis due to plants, including poison taurus, sumac, and oak Apply to affected area twice daily for 14 days. 80 g 0 07/22/2021 08/05/2021 Active Start: 06-06-2021 End: 07-12-2021 triamcinolone acetonide (MARISELA ALOG) 0.1 % cream Indications: Dermatitis due to plants, including poison taurus, sumac, and oak APPLY TO THE AFFECTED AREA(S) TWO TIMES DAILY 80 g 1 06/06/2021 07/12/2021 Active Comment on above: APPLY TO THE AFFECTE D AREA(S) TWO TIMES DAILY Apply to affected ar ea twice daily for 14 days. Completed/Discontinued Medications Medication Drug Class(es) Dates Sig (Normalized) Sig (Original) furosemide 20 mg oral tablet (8 sources) Loop Diuretic Start: 07-29-2021 End: 12-18-2021 take 1 tablet by mouth once daily furosemide (LASIX) 20 mg tablet Indications: Localized swelling of left lower leg Take 1 tablet by mouth once daily for 7 days. 7 tablet 0 08/05/2021 12/18/2021 Discontinued Comment on above: Take 1 tablet by zainab th once daily for 4 days. Take 1 tablet by zainab th once daily for 7 days. perflutren lipid microspheres 1.3 mL in NaCl (PF) 0.9% 10 mL injection (DEFINITY) (8 sources) Start: 10-20-2021 End: 01-19-2023 perflutren lipid microspheres 1.3 mL in NaCl (PF) 0.9% 10 mL injection (DEFINITY) 125 ml sodium chloride 9 mg/ml prefilled syringe (8 sources) Start: 10-20-2021 End: 01-19-2023 sodium chloride 0.9 % (flush) 10 mL (BD POSIFLUSH) Problems Active Problems Problem Classification Problem Date Documented Date Episodic/Chronic Administrative/social admission (2 sources) Patient encounter status; Translations: [Other specified counseling] Episodic Cardiac dysrhythmias (2 sources) Nonsustained ventricular tachycardia ; Translations: [Ventricular tachycardia] Chronic Chronic kidney disease (20 sources) Chronic kidney disease stage 3B ; Translations: [Stage 3b chronic kidney disease (HCC)] Onset: 06-13-2008 Resolved: 08-14-2021 Chronic Chronic kidney disease (3 sources) Chronic kidney disease; Translations: [Stage 3b [...] Chronic Other nutritional; endocrine; and metabolic disorders (3 sources) Unintentional weight loss; Translations: [Abnormal weight loss] Episodic Other skin disorders (3 sources) Localized swelling of left lower leg; Translations: [Localized swelling, mass and lump, left lower limb] Episodic Other upper respiratory disease (20 sources) Allergic rhinitis; Translations: [Allergic rhinitis, unspecified] Onset: 05-03-2008 2009 Chronic Residual codes; unclassified (1 source) Bilateral lower limb edema; Translations: [Localized edema] 08-31-2023 Episodic Screening and history of mental health and substance abuse codes (11 sources) Ex-smoker; Translations: [Personal history of nicotine dependence] Onset: 12-18-2021 Episodic Spondylosis; intervertebral disc disorders; other back problems (1 source) Backache; Translations: [Dorsalgia, unspecified] 08-31-2023 Episodic Unclassified (1 source) Cough, unspecified; Translations: [Cough, unspecified] Onset: 04-05-2024 Unclassified (1 source) Low back pain, unspecified; Translations: [Low back pain, unspecified] Onset: 09-13-2023 Past or Other Problems Problem Classification Problem Date Documented Da te Episodic/Chronic Acquired foot deformities (20 sources) Bunion; Translations: [Bunion of unspecified foot] Onset: 9 2009 Episodic Allergic reactions (20 sources) Contact dermatitis; Translations: [Unspecified contact dermatitis, unspecified cause] Onset: 9 2009 Episodic Anal and rectal conditions (14 sources) Perirectal abscess; Translations: [Rectal abscess] Onset: 3 05-26-2012 Episodic Diabetes mellitus without complication (20 sources) Prediabetes; Translations: [Prediabetes] Onset: 1 Episodic E Codes: Fall (1 source) Unspecified fall, initial encounter; Translations: [Unspecified fall, initial encounter] Onset: 4 Episodic Gastrointestinal hemorrhage (1 source) Gastrointestinal hemorrhage, unspecified; Translations: [Gastrointestinal hemorrhage, unspecified] Onset: 4 Episodic Other and unspecified benign neoplasm (20 sources) Benign neoplasm of colon; Translations: [Benign neoplasm of colon, unspecified] Onset: 9 2009 Episodic Other and unspecified benign neoplasm (20 sources) History of polyp of colon; Translations: [Personal history of colonic polyps] Onset: 2 01-08-2017 Episodic Other connective tissue disease (14 sources) Calcaneal spur; Translations: [Calcaneal spur, unspecified foot] Onset: 9 2009 Episodic Other connective tissue disease (20 sources) Pain in limb; Translations: [Pain in unspecified limb] Onset: 9 06-07-2009 Episodic Other connective tissue disease (1 source) Other specified soft tissue disorders; Translations: [Left leg swelling] Onset: 2 Episodic Other nutritional; endocrine; and metabolic disorders (1 source) Abnormal weight loss; Translations: [Weight loss, unintentional] Onset: 2 Episodic Other screening for suspected conditions (not mental disorders or infectious disease) (20 sources) Raised prostate specific antigen; Translations: [Elevated prostate specific antigen [PSA]] Onset: 9 Episodic Other skin disorders (1 source) Localized swelling, mass and lump, left lower limb; Translations: [Localized swelling of left lower leg] Onset: 2 Episodic Residual codes; unclassified (1 source) Localized edema; Translations: [Localized edema] Onset: 4 Episodic Syncope (8 sources) Collapse; Translations: [Syncope and collapse] Onset: 2 Episodic Viral infection (20 sources) Postherpetic neuralgia; Translations: [Other postherpetic nervous system involvement] Onset: 9 Episodic Results Test Name Value Interpretation Reference Range Facility Anion gap in Serum or Plasma Ordered By: Freddie Grande on 08-10-2024 Anion gap [Moles/Vol] 12 mmol/L 07-27 [facility] BUN/creatinine ratioOrdered By: Freddie Grande on 08-10-2024 Urea nitrogen/Creatinine [Mass ratio] 12.2 mg/mg 01-01 [facility] Basic Metabolic Profile (BMP )on 08-10-2024 BUN/CRE 12.2 RATIO Normal 01-01 [facility] Comment on above: Order Comment: Order Date: 11/10/23 Order Info: 0667- - BMP Performed By: #### L 500.2500 #### [facility] [address] [place], [address] Calcium [Mass/Vol] 9.0 mg/dL Normal 7.6-11.0 [facility] Comment on above: Order Comment: Order Date: 11/10/23 Order Info: 0667- - BMP Performed By: #### L 500.2500 #### [facility] [address] [place], [address] Chloride [Moles/Vol] 106 mmol/L Normal 98-108 [facility] Comment on above: Order Comment: Order Date: 11/10/23 Order Info: 0667- - BMP Performed By: #### L 500.2500 #### [facility] [address] [place], [address] CO2 [Moles/Vol] 24.3 mmol/L Normal 21.0-32.0 [facility] Comment on above: Order Comment: Order Date: 11/10/23 Order Info: 0667 - BMP Performed By: #### L 500.2500 #### [facility] [address] [place], [address] Creatinine [Mass/Vol] 1.64 mg/dL High 0.70-1.20 [facility] Comment on above: Order Comment: Order Date: 11/10/23 Order Info: 666-03 - BMP Performed By: #### L 500.2500 #### [facility] [address] [place], [address] GAP 12 Normal 5-15 [facility] Comment on above: Order Comment: Order Date: 11/10/23 Order Info: 666-03 - BMP Performed By: #### L 500.2500 #### [facility] [address] [place], [address] GFR/1.73 sq M.predicted among non-blacks MDRD (S/P/Bld) [Vol rate/Area] 42 mL/min/{1.73_m2} Low >60 [facility] Comment on above: Order Comment: Order Date: 11/10/23 Order Info: 06 - BMP Result Comment: mL/m in/1.73m2 CKD-EPI Creatinine Equation (2020) Performed By: #### L 500.2500 #### [facility] [address] [place], [address] Glucose [Mass/Vol] 97 mg/dL Normal 70-99 [facility] Comment on above: Order Comment: Order Date: 11/10/23 Order Info: 0667 - BMP Performed By: #### L 500.2500 #### [facility] [address] [place], [address] Potassium [Moles/Vol] 4.0 mmol/L Normal 3.3-5.1 [facility] Comment on above: Order Comment: Order Date: 11/10/23 Order Info: 666-03 - BMP Performed By: #### L 500.2500 #### [facility] [address] [place], [place], [id number] Sodium [Moles/Vol] 143 mmol/L Normal 133-145 [facility] Comment on above: Order Comment: Order Date: 11/10/23 Order Info: 666-03 - BMP Performed By: #### L 500.2500 #### [facility] [address] [place], [place], [address] Urea nitrogen [Mass/Vol] 20 mg/dL High 4-19 [facility] Comment on above: Order Comment: Order Date: 11/10/23 Order Info: 666-03 - BMP Performed By: #### L 500.2500 #### [facility] [address] [place], [place], [address] Bilirubin directOrdered By: Freddie Grande on 08-10-2024 Bilirubin.direct [Mass/Vol] 0.43 mg/dL High 0.00-0.30 [facility] Bilirubin, totalOrdered By: Freddie Grande on 08-10-2024 Bilirubin [Mass/Vol] 1.02 mg/dL 0.00-1.30 [facility] CBC-Complete Blood Cnt No Di ffon 08-10-2024 Erythrocyte distribution width (RBC) [Ratio] 15.2 % High 11.6-14.6 [facility] Comment on above: Order Comment: Order Date: 11/10/23 Order Info: 666-03 - BMP Performed By: #### L 500.2500 #### [facility] [address] [place], [place], [address] Hematocrit (Bld) [Volume fraction] 41.9 % Normal 40-54 [facility] Comment on above: Order Comment: Order Date: 11/10/23 Order Info: 666-03 - BMP Performed By: #### L 500.2500 #### [facility] [address] [place], [address] Hemoglobin (Bld) [Mass/Vol] 13.5 g/dL Normal 13.0-16.5 [facility] Comment on above: Order Comment: Order Date: 11/10/23 Order Info: 666-03 - BMP Performed By: #### L 500.2500 #### [facility] [address] [place], [address] MCH (RBC) [Entitic mass] 30.5 pg Normal 27.0-32.0 [facility] Comment on above: Order Comment: Order Date: 11/10/23 Order Info: 666-03 - BMP Performed By: #### L 500.2500 #### [facility] [address] [place], [address] MCHC (RBC) [Mass/Vol] 32.2 g/dL Normal 32-36 [facility] Comment on above: Order Comment: Order Date: 11/10/23 Order Info: 666-03 - BMP Performed By: #### L 500.2500 #### [facility] [address] [place], [address] MCV (RBC) [Entitic vol] 94.6 fL High 80-94 [facility] Comment on above: Order Comment: Order Date: 11/10/23 Order Info: 666-03 - BMP Performed By: #### L 500.2500 #### [facility] [address] [place], [address] Platelet mean volume (Bld) [Entitic vol] 10.3 fL Normal 6.2-12.0 [facility] Comment on above: Order Comment: Order Date: 11/10/23 Order Info: 666-03 - BMP Performed By: #### L 500.2500 #### [facility] [address] [place], [address] Platelets (Bld) [#/Vol] 192 10*3/uL Normal 150-450 [facility] Comment on above: Order Comment: Order Date: 11/10/23 Order Info: 666-03 - BMP Performed By: #### L 500.2500 #### [facility] [address] [place], [address] RBC (Bld) [#/Vol] 4.43 10*6/uL Low 4.6-6.2 [facility] Comment on above: Order Comment: Order Date: 11/10/23 Order Info: 666-03 - BMP Performed By: #### L 500.2500 #### [facility] [address] [place], [address] RDW SD 53.2 fl High 35.1-43.9 [facility] Comment on above: Order Comment: Order Date: 11/10/23 Order Info: 666-03 - BMP Performed By: #### L 500.2500 #### [facility] [address] [place], [address] WBC (Bld) [#/Vol] 6.5 10*3/uL Normal 4.4-11.0 [facility] Comment on above: Order Comment: Order Date: 11/10/23 Order Info: 666-03 - BMP Performed By: #### L 500.2500 #### [facility] [address] [place], [address] Calculated very low density lipoprotein (VLDL) cholesterol measurementOrdered By: Freddie Grande on 08-10-2024 Calculated very low density lipoprotein (VLDL) cholesterol measurement 13 mg/dL 5-40 [facility] Carbon dioxide, total [Moles /volume] in Central venous bloodOrdered By: Freddie Grande on 08-10-2024 CO2 [Moles/Vol] 24.3 mmol/L 21.0-32.0 [facility] Chloride assayOrdered By: Inocencio Grande on 08-10-2024 Chloride [Moles/Vol] 106 mmol/L 98-108 [facility] Erythrocyte distribution wid th ratioOrdered By: Freddie Grande on 08-10-2024 Erythrocyte distribution width (RBC) [Ratio] 15.2 % High 11.6-14.6 [facility] Erythrocyte distribution wid th standard deviationOrdered By: Freddie Grande on 08-10-2024 Erythrocyte distribution width (RBC) [Ratio] 53.2 fl High 35.1-43.9 [facility] Glomerular filtration rate ( GFR) estimation/1.73 sq m using serum, plasma, or whole bOrdered By: Freddie Grande on 08-10-2024 GFR/1.73 sq M.predicted among non-blacks MDRD (S/P/Bld) [Vol rate/Area] 42 mL/min/{1.73_m2} Low >60 [facility] Comment on above: mL/min/1.73m2 CKD-EP I Creatinine Equation (2020) Hematocrit Auto (Bld) [Volum e fraction]Ordered By: Freddie Grande on 08-10-2024 Hematocrit (Bld) [Volume fraction] 41.9 % 40-54 [facility] Hemoglobin measurementOrdere d By: Freddie Grande on 08-10-2024 Hemoglobin (Bld) [Mass/Vol] 13.5 g/dL 13.0-16.5 [facility] Ironon 08-10-2024 Iron [Mass/Vol] 44 ug/dL Low 65-175 [facility] Comment on above: Order Comment: Order Date: 11/10/23 Order Info: 0667-1 - BMP Performed By: #### L 500.2500 #### [facility] [address] [place] [address], [phone] Iron measurement (mass/mass) Ordered By: Freddie Grande on 08-10-2024 Iron (Unsp spec) [Mass/Mass] 44 ug/dL Low 65-175 [facility] LDL calc ser/plasOrdered By: Freddie Grande on 08-10-2024 Cholesterol in LDL [Mass/Vol] 62 mg/dL [facility] Comment on above: Fgcquvksaq=656-258 m g/dL & Higher Rijx=900 mg/dL or greater Laboratory - Chemistry and C hemistry - challengeOrdered By: Freddie Grande on 08-10-2024 AST [Catalytic activity/Vol] 20 U/L <38 [facility] Lipid Profileon 08-10-2024 CHOL:HDL 2.69 Normal [facility] Comment on above: Order Comment: Order Date: 11/10/23 Order Info: 0667-1 - BMP Performed By: #### L 500.2500 #### [facility] [address] [place], [place], [id number] ([address]) Cholesterol [Mass/Vol] 119 mg/dL Normal <=200 [facility] Comment on above: Order Comment: Order Date: 11/10/23 Order Info: 06 - BMP Result Comment: Chol esterol level, Desirable <200 mg/dL Borderline high cholesterol 200-239 mg/dL High cholesterol >=240 mg/dL Recommendations of the NCEP Adult Treatment Panel for the following risk-cutoff thresholds for the [place] population. Performed By: #### L 500.2500 #### [facility] [address] [place], [place], [id number] ([phone]) Cholesterol in HDL [Mass/Vol] 44 mg/dL Normal [facility] Comment on above: Order Comment: Order Date: 11/10/23 Order Info: 0667- - BMP Result Comment: [place] onal Cholesterol Education Program (NCEP) guidelines: <40 mg/dL: Low HDL-cholesterol (major risk factor for CHD) >= 60 mg/dL: High HDL-cholesterol (negative risk factor for CHD) HDL-cholesterol is affected by a number of factors, e.g. smoking, exercise, hormones, sex and age. Performed By: #### L 500.2500 #### [facility] [address] [place], [place], [id number] [phone] Cholesterol in LDL [Mass/Vol] 62 mg/dL Normal [facility] Comment on above: Order Comment: Order Date: 11/10/23 Order Info: 0667-1 - BMP Result Comment: Bord loqljt=996-373 mg/dL Higher Jpxp=979 mg/dL or greater Performed By: #### L 500.2500 #### [facility] [address] [place], [address] Cholesterol in VLDL [Mass/Vol] 13 mg/dL Normal 5-40 [facility] Comment on above: Order Comment: Order Date: 11/10/23 Order Info: 666-03 - BMP Performed By: #### L 500.2500 #### [facility] [address] [place], [address] Triglyceride [Mass/Vol] 64 mg/dL Normal [facility] Comment on above: Order Comment: Order Date: 11/10/23 Order Info: 666-03 - BMP Result Comment: The drugs N-Acetylcysteine and Metamizole may falsely depress this assay. Normal range: <150 mg/dL Borderline High: 150-199 mg/dL High: 200-499 mg/dL Very High: >500 mg/dL Performed By: #### L 500.2500 #### [facility] [address] [place], [address] Liver Profileon 08-10-2024 Albumin [Mass/Vol] 3.8 g/dL Normal 3.4-4.8 [facility] Comment on above: Order Comment: Order Date: 11/10/23 Order Info: 666-03 - BMP Performed By: #### L 500.2500 #### [facility] [address] [place], [address] ALK PHOS 118 U/L Normal 40-129 [facility] Comment on above: Order Comment: Order Date: 11/10/23 Order Info: 666-03 - BMP Performed By: #### L 500.2500 #### [facility] [address] [place], [address] ALT [Catalytic activity/Vol] 11 U/L Normal <=46 [facility] Comment on above: Order Comment: Order Date: 11/10/23 Order Info: 666-03 - BMP Performed By: #### L 500.2500 #### [facility] [address] [place], [address] AST [Catalytic activity/Vol] 20 U/L Normal <=37 [facility] Comment on above: Order Comment: Order Date: 11/10/23 Order Info: 666-03 - BMP Performed By: #### L 500.2500 #### [facility] [address] [place], [address] Bilirubin [Mass/Vol] 1.02 mg/dL Normal 0.00-1.30 [facility] Comment on above: Order Comment: Order Date: 11/10/23 Order Info: 666-03 - BMP Performed By: #### L 500.2500 #### [facility] [address] [place], [address] Bilirubin.direct [Mass/Vol] 0.43 mg/dL High 0.00-0.30 [facility] Comment on above: Order Comment: Order Date: 11/10/23 Order Info: 666-03 - BMP Performed By: #### L 500.2500 #### [facility] [address] [place], [address] Globulin (S) [Mass/Vol] 3.1 g/dL Normal 2.2-4.2 [facility] Comment on above: Order Comment: Order Date: 11/10/23 Order Info: 666-03 - BMP Performed By: #### L 500.2500 #### [facility] [address] [place], [address] T PROT 6.9 g/dL Normal 5.9-8.4 [facility] Comment on above: Order Comment: Order Date: 11/10/23 Order Info: 666-03 - BMP Performed By: #### L 500.2500 #### [facility] [address] [place], [address] MCV (mean corpuscular volume ) determinationOrdered By: Freddie Grande on 08-10-2024 MCV (RBC) [Entitic vol] 94.6 fL High 80-94 [facility] Mean corpuscular hemoglobin (MCH) determinationOrdered By: Freddie Grande on 08-10-2024 MCH (RBC) [Entitic mass] 30.5 pg 27.0-32.0 [facility] Mean corpuscular hemoglobin concentration (MCHC) determinationOrdered By: Freddie Grande on 08-10-2024 MCHC (RBC) [Mass/Vol] 32.2 g/dL 32-36 [facility] Mean platelet volume determi nationOrdered By: Freddie Grande on 08-10-2024 Platelet mean volume (Bld) [Entitic vol] 10.3 fL 6.2-12.0 [facility] PTHINon 08-10-2024 PTH 47 pg/mL Normal 11-61 [facility] Comment on above: Order Comment: Order Date: 11/10/23 Order Info: 0667-1 - BMP Performed By: #### L 500.2500 #### [facility] [address] [place] [address], [address] Platelet countOrdered By: Inocencio Grande on 08-10-2024 Platelets (Bld) [#/Vol] 192 10*3/uL 150-450 [facility] Potassium measurement (mass/ volume)Ordered By: Freddie Grande on 08-10-2024 Potassium (Unsp spec) [Mass/Vol] 4.0 mmol/L 3.3-5.1 [facility] RBC Auto (Bld) [#/Vol]Ordere d By: Freddie Grande on 08-10-2024 RBC (Bld) [#/Vol] 4.43 10*6/uL Low 4.6-6.2 [facility] Screening total cholesterol/ high density lipoprotein (HDL) cholesterol ratioOrdered By: Freddie Grande on 08-10-2024 Cholesterol.total/Chol esterol in HDL [Mass ratio] 2.69 {ratio} [facility] Serum creatinine measurement (mass/volume)Ordered By: Freddie Grande on 08-10-2024 Creatinine [Mass/Vol] 1.64 mg/dL High 0.70-1.20 [facility] Serum globulin measurementOr dered By: Freddie Grande on 08-10-2024 Globulin (S) [Mass/Vol] 3.1 g/dL 2.2-4.2 [facility] Serum glucose measurement (m ass/volume)Ordered By: Freddie Grande on 08-10-2024 Glucose [Mass/Vol] 97 mg/dL 70-99 [facility] Serum or plasma alanine lentz otransferase (ALT) measurementOrdered By: Freddie Grande on 08-10-2024 ALT [Catalytic activity/Vol] 11 U/L <47 [facility] Serum or plasma albumin hodan urement (mass/volume)Ordered By: Freddie Grande on 08-10-2024 Albumin [Mass/Vol] 3.8 g/dL 3.4-4.8 [facility] Serum or plasma alkaline mikala sphatase measurementOrdered By: [facility] on 08-10-2024 ALP [Catalytic activity/Vol] 118 U/L 40-129 [facility] Serum or plasma calcium hodan urement (mass/volume)Ordered By: Freddie Grande on 08-10-2024 Calcium [Mass/Vol] 9.0 mg/dL 7.6-11.0 [facility] Serum or plasma cholesterol in HDL measurement (mass/volume)Ordered By: Freddie Grande on 08-10-2024 Cholesterol in HDL [Mass/Vol] 44 mg/dL >40 [facility] Comment on above: National Cholesterol Education Program (NCEP) guidelines:<40 mg/dL: Low HDL-cholesterol (major risk factor for CHD)>= 60 mg/dL: High HDL-cholesterol (negative risk factor for CHD)HDL-cholesterol is affected by a number of factors, e.g. smoking, exercise, hormones, sex and age. Serum or plasma cholesterol measurement (mass/volume)Ordered By: Freddie Grande on 08-10-2024 Cholesterol [Mass/Vol] 119 mg/dL <201 [facility] Comment on above: Cholesterol level, D esirable <200 mg/dLBorderline high cholesterol 200-239 mg/dLHigh cholesterol >=240 mg/dLRecommendations of the NCEP Adult Treatment Panel for the following risk-cutoff thresholds for the [place] population. Serum or plasma urea nitroge n measurement (mass/volume)Ordered By: Freddie Grande on 08-10-2024 Urea nitrogen [Mass/Vol] 20 mg/dL High 4-19 [facility] Sodium levelOrdered By: Ariadna Grande on 08-10-2024 Sodium [Moles/Vol] 143 mmol/L 133-145 [facility] Total proteinOrdered By: Rachelle Grande on 08-10-2024 Protein [Mass/Vol] 6.9 g/dL 5.9-8.4 [facility] Triglycerides measurementOrd ered By: Freddie Grande on 08-10-2024 Triglyceride [Mass/Vol] 64 mg/dL <199 [facility] Comment on above: The drugs N-Acetylcy steine and Metamizole may falsely depress this assay. Normal range: <150 mg/dLBorderline High: 150-199 mg/dLHigh: 200-499 mg/dLVery High: >500 mg/dL Vitamin D,25 Hydroxyon 08-10 Vitamin D 25-OH 48.4 ng/mL Normal 30-100 [facility] Comment on above: Order Comment: Order Date: 04/18/24 Order Info: 0667-1 - BMP Order Info: 0788-1 - LIVER Order Info: [id number] - LIPID Order Info: 2498-4 - FE Result Comment: Pat min D Status Deficiency: <20 ng/mL (50nmol/L) Insufficiency: 20-30 ng/mL (50-75 nmol/L) Sufficiency: 30-100 ng/mL (75-250 nmol/L) Toxicity: >100 ng/mL (>250 nmol/L) Performed By: #### L 506.1001 #### [facility] [address] [place], [address] White blood cell (WBC) count Ordered By: Freddie Grande on 08-10-2024 WBC (Bld) [#/Vol] 6.5 10*3/uL 4.4-11.0 [facility] Urgent Care Visit Reporton 0 04-05-2024 Urgent Care Visit Report [facility] [address] , [address] [place] [address] OFFICE VISIT Date of Service: 04/05/24 MR#: [id number] Acct: [id number] Name: AG JONES Rep #: [id number] : 1945 Provider: FLAQUITA Moncada Age/Sex: 79/M [place] [facility] Status: Signed Intake Vital Signs 12/28/23 10:28 04/05/24 16:01 Height 5 ft 10 in 5 ft 10 in BP 102/66 Position Sitting Pulse 88 Temp 98.2 F Temp Source Oral Pulse Oximetry (%) 95 Oxygen Delivery Method room air Intake Visit Reasons: FLU LIKE SYMPTOMS Accompanied by: Son Allergies No Known Allergies Allergy (Unverified 04/05/24 16:10) Medications ???Medication ???Instructions ???Recorded ???Confirmed ???Type B-complex with vitamin C 1 cap PO DAILY 08/31/23 04/05/24 History allopurinol 300 mg tablet 300 mg PO DAILY 08/31/23 04/05/24 History amlodipine 5 mg tablet 5 mg PO QDAY 08/31/23 04/05/24 History atorvastatin 20 mg tablet 20 mg PO QHS 08/31/23 04/05/24 History cholecalciferol (vitamin D3) 50 50 mcg PO DAILY 08/31/23 04/05/24 History mcg (2,000 unit) capsule gabapentin 600 mg tablet 1,200 mg PO BID 08/31/23 04/05/24 History hydrochlorothiazide 12.5 mg capsule 12.5 mg PO DAILY #14 caps 08/31/23 04/05/24 Rx mecobalamin (vitamin B12) 1,000 1,000 mcg sublingual DAILY 08/31/23 04/05/24 History mcg disintegrating tablet,sublingual milk thistle 175 mg tablet 175 mg PO BID 08/31/23 04/05/24 History psyllium husk 0.4 gram capsule 0.4 g PO DAILY 08/31/23 04/05/24 History (Daily Fiber) benzonatate 200 mg capsule 200 mg PO TID PRN cough #20 caps 04/05/24 04/05/24 Rx methylprednisolone 4 mg tablets in See Rx Instructions PO PER PKG DIR 04/05/24 04/05/24 Rx a dose pack (Medrol (Jefry)) #21 tabs Have you fallen in the past year?: No Nurse's Note: Patient has flu like symptoms going on for 3 days. [facility] Medical History (Updated 08/31/23 @ 14:04 by Shukri SAMS, PA) Edema of both legs Backache Arthritis Social History Smoking Status: Former smoker HPI HPI Details: AG JONES, is a 79 M who presents to the office today for initial evaluation in the [facility] for approximately 72-hour history of persistent fever, chills, cough, fatigue.??? No complaints of chest pain or shortness of breath or dyspnea on exertion. Nonsmoker. Several close contacts recently diagnosed with similar URI complaints. No over the counter taken to assist. Accompanied by son who verifies above history. No other associated symptoms and no other alleviating/aggravating factors. ROS Const Constitutional: No other (As above) Exam Const General: cooperative, healthy appearing and no acute distress Orientation: alert, awake HENMT Head: normal to inspection Ears: hearing grossly normal bilaterally, external ears normal, TM's normal bilaterally and EAC's normal Nose: external nose normal, nares normal, septum normal and clear nasal discharge Face and sinus: normal facial exam, sinuses nontender and face symmetric Mouth: oral mucosae normal, lip normal, tongue normal and oropharynx normal Throat: posterior oropharynx normal, tonsils normal, uvula midline and no postnasal drainage Eyes General: appearance normal, both eyes and all related structures Neck Neck: normal visual inspection, full ROM, no lymphadenopathy, no meningeal signs and supple Neck mass: No Thyroid: thyroid normal Lymphatic: no lymphadenopathy noted Chest Chest palpation inspection: normal inspection of the chest Resp Effort Inspection: normal respiratory effort, able to speak in complete sentences and cough Quality of cough: wet (nonproductive in office today) Auscultation: Bilateral: Clear to Auscultation Cardio Palpation: normal PMI Rate: regular Rhythm: regular rhythm Heart Sounds: S1 normal, S2 normal, no gallops, no murmurs and no rubs Pulses: radial pulses present Skin General: no rashes or lesions noted Neuro General: patient alert, patient awake and patient oriented x3 Cognition: normal cognition Speech: speech normal Psych Appearance: grossly normal Mental Status: mental status grossly normal Mood: congruent mood Affect: normal affect Speech and Movement: speech and movement normal Attitude: cooperative Diagnoses Influenza A??? J10.1 Assessment and Plan Assessment and Plan (1) Influenza A: Status: Acute Plan: See POC results. Medrol Dosepak and benzonatate as prescribed today. Supportive measures as instructed today. Follow-up with PCP in 5 to 7 days should symptoms not improve, ED sooner should symptoms worsen or any other concerns develop. Pt and son both state acknowledging understanding all the above. Results POC SUSAN CoV-2 PCR POC SUSAN CoV-2 PCR (more content not included)... Normal [facility] Basic Metabolic Profile (BMP )on 12-28-2023 BUN/CRE 13.3 RATIO Normal - [facility] Comment on above: Performed By: #### L 100.0500, L500.2500 #### [facility] [address] [place], [address] CA,Total 9.3 mg/dL Normal 8.5-10.1 [facility] Comment on above: Performed By: #### L 100.0500, L500.2500 #### [facility] [address] [place], [address] Chloride [Moles/Vol] 106 mmol/L Normal 98-107 [facility] Comment on above: Performed By: #### L 100.0500, L500.2500 #### [facility] [address] [place], [address] CO2 [Moles/Vol] 32.0 mmol/L Normal 21.0-32.0 [facility] Comment on above: Performed By: #### L 100.0500, L500.2500 #### [facility] [address] [place], [address] Creatinine [Mass/Vol] 1.80 mg/dL High 0.70-1.30 [facility] Comment on above: Result Comment: The validity of the calculated GFR GFRAA in patients over 70 years has not been determined. Clinical correlation is essential. Performed By: #### L 100.0500, L500.2500 #### [facility] [address] [place], [address] ECRCL 41.19 ml/min Normal [facility] Comment on above: Performed By: #### L 100.0500, L500.2500 #### [facility] [address] [place], [address] EST GFR - AA 47 mL/min Low >60 [facility] Comment on above: Result Comment: Afri can [place] GFR Calc Performed By: #### L 100.0500, L500.2500 #### [facility] [address] [place], [address] GAP 3 Low 5-15 [facility] Comment on above: Performed By: #### L 100.0500, L500.2500 #### [facility] [address] [place], [address] GFR/1.73 sq M.predicted among non-blacks MDRD (S/P/Bld) [Vol rate/Area] 39 mL/min/{1.73_m2} Low >60 [facility] Comment on above: Result Comment: Non- GFR Calc Performed By: #### L 100.0500, L500.2500 #### [facility] [address] [place], [address] Glucose [Mass/Vol] 96 mg/dL Normal 74-106 [facility] Comment on above: Performed By: #### L 100.0500, L500.2500 #### [facility] [address] [place], [address] Potassium [Moles/Vol] 3.9 mmol/L Normal 3.5-5.1 [facility] Comment on above: Performed By: #### L 100.0500, L500.2500 #### [facility] [address] [place], [address] Sodium [Moles/Vol] 141 mmol/L Normal 136-145 [facility] Comment on above: Performed By: #### L 100.0500, L500.2500 #### [facility] [address], [address] Urea nitrogen [Mass/Vol] 24 mg/dL High 7-18 [facility] Comment on above: Performed By: #### L 100.0500, L500.2500 #### [facility] [address] [place], [address] CBC-Complete Blood Cnt No Di ffon 12-28-2023 Erythrocyte distribution width (RBC) [Ratio] 15.0 % High 11.6-14.6 [facility] Comment on above: Performed By: #### L 100.0500, L500.2500 #### [facility] [address] [place], [address] Hematocrit (Bld) [Volume fraction] 42.1 % Normal 40-54 [facility] Comment on above: Performed By: #### L 100.0500, L500.2500 #### [facility] [address], [address] Hemoglobin (Bld) [Mass/Vol] 13.5 g/dL Normal 13.0-16.5 [facility] Comment on above: Performed By: #### L 100.0500, L500.2500 #### [facility] [address] [place], [address] MCH (RBC) [Entitic mass] 30.5 pg Normal 27.0-32.0 [facility] Comment on above: Performed By: #### L 100.0500, L500.2500 #### [facility] [address] [place], [address] MCHC (RBC) [Mass/Vol] 32.1 g/dL Normal 32-36 [facility] Comment on above: Performed By: #### L 100.0500, L500.2500 #### [facility] [address] [place], [address] MCV (RBC) [Entitic vol] 95.0 fL High 80-94 [facility] Comment on above: Performed By: #### L 100.0500, L500.2500 #### [facility] [address] [place], [address] Platelet mean volume (Bld) [Entitic vol] 9.7 fL Normal 6.2-12.0 [facility] Comment on above: Performed By: #### L 100.0500, L500.2500 #### [facility] [address] [place], [address] Platelets (Bld) [#/Vol] 175 10*3/uL Normal 150-450 [facility] Comment on above: Performed By: #### L 100.0500, L500.2500 #### [facility] [address] [place], [address] RBC (Bld) [#/Vol] 4.43 10*6/uL Low 4.6-6.2 [facility] Comment on above: Performed By: #### L 100.0500, L500.2500 #### [facility] [address] [place], [address] RDW SD 52.4 fl High 35.1-43.9 [facility] Comment on above: Performed By: #### L 100.0500, L500.2500 #### [facility] [address] [place], [address] WBC (Bld) [#/Vol] 7.0 10*3/uL Normal 4.4-11.0 [facility] Comment on above: Performed By: #### L 100.0500, L500.2500 #### [facility] [address] [place], [address] Emergency Department Summary on 12-28-2023 Emergency Department Summary [facility] Medical Records Department [address] [place] [address] Emergency Department Summary 12/28/23 MR#: [id number] Acct: [id number] Name: AG JONES Rep #: [id number] : 1945 78 From: Ranjit Mcclain DO PCP: Dr. Freddie Grande MD Status:REG ER Location: ED HPI History of Present Illness Chief Complaint: GI Bleed [facility] Medical History (Updated 08/31/23 @ 14:04 by Shukri SAMS, PA) Edema of both legs Backache Arthritis Home Medications ???Medication ???Instructions ???Recorded ???Last Taken ???Type B-complex with vitamin C 1 cap PO DAILY 08/31/23 Unknown History allopurinol 300 mg tablet 300 mg PO DAILY 08/31/23 Unknown History amlodipine 5 mg tablet 5 mg PO QDAY 08/31/23 Unknown History atorvastatin 20 mg tablet 20 mg PO QHS 08/31/23 Unknown History cholecalciferol (vitamin D3) 50 50 mcg PO DAILY 08/31/23 Unknown History mcg (2,000 unit) capsule gabapentin 600 mg tablet 1,200 mg PO BID 08/31/23 Unknown History hydrochlorothiazide 12.5 mg capsule 12.5 mg PO DAILY #14 caps 08/31/23 Unknown Rx mecobalamin (vitamin B12) 1,000 1,000 mcg sublingual DAILY 08/31/23 Unknown History mcg disintegrating tablet,sublingual milk thistle 175 mg tablet 175 mg PO BID 08/31/23 Unknown History psyllium husk 0.4 gram capsule 0.4 g PO DAILY 08/31/23 Unknown History (Daily Fiber) Allergy/AdvReac Type Severity Reaction Status Date / Time No Known Allergies Allergy Unverified 08/31/23 10:46 Social History Smoking Status: Former smoker EXAM Physical Exam Const Vital Signs: 12/28/23 10:28 12/28/23 12:22 12/28/23 14:08 Temperature 97.8 F Temperature Source Oral Pulse Rate 93 74 71 Respiratory Rate 18 18 18 Blood Pressure 142/66 H 142/73 H Blood Pressure Mean 91 96 Pulse Ox 97 96 Oxygen Delivery Method Room Air Room Air 12/28/23 14:08 Temperature 98.0 F Temperature Source Pulse Rate 71 Respiratory Rate 18 Blood Pressure 142/73 H Blood Pressure Mean 96 Pulse Ox 95 Oxygen Delivery Method [facility] [place] Medical decision making narrative: HISTORY OF PRESENT ILLNESS: 78 old male presents with bright red blood when wiping. States happened 15 years ago. He denies being on blood thinner. Denies Lightheadedness, dizziness, fatigue, chest pain, palpitation, shortness of breath, weakness dizziness REVIEW OF SYSTEMS: Pertinent positives: Bright red blood per rectum Pertinent negatives: Vomiting, fatigue, chest pain, lightheadedness, syncope PHYSICAL EXAM: Nursing triage notes reviewed, Vital signs reviewed Constitutional: please see mdm HENT: MMM Eyes: Pupils equal round and reactive to light, Extraocular muscles intact Neck: No stridor, no JVD, full neck ROM Lungs: Clear to auscultation, No wheezing or rales. No increased work of breathing, no conversational dyspnea, no accessory muscle use, no nasal flaring. No respiratory distress noted Heart: Regular rate and rhythm, No murmurs, No rubs and No gallops, 2+ distal pulses (radial, femoral, posterior tibial) in all extremities Abdomen: Soft, there is no tenderness, rigidity, rebound or guarding, no obvious peritoneal signs, no palpable pulsatile abdominal masses, no auscultated abdominal bruit : No CVAT Extremities: No edema Neuro: No focal neurological deficits, cranial nerves II through XII intact, 5/5 strength in all extremities. Intact sensation to light touch in all extremities, 2+ reflexes bilateral patella tendons. Normal gait. No ataxia. Skin: No rash or lesions noted Rectal: Performed arcgis developer in room MEDICAL DECISION MAKING: Chief Complaint: Primary blood per rectum External records reviewed: Prior medications reviewed Factors affecting care: Arthritis [facility] Narrative: Patient was hemodynamically stable, afebrile, nontoxic. Exam with obvious external rectal cleft fissure without active bleeding. No obvious foreign bodies noted. Fissure/skin tear was repaired with 3 absorbable 5-0 Chromic Gut sutures with close approximation and hemostasis. Silver nitrate was used into this to further prevent bleeding. Labs showed no evidence evidence of significant anemia Patient is appropriate discharge home with close PCP follow-up for reevaluation. The patient and/or family, caregivers express understanding. The patient and/or family, caregivers agrees with the plan. Shared decision making: I will have a discussion with the patient and or visitors regarding risk/benefits of further testing or admission. They will be made aware of of the risk/benefits inherent in this decision they will be given the opportunity to voice understanding. Total critical care time today provided (more content not included)... Normal [facility] Echo Completeon 12-01-2023 Echo Complete [facility] [address] [place] [address] Echo Complete 12/01/23 0956 MR#: [id number] Acct: [id number] Name: AG JONES Rep #: [id number] : 1945 78 From: Martina Benavides MD Attending Dr: Dr. Freddie Grande MD Status: REG CLI Ordering Dr: Freddie Grande MD Date: 12/01/23 Location: CVS Sex: M C Admitted: Reason For Study: EDEMA Procedure This was a 2D Doppler, Color Flow transthoracic echocardiogram. The study was technically difficult. Exam performed in department. Left Ventricle Mild concentric left ventricular hypertrophy. The left ventricular ejection fraction is 65 %. Normal diastology for age. Right Ventricle Normal right ventricle. Atria The left and right atria are normal. Mitral Valve The mitral valve is structurally normal. No prolapse or stenosis seen. Tricuspid Valve The tricuspid valve is not well visualized. Aortic Valve Aortic valve not well-visualized. Mildly calcified. Mildly increased gradient. Mild aortic valve stenosis. Pulmonic Valve The pulmonic valve is not well visualized. Great Vessels The aortic root is not well visualized. Pericardium/Pleural No pericardial effusion. MMode/2D Measurements Calculations LVIDd: 4.9 cm IVSd: 1.4 cm LVOT diam: 2.1 cm LVIDs: 2.6 cm LVPWd: 1.4 cm LVOT area: 3.4 cm2 RVDd: 3.5 cm FS: 47.0 % ___ Ao root diam: 3.5 cm LAV(MOD-bp): 39.5 ml LVAd ap4: 18.6 cm2 LAV(MOD-bp) Indexed: 17.3 ml/m2 LVLd ap4: 6.6 cm LAV(MOD-sp2): 41.8 ml EDV(MOD-sp4): 42.6 ml LAV(MOD-sp4): 32.8 ml EDV(sp4-el): 44.6 ml LVAs ap4: 9.5 cm2 LVLs ap4: 5.3 cm ESV(MOD-sp4): 13.6 ml ESV(sp4-el): 14.3 ml EF(MOD-sp4): 68.1 % EF(sp4-el): 67.9 % ___ LVAd ap2: 17.3 cm2 SV(MOD-sp4): 29.0 ml SV(MOD-sp2): 28.6 ml LVLd ap2: 6.0 cm EDV(MOD-sp2): 41.4 ml EDV(sp2-el): 42.4 ml LVAs ap2: 8.7 cm2 LVLs ap2: 5.3 cm ESV(MOD-sp2): 12.9 ml ESV(sp2-el): 12.3 ml EF(MOD-sp2): 69.0 % ___ SV(sp4-el): 30.3 ml LA dimension(2D): 4.4 cm LA A4 area: 14.9 cm2 ___ RA A4 area: 12.7 cm2 TAPSE: 1.9 cm Time Measurements MV dec time: 0.28 sec Doppler Measurements Calculations MV E max soheila: 67.2 cm/sec Lat Peak E' Soheila: 7.4 cm/sec Med Peak E' Soheila: 6.7 cm/sec MV A max soheila: 79.6 cm/sec E/E' lat: 9.0 E/E' med: 10.1 MV E/A: 0.84 ___ Ao V2 max: 213.2 cm/sec LV V1 max: 105.3 cm/sec MV dec slope: 239.3 cm/sec2 Ao max P.2 mmHg LV V1 max P.4 mmHg Ao V2 mean: 149.5 cm/sec LV V1 mean P.4 mmHg Ao mean P.9 mmHg LV V1 mean: 71.6 cm/sec Ao V2 VTI: 38.1 cm LV V1 VTI: 22.3 cm AV (velocity ratio): 0.59 VALENTINO(I,D): 2.0 cm2 VALENTINO(V,D): 1.7 cm2 ___ SV(LVOT): 76.0 ml ECHO/Echo Complete Interpretation Summary Mild concentric left ventricular hypertrophy. The left ventricular ejection fraction is 65 %. Aortic valve not well-visualized. Mildly calcified. Mildly increased gradient. Mild aortic valve stenosis. Technically difficult study. Ordering Physician: Freddie Grande Referring Physician: Freddie Grande Performed By: Malorie Verde LITZY 12/01/23 1605 Date Martina Benavides MD CC: Dr. Freddie Grande MD Date Dictated: 12/01/23 0956 Date Transcribed: 12/01/23 1605 Kelly Machine Operator: Signed Normal [facility] Venous Duplex US, Unilateral on 11-19-2023 Venous Duplex US, Unilateral [facility] [address] [place] [address] Venous Duplex US, Unilateral 11/19/23 0759 MR#: [id number] Acct: [id number] Name: AG JONES Rep #: [id number] : 1945 78 From: Sarthak Soliman MD Attending Dr: Dr. Freddie Grande MD Status: REG CLI Ordering Dr: Freddie Grande MD Date: 11/19/23 Location: CVS Sex: M C Admitted: Reason For Study: LLE Edema RIGHT LEFT CFV is compressible, spontaneous, phasic, GSV is normal. competent and demonstrates normal CFV is compressible, spontaneous, phasic, augmentation. competent, and demonstrates normal Procedure augmentation. This is a venous duplex using B-mode, color FV is compressible, spontaneous, phasic, flow and spectral Doppler. competent and demonstrates normal Exam performed in department. augmentation. The exam was diagnostic. POP V is compressible, spontaneous, phasic, competent and demonstrates normal augmentation. T/P Trunk is compressible. PTV is compressible. LT PerV is compressible. VL/Venous Duplex US, Unilateral Interpretation Summary Deep veins of the left lower extremity are patent and compressible segmentally. There is no evidence of left lower extremity deep vein thrombosis. Valvular competence appears intact within the proximal deep venous system on the left . The left great saphenous vein appears patent and compressible segmentally. The right common femoral vein is patent and compressible . Ordering Physician: Freddie Grande Referring Physician: Freddie Grande Performed By: Sharif Hawk, T 11/20/23 2335 Date Sarthak Soliman MD CC: Dr. Freddie Grande MD Date Dictated: 11/19/23 0759 Date Transcribed: 11/20/23 2335 Kelly Machine Operator: Signed Normal [facility] BNP,B-Type NATRIURETIC PEPTI Ivan 11-10-2023 Natriuretic peptide B (Bld) [Mass/Vol] 18.6 pg/mL Normal 0-100 [facility] Comment on above: Performed By: #### L 500.2500 #### [facility] [address] [place], [place], [address] Basic Metabolic Profile (BMP )on 11-10-2023 BUN/CRE 11.8 RATIO Normal 10-20 [facility] Comment on above: Order Comment: Order Date: 11/10/23 Order Info: 0667-1 - BMP Performed By: #### L 500.2500 #### [facility] [address] [place], [address] CA,Total 9.3 mg/dL Normal 8.5-10.1 [facility] Comment on above: Order Comment: Order Date: 11/10/23 Order Info: 0667-1 - BMP Performed By: #### L 500.2500 #### [facility] [address] [place], [address] Chloride [Moles/Vol] 102 mmol/L Normal 98-107 [facility] Comment on above: Order Comment: Order Date: 11/10/23 Order Info: 06 - BMP Performed By: #### L 500.2500 #### [facility] [address] [place], [address] CO2 [Moles/Vol] 29.0 mmol/L Normal 21.0-32.0 [facility] Comment on above: Order Comment: Order Date: 11/10/23 Order Info: 0667 - BMP Performed By: #### L 500.2500 #### [facility] [address] [place], [address] (060) Creatinine [Mass/Vol] 1.95 mg/dL High 0.70-1.30 [facility] Comment on above: Order Comment: Order Date: 11/10/23 Order Info: 0667- - BMP Result Comment: The validity of the calculated GFR GFRAA in patients over 70 years has not been determined. Clinical correlation is essential. Performed By: #### L 500.2500 #### [facility] [address] [place], [address] EST GFR - AA 43 mL/min Low >60 [facility] Comment on above: Order Comment: Order Date: 11/10/23 Order Info: 0667-1 - BMP Result Comment: Afri can Peruvian GFR Calc Performed By: #### L 500.2500 #### [facility] [address] [place], [address] GAP 8 Normal 5-15 [facility] Comment on above: Order Comment: Order Date: 11/10/23 Order Info: 0667- - BMP Performed By: #### L 500.2500 #### [facility] [address] [place], [address] GFR/1.73 sq M.predicted among non-blacks MDRD (S/P/Bld) [Vol rate/Area] 35 mL/min/{1.73_m2} Low >60 [facility] Comment on above: Order Comment: Order Date: 11/10/23 Order Info: 06 - BMP Result Comment: Non- GFR Calc Performed By: #### L 500.2500 #### [facility] [address] [place], [address] Glucose [Mass/Vol] 101 mg/dL Normal 74-106 [facility] Comment on above: Order Comment: Order Date: 11/10/23 Order Info: 06 - BMP Result Comment: Fast ing Glucose result from 100 to 125 mg/dL suggests IMPAIRED HOMEOSTASIS per A.D.A. criteria. Performed By: #### L 500.2500 #### [facility] [address], [address] Potassium [Moles/Vol] 3.5 mmol/L Normal 3.5-5.1 [facility] Comment on above: Order Comment: Order Date: 11/10/23 Order Info: 0667- - BMP Performed By: #### L 500.2500 #### [facility] [address] [place], [address] Sodium [Moles/Vol] 139 mmol/L Normal 136-145 [facility] Comment on above: Order Comment: Order Date: 11/10/23 Order Info: 0667- - BMP Performed By: #### L 500.2500 #### [facility] [address] [place], [address] Urea nitrogen [Mass/Vol] 23 mg/dL High 7-18 [facility] Comment on above: Order Comment: Order Date: 11/10/23 Order Info: 0667- - BMP Performed By: #### L 500.2500 #### [facility] [address] [place], [address] Basic Metabolic Profile (BMP )on 11-04-2023 BUN/CRE 10.6 RATIO Normal 10-20 [facility] Comment on above: Order Comment: Order Date: 10/11/23 Order Info: 0667- - BMP Order Info: 2498-4 - FE Performed By: #### L 500.2500, L503.6150, L100.0500, L509.1000, L506.1000 #### [facility] [address] [place], [address] CA,Total 9.1 mg/dL Normal 8.5-10.1 [facility] Comment on above: Order Comment: Order Date: 10/11/23 Order Info: 0667- - BMP Order Info: 2498-4 - FE Performed By: #### L 500.2500, L503.6150, L100.0500, L509.1000, L506.1000 #### [facility] [address] [place], [address] Chloride [Moles/Vol] 101 mmol/L Normal 98-107 [facility] Comment on above: Order Comment: Order Date: 10/11/23 Order Info: 0667- - BMP Order Info: 2498-4 - FE Performed By: #### L 500.2500, L503.6150, L100.0500, L509.1000, L506.1000 #### [facility] [address] [place], [address] CO2 [Moles/Vol] 28.0 mmol/L Normal 21.0-32.0 [facility] Comment on above: Order Comment: Order Date: 10/11/23 Order Info: 0667-1 - BMP Order Info: 2498-4 - FE Performed By: #### L 500.2500, L503.6150, L100.0500, L509.1000, L506.1000 #### [facility] [address] [place], [address] Creatinine [Mass/Vol] 1.99 mg/dL High 0.70-1.30 [facility] Comment on above: Order Comment: Order Date: 10/11/23 Order Info: 06- - BMP Order Info: 2497-06 Result Comment: The validity of the calculated GFR GFRAA in patients over 70 years has not been determined. Clinical correlation is essential. Performed By: #### L 500.2500, L503.6150, L100.0500, L509.1000, L506.1000 #### [facility] [address] [place], [address] EST GFR - AA 42 mL/min Low >60 [facility] Comment on above: Order Comment: Order Date: 10/11/23 Order Info: 06 - BMP Order Info: 2497-06 Result Comment: Afri can Peruvian GFR Calc Performed By: #### L 500.2500, L503.6150, L100.0500, L509.1000, L506.1000 #### [facility] [address] [place], [address] GAP 9 Normal 5-15 [facility] Comment on above: Order Comment: Order Date: 10/11/23 Order Info: 06 - BMP Order Info: 2497-06 Performed By: #### L 500.2500, L503.6150, L100.0500, L509.1000, L506.1000 #### [facility] [address] [place], [address] GFR/1.73 sq M.predicted among non-blacks MDRD (S/P/Bld) [Vol rate/Area] 35 mL/min/{1.73_m2} Low >60 [facility] Comment on above: Order Comment: Order Date: 10/11/23 Order Info: 06 - BMP Order Info: 2498-4 - FE Result Comment: Non- GFR Calc Performed By: #### L 500.2500, L503.6150, L100.0500, L509.1000, L506.1000 #### [facility] [address] [place], [address] Glucose [Mass/Vol] 94 mg/dL Normal 74-106 [facility] Comment on above: Order Comment: Order Date: 10/11/23 Order Info: 06 - [facility] Order Info: 4 - FE Performed By: #### L 500.2500, L503.6150, L100.0500, L509.1000, L506.1000 #### [facility] [address] [place], [address] Potassium [Moles/Vol] 3.4 mmol/L Low 3.5-5.1 [facility] Comment on above: Order Comment: Order Date: 10/11/23 Order Info: 06 - BMP Order Info: 2497-06 - FE Performed By: #### L 500.2500, L503.6150, L100.0500, L509.1000, L506.1000 #### [facility] [address] [place], [address] Sodium [Moles/Vol] 138 mmol/L Normal 136-145 [facility] Comment on above: Order Comment: Order Date: 10/11/23 Order Info: 06 - BMP Order Info: 4 - FE Performed By: #### L 500.2500, L503.6150, L100.0500, L509.1000, L506.1000 #### [facility] [address] [place], [address] Urea nitrogen [Mass/Vol] 21 mg/dL High 7-18 [facility] Comment on above: Order Comment: Order Date: 10/11/23 Order Info: 0667- - BMP Order Info: 2498-4 - FE Performed By: #### L 500.2500, L503.6150, L100.0500, L509.1000, L506.1000 #### [facility] [address] [place], [address] CBC-Complete Blood Cnt No Di ffon 11-04-2023 Erythrocyte distribution width (RBC) [Ratio] 15.8 % High 11.6-14.6 [facility] Comment on above: Order Comment: Order Date: 10/11/23 Order Info: 32563-0 - CBC Performed By: #### L 500.2500, L503.6150, L100.0500, L509.1000, L506.1000 #### [facility] [address] [place], [address] Hematocrit (Bld) [Volume fraction] 43.5 % Normal 40-54 [facility] Comment on above: Order Comment: Order Date: 10/11/23 Order Info: 58579-1 - CBC Performed By: #### L 500.2500, L503.6150, L100.0500, L509.1000, L506.1000 #### [facility] [address] [place], [address] Hemoglobin (Bld) [Mass/Vol] 13.8 g/dL Normal 13.0-16.5 [facility] Comment on above: Order Comment: Order Date: 10/11/23 Order Info: 69539-1 - CBC Performed By: #### L 500.2500, L503.6150, L100.0500, L509.1000, L506.1000 #### [facility] [address] [place], [address] MCH (RBC) [Entitic mass] 29.9 pg Normal 27.0-32.0 [facility] Comment on above: Order Comment: Order Date: 10/11/23 Order Info: 34060-2 - CBC Performed By: #### L 500.2500, L503.6150, L100.0500, L509.1000, L506.1000 #### [facility] [address] [place], [address] MCHC (RBC) [Mass/Vol] 31.7 g/dL Low 32-36 [facility] Comment on above: Order Comment: Order Date: 10/11/23 Order Info: 83527-2 - CBC Performed By: #### L 500.2500, L503.6150, L100.0500, L509.1000, L506.1000 #### [facility] [address] [place], [address] MCV (RBC) [Entitic vol] 94.2 fL High 80-94 [facility] Comment on above: Order Comment: Order Date: 10/11/23 Order Info: 28269-7 - CBC Performed By: #### L 500.2500, L503.6150, L100.0500, L509.1000, L506.1000 #### [facility] [address] [place], [address] Platelet mean volume (Bld) [Entitic vol] 10.9 fL Normal 6.2-12.0 [facility] Comment on above: Order Comment: Order Date: 10/11/23 Order Info: 08386-6 - CBC Performed By: #### L 500.2500, L503.6150, L100.0500, L509.1000, L506.1000 #### [facility] [address] [place], [address] Platelets (Bld) [#/Vol] 206 10*3/uL Normal 150-450 [facility] Comment on above: Order Comment: Order Date: 10/11/23 Order Info: 91625-1 - CBC Performed By: #### L 500.2500, L503.6150, L100.0500, L509.1000, L506.1000 #### [facility] [address] [place], [address] RBC (Bld) [#/Vol] 4.62 10*6/uL Normal 4.6-6.2 [facility] Comment on above: Order Comment: Order Date: 10/11/23 Order Info: 26515-1 - CBC Performed By: #### L 500.2500, L503.6150, L100.0500, L509.1000, L506.1000 #### [facility] [address] [place], [address] RDW SD 54.5 fl High 35.1-43.9 [facility] Comment on above: Order Comment: Order Date: 10/11/23 Order Info: [id number] - CBC Performed By: #### L 500.2500, L503.6150, L100.0500, L509.1000, L506.1000 #### [facility] [address] [place], [address] WBC (Bld) [#/Vol] 8.3 10*3/uL Normal 4.4-11.0 [facility] Comment on above: Order Comment: Order Date: 10/11/23 Order Info: 66747-3 - CBC Performed By: #### L 500.2500, L503.6150, L100.0500, L509.1000, L506.1000 #### [facility] [address] [place], [address] Ironon 11-04-2023 Iron [Mass/Vol] 29 ug/dL Low 65-175 [facility] Comment on above: Order Comment: Order Date: 11/10/23 Order Info: 0667-1 - BMP Performed By: #### L 500.2500 #### [facility] [address] [place], [address] PTHINon 11-04-2023 PTH 110.3 pg/mL High 18.4-80.1 [facility] Comment on above: Order Comment: Order Date: 11/10/23 Order Info: 0667-1 - BMP Performed By: #### L 500.2500 #### [facility] [address] [place], [address] Vitamin D,25 Hydroxyon 11-03 Vitamin D 25-OH 64.8 ng/mL Normal [facility] Comment on above: Order Comment: Order Date: 10/11/23 Order Info: 63754-3 - VITD25 Result Comment: Pat min D 25(OH) Status Range Deficiency <20 ng/mL (50nmol/L) Insufficiency 20 - 30 ng/mL (50 - 75 nmol/L) Sufficiency 30 - 100 ng/mL (75 - 250 nmol/L) Toxicity >100 ng/mL (>250 nmol/L) Performed By: #### L 500.2500, L503.6150, L100.0500, L509.1000, L506.1000 #### [facility] [address] [place], [address] Basic Metabolic Profile (BMP )on 10-07-2023 BUN/CRE 15.8 RATIO Normal 10-20 [facility] Comment on above: Order Comment: Order Date: 10/01/23 Order Info: 0667-1 - BMP Performed By: #### L 500.2500 #### [facility] [address] [place], [address] CA,Total 9.1 mg/dL Normal 8.5-10.1 [facility] Comment on above: Order Comment: Order Date: 10/01/23 Order Info: 0667-1 - BMP Performed By: #### L 500.2500 #### [facility] [address] [place], [address] Chloride [Moles/Vol] 107 mmol/L Normal 98-107 [facility] Comment on above: Order Comment: Order Date: 10/01/23 Order Info: 0667-1 - BMP Performed By: #### L 500.2500 #### [facility] [address] [place], [address] CO2 [Moles/Vol] 28.0 mmol/L Normal 21.0-32.0 [facility] Comment on above: Order Comment: Order Date: 10/01/23 Order Info: 666-03 - BMP Performed By: #### L 500.2500 #### [facility] [address] [place], [place], [address] Creatinine [Mass/Vol] 1.71 mg/dL High 0.70-1.30 [facility] Comment on above: Order Comment: Order Date: 10/01/23 Order Info: 666-03 - BMP Result Comment: The validity of the calculated GFR GFRAA in patients over 70 years has not been determined. Clinical correlation is essential. Performed By: #### L 500.2500 #### [facility] [address] [place], [place], [address] EST GFR - AA 50 mL/min Low >60 [facility] Comment on above: Order Comment: Order Date: 10/01/23 Order Info: 666-03 - BMP Result Comment: Afri can Peruvian GFR Calc Performed By: #### L 500.2500 #### [facility] [address] [place], [address] GAP 6 Normal 5-15 [facility] Comment on above: Order Comment: Order Date: 10/01/23 Order Info: 666-03 - BMP Performed By: #### L 500.2500 #### [facility] [address] [place], [address] GFR/1.73 sq M.predicted among non-blacks MDRD (S/P/Bld) [Vol rate/Area] 41 mL/min/{1.73_m2} Low >60 [facility] Comment on above: Order Comment: Order Date: 10/01/23 Order Info: 666-03 - BMP Result Comment: Non- GFR Calc Performed By: #### L 500.2500 #### [facility] [address] [place], [place], [address] (7[address] Glucose [Mass/Vol] 100 mg/dL Normal 74-106 [facility] Comment on above: Order Comment: Order Date: 10/01/23 Order Info: 666-03 - BMP Result Comment: Fast ing Glucose result from 100 to 125 mg/dL suggests IMPAIRED HOMEOSTASIS per A.D.A. criteria. Performed By: #### L 500.2500 #### [facility] [address] [place], [address] Potassium [Moles/Vol] 3.7 mmol/L Normal 3.5-5.1 [facility] Comment on above: Order Comment: Order Date: 10/01/23 Order Info: 666- - BMP Performed By: #### L 500.2500 #### [facility] [address] [place], [address] Sodium [Moles/Vol] 141 mmol/L Normal 136-145 [facility] Comment on above: Order Comment: Order Date: 10/01/23 Order Info: 666- - BMP Performed By: #### L 500.2500 #### [facility] [address] [place], [address] Urea nitrogen [Mass/Vol] 27 mg/dL High 7-18 [facility] [facility] Comment on above: Order Comment: Order Date: 10/01/23 Order Info: 666- - BMP Performed By: #### L 500.2500 #### [facility] [address] [place], [address] Basic Metabolic Profile (BMP )on 09-21-2023 BUN/CRE 11.2 RATIO Normal 10-20 [facility] Comment on above: Order Comment: Order Date: 06/23/23 Order Info: 06- - BMP Performed By: #### L 500.2500 #### [facility] [address] [place], [address] CA,Total 8.9 mg/dL Normal 8.5-10.1 [facility] Comment on above: Order Comment: Order Date: 06/23/23 Order Info: 06- - BMP Performed By: #### L 500.2500 #### [facility] [address] [place], [address] Chloride [Moles/Vol] 110 mmol/L High 98-107 [facility] Comment on above: Order Comment: Order Date: 06/23/23 Order Info: 0667- - BMP Performed By: #### L 500.2500 #### [facility] [address] [place], [place], [id number] (094 CO2 [Moles/Vol] 26.0 mmol/L Normal 21.0-32.0 [facility] Comment on above: Order Comment: Order Date: 06/23/23 Order Info: 0667 - BMP Performed By: #### L 500.2500 #### [facility] [address] [place], [place], [id number] (144 Creatinine [Mass/Vol] 1.61 mg/dL High 0.70-1.30 [facility] Comment on above: Order Comment: Order Date: 06/23/23 Order Info: 0667 - BMP Result Comment: The validity of the calculated GFR GFRAA in patients over 70 years has not been determined. Clinical correlation is essential. Performed By: #### L 500.2500 #### [facility] [address] [place], [place], [id number] EST GFR - AA 53 mL/min Low >60 [facility] Comment on above: Order Comment: Order Date: 06/23/23 Order Info: 0667- - BMP Result Comment: Afri can Peruvian GFR Calc Performed By: #### L 500.2500 #### [facility] [address] [place], [address] GAP 7 Normal 5-15 [facility] Comment on above: Order Comment: Order Date: 06/23/23 Order Info: 0667- - BMP Performed By: #### L 500.2500 #### [facility] [address] [place], [place], [id number] (986 GFR/1.73 sq M.predicted among non-blacks MDRD (S/P/Bld) [Vol rate/Area] 44 mL/min/{1.73_m2} Low >60 [facility] Comment on above: Order Comment: Order Date: 06/23/23 Order Info: 0667- - BMP Result Comment: Non- GFR Calc Performed By: #### L 500.2500 #### [facility] [address] [place], [address] (177 Glucose [Mass/Vol] 101 mg/dL Normal 74-106 [facility] Comment on above: Order Comment: Order Date: 06/23/23 Order Info: 0667- - BMP Result Comment: Fast ing Glucose result from 100 to 125 mg/dL suggests IMPAIRED HOMEOSTASIS per A.D.A. criteria. Performed By: #### L 500.2500 #### [facility] [address] [place], [address] Potassium [Moles/Vol] 4.3 mmol/L Normal 3.5-5.1 [facility] Comment on above: Order Comment: Order Date: 06/23/23 Order Info: 0667 - BMP Performed By: #### L 500.2500 #### [facility] [address] [place], [address] Sodium [Moles/Vol] 143 mmol/L Normal 136-145 [facility] Comment on above: Order Comment: Order Date: 06/23/23 Order Info: 0667- - BMP Performed By: #### L 500.2500 #### [facility] [address] [place], [address] Urea nitrogen [Mass/Vol] 18 mg/dL Normal 7-18 [facility] Comment on above: Order Comment: Order Date: 06/23/23 Order Info: 0667- - BMP Performed By: #### L 500.2500 #### [facility] [address] [place], [address] Lumbar Spine 2 or 3 Viewson 08-31-2023 Lumbar Spine 2 or 3 Views [facility] Imaging Services [address] [place], [place] [address] Lumbar Spine 2 or 3 Views MR#: [id number] Acct: [id number] Name: AG JONES Rep #: [id number] : 1945 M 78 From: Guzman ayoub MD PCP: Dr. Freddie Grande MD Status: [facility] Study: Lumbar Spine 2 or 3 Views Date of Exam: Exam# [id number] Ordering Dr: Shukri Emerson [id number] STUDY: X-RAY - LUMBAR SPINE REASON FOR EXAM: Male, 78 years old. Lumbar spine pain following a fall. TECHNIQUE: 3 view(s) of the lumbar spine were obtained. COMPARISON: None FINDINGS: Normal lumbar lordosis. There is no substantial scoliosis. There is a normal alignment of the vertebrae. There is multilevel endplate spondylosis of the lumbar vertebrae. There is multi-level degenerative disc disease with multi-level disc space narrowing. Facet joint osteoarthritis. There is atherosclerotic calcification of the abdominal aorta without a demonstrated aneurysm. RAD/Lumbar Spine 2 or 3 Views IMPRESSION: Degenerative changes of the spine, as detailed above. Electronically Signed: Guzman Robin MD at 11:50 EDT , CC: Dr. Freddie Grande MD; FLAQUITA Moncada Kelly Machine Operator: Signed Normal [facility] Thoracic Spine 3 Viewson Thoracic Spine 3 Views [facility] Imaging Services [address] [place] [address] Thoracic Spine 3 Views MR#: [id number] Acct: [id number] Name: AG JONES Rep #: [id number] : 1945 M 78 From: Guzman ayoub MD PCP: Dr. Freddie Grande MD Status: REG CLI Study: Thoracic Spine 3 Views Date of Exam: 08/31/23 Exam# [id number] Ordering Dr: Shukri Emerson [id number] STUDY: X-RAY - THORACIC SPINE REASON FOR EXAM: Male, 78 years old. Pain following a fall. TECHNIQUE: 3 view(s) of the thoracic spine were obtained. COMPARISON: None. FINDINGS: Normal kyphosis of the thoracic spine. There is no substantial scoliosis. There is multilevel endplate spondylosis of the thoracic vertebrae. There is multilevel disc space narrowing of the thoracic spine. The soft tissue structures are unremarkable. RAD/Thoracic Spine 3 Views IMPRESSION: Multilevel disc space narrowing and spondylosis. Electronically Signed: Guzman Robin MD at 11:51 EDT Reading Location ID and State: [facility] / [place] , Service support , CC: Dr. Freddie Grande MD; FLAQUITA Moncada Kelly Machine Operator: Signed Normal [facility] Urgent Care Visit Reporton 0 08-31-2023 Urgent Care Visit Report [facility] [address], [address] [place] [address] OFFICE VISIT Date of Service: 08/31/23 MR#: [id number] Acct: [id number] Name: AG JONES Rep #: [id number] : 1945 Provider: FLAQUITA Moncada Age/Sex: 78/M Location: [facility] Status: Signed Intake Vital Signs 08/31/23 10:45 Height 5 ft 10 in Weight: 246 lb BMI 35.3 BP 122/82 H Blood Pressure Location Lt brachial Position Sitting Respiration 16 Pulse 84 Pulse Source Monitor Temp 99.1 F Temp Source Temporal Pulse Oximetry (%) 94 Oxygen Delivery Method room air Intake Visit Reasons: BILAT LEG SWELLING Chief Complaint: B/L LEG SWELLING POST FALL ON WEDNESDAY SWELLING STARTED LAST NIGHT Surgical Supervisor Required: No Accompanied by: Self Is patient in pain?: No Allergies No Known Allergies Allergy (Unverified 08/31/23 10:46) Medications ???Medication ???Instructions ???Recorded ???Confirmed ???Type B-complex with vitamin C 1 cap PO DAILY 08/31/23 08/31/23 History allopurinol 300 mg tablet 300 mg PO DAILY 08/31/23 08/31/23 History amlodipine 5 mg tablet 5 mg PO QDAY 08/31/23 08/31/23 History atorvastatin 20 mg tablet 20 mg PO QHS 08/31/23 08/31/23 History cholecalciferol (vitamin D3) 50 50 mcg PO DAILY 08/31/23 08/31/23 History mcg (2,000 unit) capsule gabapentin 600 mg tablet 1,200 mg PO BID 08/31/23 08/31/23 History hydrochlorothiazide 12.5 mg capsule 12.5 mg PO DAILY #14 caps 08/31/23 08/31/23 Rx mecobalamin (vitamin B12) 1,000 1,000 mcg sublingual DAILY 08/31/23 08/31/23 History mcg disintegrating tablet,sublingual milk thistle 175 mg tablet 175 mg PO BID 08/31/23 08/31/23 History psyllium husk 0.4 gram capsule 0.4 g PO DAILY 08/31/23 08/31/23 History (Daily Fiber) PFSH Medical History (Updated 08/31/23 @ 14:04 by FLAQUITA Oshea) Edema of both legs Backache Arthritis Social History Smoking Status: Former smoker HPI HPI Chief Complaint: B/L LEG SWELLING POST FALL ON WEDNESDAY SWELLING STARTED LAST NIGHT Details: AG JONES, is a 78 M who presents to the office today for initial evaluations in our clinic status post trip/fall approximately week ago patient so states landing on buttocks as well as hitting posterior scalp; no history of syncope/near at the time of described fall. He noted no LOC or nausea vomiting at time of the injury or since. He notes no cervical discomfort or BUE radicular complaints upon questioning though does admit to mild mid low back pains without caudal or radicular complaints. Additionally, patient states since discontinuing his hydrochlorothiazide in March 2023 he has noticed his socks have become tighter with BLE swelling (left more so than right) though no complaints of chest pain or shortness of breath or dyspnea on exertion or cough. He states he is otherwise been active without changes in dietary habit, stating he is not smoke tobacco or drink alcohol. He has taken no [id number] products to assist with current symptoms as stated above. He notes no other associated symptoms and no other alleviating/aggravating factors. ROS Const Constitutional: No other (As above) Exam Const General: cooperative, healthy appearing and no acute distress Orientation: alert and awake [facility] Head: normal to inspection Ears: hearing grossly normal bilaterally, external ears normal, TM's normal bilaterally and EAC's normal Nose: external nose normal, nares normal, septum normal and no nasal discharge Face and sinus: normal facial exam and face symmetric Mouth: oral mucosae normal, lip normal, tongue normal and oropharynx normal Throat: posterior oropharynx normal Eyes General: appearance normal, both eyes and all related structures Neck Neck: normal visual inspection, full ROM, no lymphadenopathy, no meningeal signs and supple Neck mass: No Thyroid: thyroid normal Lymphatic: no lymphadenopathy noted Chest Chest palpation inspection: normal inspection of the chest Resp Effort Inspection: normal respiratory effort and able to speak in complete sentences Auscultation: Bilateral: Clear to Auscultation Cardio Palpation: normal PMI Rate: regular rate Rhythm: regular rhythm Heart Sounds: S1 normal and S2 normal Pulses: radial pulses present GI Inspection: normal to inspection Musc Thoracic/Lumbar Spine: thoracic and lumbar spine normal to inspection, thoraco-lumbar ROM normal, straight leg raise negative bilaterally, no paraspinal tenderness, no thoracic spinal tenderness and no lumbar spinal tenderness Skin General: no rashes or lesions noted Neuro General: patient alert, patient awake and gait normal Cognition: normal cognition Speech: speech normal Gait: normal gait Ex (more content not included)... Normal [facility] Basophil percentageOrdered B y: Son Grande on 05-14-2023 Chloride [Moles/Vol] 110 mmol/L 98-107 [facility] Glucose [Mass/Vol] 86 mg/dL 74-106 [facility] Potassium [Moles/Vol] 4.0 mmol/L 3.5-5.1 [facility] Sodium [Moles/Vol] 143 mmol/L 136-145 [facility] Laboratory - Chemistry and C hemistry - challengeOrdered By: Son Grande on 05-14-2023 CO2 [Moles/Vol] 28.0 mmol/L 21.0-32.0 [facility] Urea nitrogen/Creatinine [Mass ratio] 12.9 mg/mg 10-20 [facility] No Panel InformationOrdered By: Son Grande on 05-14-2023 Estimated GFR (MDRD) Amer 59 mL/min >60 [facility] Comment on above: GFR Calc Estimated GFR (MDRD) Non-Af Amer 49 mL/min >60 [facility] Comment on above: Non- GFR Calc Serum or plasma calcium hodan urement (mass/volume)Ordered By: Son Grande on 05-14-2023 Calcium [Mass/Vol] 8.9 mg/dL 8.5-10.1 [facility] Serum or plasma creatinine m easurement (mass/volume)Ordered By: Son Grande on 05-14-2023 Creatinine [Mass/Vol] 1.47 mg/dL 0.70-1.30 [facility] Comment on above: The validity of the calculated GFR & GFRAA in patients over 70 years has not been determined. Clinical correlation is essential. Serum or plasma urea nitroge n measurement (mass/volume)Ordered By: Son Grande on 05-14-2023 Urea nitrogen [Mass/Vol] 19 mg/dL 7-18 [facility] Thin prep Papanicolaou smear with manual screeningOrdered By: Son Grande on 05-14-2023 Thin prep Papanicolaou smear with manual screening 5 5-15 [facility] Basophil percentageOrdered B y: Son Grande on 05-04-2023 Chloride [Moles/Vol] 110 mmol/L 98-107 [facility] Glucose [Mass/Vol] 92 mg/dL 74-106 [facility] Potassium [Moles/Vol] 4.3 mmol/L 3.5-5.1 [facility] Sodium [Moles/Vol] 142 mmol/L 136-145 [facility] Laboratory - Chemistry and C hemistry - challengeOrdered By: Son Grande on 05-04-2023 CO2 [Moles/Vol] 30.0 mmol/L 21.0-32.0 [facility] Urea nitrogen/Creatinine [Mass ratio] 14.0 mg/mg 10-20 [facility] No Panel InformationOrdered By: Son Grande on 05-04-2023 Estimated GFR (MDRD) Amer 49 mL/min >60 [facility] Comment on above: GFR Calc Estimated GFR (MDRD) Non-Af Amer 41 mL/min >60 [facility] Comment on above: Non- GFR Calc Serum or plasma calcium hodan urement (mass/volume)Ordered By: Son Grande on 05-04-2023 Calcium [Mass/Vol] 9.3 mg/dL 8.5-10.1 [facility] Serum or plasma creatinine m easurement (mass/volume)Ordered By: Son Grande on 05-04-2023 Creatinine [Mass/Vol] 1.72 mg/dL 0.70-1.30 [facility] Comment on above: The validity of the calculated GFR & GFRAA in patients over 70 years has not been determined. Clinical correlation is essential. Serum or plasma urea nitroge n measurement (mass/volume)Ordered By: Son Grande on 05-04-2023 Urea nitrogen [Mass/Vol] 24 mg/dL 7-18 [facility] Thin prep Papanicolaou smear with manual screeningOrdered By: Son Grande on 05-04-2023 Thin prep Papanicolaou smear with manual screening 2 5-15 [facility] Basophil percentageOrdered B y: Son Grande on 03-19-2023 Chloride [Moles/Vol] 108 mmol/L 98-107 [facility] Glucose [Mass/Vol] 96 mg/dL 74-106 [facility] Potassium [Moles/Vol] 4.3 mmol/L 3.5-5.1 [facility] Sodium [Moles/Vol] 144 mmol/L 136-145 [facility] Laboratory - Chemistry and C hemistry - challengeOrdered By: Son Grande on 03-19-2023 CO2 [Moles/Vol] 26.0 mmol/L 21.0-32.0 [facility] Urea nitrogen/Creatinine [Mass ratio] 17.5 mg/mg 10-20 [facility] No Panel InformationOrdered By: Son Grande on 03-19-2023 Estimated GFR (MDRD) Amer 54 mL/min >60 [facility] Comment on above: GFR Calc Estimated GFR (MDRD) Non-Af Amer 44 mL/min >60 [facility] Comment on above: Non- GFR Calc Serum or plasma calcium hodan urement (mass/volume)Ordered By: Son Grande on 03-19-2023 Calcium [Mass/Vol] 9.2 mg/dL 8.5-10.1 [facility] Serum or plasma creatinine m easurement (mass/volume)Ordered By: Son Grande on 03-19-2023 Creatinine [Mass/Vol] 1.60 mg/dL 0.70-1.30 [facility] Comment on above: The validity of the calculated GFR & GFRAA in patients over 70 years has not been determined. Clinical correlation is essential. Serum or plasma urea nitroge n measurement (mass/volume)Ordered By: Son Grande on 03-19-2023 Urea nitrogen [Mass/Vol] 28 mg/dL 7-18 [facility] Thin prep Papanicolaou smear with manual screeningOrdered By: Son Grande on 03-19-2023 Thin prep Papanicolaou smear with manual screening 10 5-15 [facility] Basophil percentageOrdered B y: Son Grande on 12-18-2022 Bilirubin [Mass/Vol] 0.90 mg/dL 0.20-1.00 [facility] Comment on above: For patients on eltr ombopag therapy, use of Dimension [place] TBIL is not recommended. Chloride [Moles/Vol] 108 mmol/L 98-[address] [facility] Cholesterol [Mass/Vol] 133 mg/dL <200 [facility] Comment on above: <200 mg/dL Desirable 200-240 mg/dL Borderline >240 mg/dL High Risk Glucose [Mass/Vol] 97 mg/dL 74-106 [facility] Potassium [Moles/Vol] 3.5 mmol/L 3.5-5.1 [facility] Protein [Mass/Vol] 7.5 g/dL 6.4-8.2 [facility] Sodium [Moles/Vol] 142 mmol/L 136-145 [facility] Triglyceride [Mass/Vol] 62 mg/dL <199 [facility] Comment on above: The drugs N-Acetylcy steine and Metamizole may falsely depress this assay.Serum Triglycerides Reference Interval Normal <150 mg/dL Borderline high 150 - 199 mg/dL High 200 - 499 mg/dL Very High > or = 500 mg/dL WBC (Bld) [#/Vol] 6.7 10*3/uL 4.4-11.0 [facility] Blood erythrocytes count (nu mber/volume)Ordered By: Son Grande on 12-18-2022 RBC (Bld) [#/Vol] 4.49 10*6/uL 4.6-6.2 [facility] Blood hemoglobin measurement (mass/volume)Ordered By: Son Grande on 12-18-2022 Hemoglobin (Bld) [Mass/Vol] 13.9 g/dL 13.0-16.5 [facility] Blood platelet mean volumeOr dered By: Son Grande on 12-18-2022 Platelet mean volume (Bld) [Entitic vol] 10.6 fL 6.2-12.0 [facility] Determination of erythrocyte mean corpuscular volume (MCV)Ordered By: Son Grande on 12-18-2022 MCV (RBC) [Entitic vol] 98.2 fL 80-94 [facility] Hematocrit Auto (Bld) [Volum e fraction]Ordered By: Son Grande on 12-18-2022 Hematocrit (Bld) [Volume fraction] 44.1 % 40-54 [facility] Iron measurement (mass/mass) Ordered By: Son Grande on 12-18-2022 Iron (Unsp spec) [Mass/Mass] 42 ug/dL 65-175 [facility] - Chemistry and C hemistry - challengeOrdered By: Son Grande on 12-18-2022 ALP [Catalytic activity/Vol] 113 U/L 45-117 [facility] ALT [Catalytic activity/Vol] 20 U/L 16-61 [facility] CO2 [Moles/Vol] 30.0 mmol/L 21.0-32.0 [facility] Globulin (S) [Mass/Vol] 3.9 g/dL 2.2-4.2 [facility] Urea nitrogen/Creatinine [Mass ratio] 13.6 mg/mg 10-20 [facility] - Hematology and Cell countsOrdered By: Son Grande on 12-18-2022 Erythrocyte distribution width (RBC) [Entitic vol] 54.8 fL 35.1-43.9 [facility] Erythrocyte distribution width (RBC) [Ratio] 15.1 % 11.6-14.6 [facility] MCH (RBC) [Entitic mass] 31.0 pg 27.0-32.0 [facility] MCHC Auto (RBC) [Mass/Vol]Or dered By: Son Grande on 12-18-2022 MCHC (RBC) [Mass/Vol] 31.5 g/dL 32-36 [facility] No Panel InformationOrdered By: Son Grande on 12-18-2022 Estimated GFR (MDRD) Amer 46 mL/min >60 [facility] Comment on above: GFR Calc Estimated GFR (MDRD) Non-Af Amer 38 mL/min >60 [facility] Comment on above: Non- GFR Calc Parathyroid Hormone (Intact) 68.7 pg/mL 18.4-80.1 [facility] Vitamin D 25-Hydroxy 64.5 ng/mL [facility] Comment on above: Vitamin D 25(OH) Sta tus Range Deficiency <20 ng/mL (50nmol/L) Insufficiency 20 - 30 ng/mL (50 - 75 nmol/L) Sufficiency 30 - 100 ng/mL (75 - 250 nmol/L) Toxicity >100 ng/mL (>250 nmol/L) Platelets bldOrdered By: Rachelle Grande on 12-18-2022 Platelets (Bld) [#/Vol] 202 10*3/uL 150-450 [facility] Serum or plasma albumin hodan urement (mass/volume)Ordered By: Son Grande on 12-18-2022 Albumin [Mass/Vol] 3.6 g/dL 3.2-5.0 [facility] Serum or plasma albumin/glob ulin mass ratioOrdered By: Son Grande on 12-18-2022 Albumin/Globulin [Mass ratio] 0.9 {ratio} 0.9-2.4 [facility] Serum or plasma calcium hodan urement (mass/volume)Ordered By: Son Grande on 12-18-2022 Calcium [Mass/Vol] 9.0 mg/dL 8.5-10.1 [facility] Serum or plasma cholesterol in HDL measurement (mass/volume)Ordered By: Son Grande on 12-18-2022 Cholesterol in HDL [Mass/Vol] 52 mg/dL >40 [facility] Comment on above: The drugs N-Acetylcy steine and Metamizole may falsely depress this assay. Reference Range HDL <40 mg/dL Low HDL Cholesterol HDL >or= 60 mg/dL High HDL Cholesterol Serum or plasma cholesterol in VLDL measurement (mass/volume)Ordered By: Son Grande on 12-18-2022 Cholesterol in VLDL [Mass/Vol] 12 mg/dL 5-40 [facility] Serum or plasma creatinine m easurement (mass/volume)Ordered By: Son Grande on 12-18-2022 Creatinine [Mass/Vol] 1.84 mg/dL 0.70-1.30 [facility] Comment on above: The validity of the calculated GFR & GFRAA in patients over 70 years has not been determined. Clinical correlation is essential. Serum or plasma low density lipoprotein (LDL) cholesterol measurement (mass/volume)Ordered By: Son Grande on 12-18-2022 Cholesterol in LDL [Mass/Vol] 69 mg/dL 0-130 [facility] Serum or plasma urea nitroge n measurement (mass/volume)Ordered By: Son Grande on 12-18-2022 Urea nitrogen [Mass/Vol] 25 mg/dL 7-18 [facility] Serum or plasma uric acid me asurement (mass/volume)Ordered By: Son Grande on 12-18-2022 Urate [Mass/Vol] 6.8 mg/dL 3.5-7.2 [facility] Comment on above: The drugs N-Acetylcy steine and Metamizole may falsely depress this assay. Thin prep Papanicolaou smear with manual screeningOrdered By: Son Grande on 12-18-2022 Thin prep Papanicolaou smear with manual screening 14 U/L 15-37 [facility] Thin prep Papanicolaou smear with manual screening 4 5-15 [facility] CNPNon 01-06-2022 [facility] Telephone ([facility]) -- AG JONES ([id number]) 1945 Date Time Provider Department 01/06/22 SHANTANU MUNOZ [facility] During your visit today, we recorded the following information about you: Antoinette Ibrahim RN 01/06/2022 9:41 AM Signed Patient calling to ask if his Urinalysis with Micro results have returned? Patient reports specimen was given on 12/18/21. Lab shows result is still in process. Please advise patient. Thank you. Shantanu Munoz MD 01/06/2022 10:01 AM Signed Can we have lab check into why a urinalysis turned in on 12/18/2021 is still showing in process. Lesly Robins LPN 01/06/2022 10:45 AM Signed Lab contacted, Maxi in lab called [facility], states there was some sort of an interface error and urine has been disposed of, order was cancelled and credited back. Patient will need to come in to have urine done again. Patient notified he needs to come in to have urinalysis done again. Patient verbalized understanding. Shantanu Munoz MD 01/06/2022 10:49 AM Signed New order placed. Allergies As of Date: 01/06/2022 Noted Allergy Reaction environmental [Other] 05/03/2008 16 - Unknown Date Reviewed: 12/18/2021 Reviewed by: Shantanu Munoz MD - Fully Assessed Reason for Visit: Results [95] Primary Visit Diagnosis:Essential hypertension, benign [I10] Other Visit Diagnoses:Hyperlipidemia, mixed [E78.2] Stage 3b chronic kidney disease (HCC) [N18.32] Order(s):URINALYSIS, WITH MICROSCOPIC [SQUAWMIC] Order #: [id number] FUTURE Prescriptions as of 01/06/2022 - gabapentin (NEURONTIN) 600 mg tablet Take 1 tablet by mouth three times daily. Take with 300 mg three times a day - gabapentin (NEURONTIN) 300 mg capsule Take 1 capsule by mouth three times daily. Take with 600 mg three times a day - allopurinol (ZYLOPRIM) 300 mg tablet Take 1 tablet by mouth once daily. - hydroCHLOROthiazide (HYDRODIURIL, ESIDRIX) 25 mg tablet Take 1 tablet by mouth once daily. - atorvastatin (LIPITOR) 20 mg tablet Take 1 tablet by mouth daily at bedtime. For cholesterol. - ACETAMINOPHEN 500 MG TAB Take two tablets as needed Facility-Administered Medications as of 01/06/2022 - perflutren lipid microspheres 1.3 mL in NaCl (PF) 0.9% 10 mL injection (DEFINITY) - sodium chloride 0.9 % (flush) 10 mL (BD POSIFLUSH) Problem List As Of Date 01/06/2022 Noted Resolved Post herpetic neuralgia [B02.29] 05/03/2008 Allergic rhinitis, cause unspecified [J30.9] 05/03/2008 Hyperlipidemia, mixed [E78.2] 05/03/2008 Gout, unspecified [M10.9] 05/03/2008 Essential hypertension, benign [I10] 05/03/2008 Generalized arthritis [M19.90] 05/03/2008 Contact dermatitis and other eczema, due to uns*05/03/2008 Special Screening for Malignant Neoplasms, [place]*05/25/2008 Chronic kidney disease, unspecified [N18.9] 06/13/2008 08/14/2021 Benign neoplasm of colon [D12.6] 06/25/2008 Pain in limb [M79.609] 07/11/2008 Bunion [M21.619] 08/29/2008 History of colonic polyps [Z86.010] 08/24/2011 Obesity, Class II, BMI 35-39.9 [E66.9] 07/10/2020 Elevated hemoglobin A1c [R73.09] 01/09/2021 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 No blood. Modesto Kc LPN 01/07/2022 10:18 AM Signed Pt notified of same. Modesto Kc LPN Allergies As of Date: 01/06/2022 Noted Allergy Reaction environmental [Other] 05/03/2008 16 - Unknown Date Reviewed: 12/18/2021 Reviewed by: Shantanu Munoz MD - Fully Assessed Reason for Visit: Results [95] Prescriptions as of 01/07/2022 - gabapentin (NEURONTIN) 600 mg tablet Take 1 tablet by mouth three times daily. Take with 300 mg three times a day - gabapentin (NEURONTIN) 300 mg capsule Take 1 capsule by mouth three times daily. Take with 600 mg three times a day - allopurinol (ZYLOPRIM) 300 mg tablet Take 1 tablet by mouth once daily. - hydroCHLOROthiazide (HYDRODIURIL, ESIDRIX) 25 mg tablet Take 1 tablet by mouth once daily. - atorvastatin (LIPITOR) 20 mg tablet Take 1 tablet by mouth daily at bedtime. For cholesterol. - ACETAMINOPHEN 500 MG TAB Take two tablets as needed Facility-Administered Medications as of 01/07/2022 - perflutren lipid microspheres 1.3 mL in NaCl (PF) 0.9% 10 mL injection (DEFINITY) - sodium chloride 0.9 % (flush) 10 mL (BD POSIFLUSH) Problem List As Of Date 01/06/2022 Noted Resolved Post herpetic neuralgia [B02.29] 05/03/2008 Allergic rhinitis, cause unspecified [J30.9] 05/03/2008 Hyperlipidemia, mixed [E78.2] 05/03/2008 Gout, unspecified [M10.9] 05/03/2008 Essential hypertension, benign [I10] 05/03/2008 Generalized arthritis [M19.90] 05/03/2008 Contact dermatitis and other eczema, due to uns*05/03/2008 Special Screening for Malignant Neoplasms, [place]*05/25/2008 Chronic kidney disease, unspecified [N18.9] 06/13/2008 08/14/2021 Benign neoplasm of colon [D12.6] 06/25/2008 Pain in limb [M79.609] 07/11/2008 Bunion [M21.619] 08/29/2008 History of colonic polyps [Z86.010] 08/24/2011 Obesity, Class II, BMI 35-39.9 [E66.9] 07/10/2020 Elevated hemoglobin A1c [R73.09] 01/09/2021 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 *06/30/2021 Stage 3b chronic kidney disease (HCC) [N18.32] 08/14/2021 Ex-smoker [Z87.891] 12/18/2021 Encounter Status:Closed by MODESTO KC LPN on 01/07/22 Normal [facility] Urinalysis complete panel (U )on 01-06-2022 Bilirubin Ql (U) Negative Normal Negative Gerry randall [facility] Comment on above: Order Comment: Speci men Type: BLOOD SPECIMEN Ordering Facility: [facility] Address: [address] [place], [place] [id number] Performed By: #### 2 4323-8, LIPNF, 6-3, 3084-1 #### [facility] CLIA [id number] [address] [place] [address] [place] Clarity (Unsp spec) Clear Normal Clear [facility] Comment on above: Order Comment: Speci men Type: BLOOD SPECIMEN Ordering Facility: [facility] Address: [address] [place], [place] [id number] Performed By: #### 2 4323-8, LIPNF, 6-3, 3084-1 #### [facility] CLIA [id number] [address] [place] [address] [place] Color (U) Dark Yellow Abnormal Yellow [facility] Comment on above: Order Comment: Speci men Type: BLOOD SPECIMEN Ordering Facility: [facility] Address: [address] [place] [place] [address] Performed By: #### 2 4323-8, LIPNF, 3015-3, 3084-1 #### [facility] CLIA [id number] [address] [place] [address] [place] Glucose Test strip (U) [Mass/Vol] Negative Normal Negative [facility] Comment on above: Order Comment: Speci men Type: BLOOD SPECIMEN Ordering Facility: [facility] Address: [address] [place], [place] [phone] Performed By: #### 2 4323-8, LIPNF, 3015-3, 3084-1 #### [facility] CLIA [id number] [address] [place] [address] [place] Hemoglobin Ql (U) Negative Normal Negative [facility] Comment on above: Order Comment: Speci men Type: BLOOD SPECIMEN Ordering Facility: [facility] Address: [address] [place], [place] [phone] Performed By: #### 2 4323-8, LIPNF, 6-3, 3084-1 #### [facility] CLIA [id number] [address] [place] [address] [place] Hyaline casts (Urine sed) [#/Area] 4-10 /LPF Abnormal 0 /LPF [facility] Comment on above: Order Comment: Speci men Type: BLOOD SPECIMEN Ordering Facility: [facility] Address: [address] [place] [place] [address] Performed By: #### 2 4323-8, LIPNF, 3016-3, 3084-1 #### [facility] CLIA [id number] [address] [place] [address] [place] Ketones Ql (U) Negative Normal Negative [facility] Comment on above: Order Comment: Speci men Type: BLOOD SPECIMEN Ordering Facility: [facility] Address: [address] [place] [place] [address] Performed By: #### 2 4323-8, LIPNF, 6-3, 3084-1 #### [facility] CLIA [id number] [address] [place] [address] [place] Leukocyte esterase Test strip Ql (U) Negative Normal Negative [facility] Comment on above: Order Comment: Speci men Type: BLOOD SPECIMEN Ordering Facility: [facility] Address: [address] [place] [place] [address] Performed By: #### 2 4323-8, LIPNF, 6-3, 3084-1 #### [facility] CLIA [id number] [address] [place] [address] [place] Nitrite Ql (U) Negative Normal Negative [facility] Comment on above: Order Comment: Speci men Type: BLOOD SPECIMEN Ordering Facility: [facility] Address: [address] [place] [place] [address] Performed By: #### 2 4323-8, LIPNF, 3016-3, 3084-1 #### [facility] CLIA [id number] [address] [place] [address] [place] pH (U) 6.0 [pH] Normal 5.0-8.0 [facility] Comment on above: Order Comment: Speci men Type: BLOOD SPECIMEN Ordering Facility: [facility] Address: [address] [place] [place] [address] Performed By: #### 2 4323-8, LIPNF, 3016-3, 3084-1 #### [facility] CLIA [id number] [address] [place] [address] [place] Protein (U) [Mass/Vol] Trace Abnormal Negative [facility] Comment on above: Order Comment: Speci men Type: BLOOD SPECIMEN Ordering Facility: [facility] Address: [address] [place] [place] [address] Performed By: #### 2 4323-8, LIPNF, 6-3, 3084-1 #### [facility] CLIA [id number] [address] [place] [address] [place] RBC LM.HPF (Urine sed) [#/Area] 0-3 /HPF Normal 0-3 /HPF [facility] Comment on above: Order Comment: Speci men Type: BLOOD SPECIMEN Ordering Facility: [facility] Address: [address] [place] [place] [address] Performed By: #### 2 4323-8, LIPNF, 3015-3, 3084-1 #### [facility] CLIA [id number] [address] [place] [address] [place] Specific gravity (U) [Rel density] 1.016 Normal 1.005-1.030 [facility] Comment on above: Order Comment: Speci men Type: BLOOD SPECIMEN Ordering Facility: [facility] Address: [address] [place] [place] [address] Performed By: #### 2 4323-8, LIPNF, 6-3, 3084-1 #### [facility] CLIA [id number] [address] [place] [address] [place] Urobilinogen Ql (U) Negative Normal Negative [facility] Comment on above: Order Comment: Speci men Type: BLOOD SPECIMEN Ordering Facility: [facility] Address: [address] [place] [address] Performed By: #### 2 4323-8, LIPNF, 3016-3, 3084-1 #### [facility] CLIA [id number] [address] [place] [address] [place] WBC LM.HPF (Urine sed) [#/Area] 0-5 /HPF Normal 0-5 /HPF [facility] Comment on above: Order Comment: Speci men Type: BLOOD SPECIMEN Ordering Facility: [facility] Address: [address] [place] [address] Performed By: #### 2 4323-8, LIPNF, 3016-3, 3084-1 #### [facility] CLIA [id number] [address] [place] [address] [place] Yeast.budding LM.HPF (Urine sed) [#/Area] Few Abnormal None Seen [facility] Comment on above: Order Comment: Speci men Type: BLOOD SPECIMEN Ordering Facility: [facility] Address: [address] [place] [address] Performed By: #### 2 4323-8, LIPNF, 3016-3, 3084-1 #### [facility] CLIA [id number] [address] [place] [address] [place] CNPSaniya 12-28-2021 CNPN Telephone (FAMPWS) -- AG JONES ([id number]) 1945 Date Time Provider Department 12/28/21 SHANTANU MUNOZ During your visit today, we recorded the following information about you: Shantanu Munoz MD 12/28/2021 8:33 PM Signed Let patient know chest x-ray was ok. CT chest ordered. US of abdomen shows a lesion behind the neck of the pancreas and a lesion in the right kidney. Suggestion by radiology is to get a MRI. Order placed. Candelaria Horton MA 12/29/2021 9:48 AM Signed Spoke with patient and gave results and instructions. Patient is wanting to know why if x-ray is ok why the need for the CT of the chest. Patient did indicated that they asked if he was a smoker. He indicated that he smoke 2 packs a day but has not smoked in 49 years. Patient was also wanting to know results of urine. I told patient it was still in process. Please schedule patient for CT and MRI. YOUSIF Day MD 12/29/2021 11:43 AM Signed Let patient now that the X-ray may not of been able to show something that is an issue and the CT would be better. However, a lot of times insurance companies make us do the x-ry first. (Looks like message needs sent to PSR's to schedule CT and MRI?) Candelaria Horton MA 12/29/2021 12:35 PM Signed Left message for patient to contact office. PLEASE SEE BELOW AND SCHEDULE PATIENT FOR CT AND MRI. YOUSIF Day MA 01/01/2022 1:51 PM Signed Please contacted patient to schedule. This was sent 3 days ago. YOUSIF Dayiver 01/02/2022 8:30 AM Signed These were scheduled, PT cancelled due to not being able to afford the tests, PFA was offered to him he declined. Catherine PSS Allergies As of Date: 12/28/2021 Noted Allergy Reaction environmental [Other] 05/03/2008 16 - Unknown Date Reviewed: 12/18/2021 Reviewed by: Shantanu Munoz MD - Fully Assessed Reason for Visit: Results [95] Primary Visit Diagnosis:Weight loss, unintentional [R63.4] Other Visit Diagnoses:Ex-smoker [Z87.891] Other specified disorders of kidney and ureter [N28.89] Renal lesion [N28.9] Pancreatic mass [K86.89] Order(s):CT CHEST WO IVCON [[id number]] Order #: [id number] FUTURE MRI KIDNEY WO/W IVCON [[id number]] Order #: [id number] FUTURE [] iv contrast (will be provided with radiology test)MRI Kidney Inject, intravenously, once for 1 dose. No IV access, insert saline lock prior to the beginning of sedation, infusion, injection of imaging exam. Discontinue saline lock post exam. If Pt. has a central line or IVAD, may access for administration according to line specific nursing protocol. Once exam is complete flush line and de-access according to line specific nursing protocol in the MR contrast administration guidelines link.Disp: 1 EachRfl: 0 Prescriptions as of 01/02/2022 - gabapentin (NEURONTIN) 600 mg tablet Take 1 tablet by mouth three times daily. Take with 300 mg three times a day - gabapentin (NEURONTIN) 300 mg capsule Take 1 capsule by mouth three times daily. Take with 600 mg three times a day - allopurinol (ZYLOPRIM) 300 mg tablet Take 1 tablet by mouth once daily. - hydroCHLOROthiazide (HYDRODIURIL, ESIDRIX) 25 mg tablet Take 1 tablet by mouth once daily. - atorvastatin (LIPITOR) 20 mg tablet Take 1 tablet by mouth daily at bedtime. For cholesterol. - ACETAMINOPHEN 500 MG TAB Take two tablets as needed Facility-Administered Medications as of 01/02/2022 - perflutren lipid microspheres 1.3 mL in NaCl (PF) 0.9% 10 mL injection (DEFINITY) - sodium chloride 0.9 % (flush) 10 mL (BD POSIFLUSH) Problem List As Of Date 12/28/2021 Noted Resolved Post herpetic neuralgia [B02.29] 05/03/2008 Allergic rhinitis, cause unspecified [J30.9] 05/03/2008 Hyperlipidemia, mixed [E78.2] 05/03/2008 Gout, unspecified [M10.9] 05/03/2008 Essential hypertension, benign [I10] 05/03/2008 Generalized arthritis [M19.90] 05/03/2008 Contact dermatitis and other eczema, due to uns*05/03/2008 Special Screening for Malignant Neoplasms, [place]*05/25/2008 Chronic kidney disease, unspecified [N18.9] 06/13/2008 08/14/2021 Benign neoplasm of colon [D12.6] 06/25/2008 Pain in limb [M79.609] 07/11/2008 Bunion [M21.619] 08/29/2008 History of colonic polyps [Z86.010] 08/24/2011 Obesity, Class II, BMI 35-39.9 [E66.9] 07/10/2020 Elevated hemoglobin A1c [R73.09] 01/09/2021 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 No IV access, insert saline lock prior to the beginning of sedation, infusion, injection of imaging exam. Discontinue saline lock post exam. If P (more content not included)... Normal [facility] US ABDOMEN COMPLETEon 2021 US ABDOMEN COMPLETE * * *Final Report* * * DATE OF EXAM: Dec 25 2021 11:09AM WRU 1040 - US ABDOMEN COMPLETE / PROCEDURE REASON: multiple diagnoses * * * * Physician Interpretation * * * * EXAMINATION: COMPLETE ABDOMINAL ULTRASOUND CLINICAL HISTORY: Ex-smoker Weight loss, unintentional TECHNIQUE: Sonography of the abdomen was performed. Images were obtained and stored in a permanent archive. MQ: UAbC_2 COMPARISON: None RESULT: Pancreas: Hypoechoic lesion posterior to the neck body junction of the pancreas which measures approximately 5.9 x 2.7 x 5.6 cm. Portions obscured: Tail Liver: Echotexture: Normal, homogeneous. 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 There is no biliary duct hematoma involving the posterior right lobe of the liver which measures 1.4 x 1.1 x 1.4 cm. Biliary: No intrahepatic biliary duct dilation. CBD: 0.4 cm at the hilum. Gallbladder: Normal caliber -Contents: No cholelithiasis -Wall: Normal -Other: No pericholecystic fluid. Spleen: Craniocaudal length: 12.1 cm normal Lesions: None Right Kidney: -Renal length: 11.1 cm -Parenchyma: Normal parenchymal echogenicity. Normal parenchymal thickness. -Collecting system: No hydronephrosis. -1 cm probable parapelvic cysts involving interpolar right kidney versus dilated calyx with small calculi. Hypoechoic lesion involving the interpolar lateral right kidney which measures 1.2 x 0.9 x 1.1 cm. No posterior echogenic wall or increased through transmission is seen. Left Kidney: -Renal length: 11.1 cm -Parenchyma: Normal parenchymal echogenicity. Normal parenchymal thickness. -Collecting system: No hydronephrosis. -Calculus: No echogenic, shadowing calculus. -Lesion: Simple appearing upper pole left renal cortical cysts which measures 1.3 x 0.8 x 1.2 cm. Additional simple appearing left renal cortical cyst which measures 1.3 x 0.8 x 1.1 cm. Bladder: Mild diffuse mural thickening of the bladder wall. No bladder debris or bladder mass is seen. IVC: Imaged segment is patent. Abdominal Aorta: Imaged segment is patent. Maximum Diameter: 2.4 cm Ascites: None. IMPRESSION: Unremarkable appearance of the liver. Common bile duct is within normal limits. No findings of cholelithiasis or evidence of cholecystitis. Indeterminate 6 cm hypoechoic lesion posterior to the pancreatic neck body junction. This may represent a pseudocyst or cystic mass extending off the pancreas. Indeterminant right renal cortical lesion which may represent a proteinaceous or hemorrhagic cyst versus primary renal neoplasm. No splenomegaly. ACTIONABLE RESULT: FOLLOW-UP Acuity: Actionable Findings: Kidneys/Ureters/Bladder Routing Code: GU_1 Recommendation: MRI KIDNEY WO/W IVCON Time Frame: At the discretion of the clinical team. COMMUNICATION: Results will be communicated with the ordering provider via [email or web address] staff message or phone message by [facility] within 2 business days of report finalization. Algorithms for management of incidental imaging findings can be found on the [facility] Intranet Sharepoint site at: [email or web address] [email or web address] Kelly Machine Operator: [email or web address] Transcribe Date/Time: Dec 26 2021 3:24P Dictated by : GABRIELLE CUNNINGHAM MD This examination was interpreted and the report reviewed and electronically signed by: GABRIELLE CUNNINGHAM MD on Dec 26 2021 3:38PM EST [id number] ACTIONABLE Invalid Interpretation Code [facility] CNPNon 12-24-2021 CNPN Telephone (FAMWS) -- AG JONES ([id number]) 1945 M Date Time Provider Department 12/24/21 AVIS GONZALEZ [facility] During your visit today, we recorded the following information about you: Avis Gonzalez PA-C 12/24/2021 8:32 AM Signed Let patient know that his a1c is 5.8% which is still prediabetes but pretty stable/slightly improved. Kidney function is stable. Cholesterol normal Thyroid normal Blood counts are normal. Uric acid level in okay range Urine is still in process. Will call only if abnormal Thanks. NEAL Cheng MA 12/24/2021 9:09 AM Signed Patient notified and voiced understanding. Candelaria Horton MA Allergies As of Date: 12/24/2021 Noted Allergy Reaction environmental [Other] 05/03/2008 16 - Unknown Date Reviewed: 12/18/2021 Reviewed by: Shantanu Munoz MD - Fully Assessed Reason for Visit: Results [95] Prescriptions as of 12/24/2021 - gabapentin (NEURONTIN) 600 mg tablet Take 1 tablet by mouth three times daily. Take with 300 mg three times a day - gabapentin (NEURONTIN) 300 mg capsule Take 1 capsule by mouth three times daily. Take with 600 mg three times a day - allopurinol (ZYLOPRIM) 300 mg tablet Take 1 tablet by mouth once daily. - hydroCHLOROthiazide (HYDRODIURIL, ESIDRIX) 25 mg tablet Take 1 tablet by mouth once daily. - atorvastatin (LIPITOR) 20 mg tablet Take 1 tablet by mouth daily at bedtime. For cholesterol. - ACETAMINOPHEN 500 MG TAB Take two tablets as needed Facility-Administered Medications as of 12/24/2021 - perflutren lipid microspheres 1.3 mL in NaCl (PF) 0.9% 10 mL injection (DEFINITY) - sodium chloride 0.9 % (flush) 10 mL (BD POSIFLUSH) Problem List As Of Date 12/24/2021 Noted Resolved Post herpetic neuralgia [B02.29] 05/03/2008 Allergic rhinitis, cause unspecified [J30.9] 05/03/2008 Hyperlipidemia, mixed [E78.2] 05/03/2008 Gout, unspecified [M10.9] 05/03/2008 Essential hypertension, benign [I10] 05/03/2008 Generalized arthritis [M19.90] 05/03/2008 Contact dermatitis and other eczema, due to uns*05/03/2008 Special Screening for Malignant Neoplasms, [place]*05/25/2008 Chronic kidney disease, unspecified [N18.9] 06/13/2008 08/14/2021 Benign neoplasm of colon [D12.6] 06/25/2008 Pain in limb [M79.609] 07/11/2008 Bunion [M21.619] 08/29/2008 History of colonic polyps [Z86.010] 08/24/2011 Obesity, Class II, BMI 35-39.9 [E66.9] 07/10/2020 Elevated hemoglobin A1c [R73.09] 01/09/2021 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 *06/30/2021 Stage 3b chronic kidney disease (HCC) [N18.32] 08/14/2021 Ex-smoker [Z87.891] 12/18/2021 Encounter Status:Closed by CANDELARIA HORTON on 12/24/21 Normal [facility] CBC W Auto Differential pane l (Bld)on 12-18-2021 Abs Immature Gran 0.08 k/uL <0.10 k/uL [facility] Basophils (Bld) [#/Vol] 0.05 10*3/uL <0.11 k/uL [facility] Basophils/100 WBC (Bld) 0.7 % [facility] Differential cell count method Nom (Bld) Auto [facility] Eosinophils (Bld) [#/Vol] 0.07 10*3/uL <0.46 k/uL [facility] Eosinophils/100 WBC (Bld) 1.0 % [facility] Erythrocyte distribution width (RBC) [Ratio] 15.0 % 11.5 - 15.0 % [facility] Hematocrit (Bld) [Volume fraction] 44.5 % 39.0 - 51.0 % [facility] Hemoglobin (Bld) [Mass/Vol] 14.3 g/dL 13.0 - 17.0 g/dL [facility] Immature Gran % 1.1 % [facility] Lymphocytes (Bld) [#/Vol] 1.58 10*3/uL 1.00 - 4.00 k/uL [facility] Lymphocytes/100 WBC (Bld) 22.3 % [facility] MCH (RBC) [Entitic mass] 30.8 pg 26.0 - 34.0 pg [facility] MCHC (RBC) [Mass/Vol] 32.1 g/dL 30.5 - 36.0 g/dL [facility] MCV (RBC) [Entitic vol] 95.7 fL 80.0 - 100.0 fL [facility] Monocytes (Bld) [#/Vol] 0.50 10*3/uL <0.87 k/uL [facility] Monocytes/100 WBC (Bld) 7.0 % [facility] Neutrophils (Bld) [#/Vol] 4.82 10*3/uL 1.45 - 7.50 k/uL [facility] [facility] Neutrophils/100 WBC (Bld) 67.9 % [facility] Nucleated RBC (Bld) [#/Vol] <0.01 k/uL [facility] Nucleated RBC/100 WBC (Bld) [Ratio] 0.0 /100 WBC [facility] Platelet mean volume (Bld) [Entitic vol] 10.9 fL 9.0 - 12.7 fL [facility] Platelets (Bld) [#/Vol] 227 10*3/uL 150 - 400 k/uL [facility] RBC (Bld) [#/Vol] 4.65 10*6/uL 4.20 - 6.0 0 m/uL [facility] WBC (Bld) [#/Vol] 7.10 10*3/uL 3.70 - 11.00 k/uL [facility] Basophils (Bld) [#/Vol] 0.05 10*3/uL Normal <0.11 [facility] Comment on above: Order Comment: Speci men Type: BLOOD SPECIMEN Ordering Facility: [facility] Address: [address] [place] [place] [address] Performed By: #### 2 4323-8, LIPNF, 3016-3, 3084-1 #### [facility] CLIA [id number] [address] [place] [address] [place] Basophils/100 WBC (Bld) 0.7 % Normal [facility] Comment on above: Order Comment: Speci men Type: BLOOD SPECIMEN Ordering Facility: [facility] Address: [address] [place] [place] [address] Performed By: #### 2 4323-8, LIPNF, 6-3, 3084-1 #### [facility] CLIA [id number] [address] [place] [address] [place] Differential cell count method Nom (Bld) Auto Normal [facility] Comment on above: Order Comment: Speci men Type: BLOOD SPECIMEN Ordering Facility: [facility] Address: [address] [place] [place] [address] Performed By: #### 2 4323-8, LIPNF, 3016-3, 3084-1 #### [facility] CLIA [id number] [address] [place] [address] [place] Eosinophils (Bld) [#/Vol] 0.07 10*3/uL Normal <0.46 [facility] Comment on above: Order Comment: Speci men Type: BLOOD SPECIMEN Ordering Facility: [facility] Address: [address] [place] [place] [address] Performed By: #### 2 4323-8, LIPNF, 3016-3, 3084-1 #### [facility] CLIA [id number] [address] [place] [address] [place] Eosinophils/100 WBC (Bld) 1.0 % Normal [facility] Comment on above: Order Comment: Speci men Type: BLOOD SPECIMEN Ordering Facility: [facility] Address: [address] [place] [place] [address] Performed By: #### 2 4323-8, LIPNF, 3016-3, 3084-1 #### [facility] CLIA [id number] [address] [place] [address] [place] Erythrocyte distribution width (RBC) [Ratio] 15.0 % Normal 11.5-15.0 [facility] Comment on above: Order Comment: Speci men Type: BLOOD SPECIMEN Ordering Facility: [facility] Address: [address] [place] [place] [address] Performed By: #### 2 4323-8, LIPNF, 6-3, 3084-1 #### [facility] CLIA [id number] [address] [place] [address] [place] Hematocrit (Bld) [Volume fraction] 44.5 % Normal 39.0-51.0 [facility] Comment on above: Order Comment: Speci men Type: BLOOD SPECIMEN Ordering Facility: [facility] Address: [address] [place], [place] [phone] Performed By: #### 2 4323-8, LIPNF, 6-3, 3084-1 #### [facility] CLIA [id number] [address] [place] [address] [place] Hemoglobin (Bld) [Mass/Vol] 14.3 g/dL Normal 13.0-17.0 [facility] Comment on above: Order Comment: Speci men Type: BLOOD SPECIMEN Ordering Facility: [facility] Address: [address] [place], [place] [phone] Performed By: #### 2 4323-8, LIPNF, 3016-3, 3084-1 #### [facility] CLIA [id number] [address] [place] [address] [place] IMMATURE GRAN % 1.1 % Normal [facility] Comment on above: Order Comment: Speci men Type: BLOOD SPECIMEN Ordering Facility: [facility] Address: [address] [place] [place] [address] Performed By: #### 2 4323-8, LIPNF, 3016-3, 3084-1 #### [facility] CLIA [id number] [address] [place] [address] [place] IMMATURE GRAN ABS 0.08 k/uL Normal <0.10 [facility] Comment on above: Order Comment: Speci men Type: BLOOD SPECIMEN Ordering Facility: [facility] Address: [address] [place] [place] [address] Performed By: #### 2 4323-8, LIPNF, 6-3, 3084-1 #### [facility] CLIA [id number] [address] [place] [address] [place] Lymphocytes (Bld) [#/Vol] 1.58 10*3/uL Normal 1.00-4.00 [facility] Comment on above: Order Comment: Speci men Type: BLOOD SPECIMEN Ordering Facility: [facility] Address: [address] [place] [place] [address] Performed By: #### 2 4323-8, LIPNF, 6-3, 3084-1 #### [facility] CLIA [id number] [address] [place] [address] [place] Lymphocytes/100 WBC (Bld) 22.3 % Normal [facility] Comment on above: Order Comment: Speci men Type: BLOOD SPECIMEN Ordering Facility: [facility] Address: [address] [place] [place] [address] Performed By: #### 2 4323-8, LIPNF, 3016-3, 3084-1 #### [facility] CLIA [id number] [address] [place] [address] MCH (RBC) [Entitic mass] 30.8 pg Normal 26.0-34.0 [facility] Comment on above: Order Comment: Speci men Type: BLOOD SPECIMEN Ordering Facility: [facility] Address: [address] [place] [place] [address] Performed By: #### 2 4323-8, LIPNF, 3016-3, 3084-1 #### [facility] CLIA [id number] [address] [place] [address] [place] MCHC (RBC) [Mass/Vol] 32.1 g/dL Normal 30.5-36.0 [facility] Comment on above: Order Comment: Speci men Type: BLOOD SPECIMEN Ordering Facility: [facility] Address: [address] [place] [place] [address] Performed By: #### 2 4323-8, LIPNF, 6-3, 308- #### [facility] CLIA [id number] [address] [place] [address] [place] MCV (RBC) [Entitic vol] 95.7 fL Normal 80.0-100.0 [facility] Comment on above: Order Comment: Speci men Type: BLOOD SPECIMEN Ordering Facility: [facility] Address: [address] [place], [place] [phone] Performed By: #### 2 4323-8, LIPNF, 6-3, 308-1 #### [facility] CLIA [id number] [address] [place] [address] [place] Monocytes (Bld) [#/Vol] 0.50 10*3/uL Normal <0.87 [facility] Comment on above: Order Comment: Speci men Type: BLOOD SPECIMEN Ordering Facility: [facility] Address: [address] [place], [place] [phone] Performed By: #### 2 4323-8, LIPNF, 3016-3, 3084-1 #### [facility] CLIA [id number] [address] [place] [address] [place] Monocytes/100 WBC (Bld) 7.0 % Normal [facility] Comment on above: Order Comment: Speci men Type: BLOOD SPECIMEN Ordering Facility: [facility] Address: [address] [place], [place] [phone] Performed By: #### 2 4323-8, LIPNF, 3016-3, 3084-1 #### [facility] CLIA [id number] [address] [place] [address] [place] Neutrophils (Bld) [#/Vol] 4.82 10*3/uL Normal 1.45-7.50 [facility] Comment on above: Order Comment: Speci men Type: BLOOD SPECIMEN Ordering Facility: [facility] Address: [address] [place], [place] [phone] Performed By: #### 2 4323-8, LIPNF, 3016-3, 3084-1 #### [facility] CLIA [id number] [address] [place] [address] [place] Neutrophils/100 WBC (Bld) 67.9 % Normal [facility] Comment on above: Order Comment: Speci men Type: BLOOD SPECIMEN Ordering Facility: [facility] Address: [address] [place] [address] Performed By: #### 2 4323-8, LIPNF, 3016-3, 3084-1 #### [facility] CLIA [id number] [address] [place] [address] [place] Nucleated RBC (Bld) [#/Vol] 10*3/uL Normal <0.01 [facility] Comment on above: Order Comment: Speci men Type: BLOOD SPECIMEN Ordering Facility: [facility] Address: [address] [place], [place] [phone] Performed By: #### 2 4323-8, LIPNF, 3016-3, 3084-1 #### [facility] CLIA [id number] [address] [place] [address] [place] Nucleated RBC/100 WBC (Bld) [Ratio] 0.0 /100 WBC Normal [facility] Comment on above: Order Comment: Speci men Type: BLOOD SPECIMEN Ordering Facility: [facility] Address: [address] [place] [place] [address] Performed By: #### 2 4323-8, LIPNF, 3016-3, 3084-1 #### [facility] CLIA [id number] [address] [place] [address] [place] Platelet mean volume (Bld) [Entitic vol] 10.9 fL Normal 9.0-12.7 [facility] Comment on above: Order Comment: Speci men Type: BLOOD SPECIMEN Ordering Facility: [facility] Address: [address] [place] [place] [address] Performed By: #### 2 4323-8, LIPNF, 6-3, 3084-1 #### [facility] CLIA [id number] [address] [place] [address] [place] Platelets (Bld) [#/Vol] 227 10*3/uL Normal 150-400 [facility] Comment on above: Order Comment: Speci men Type: BLOOD SPECIMEN Ordering Facility: [facility] Address: [address] [place], [place] [phone] Performed By: #### 2 4323-8, LIPNF, 3016-3, 3084-1 #### [facility] CLIA [id number] [address] [place] [address] [place] RBC (Bld) [#/Vol] 4.65 10*6/uL Normal 4.20-6.00 [facility] Comment on above: Order Comment: Speci men Type: BLOOD SPECIMEN Ordering Facility: [facility] Address: [address] [place] [id number] Performed By: #### 2 4323-8, LIPAIDAN, 3016-3, 3084-1 #### [facility] CLIA [id number] [address] [place] [address] [place] WBC (Bld) [#/Vol] 7.10 10*3/uL Normal 3.70-11.00 [facility] Comment on above: Order Comment: Speci men Type: BLOOD SPECIMEN Ordering Facility: [facility] Address: [address] [place], [place] [phone] Performed By: #### 2 4323-8, LIPAIDAN, 3016-3, 3084-1 #### [facility] CLIA [id number] [address] [place] [address] [place] CNOVon 12-18-2021 CNOV Office Visit (FAMPWS ) -- AG JONES ([id number]) 1945 M Date Time Provider Department 12/18/21 9:00 AM SHANTANU MUNOZ FAMPWS During your visit today, we recorded the following information about you: Pulse Respiration Blood pressure Weight 76/minute 16/minute 108/60 102.1 kg Shantanu Munoz MD 12/18/2021 8:16 PM Signed Chief Complaint Patient presents with: Establish Care HPI Ag Erica HowardKaren is a 76 year old male who [...] No leg swelling GI: No nausea, vomiting, o (more content not included)... Normal [facility] Comprehensive metabolic 2000 panelon 12-18-2021 Albumin [Mass/Vol] 4.3 g/dL 3.9 - 4.9 g/dL [facility] ALP [Catalytic activity/Vol] 106 U/L 38 - 113 U/L [facility] ALT [Catalytic activity/Vol] 14 U/L 10 - 54 U/L [facility] Anion gap [Moles/Vol] 17 mmol/L 9 - 18 mmol/L [facility] AST [Catalytic activity/Vol] 20 U/L 14 - 40 U/L [facility] Bilirubin [Mass/Vol] 1.3 mg/dL 0.2 - 1 .3 mg/dL [facility] Calcium [Mass/Vol] 9.4 mg/dL 8.5 - 10. 2 mg/dL [facility] Chloride [Moles/Vol] 102 mmol/L 97 - 10 5 mmol/L [facility] CO2 [Moles/Vol] 22 mmol/L 22 - 30 mmol/L [facility] Creatinine [Mass/Vol] 1.54 mg/dL High 0.73 - 1.22 mg/dL [facility] Estimated Glomerular Filtration Rate 46 mL/min/1.73m Low >=60 mL/min/1.73 m [facility] Glucose [Mass/Vol] 87 mg/dL 74 - 99 mg/dL [facility] Potassium [Moles/Vol] 4.1 mmol/L 3.7 - 5.1 mmol/L [facility] Protein [Mass/Vol] 7.4 g/dL 6.3 - 8.0 g/dL [facility] Sodium [Moles/Vol] 141 mmol/L 136 - 144 mmol/L [facility] Urea nitrogen [Mass/Vol] 28 mg/dL High 9 - 24 mg/dL [facility] Albumin [Mass/Vol] 4.3 g/dL Normal 3.9-4.9 [facility] Comment on above: Order Comment: Speci men Type: BLOOD SPECIMEN Ordering Facility: [facility] Address: [address] [place] [place] [address] Performed By: #### 2 4323-8, LIPNF, 3016-3, 3084-1 #### [facility] CLIA [id number] [address] [place] [address] [place] ALP [Catalytic activity/Vol] 106 U/L Normal 38-113 [facility] Comment on above: Order Comment: Speci men Type: BLOOD SPECIMEN Ordering Facility: [facility] Address: [address] [place] [place] [address] Performed By: #### 2 4323-8, LIPNF, 3016-3, 3084-1 #### [facility] CLIA [id number] [address] [place] [address] [place] ALT [Catalytic activity/Vol] 14 U/L Normal 10-54 [facility] Comment on above: Order Comment: Speci men Type: BLOOD SPECIMEN Ordering Facility: [facility] Address: [address] [place] [address] Performed By: #### 2 4323-8, LIPNF, 3016-3, 3084-1 #### [facility] CLIA [id number] [address] [place] [address] [place] Anion gap [Moles/Vol] 17 mmol/L Normal 9-18 [facility] Comment on above: Order Comment: Speci men Type: BLOOD SPECIMEN Ordering Facility: [facility] Address: [address] [place] [address] Performed By: #### 2 4323-8, LIPNF, 3016-3, 3084-1 #### [facility] CLIA [id number] [address] [place] [address] [place] AST [Catalytic activity/Vol] 20 U/L Normal 14-40 [facility] Comment on above: Order Comment: Speci men Type: BLOOD SPECIMEN Ordering Facility: [facility] Address: [address] [place] [address] Performed By: #### 2 4323-8, LIPNF, 3016-3, 3084-1 #### [facility] CLIA [id number] [address] [place] [address] [place] Bilirubin [Mass/Vol] 1.3 mg/dL Normal 0.2-1.3 [facility] Comment on above: Order Comment: Speci men Type: BLOOD SPECIMEN Ordering Facility: [facility] Address: [address] [place] [address] Performed By: #### 2 4323-8, LIPNF, 3016-3, 3084-1 #### [facility] CLIA [id number] [address] [place] [address] [place] Calcium [Mass/Vol] 9.4 mg/dL Normal 8.5-10.2 [facility] Comment on above: Order Comment: Speci men Type: BLOOD SPECIMEN Ordering Facility: [facility] Address: [address] [place] [address] Performed By: #### 2 4323-8, LIPNF, 3016-3, 3084-1 #### [facility] CLIA [id number] [address] [place] [address] [place] Chloride [Moles/Vol] 102 mmol/L Normal 97-105 [facility] Comment on above: Order Comment: Speci men Type: BLOOD SPECIMEN Ordering Facility: [facility] Address: [address] [place] [address] Performed By: #### 2 4323-8, LIPNF, 3016-3, 3084-1 #### [facility] CLIA [id number] [address] [place] [address] [place] CO2 [Moles/Vol] 22 mmol/L Normal 22-30 [facility] Comment on above: Order Comment: Speci men Type: BLOOD SPECIMEN Ordering Facility: [facility] Address: [address] [place] [address] Performed By: #### 2 4323-8, LIPNF, 3016-3, 3084-1 #### [facility] CLIA [id number] [address] [place] [address] [place] Creatinine [Mass/Vol] 1.54 mg/dL High 0.73-1.22 [facility] Comment on above: Order Comment: Speci men Type: BLOOD SPECIMEN Ordering Facility: [facility] Address: [address] [place] [address] Performed By: #### 2 4323-8, LIPNF, 3016-3, 3084-1 #### [facility] CLIA [id number] [address] [place] [address] [place] ESTIMATED GLOMERULAR FILTRATION RATE 46 mL/min/1.73m??? Low >=60 [facility] Comment on above: Order Comment: Salima díaz Type: BLOOD SPECIMEN Ordering Facility: [facility] Address: [address] [place] [address] Result Comment: Yecenia mated Glomerular Filtration Rate (eGFR) is calculated using the 2020 CKD-EPI creatinine equation. This equation utilizes serum creatinine, sex, and age as parameters. The creatinine assay has traceable calibration to isotope dilution-mass spectrometry. Refer to KDIGO guidelines for clinical interpretation. In patients with unstable renal function, e.g. those with acute kidney injury, the eGFR may not accurately reflect actual GFR. Performed By: #### 2 4323-8, HERBERT, 6-3, 3084-1 #### [facility] CLIA [id number] [address] [place] [address] [place] Glucose [Mass/Vol] 87 mg/dL Normal 74-99 [facility] Comment on above: Order Comment: Salima díaz Type: BLOOD SPECIMEN Ordering Facility: [facility] Address: [address] [place], [place] [phone] Result Comment: The [place] Diabetes Association (ADA) provides guidance for cutoff values for fasting glucose and random glucose. The ADA defines fasting as no caloric intake for at least 8 hours. Fasting plasma glucose results between 100 to 125 mg/dL indicate increased risk for diabetes (prediabetes). Fasting plasma glucose results greater than or equal to 126 mg/dL meet the criteria for diagnosis of diabetes. In the absence of unequivocal hyperglycemia, results should be confirmed by repeat testing. In a patient with classic symptoms of hyperglycemia or hyperglycemic crisis, random plasma glucose results greater than or equal to 200 mg/dL meet the criteria for diagnosis of diabetes. Reference: Standards of Medical Care in Diabetes 2016, [place] Diabetes Association. Diabetes Care. 2016.39(Suppl 1). Performed By: #### 2 4323-8, LIPNF, 3016-3, 3084-1 #### [facility] CLIA [id number] [address] [place] [address] [place] Potassium [Moles/Vol] 4.1 mmol/L Normal 3.7-5.1 [facility] Comment on above: Order Comment: Speci men Type: BLOOD SPECIMEN Ordering Facility: [facility] Address: [address] [place] [place] [address] Performed By: #### 2 4323-8, LIPNF, 3016-3, 3084-1 #### [facility] CLIA [id number] [address] [place] [address] [place] Protein [Mass/Vol] 7.4 g/dL Normal 6.3-8.0 [facility] Comment on above: Order Comment: Speci men Type: BLOOD SPECIMEN Ordering Facility: [facility] Address: [address] [place] [place] [address] Performed By: #### 2 4323-8, LIPNF, 3016-3, 3084-1 #### [facility] CLIA [id number] [address] [place] [address] [place] Sodium [Moles/Vol] 141 mmol/L Normal 136-144 [facility] Comment on above: Order Comment: Speci men Type: BLOOD SPECIMEN Ordering Facility: [facility] Address: [address] [place] [address] Performed By: #### 2 4323-8, LIPNF, 3016-3, 3084-1 #### [facility] CLIA [id number] [address] [place] [address] [place] Urea nitrogen [Mass/Vol] 28 mg/dL High 9-24 [facility] Comment on above: Order Comment: Speci men Type: BLOOD SPECIMEN Ordering Facility: [facility] Address: [address] [place] [address] Performed By: #### 2 4323-8, LIPNF, 3016-3, 3084-1 #### [facility] CLIA [id number] [address] [place] [address] [place] HbA1c (Bld)on 12-18-2021 Average glucose Estimated from glycated hemoglobin (Bld) [Mass/Vol] 120 mg/dL [facility] HbA1c (Bld) [Mass fraction] 5.8 % High 4.3 - 5.6 % [facility] Average glucose Estimated from glycated hemoglobin (Bld) [Mass/Vol] 120 mg/dL Normal [facility] Comment on above: Order Comment: Salima díaz Type: BLOOD SPECIMEN Ordering Facility: [facility] Address: [address] [place] [address] Result Comment: eAG: (Estimated average glucose) is a calculated value from HgbA1c and is employee's representative of the average blood glucose level in the last 2-3 month period. Performed By: #### 2 4323-8, HERBERT, 3015-3, 3083-1 #### [facility] CLIA [id number] [address] [place] [address] [place] HbA1c (Bld) [Mass fraction] 5.8 % High 4.3-5.6 [facility] Comment on above: Order Comment: Salima díaz Type: BLOOD SPECIMEN Ordering Facility: [facility] Address: [address] [place] [address] Result Comment: [place] Diabetes Association guidelines indicate that patients with HgbA1c in the range 5.7-6.4% are at increased risk for development of diabetes, and intervention by lifestyle modification may be beneficial. HgbA1c greater or equal to 6.5% is considered diagnostic of diabetes. Performed By: #### 2 4323-8, HERBERT, 3015-3, 3083-1 #### [facility] CLIA [id number] [address] [place] [address] [place] LIPID PANEL, NONFASTINGon Cholesterol [Mass/Vol] 150 mg/dL <200 mg/dL [facility] HDL Cholesterol, Nonfasting 45 mg/dL >39 mg/dL [facility] LDL Cholesterol, Nonfasting 86 mg/dL <100 mg/dL [facility] LDL/HDL Ratio, Nonfasting 1.91 mg/dL <2.54 mg/dL [facility] Non HDL Cholesterol, Nonfasting 105 mg/dL <130 mg/dL [facility] Total Chol/HDL Ratio, Nonfasting 3.33 mg/dL <5.10 mg/dL [facility] Triglycerides, Nonfasting 96 mg/dL <150 mg/dL [facility] VLDL Cholesterol, Nonfasting 19 mg/dL <30 mg/dL [facility] Cholesterol [Mass/Vol] 150 mg/dL Normal <200 [facility] Comment on above: Order Comment: Bradyi men Type: BLOOD SPECIMEN Ordering Facility: [facility] Address: [address] [place] [address] Result Comment: <200 mg/dL, Desirable 200-239 mg/dL, Borderline high >239 mg/dL, High Performed By: #### 2 4323-8, LIPNF, 3016-3, 3084-1 #### [facility] CLIA [id number] [address] [place] [address] OF [facility] HDL CHOLESTEROL, NF 45 mg/dL Normal >39 [facility] Comment on above: Order Comment: Salima díaz Type: BLOOD SPECIMEN Ordering Facility: [facility] Address: [address] [place] [place] [address] Result Comment: 40-5 9 mg/dL, Acceptable >59 mg/dL, High: Negative risk factor for coronary heart disease <40 mg/dL, Low: Positive risk factor for coronary heart disease Performed By: #### 2 4323-8, LIPNF, 3016-3, 3084-1 #### [facility] CLIA [id number] [address] [place] [address] OF [place] LDL CHOLESTEROL, NF 86 mg/dL Normal <100 [facility] Comment on above: Order Comment: Salima bre Type: BLOOD SPECIMEN Ordering Facility: [facility] Address: [address] [place] [place] [address] Result Comment: <100 mg/dL, Optimal 100-129 mg/dL, Near optimal/above optimal 130-159 mg/dL, Borderline high 160-189 mg/dL, High >189 mg/dL, Very high Secondary prevention optimal LDL Cholesterol levels are recommended to be < 70 mg/dL Performed By: #### 2 4323-8, LIPNF, 3016-3, 3084-1 #### [facility] CLIA [id number] [address] [place] [address] OF [facility] LDL/HDL RATIO, NF 1.91 mg/dL Normal <2.54 [facility] Comment on above: Order Comment: Speci men Type: BLOOD SPECIMEN Ordering Facility: [facility] Address: [address] [place] [address] Result Comment: Refe rence: 1. National Cholesterol Education Program ATP III Guideline At-A-Glance Quick Desk Reference: National Heart, Lung, and Blood [place]. National Institutes of Health. 2001: NIH Publication No. 01-3305. 2. An International Atherosclerosis Society position paper: global recommendations for the management of dyslipidemia: executive summary, Atherosclerosis. 2014: 232(2):410-413. Performed By: #### 2 4323-8, LIPNF, 3015-3, 3083-1 #### [facility] CLIA [id number] [address] [place] [address] STATES [place] NON HDL CHOL, NF 105 mg/dL Normal <130 [facility] Comment on above: Order Comment: Salima díaz Type: BLOOD SPECIMEN Ordering Facility: [facility] Address: [address] [place] [address] Result Comment: <130 mg/dL, Optimal 130-159 mg/dL, Near optimal/above optimal 160-189 mg/dL, Borderline high 190-219 mg/dL, High >219 mg/dL, Very high Secondary prevention optimal non HDL Cholesterol levels are recommended to be <100 mg/dL Performed By: #### 2 4323-8, LIPNF, 3016-3, 3084-1 #### [facility] CLIA [id number] [address] [place] [address] T CHOL/HDL RATIO NF 3.33 mg/dL Normal <5.10 [facility] Comment on above: Order Comment: Bradyi men Type: BLOOD SPECIMEN Ordering Facility: [facility] Address: [address] [place], [place] [address] Performed By: #### 2 4323-8, LIPNF, 3015-3, 3083-1 #### [facility] CLIA [id number] [address] [place] [address] OF [place] TRIGLYCERIDES, NF 96 mg/dL Normal <150 [facility] Comment on above: Order Comment: Speci men Type: BLOOD SPECIMEN Ordering Facility: [facility] Address: [address] [place], [place] [id number] Result Comment: <150 mg/dL, Normal 150-199 mg/dL, Borderline high 200-499 mg/dL, High >499 mg/dL, Very high Performed By: #### 2 4323-8, LIPNF, 3015-3, 3083-1 #### [facility] CLIA [id number] [address] [place] [address] [place] VLDL CHOLESTEROL, NF 19 mg/dL Normal <30 [facility] Comment on above: Order Comment: Speci men Type: BLOOD SPECIMEN Ordering Facility: [facility] Address: [address] [place] [place] [address] Performed By: #### 2 4323-8, LIPNF, 3, 3083-1 #### [facility] CLIA [id number] [address] [place] [address] [place] TSH BLDon 12-18-2021 TSH Qn 3.480 m[IU]/L 0.270 - 4.200 mIU/L [facility] TSH SerPl-aCncon 12-18-2021 TSH Qn 3.480 m[IU]/L Normal 0.270-4.200 [facility] Comment on above: Order Comment: Speci men Type: BLOOD SPECIMEN Ordering Facility: [facility] Address: [address] [place], [place] [address] Performed By: #### 2 4323-8, LIPNF, 3015-3, 3084-1 #### [facility] CLIA [id number] [address] [place], [place] [address] [place] URIC ACID BLOODon 12-18-2021 Urate [Mass/Vol] 7.0 mg/dL 4.0 - 8.1 mg/dL [facility] Urate SerPl-mCncon Urate [Mass/Vol] 7.0 mg/dL Normal 4.0-8.1 Gerry randall [facility] Comment on above: Order Comment: Speci men Type: BLOOD SPECIMEN Ordering Facility: [facility] Address: [address] [place], [place] [address] Performed By: #### 2 4323-8, LIPNF, 3016-3, 3084-1 #### [facility] CLIA [id number] [address] [place] [address] [place] XR CHEST 2V FRONTAL/LATon XR CHEST 2V FRONTAL/LAT * * *Final Report* * * DATE OF EXAM: Dec 18 2021 10:46AM WOX 5291 - XR CHEST 2V FRONTAL/LAT / PROCEDURE REASON: multiple diagnoses * * * * Physician Interpretation * * * * EXAMINATION: CHEST RADIOGRAPH (2 VIEW FRONTAL and LATERAL) CLINICAL HISTORY: Ex-smoker Weight loss, unintentional MQ: XC2_6 EXAM DATE/TIME: 12/18/2021 10:46 AM COMPARISON: No relevant prior studies available. RESULT: Lines, tubes, and devices: None. Lungs and pleura: Shallow lung volumes. Emphysematous changes in the upper lung zones. Elevation of the left hemidiaphragm. No consolidation. No lung mass. No suspicious nodule. No pleural effusion. No pneumothorax. Cardiomediastinal silhouette: Normal cardiomediastinal silhouette. Bones and soft tissues: Degenerative changes are present within the thoracic spine. IMPRESSION: No acute radiographic abnormality. No suspicious nodule or mass seen on radiograph. Kelly Machine Operator: GUILLERMO Transcribe Date/Time: Dec 18 2021 3:09P Dictated by : ROCHELLE MCGHEE MD This examination was interpreted and the report reviewed and electronically signed by: ROCHELLE MCGHEE MD on Dec 18 2021 3:10PM EST [id number] Normal [facility] XR Chest PA and Lateralon IMPRESSION: No acute radiographic abnormality. No suspicious nodule or mass seen on radiograph. Kelly Machine Operator: GUILLERMO Transcribe Date/Time: Dec 18 2021 3:09P Dictated by : ROCHELLE MCGHEE MD This examination was interpreted and the report reviewed and electronically signed by: ROCHELLE MCGHEE MD on Dec 18 2021 3:10PM [facility] [[email or web address]] DIVISION OF RADIOLOGY * * *Final Report* * * DATE OF EXAM: Dec 18 2021 10:46AM WOX 5291 - XR CHEST 2V FRONTAL/LAT / PROCEDURE REASON: multiple diagnoses * * * * Physician Interpretation * * * * EXAMINATION: CHEST RADIOGRAPH (2 VIEW FRONTAL & LATERAL) CLINICAL HISTORY: Ex-smoker Weight loss, unintentional MQ: XC2_6 EXAM DATE/TIME: 12/18/2021 10:46 AM COMPARISON: No relevant prior studies available. RESULT: Lines, tubes, and devices: None. Lungs and pleura: Shallow lung volumes. Emphysematous changes in the upper lung zones. Elevation of the left hemidiaphragm. No consolidation. No lung mass. No suspicious nodule. No pleural effusion. No pneumothorax. Cardiomediastinal silhouette: Normal cardiomediastinal silhouette. Bones and soft tissues: Degenerative changes are present within the thoracic spine. DIVISION OF RADIOLOGY Provider, [facility] - 12/18/2021 * * *Final Report* * * DATE OF EXAM: Dec 18 2021 10:46AM WOX 5291 - XR CHEST 2V FRONTAL/LAT / PROCEDURE REASON: multiple diagnoses * * * * Physician Interpretation * * * * EXAMINATION: CHEST RADIOGRAPH (2 VIEW FRONTAL & LATERAL) CLINICAL HISTORY: Ex-smoker Weight loss, unintentional MQ: XC2_6 EXAM DATE/TIME: 12/18/2021 10:46 AM COMPARISON: No relevant prior studies available. RESULT: Lines, tubes, and devices: None. Lungs and pleura: Shallow lung volumes. Emphysematous changes in the upper lung zones. Elevation of the left hemidiaphragm. No consolidation. No lung mass. No suspicious nodule. No pleural effusion. No pneumothorax. Cardiomediastinal silhouette: Normal cardiomediastinal silhouette. Bones and soft tissues: Degenerative changes are present within the thoracic spine. IMPRESSION IMPRESSION: No acute radiographic abnormality. No suspicious nodule or mass seen on radiograph. Kelly Machine Operator: GUILLERMO Transcribe Date/Time: Dec 18 2021 3:09P Dictated by : ROCHELLE MCGHEE MD This examination was interpreted and the report reviewed and electronically signed by: ROCHELLE MCGHEE MD on Dec 18 2021 3:10PM EST [facility] Radiology Study observation (narrative) [facility] XR Chest PA and LateralOrder ed By: [facility] Provider on 12-18-2021 [facility] Basic metabolic 2000 panelon 11-18-2021 Anion gap [Moles/Vol] 10 mmol/L Normal 9-18 [facility] Comment on above: Order Comment: Speci men Type: BLOOD SPECIMEN Ordering Facility: [facility] Address: [address] [place] [address] Performed By: #### 2 4323-8, LIPNF, 6-3, 3083-1 #### [facility] CLIA [id number] [address] [place] [address] [place] Calcium [Mass/Vol] 9.5 mg/dL Normal 8.5-10.2 [facility] Comment on above: Order Comment: Speci men Type: BLOOD SPECIMEN Ordering Facility: [facility] Address: [address] [place] [place] [address] Performed By: #### 2 4323-8, LIPNF, 6-3, 3083-1 #### [facility] CLIA [id number] [address] [place] [address] [place] Chloride [Moles/Vol] 106 mmol/L High 97-105 [facility] Comment on above: Order Comment: Speci men Type: BLOOD SPECIMEN Ordering Facility: [facility] Address: [address] [place] [address] Performed By: #### 2 4323-8, LIPNF, 3016-3, 3084-1 #### [facility] CLIA [id number] [address] [place] [address] [place] CO2 [Moles/Vol] 27 mmol/L Normal 22-30 [facility] Comment on above: Order Comment: Speci men Type: BLOOD SPECIMEN Ordering Facility: [facility] Address: [address] [place] [place] [address] Performed By: #### 2 4323-8, LIPAIDAN, 6-3, 3083-1 #### [facility] CLIA [id number] [address] [place] [address] [place] Creatinine [Mass/Vol] 1.64 mg/dL High 0.73-1.22 [facility] Comment on above: Order Comment: Speci men Type: BLOOD SPECIMEN Ordering Facility: [facility] Address: [address] [place] [address] Performed By: #### 2 4323-8, LIPAIDAN, 3015-3, 3083-1 #### [facility] CLIA [id number] [address] [place] [address] [place] ESTIMATED GLOMERULAR FILTRATION RATE 43 mL/min/1.73m??? Low >=60 [facility] Comment on above: Order Comment: Speci men Type: BLOOD SPECIMEN Ordering Facility: [facility] Address: [address] [place] [address] Result Comment: Yecenia mated Glomerular Filtration Rate (eGFR) is calculated using the 2020 CKD-EPI creatinine equation. This equation utilizes serum creatinine, sex, and age as parameters. The creatinine assay has traceable calibration to isotope dilution-mass spectrometry. Refer to KDIGO guidelines for clinical interpretation. In patients with unstable renal function, e.g. those with acute kidney injury, the eGFR may not accurately reflect actual GFR. Performed By: #### 2 4323-8, LIPNF, 6-3, 3084-1 #### [facility] CLIA [id number] [address] [place] [address] [place] Glucose [Mass/Vol] 116 mg/dL High 74-99 [facility] Comment on above: Order Comment: Speci men Type: BLOOD SPECIMEN Ordering Facility: [facility] Address: [address] [place] [place] [address] Result Comment: The [place] Diabetes Association (ADA) provides guidance for cutoff values for fasting glucose and random glucose. The ADA defines fasting as no caloric intake for at least 8 hours. Fasting plasma glucose results between 100 to 125 mg/dL indicate increased risk for diabetes (prediabetes). Fasting plasma glucose results greater than or equal to 126 mg/dL meet the criteria for diagnosis of diabetes. In the absence of unequivocal hyperglycemia, results should be confirmed by repeat testing. In a patient with classic symptoms of hyperglycemia or hyperglycemic crisis, random plasma glucose results greater than or equal to 200 mg/dL meet the criteria for diagnosis of diabetes. Reference: Standards of Medical Care in Diabetes 2016, [place] Diabetes Association. Diabetes Care. 2016.39(Suppl 1). Performed By: #### 2 4323-8, LIPNF, 6-3, 3084-1 #### [facility] CLIA [id number] [address] [place] [address] [place] Potassium [Moles/Vol] 3.7 mmol/L Normal 3.7-5.1 [facility] Comment on above: Order Comment: Speci men Type: BLOOD SPECIMEN Ordering Facility: [facility] Address: [address] [place] [address] Performed By: #### 2 4323-8, LIPNF, 6-3, 3084-1 #### [facility] CLIA [id number] [address] [place] [address] [place] Sodium [Moles/Vol] 143 mmol/L Normal 136-144 [facility] Comment on above: Order Comment: Speci men Type: BLOOD SPECIMEN Ordering Facility: [facility] Address: [address] [place] [address] Performed By: #### 2 4323-8, LIPNF, 3016-3, 3084-1 #### [facility] CLIA [id number] [address] [place] [address] [place] Urea nitrogen [Mass/Vol] 26 mg/dL High 9-24 [facility] Comment on above: Order Comment: Speci men Type: BLOOD SPECIMEN Ordering Facility: [facility] Address: [address] [place] [address] [place] [id number] Performed By: #### 2 4323-8, LIPNF, 3016-3, 3084-1 #### [facility] CLIA [id number] [address] [place] [address] [place] Mariano 10-21-2021 CNPN Telephone (CAWSTR) -- AG JONES ([id number]) 1945 M Date Time Provider Department 10/21/21 CAROLYN BETANCOURT During your visit today, we recorded the following information about you: Antoinette Garcia Pss 10/21/2021 3:27 PM Signed Patient called in very upset about an echo being order. He feels that this test was only ordered to collect money from he, he cancelled and refused to reschedule. Court Hayes RN 10/22/2021 1:33 PM Signed Carolyn Betancourt APRN.DELANEY Damon 3 hours ago (9:49 AM) It looks like Dr. Mane ordered an echocardiogram for further evaluation of syncope. It is usually standard to evaluate cardiac structure and function with an echocardiogram in a work-up for cause of syncope. Of course, it is the patient's right to decline if he does not want further testing and evaluation. Thank you, DANNIE Alcaraz RN 10/22/2021 1:33 PM Signed Called pt and left message for pt to return call. Want to explain rationale for ordering of echocardiogram to pt when he returns call. CATALINA Esposito LPN 10/23/2021 8:10 AM Signed Patient called. Verified name and date of . Informed of message from Carolyn Betancourt CNP. Patient states he doesn't care what it (echocardiogram) is for and is not having it done just to feed the pockets of so called specialist. Josette Diaz LPN Allergies As of Date: 10/21/2021 Noted Allergy Reaction environmental [Other] 05/03/2008 Date Reviewed: 10/20/2021 Reviewed by: Court Hayes RN - Fully Assessed Reason for Visit: Appointment Cancelled [1023] Prescriptions as of 01/18/2022 - gabapentin (NEURONTIN) 600 mg tablet Take 1 tablet by mouth three times daily. Take with 300 mg three times a day - gabapentin (NEURONTIN) 300 mg capsule Take 1 capsule by mouth three times daily. Take with 600 mg three times a day - allopurinol (ZYLOPRIM) 300 mg tablet Take 1 tablet by mouth once daily. - hydroCHLOROthiazide (HYDRODIURIL, ESIDRIX) 25 mg tablet Take 1 tablet by mouth once daily. - atorvastatin (LIPITOR) 20 mg tablet Take 1 tablet by mouth daily at bedtime. For cholesterol. - ACETAMINOPHEN 500 MG TAB Take two tablets as needed Facility-Administered Medications as of 01/18/2022 - perflutren lipid microspheres 1.3 mL in NaCl (PF) 0.9% 10 mL injection (DEFINITY) - sodium chloride 0.9 % (flush) 10 mL (BD POSIFLUSH) Problem List As Of Date 10/21/2021 Noted Resolved POST-HERPETIC NEURALGIA [B02.29] 05/03/2008 Allergic Rhinitis, Cause Unspecified [J30.9] 05/03/2008 Hyperlipidemia, mixed [E78.2] 05/03/2008 Gout, Unspecified [M10.9] 05/03/2008 Essential Hypertension, Benign [I10] 05/03/2008 Osteoarth NOS-Other Site [M19.90] 05/03/2008 Contact Dermatitis and Other Eczema, due to Uns*05/03/2008 Special Screening for Malignant Neoplasms, [place]*05/25/2008 Nonspecific Abnormal Results of Liver Function *06/13/2008 Chronic kidney disease, unspecified [N18.9] 06/13/2008 08/14/2021 Benign Neoplasm of Colon [D12.6] 06/25/2008 Calcaneal Spur [M77.30] 07/11/2008 Pain in Soft Tissues of Limb [M79.609] 07/11/2008 Bunion [M21.619] 08/29/2008 History of colonic polyps [Z86.010] 08/24/2011 Perirectal abscess [K61.1] 05/26/2012 Obesity, Class II, BMI 35-39.9 [E66.9] 07/10/2020 Prediabetes [R73.03] 01/09/2021 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 CNOVon 10-20-2021 CNOV Office Visit (CAWSTR ) -- AG JONES ([id number]) 1945 M Date Time Provider Department 10/20/21 10:30 AM RYAN MANE During your visit today, we recorded the following information about you: Pulse Blood pressure Weight 72/minute 120/60 102.1 kg Ryan Mane MD 10/20/2021 11:47 AM Signed CARDIOLOGY CLINIC CONSULT NOTE REASON FOR CONSULT: Abnormal Holter monitor Episode of syncope REQUESTING PHYSICIAN: Adama Pride CNP HPI: Mr. Jones is a 76 year old male with [...] 07/01/2021 HDL Cholesterol 43 07/01/2021 LDL Chol, [place] 69 07/01/2021 Cholesterol, Total 130 07/01/2021 EK lead EKG 06/30/2021 shows normal sinus rhythm. MS and QT intervals are normal. T (more content not included)... Normal [facility] Mariano 08-15-2021 [facility] Telephone (FAMPWS) -- AG JONES ([id number]) 1945 M Date Time Provider Department 08/15/21 BLAZ, ADAMA FAMPWS During your visit today, we recorded the following information about you: Adama Pride APRN.JESUS MANUEL BALTAZAR 08/15/2021 1:43 PM Signed Team: Inform patient that his potassium levels have improved. His kidney function is slightly worse. Recommend rechecking his kidney function in 3 months. Several gomez elements to ensuring and maintaining proper kidney function are: - Hydrating well with water daily (64 ounces daily), blood pressure control and not eating excessive protein or salt within diet. - Do not use Tobacco products - Keep blood sugars under control - Avoid all non-steroidal anti-inflammatory (NSAID) pain medications. - ibuprofen (motrin, advil), naproxen (alleve), indomethacin (indocin), meloxicam (mobic), celecoxib (celebrex), and diclofenac (volatren) are common ones. -Acetaminophen (tylenol) is safe for kidneys if taken as directed. Ask your pharmacist if you have questions. ASSESSMENT/PLAN: 1. Stage 3a chronic kidney disease (HCC) - ICD9: 585.3, ICD10: N18.31 Recheck in 3 months - BASIC METABOLIC PNL Adama Pride APRN.JESUS MANUEL BALTAZAR [facility] Component Latest Ref Rng AND Units 08/14/2021 Glucose 74 - 99 mg/dL 88 BUN 9 - 24 mg/dL 23 Creatinine 0.73 - 1.22 mg/dL 1.87 (H) Sodium 136 - 144 mmol/L 145 (H) Potassium 3.7 - 5.1 mmol/L 4.2 Chloride 97 - 105 mmol/L 101 CO2 22 - 30 mmol/L 31 (H) Anion Gap 9 - 18 mmol/L 13 Calcium 8.5 - 10.2 mg/dL 10.2 eGFR >=60 mL/min/1.73m? 36 (L) Soni Abbott RN 08/15/2021 4:09 PM Signed Pt called and is notified of providers results and instructions. Pt voices understanding. Pt states he would like a call back close to the time when he needs to get the labs drawn. He does not have MyChart to notify him. Pt would also like provider to look at US results and call him and advise. CATALINA Apodaca APRN.CNP, DNP 08/15/2021 4:18 PM Signed See result note- I just posted his US results. Please review with patient. Adama Pride APRN.JESUS MANUEL BALTAZAR RN 08/15/2021 4:46 PM Signed Pt called and is notified of providers results and instructions below from US. Pt voices understanding. Soni Abbott RN Please inform patient: ? Carotid ultrasound shows the following: ?Common carotid artery: Plaque visualized without evidence of significant narrowing / stenosis. Internal carotid artery: 20-39% stenosis. He has mild narrowing of the carotid arteries but not significant to where this would be causing him symptoms. ?Recommend we continue to monitor. ? Adama Pride APRN.JESUS MANUEL BALTAZAR Allergies As of Date: 08/15/2021 Noted Allergy Reaction environmental [Other] 05/03/2008 Date Reviewed: 08/14/2021 Reviewed by: Arabella Lombardo Club Lounge Attendant - Fully Assessed Reason for Visit: Results [95] Orders [681] Primary Visit Diagnosis:Stage 3a chronic kidney disease (HCC) [N18.31] Order(s):BASIC METABOLIC PNL [SQBMP] Order #: [id number] FUTURE Prescriptions as of 08/15/2021 - furosemide (LASIX) 20 mg tablet Take 1 tablet by mouth once daily for 7 days. - gabapentin (NEURONTIN) 600 mg tablet Take 1 tablet by mouth three times daily. Take with 300 mg three times a day - gabapentin (NEURONTIN) 300 mg capsule Take 1 capsule by mouth three times daily. Take with 600 mg three times a day - allopurinol (ZYLOPRIM) 300 mg tablet Take 1 tablet by mouth once daily. - hydroCHLOROthiazide (HYDRODIURIL, ESIDRIX) 25 mg tablet Take 1 tablet by mouth once daily. - atorvastatin (LIPITOR) 20 mg tablet Take 1 tablet by mouth daily at bedtime. For cholesterol. 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] 05/03/2008 Contact Dermatitis and Other Eczema, due to Uns*05/03/2008 Special Screening for Malignant Neoplasms, [place]*05/25/2008 Nonspecific Abnormal Results of Liver Function *06/13/2008 Chronic kidney disease, unspecified [N18.9] 06/13/2008 08/14/2021 Benign Neoplasm of Colon [D12.6] 06/25/2008 Calcaneal Spur [M77.30] 07/11/2008 Pain in Soft Tissues of Limb [M79.609] 07/11/2008 Bunion [M21.619] 08/29/2008 History of colonic polyps [Z86.010] 08/24/2011 Perirectal abscess [K61.1] 05/26/2012 Obesity, Class II, BMI 35-39.9 [E66.9] 07/10/2020 Prediabetes [R73.03] 01/09/2021 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 *06/30/2021 Stage 3a chronic kidney disease (HCC) [N18.31] 08/14/2021 Encounter Status:Closed by SONI ABBOTT on 08/15/21 Normal [facility] Basic metabolic 2000 panelon 08-14-2021 Anion gap [Moles/Vol] 13 mmol/L Normal 9-18 [facility] Comment on above: Order Comment: Speci men Type: BLOOD SPECIMEN Ordering Facility: [facility] Address: [address] [place] [place] [address] Performed By: #### 2 4323-8, LIPAIDAN, 3015-3, 308-1 #### [facility] CLIA [id number] [address] [place] [address] [place] [address] [place] Calcium [Mass/Vol] 10.2 mg/dL Normal 8.5-10.2 [facility] [facility] Comment on above: Order Comment: Speci men Type: BLOOD SPECIMEN Ordering Facility: [facility] Address: [address] [place] [place] [address] Performed By: #### 2 4323-8, LIPNF, 6-3, 3084-1 #### [facility] CLIA [id number] [address] [place] [address] [place] Chloride [Moles/Vol] 101 mmol/L Normal 97-105 [facility] Comment on above: Order Comment: Speci men Type: BLOOD SPECIMEN Ordering Facility: [facility] Address: [address] [place], [place] [phone] Performed By: #### 2 4323-8, LIPNF, 3016-3, 3084-1 #### [facility] CLIA [id number] [address] [place], [place] [address] [place] CO2 [Moles/Vol] 31 mmol/L High 22-30 [facility] Comment on above: Order Comment: Speci men Type: BLOOD SPECIMEN Ordering Facility: [facility] Address: [address] [place] [place] [address] Performed By: #### 2 4323-8, LIPNF, 6-3, 3084-1 #### [facility] CLIA [id number] [address] [place] [address] [place] Creatinine [Mass/Vol] 1.87 mg/dL High 0.73-1.22 [facility] Comment on above: Order Comment: Speci men Type: BLOOD SPECIMEN Ordering Facility: [facility] Address: [address] [place], [place] [phone] Performed By: #### 2 4323-8, LIPNF, 6-3, 3084-1 #### [facility] CLIA [id number] [address] [place], [place] [address] [place] ESTIMATED GLOMERULAR FILTRATION RATE 36 mL/min/1.73m??? Low >=60 [facility] Comment on above: Order Comment: Speci men Type: BLOOD SPECIMEN Ordering Facility: [facility] Address: [address] [place], [place] [phone] Result Comment: Yecenia mated Glomerular Filtration Rate (eGFR) is calculated using the 2020 CKD-EPI creatinine equation. This equation utilizes serum creatinine, sex, and age as parameters. The creatinine assay has traceable calibration to isotope dilution-mass spectrometry. Refer to KDIGO guidelines for clinical interpretation. In patients with unstable renal function, e.g. those with acute kidney injury, the eGFR may not accurately reflect actual GFR. Performed By: #### 2 4323-8, LIPAIDAN, 6-3, 3083- #### [facility] CLIA [id number] [address] [place] [address] [place] Glucose [Mass/Vol] 88 mg/dL Normal 74-99 [facility] Comment on above: Order Comment: Specangelina díaz Type: BLOOD SPECIMEN Ordering Facility: [facility] Address: [address] [place] [place] [address] Result Comment: The [place] Diabetes Association (ADA) provides guidance for cutoff values for fasting glucose and random glucose. The ADA defines fasting as no caloric intake for at least 8 hours. Fasting plasma glucose results between 100 to 125 mg/dL indicate increased risk for diabetes (prediabetes). Fasting plasma glucose results greater than or equal to 126 mg/dL meet the criteria for diagnosis of diabetes. In the absence of unequivocal hyperglycemia, results should be confirmed by repeat testing. In a patient with classic symptoms of hyperglycemia or hyperglycemic crisis, random plasma glucose results greater than or equal to 200 mg/dL meet the criteria for diagnosis of diabetes. Reference: Standards of Medical Care in Diabetes 2016, [place] Diabetes Association. Diabetes Care. 2016.39(Suppl 1). Performed By: #### 2 4323-8, LIPAIDAN, 3015-3, 3083- #### [facility] CLIA [id number] [address] [place] [address] [place] Potassium [Moles/Vol] 4.2 mmol/L Normal 3.7-5.1 [facility] Comment on above: Order Comment: Salima díaz Type: BLOOD SPECIMEN Ordering Facility: [facility] Address: [address] [place], [place] [phone] Performed By: #### 2 4323-8, LIPAIDAN, 3015-3, 3083- #### [facility] CLIA [id number] [address] [place] [address] [place] Sodium [Moles/Vol] 145 mmol/L High 136-144 [facility] Comment on above: Order Comment: Speci men Type: BLOOD SPECIMEN Ordering Facility: [facility] Address: [address] [place] [place] [address] Performed By: #### 2 4323-8, LIPNF, 3016-3, 3084-1 #### [facility] CLIA [id number] [address] [place] [address] [place] Urea nitrogen [Mass/Vol] 23 mg/dL Normal 9-24 [facility] Comment on above: Order Comment: Speci men Type: BLOOD SPECIMEN Ordering Facility: [facility] Address: [address] [place] [place] [address] Performed By: #### 2 4323-8, LIPNF, 3016-3, 3084-1 #### [facility] CLIA [id number] [address] [place] [address] [place] CNOVon 08-14-2021 CNOV Office Visit (ROHAN ) -- KARENAG Maldonado ([id number]) 1945 M Date Time Provider Department 08/14/21 10:40 AM ADAMA PRIDE During your visit today, we recorded the following information about you: Pulse Respiration Blood pressure Weight 79/minute 16/minute 126/68 107 kg Adama Pride APRN.PURCHASING EXPEDITOR, DNP 08/14/2021 11:31 AM Signed Chief Complaint Patient presents with: Recheck HPI Ag Jones is a 76 year old male who presents here today for a follow up on leg swelling. [facility] to [facility] as an established patient of mine. New patient of [employer]. No recent urgent care visits, ER visits, [...] joint pain. No swelling HEMATOLOGY/LYMPHOLOGY: Negative for swolle (more content not included)... Normal [facility] PSA SerPl-mCncon 08-14-2021 Prostate specific Ag [Mass/Vol] 3.16 ng/mL High <2.60 [facility] Comment on above: Order Comment: Speci men Type: BLOOD SPECIMEN Ordering Facility: [facility] Address: [address] [place] [phone] Result Comment: Tota guadalupe PSA test methodology used is the Electrochemiluminescence Immunoassay by [employer]. Total PSA values by differing methodologies cannot be interchanged. For an individual patient, the significance of a PSA level should be interpreted in a broad clinical context, including age, race, family history, digital rectal exam, prostate size, results of prior testing (prostate biopsy, free PSA, PCA3), and use of 5-alpha reductase inhibitors. Considering the high incidence of asymptomatic cancer in the general population that may not pose an ultimate risk to a patient, the decision to recommend urological evaluation or prostate biopsy should be individualized after consideration of all these factors. REFERENCE: Varun Ayala M.D., M.P.H., Glenn Gastelum M.D., Ph.D., Adonay Hackett M.D., Josette Kim, M.P.H., Teresa Joiner, Sc.D. Effect of Verification Bias on Screening for Prostate Cancer by Measurement of Prostatic Specific Antigen. N Engl J Med 2003,349:335-42. Performed By: #### 2 857-1 #### [facility] CLIA [id number] [address] [place] [address] OF [facility] CNOVon 08-05-2021 CNOV Office Visit (VIRGINIAWS ) -- AG JONES ([id number]) 1945 M Date Time Provider Department 08/05/21 9:20 AM ADAMA PRIDE During your visit today, we recorded the following information about you: Temperature Pulse Respiration Blood pressure 97.9 degrees 82/minute 14/minute 128/76 Weight 108.9 kg Adama Pride APRN.PURCHASING EXPEDITOR, JESUS MANUEL 08/05/2021 10:14 AM Signed Chief Complaint Patient presents with: Recheck HPI Ag Jones is a 76 year old male who presents here today for a follow up from urgent care. Pres[facility] to the [facility] as an established patient of mine. [...] urinary symptoms. Elevated PSA: Recently seen by Eduar King in urology on July 22. Repeat [...] No unintentional weight loss, malaise or fevers. NE (more content not included)... Normal [facility] Mariano 08-04-2021 DELANEYN Telephone (FAMPWS) -- AG JONES ([id number]) 1945 M Date Time Provider Department 08/04/21 ADAMA PRIDE During your visit today, we recorded the following information about you: Adama Pride APRN.JESUS MANUEL BALTAZAR 08/04/2021 8:14 AM Signed Team - Inform the patient that it [...] Status: Future Standing Expiration Date: 08/04/2022 Adama Pride DNP, DELANEY [facility] Arabella Lombardo [employer] Att[employer] 08/05/2021 8:35 AM Signed Patient notified and verbalized understanding Arabella Lombardo Cma Allergies As of Date: 08/04/2021 Noted Allergy Reaction environmental [Other] 05/03/2008 Date Reviewed: 07/29/2021 Reviewed by: Arabella Lombardo Cma - Fully Assessed Reason for Visit: Results [95] Orders [681] Primary Visit Diagnosis:Collapse fleeting [R55] Order(s):US CAROTID ARTERIES [facility] [[id number]] Order #: [id number] FUTURE Prescriptions as of 08/05/2021 - furosemide (LASIX) 20 mg tablet Take 1 tablet by mouth once daily for 4 days. - triamcinolone acetonide (KENALOG) 0.1 % cream Apply to affected area twice daily for 14 days. - gabapentin (NEURONTIN) 600 mg tablet Take 1 tablet by mouth three times daily. Take with 300 mg three times a day - gabapentin (NEURONTIN) 300 mg capsule Take 1 capsule by mouth three times daily. Take with 600 mg three times a day - allopurinol (ZYLOPRIM) 300 mg tablet Take 1 tablet by mouth once daily. - hydroCHLOROthiazide (HYDRODIURIL, ESIDRIX) 25 mg tablet Take 1 tablet by mouth once daily. - atorvastatin (LIPITOR) 20 mg tablet Take 1 tablet by mouth daily at bedtime. For cholesterol. 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] 05/03/2008 Contact Dermatitis and Other Eczema, due to Uns*05/03/2008 Special Screening for Malignant Neoplasms, [place]*05/25/2008 Nonspecific Abnormal Results of Liver Function *06/13/2008 Chronic Kidney Disease, Unspecified [N18.9] 06/13/2008 Benign Neoplasm of Colon [D12.6] 06/25/2008 Calcaneal Spur [M77.30] 07/11/2008 Pain in Soft Tissues of Limb [M79.609] 07/11/2008 Bunion [M21.619] 08/29/2008 History of colonic polyps [Z86.010] 08/24/2011 Perirectal abscess [K61.1] 05/26/2012 Obesity, Class II, BMI 35-39.9 [E66.9] 07/10/2020 Prediabetes [R73.03] 01/09/2021 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 Mariano 07-31-2021 PRINCESS Telephone (CAWSTR) -- AG JONES ([id number]) 1945 M Date Time Provider Department 07/31/21 RYAN MANE During your visit today, we recorded the following information about you: Mary Lou Brown Pss 07/31/2021 1:52 PM Signed Patient called stating he has received multiple calls regarding his appt. Please call patient and advise. I have been unable to find any documentation other than that patient is to be scheduled on 10/20. He is upset and wants to know why calls are being made. Mona Garcia RN 07/31/2021 3:37 PM Signed Attempted to contact pt, phone number listed not working. Allergies As of Date: 07/31/2021 Noted Allergy Reaction environmental [Other] 05/03/2008 Date Reviewed: 07/29/2021 Reviewed by: Arabella Lombardo [employer] Lounge Attendant - Fully Assessed Reason for Visit: Patient Question [3299] Prescriptions as of 08/01/2021 - furosemide (LASIX) 20 mg tablet Take 1 tablet by mouth once daily for 4 days. - triamcinolone acetonide (KENALOG) 0.1 % cream Apply to affected area twice daily for 14 days. - gabapentin (NEURONTIN) 600 mg tablet Take 1 tablet by mouth three times daily. Take with 300 mg three times a day - gabapentin (NEURONTIN) 300 mg capsule Take 1 capsule by mouth three times daily. Take with 600 mg three times a day - allopurinol (ZYLOPRIM) 300 mg tablet Take 1 tablet by mouth once daily. - hydroCHLOROthiazide (HYDRODIURIL, ESIDRIX) 25 mg tablet Take 1 tablet by mouth once daily. - atorvastatin (LIPITOR) 20 mg tablet Take 1 tablet by mouth daily at bedtime. For cholesterol. 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] 05/03/2008 Contact Dermatitis and Other Eczema, due to Uns*05/03/2008 Special Screening for Malignant Neoplasms, [place]*05/25/2008 Nonspecific Abnormal Results of Liver Function *06/13/2008 Chronic Kidney Disease, Unspecified [N18.9] 06/13/2008 Benign Neoplasm of Colon [D12.6] 06/25/2008 Calcaneal Spur [M77.30] 07/11/2008 Pain in Soft Tissues of Limb [M79.609] 07/11/2008 Bunion [M21.619] 08/29/2008 History of colonic polyps [Z86.010] 08/24/2011 Perirectal abscess [K61.1] 05/26/2012 Obesity, Class II, BMI 35-39.9 [E66.9] 07/10/2020 Prediabetes [R73.03] 01/09/2021 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 Potassium was just slightly low. Recommend eating potassium rich foods. Otherwise the rest of his lab work was in the acceptable range. Continue with current plan Adama Pride APRN.PURCHASING EXPEDITOR, DNP Arabella Lombardo Cma 07/30/2021 10:24 AM Signed Left message for patient to return call to office Arabella Elias LPN 07/30/2021 10:47 AM Signed Pt notified of lab results AND states understanding. Liz Elias LPN Allergies As of Date: 07/30/2021 Noted Allergy Reaction environmental [Other] 05/03/2008 Date Reviewed: 07/29/2021 Reviewed by: Arabella Lombardo Cma - Fully Assessed Reason for Visit: Results [95] Prescriptions as of 07/30/2021 - furosemide (LASIX) 20 mg tablet Take 1 tablet by mouth once daily for 4 days. - triamcinolone acetonide (KENALOG) 0.1 % cream Apply to affected area twice daily for 14 days. - gabapentin (NEURONTIN) 600 mg tablet Take 1 tablet by mouth three times daily. Take with 300 mg three times a day - gabapentin (NEURONTIN) 300 mg capsule Take 1 capsule by mouth three times daily. Take with 600 mg three times a day - allopurinol (ZYLOPRIM) 300 mg tablet Take 1 tablet by mouth once daily. - hydroCHLOROthiazide (HYDRODIURIL, ESIDRIX) 25 mg tablet Take 1 tablet by mouth once daily. - atorvastatin (LIPITOR) 20 mg tablet Take 1 tablet by mouth daily at bedtime. For cholesterol. 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] 05/03/2008 Contact Dermatitis and Other Eczema, due to Uns*05/03/2008 Special Screening for Malignant Neoplasms, [place]*05/25/2008 Nonspecific Abnormal Results of Liver Function *06/13/2008 Chronic Kidney Disease, Unspecified [N18.9] 06/13/2008 Benign Neoplasm of Colon [D12.6] 06/25/2008 Calcaneal Spur [M77.30] 07/11/2008 Pain in Soft Tissues of Limb [M79.609] 07/11/2008 Bunion [M21.619] 08/29/2008 History of colonic polyps [Z86.010] 08/24/2011 Perirectal abscess [K61.1] 05/26/2012 Obesity, Class II, BMI 35-39.9 [E66.9] 07/10/2020 Prediabetes [R73.03] 01/09/2021 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 CNOVon 07-29-2021 CNOV Office Visit (FAMPWS ) -- AG JONES ([id number]) 1945 M Date Time Provider Department 07/29/21 9:20 AM ADAMA PRIDE During your visit today, we recorded the following information about you: Temperature Pulse Respiration Blood pressure 97.2 degrees 86/minute 16/minute 122/66 Weight 108.9 kg Adama Pride APRN.[facility] 08/03/2021 1:51 PM Addendum Chief Complaint Patient presents with: Leg Edema: left leg HPI Ag Jones is a 76 year old male who presents here today for a follow up from urgent care. Presents to the [facility] as an established patient of mine. New [...] urinary symptoms. Elevated PSA: Recently seen by Eduar King in urology on July 22. Repeat [...] GENERAL: No unintentional weight loss, malaise or feve (more content not included)... Normal [facility] Comprehensive metabolic 2000 panelon 07-29-2021 Albumin [Mass/Vol] 4.1 g/dL Normal 3.9-4.9 [facility] Comment on above: Order Comment: Speci men Type: BLOOD SPECIMEN Ordering Facility: [facility] Address: [address] [place] [place] [address] Performed By: #### 2 4323-8, LIPNF, 3016-3, 3084-1 #### [facility] CLIA [id number] [address] [place] [address] [place] ALP [Catalytic activity/Vol] 104 U/L Normal 38-113 [facility] Comment on above: Order Comment: Speci men Type: BLOOD SPECIMEN Ordering Facility: [facility] Address: [address] [place] [place] [address] Performed By: #### 2 4323-8, LIPNF, 3016-3, 3084-1 #### [facility] CLIA [id number] [address] [place] [address] [place] ALT [Catalytic activity/Vol] 12 U/L Normal 10-54 [facility] Comment on above: Order Comment: Speci men Type: BLOOD SPECIMEN Ordering Facility: [facility] Address: [address] [place] [address] Performed By: #### 2 4323-8, LIPNF, 3016-3, 3084-1 #### [facility] CLIA [id number] [address] [place] [address] [place] Anion gap [Moles/Vol] 11 mmol/L Normal 9-18 [facility] Comment on above: Order Comment: Speci men Type: BLOOD SPECIMEN Ordering Facility: [facility] Address: [address] [place], [place] [phone] Performed By: #### 2 4323-8, LIPNF, 3016-3, 3084-1 #### [facility] CLIA [id number] [address] [place] [address] [place] AST [Catalytic activity/Vol] 18 U/L Normal 14-40 [facility] Comment on above: Order Comment: Speci men Type: BLOOD SPECIMEN Ordering Facility: [facility] Address: [address] [place] [phone] Performed By: #### 2 4323-8, LIPNF, 3016-3, 3084-1 #### [facility] CLIA [id number] [address] [place] [address] [place] Bilirubin [Mass/Vol] 1.2 mg/dL Normal 0.2-1.3 [facility] Comment on above: Order Comment: Speci men Type: BLOOD SPECIMEN Ordering Facility: [facility] Address: [address] [place] [address] Performed By: #### 2 4323-8, LIPNF, 3016-3, 3084-1 #### [facility] CLIA [id number] [address] [place] [address] [place] Calcium [Mass/Vol] 9.8 mg/dL Normal 8.5-10.2 [facility] Comment on above: Order Comment: Speci men Type: BLOOD SPECIMEN Ordering Facility: [facility] Address: [address] [place] [address] Performed By: #### 2 4323-8, LIPNF, 3016-3, 3084-1 #### [facility] CLIA [id number] [address] [place] [address] [place] Chloride [Moles/Vol] 100 mmol/L Normal 97-105 [facility] Comment on above: Order Comment: Speci men Type: BLOOD SPECIMEN Ordering Facility: [facility] Address: [address] [place], [place] [phone] Performed By: #### 2 4323-8, LIPNF, 3016-3, 3084-1 #### [facility] CLIA [id number] [address] [place] [address] [place] CO2 [Moles/Vol] 29 mmol/L Normal 22-30 [facility] Comment on above: Order Comment: Speci men Type: BLOOD SPECIMEN Ordering Facility: [facility] Address: [address] [place] [phone] Performed By: #### 2 4323-8, LIPNF, 3016-3, 3084-1 #### [facility] CLIA [id number] [address] [place] [address] [place] Creatinine [Mass/Vol] 1.66 mg/dL High 0.73-1.22 [facility] Comment on above: Order Comment: Speci men Type: BLOOD SPECIMEN Ordering Facility: [facility] Address: [address] [place], [place] [phone] Performed By: #### 2 4323-8, HERBERT, 6-3, 4-1 #### [facility] CLIA [id number] [address] [place] [address] [place] ESTIMATED GLOMERULAR FILTRATION RATE 42 mL/min/1.73m??? Low >=60 [facility] Comment on above: Order Comment: Salima díaz Type: BLOOD SPECIMEN Ordering Facility: [facility] Address: [address] [place] [place] [address] Result Comment: Yecenia mated Glomerular Filtration Rate (eGFR) is calculated using the 2020 CKD-EPI creatinine equation. This equation utilizes serum creatinine, sex, and age as parameters. The creatinine assay has traceable calibration to isotope dilution-mass spectrometry. Refer to KDIGO guidelines for clinical interpretation. In patients with unstable renal function, e.g. those with acute kidney injury, the eGFR may not accurately reflect actual GFR. Performed By: #### 2 4323-8, HERBERT, 3015-3, 4-1 #### [facility] CLIA [id number] [address] [place] [address] [place] Glucose [Mass/Vol] 112 mg/dL High 74-99 [facility] Comment on above: Order Comment: Salima díaz Type: BLOOD SPECIMEN Ordering Facility: [facility] Address: [address] [place] [place] [address] Result Comment: The [place] Diabetes Association (ADA) provides guidance for cutoff values for fasting glucose and random glucose. The ADA defines fasting as no caloric intake for at least 8 hours. Fasting plasma glucose results between 100 to 125 mg/dL indicate increased risk for diabetes (prediabetes). Fasting plasma glucose results greater than or equal to 126 mg/dL meet the criteria for diagnosis of diabetes. In the absence of unequivocal hyperglycemia, results should be confirmed by repeat testing. In a patient with classic symptoms of hyperglycemia or hyperglycemic crisis, random plasma glucose results greater than or equal to 200 mg/dL meet the criteria for diagnosis of diabetes. Reference: Standards of Medical Care in Diabetes 2016, [place] Diabetes Association. Diabetes Care. 2016.39(Suppl 1). Performed By: #### 2 4323-8, LIPNF, 3016-3, 3084-1 #### [facility] CLIA [id number] [address] [place] [address] [place] Potassium [Moles/Vol] 3.5 mmol/L Low 3.7-5.1 [facility] Comment on above: Order Comment: Speci men Type: BLOOD SPECIMEN Ordering Facility: [facility] Address: [address] [place], [place] [phone] Performed By: #### 2 4323-8, LIPNF, 3016-3, 3084-1 #### [facility] CLIA [id number] [address] [place] [address] [place] Protein [Mass/Vol] 7.2 g/dL Normal 6.3-8.0 [facility] Comment on above: Order Comment: Speci men Type: BLOOD SPECIMEN Ordering Facility: [facility] Address: [address] [place], [place] [id number] Performed By: #### 2 4323-8, LIPNF, 6-3, 3084-1 #### [facility] CLIA [id number] [address] [place] [address] [place] Sodium [Moles/Vol] 140 mmol/L Normal 136-144 [facility] Comment on above: Order Comment: Speci men Type: BLOOD SPECIMEN Ordering Facility: [facility] Address: [address] [place], [place] [id number] Performed By: #### 2 4323-8, LIPNF, 3016-3, 3084-1 #### [facility] CLIA [id number] [address] [place] [address] [place] Urea nitrogen [Mass/Vol] 22 mg/dL Normal 9-24 [facility] Comment on above: Order Comment: Speci men Type: BLOOD SPECIMEN Ordering Facility: [facility] Address: [address] [place], [place] [phone] Performed By: #### 2 4323-8, LIPNF, 3016-3, 3084-1 #### [facility] CLIA [id number] [address] [place] [address] OF [place] NT-proBNP [facility] 07-29 Natriuretic peptide.B prohormone N-Terminal [Mass/Vol] 62 pg/mL Normal <450 [facility] Comment on above: Order Comment: Speci men Type: BLOOD SPECIMEN Ordering Facility: [facility] Address: [address] [place] [place] [address] Performed By: #### 2 4323-8, LIPAIDAN, 3016-3, 3084-1 #### [facility] CLIA [id number] [address] [place] [address] [place] CNOVon 07-28-2021 CNOV Office Visit (UCWSTR ) -- KARENAG Erica ([id number]) 1945 M Date Time Provider Department 07/28/21 8:15 AM ANA MARÍA CRAWFORD [facility] During your visit today, we recorded the following information about you: Temperature Pulse Respiration Blood pressure 97.7 degrees 88/minute 16/minute 124/60 Weight 108.4 kg Ana María Crawford APRN.PURCHASING EXPEDITOR 07/29/2021 2:34 PM Signed Subjective The history is provided by the patient. No fisher purse seine was used. HPI Ag Jones is a 76 year old male who [...] have confirmed and edited as necessary, the [facility] Review of Systems Constitutional: Negative for chills [...] time. Psychiatric: Mood and Affect: Affect normal. Ana María Crawford APRN.CNP 07/28/2021 8:43 AM Signed Left lower leg swelling Will check ultrasound to check for clot If negative, would recommend to follow up with PCP for further treatment and evaluation. Ana María Crawford APRN.CNP Referring Provider: SELF [200] Allergies As of Date: 07/28/2021 Noted Allergy Reaction environmental [Other] 05/03/2008 Date Reviewed: 07/28/2021 Reviewed by: Ana María Crawford APRN.CNP - Fully Assessed Reason for Visit: Edema [39] Cmt: left foot, ankle and calf and swelling x 3 days Primary Visit Diagnosis:Left leg swelling [M79.89] Order(s):US DVT LOWER LT [[id number]] Order #: [id number] FUTURE Prescriptions as of 07/29/2021 - furosemide (LASIX) 20 mg tablet Take 1 tablet by mouth once daily for 4 days. - triamcinolone acetonide (KENALOG) 0.1 % cream Apply to affected area twice daily for 14 days. - gabapentin (NEURONTIN) 600 mg tablet Take 1 tablet by mouth three times daily. Take with 300 mg three times a day - gabapentin (NEURONTIN) 300 mg capsule Take 1 capsule by mouth three times daily. Take with 600 mg three times a day - allopurinol (ZYLOPRIM) 300 mg tablet Take 1 tablet by mouth once daily. - hydroCHLOROthiazide (HYDRODIURIL, ESIDRIX) 25 mg tablet Take 1 tablet by mouth once daily. - atorvastatin (LIPITOR) 20 mg tablet Take 1 tablet by mouth daily at bedtime. For cholesterol. 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] 05/03/2008 Contact Dermatitis and Other Eczema, due to Uns*05/03/2008 Special Screening for Malignant Neoplasms, [place]*05/25/2008 Nonspecific Abnormal Results of Liver Function *06/13/2008 Chronic Kidney Disease, Unspecified [N18.9] 06/13/2008 Benign Neoplasm of Colon [D12.6] 06/25/2008 Calcaneal Spur [M77.30] 07/11/2008 Pain in Soft Tissues of Limb [M79.609] 07/11/2008 Bunion [M21.619] 08/29/2008 History of colonic polyps [Z86.010] 08/24/2011 Perirectal abscess [K61.1] 05/26/2012 Obesity, Class II, BMI 35-39.9 [E66.9] 07/10/2020 Prediabetes [R73.03] 01/09/2021 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 [facility] Tele[facility] ([facility]) -- AG JONES ([id number]) 1945 M Date Time Provider Department 07/28/21 ANA MARÍA CRAWFORD [facility] During your visit today, we recorded the following information about you: Ana María Crawford APRN.PURCHASING EXPEDITOR 07/28/2021 1:50 PM Signed Patient notified that US did not show any DVT. Advise that we will set up follow up with PCP for further evaluation Allergies As of Date: 07/28/2021 Noted Allergy Reaction environmental [Other] 05/03/2008 Date Reviewed: 07/28/2021 Reviewed by: Ana María Crawford APRN.PURCHASING EXPEDITOR - Fully Assessed Reason for Visit: Appointment [186] Prescriptions as of 09/03/2021 - furosemide (LASIX) 20 mg tablet Take 1 tablet by mouth once daily for 7 days. - gabapentin (NEURONTIN) 600 mg tablet Take 1 tablet by mouth three times daily. Take with 300 mg three times a day - gabapentin (NEURONTIN) 300 mg capsule Take 1 capsule by mouth three times daily. Take with 600 mg three times a day - allopurinol (ZYLOPRIM) 300 mg tablet Take 1 tablet by mouth once daily. - hydroCHLOROthiazide (HYDRODIURIL, ESIDRIX) 25 mg tablet Take 1 tablet by mouth once daily. - atorvastatin (LIPITOR) 20 mg tablet Take 1 tablet by mouth daily at bedtime. For cholesterol. 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] 05/03/2008 Contact Dermatitis and Other Eczema, due to Uns*05/03/2008 Special Screening for Malignant Neoplasms, [place]*05/25/2008 Nonspecific Abnormal Results of Liver Function *06/13/2008 Chronic Kidney Disease, Unspecified [N18.9] 06/13/2008 Benign Neoplasm of Colon [D12.6] 06/25/2008 Calcaneal Spur [M77.30] 07/11/2008 Pain in Soft Tissues of Limb [M79.609] 07/11/2008 Bunion [M21.619] 08/29/2008 History of colonic polyps [Z86.010] 08/24/2011 Perirectal abscess [K61.1] 05/26/2012 Obesity, Class II, BMI 35-39.9 [E66.9] 07/10/2020 Prediabetes [R73.03] 01/09/2021 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 Normal response to augmentation. IMPRESSION: Negative study for proximal DVT in the left lower extremity. Negative study for calf DVT in the left lower extremity. Negative study for superficial thrombophlebitis in the imaged segments of the left lower extremity. Kelly Machine Operator: PSCB Transcribe Date/Time: Jul 28 2021 12:04P Dictated by : BRADLY YOUNGBLOOD MD This examination was interpreted and the report reviewed and electronically signed by: BRDALY YOUNGBLOOD MD on Jul 28 2021 12:06PM EST [id number] Normal [facility] CNOVon 07-22-2021 CNOV Office Visit (UROLWS ) -- KARENAG Maldonado ([id number]) 1945 M Date Time Provider Department 07/22/21 10:00 AM EDUAR KING During your visit today, we recorded the following information about you: Pulse Blood pressure Weight 74/minute 110/62 110.7 kg Eduar King PA-C 07/22/2021 3:43 PM Signed [facility] [place] [facility] UROLOGY CONSULT PATIENT INFO: Ag Howardham 76 year old HPI: Ag Howardham 5 year old male who presents today [...] > No LUTS > 1 year Appt CHEKO Us MT, PA-C with PSA prior CHEKO Castro MT, PA-C Referring Provider: ADAMA PRIDE [[id number]] Allergies As of Date: 07/22/2021 Noted Allergy Reaction environmental [Other] 05/03/2008 Date Reviewed: 07/22/2021 Reviewed by: Tamie Cordova - Fully Assessed Reason for Visit: Follow Up [171] Elevated PSA [3906] Primary Visit Diagnosis:Elevated PSA [R97.20] Order(s):UA DIP, URINE (POC) [[id number]] Order #: [id number]. #:[id number] 1-LAB PSA/PROSTSPECAG DIAG [SQPSA] Order #: [id number] FUTURE Prescriptions as of 07/22/2021 - gabapentin (NEURONTIN) 600 mg tablet Take 1 tablet by mouth three times daily. Take with 300 mg three times a day - gabapentin (NEURONTIN) 300 mg capsule Take 1 capsule by mouth three times daily. Take with 600 mg three times a day - allopurinol (ZYLOPRIM) 300 mg tablet Take 1 tablet by mouth once daily. - hydroCHLOROthiazide (HYDRODIURIL, ESIDRIX) 25 mg tablet Take 1 tablet by mouth once daily. - atorvastatin (LIPITOR) 20 mg tablet Take 1 tablet by mouth daily at bedtime. For cholesterol. - ACETAMINOPHEN 500 MG TAB Take two tablets as needed Problem List As Of Date 07/22/2021 Noted Resolved POST-HERPETIC NEURALGIA [B02.29] 05/03/2008 Allergic Rhinitis, Cause Unspecified [J30.9] 05/03/2008 Hyperlipidemia, mixed [E78.2] 05/03/2008 Gout, Unspecified [M10.9] 05/03/2008 Essential Hypertension, Benign [I10] 05/03/2008 Osteoarth NOS-Other Site [M19.90] 05/03/2008 Contact Dermatitis and Other Eczema, due to Uns*05/03/2008 Special Screening for Malignant Neoplasms, [place]*05/25/2008 Nonspecific Abnormal Results of Liver Function *06/13/2008 Chronic Kidney Disease, Unspecified [N18.9] 06/13/2008 Benign Neoplasm of Colon [D12.6] 06/25/2008 Calcaneal Spur [M77.30] 07/11/2008 Pain in Soft Tissues of Limb [M79.609] (more content not included)... Normal [facility] UA DIP, URINE (POC)on 2021 BILIRUBIN UA (POCT) Negative Negative [facility] CLARITY UA (POCT) Clear [facility] COLOR UA (POCT) Yellow [facility] GLUCOSE UA (POCT) Negative Negative mg/dL [facility] HEMOGLOBIN/BLOOD UA (POCT) Negative Negative [facility] KETONE UA (POCT) Negative Negative mg/dL [facility] LEUKOCYTES UA (POCT) Negative Negative [facility] NITRITE UA (POCT) Negative Negative [facility] PH UA (POCT) 6.0 4.5 - 8.0 [facility] Protein Ql (U) Negative Negative mg/dL [facility] SPECIFIC GRAVITY UA (POCT) 1.015 1.005 - 1.030 [facility] UROBILINOGEN UA (POCT) 0.2 E.U./dL Angie l E.U./dL [facility] Vital Signs Date Time Vital Sign Value Performing Clinician Jasbir hughes 12-18-2021 09:10-0400 Body weight 102.06 kg Shantanu Munoz MD Work Phone: [facility] 12-18-2021 09:10-0400 Diastolic blood pressure 60 mm[Hg] Shantanu Munoz MD Work Phone: [facility] 12-18-2021 09:10-0400 Heart rate 76 /min Shantanu Munoz MD Work Phone: [facility] 12-18-2021 09:10-0400 Respiratory rate 16 /min Shantanu Munoz MD Work Phone: [facility] 12-18-2021 09:10-0400 Systolic blood pressure 108 mm[Hg] Shantanu Munoz MD Work Phone: [facility] 10-20-2021 10:27-0400 Body weight 102.06 kg Ryan Mane MD Work Phone: [facility] 10-20-2021 10:27-0400 Diastolic blood pressure 60 mm[Hg] Ryan Mane MD Work Phone: [facility] 10-20-2021 10:27-0400 Heart rate 72 /min Ryan Mane MD Work Phone: [facility] 10-20-2021 10:27-0400 Systolic blood pressure 120 mm[Hg] Ryan Mane MD Work Phone: [facility] 08-14-2021 10:41-0400 Body weight 107.05 kg Adama Pride APRN.PURCHASING EXPEDITOR, DNP Work Phone: [facility] 08-14-2021 10:41-0400 Diastolic blood pressure 68 mm[Hg] Adama Pride APRN.PURCHASING EXPEDITOR, DNP Work Phone: [facility] 08-14-2021 10:41-0400 Heart rate 79 /min Adama Pride APRN.PURCHASING EXPEDITOR, DNP Work Phone: [facility] 08-14-2021 10:41-0400 Respiratory rate 16 /min Adama Pride APRN.PURCHASING EXPEDITOR, DNP Work Phone: [facility] 08-14-2021 10:41-0400 SaO2% (BldA) [Mass fraction] 97 % Adama Pride APRN.PURCHASING EXPEDITOR, DNP Work Phone: [facility] 08-14-2021 10:41-0400 Systolic blood pressure 126 mm[Hg] Adama Pride APRN.PURCHASING EXPEDITOR, DNP Work Phone: [facility] 08-05-2021 09:16-0400 Body temperature 97.9 [degF] Adama Pride APRN.PURCHASING EXPEDITOR, DNP Work Phone: [facility] 08-05-2021 09:16-0400 Body weight 108.86 kg Adama Pride APRN.PURCHASING EXPEDITOR, DNP Work Phone: [facility] 08-05-2021 09:16-0400 Diastolic blood pressure 76 mm[Hg] Adama Pride APRN.PURCHASING EXPEDITOR, DNP Work Phone: [facility] 08-05-2021 09:16-0400 Heart rate 82 /min Adama Pride APRN.PURCHASING EXPEDITOR, DNP Work Phone: [facility] 08-05-2021 09:16-0400 Respiratory rate 14 /min Adama Pride APRN.PURCHASING EXPEDITOR, DNP Work Phone: [facility] 08-05-2021 09:16-0400 SaO2% (BldA) [Mass fraction] 97 % Adama Pride APRN.PURCHASING EXPEDITOR, DNP Work Phone: [facility] 08-05-2021 09:16-0400 Systolic blood pressure 128 mm[Hg] Adama Pride APRN.PURCHASING EXPEDITOR, DNP Work Phone: [facility] 07-29-2021 09:13-0400 Body temperature 97.2 [degF] Adama Pride APRN.PURCHASING EXPEDITOR, DNP Work Phone: [facility] 07-29-2021 09:13-0400 Body weight 108.86 kg Adama Pride APRN.PURCHASING EXPEDITOR, DNP Work Phone: [facility] 07-29-2021 09:13-0400 Diastolic blood pressure 66 mm[Hg] Adama Pride APRN.PURCHASING EXPEDITOR, DNP Work Phone: [facility] 07-29-2021 09:13-0400 Heart rate 86 /min Adama Pride APRN.PURCHASING EXPEDITOR, DNP Work Phone: [facility] 07-29-2021 09:13-0400 Respiratory rate 16 /min Adama Pride APRN.PURCHASING EXPEDITOR, DNP Work Phone: [facility] 07-29-2021 09:13-0400 SaO2% (BldA) [Mass fraction] 96 % Adama Pride APRN.PURCHASING EXPEDITOR, DNP Work Phone: [facility] 07-29-2021 09:13-0400 Systolic blood pressure 122 mm[Hg] Adama Pride APRN.PURCHASING EXPEDITOR, DNP Work Phone: [facility] 07-28-2021 08:14-0400 Body temperature 97.7 [degF] Ana María Yvette BUN MACHINE OPERATOR.PURCHASING EXPEDITOR Work Phone: [facility] 07-28-2021 08:14-0400 Body weight 108.41 kg Ana María Yvette BUN MACHINE OPERATOR.PURCHASING EXPEDITOR Work Phone: [facility] 07-28-2021 08:14-0400 Diastolic blood pressure 60 mm[Hg] Ana María Yvette BUN MACHINE OPERATOR.PURCHASING EXPEDITOR Work Phone: [facility] 07-28-2021 08:14-0400 Heart rate 88 /min Ana María Yvette BUN MACHINE OPERATOR.PURCHASING EXPEDITOR Work Phone: [facility] 07-28-2021 08:14-0400 Respiratory rate 16 /min Ana María Yvette BUN MACHINE OPERATOR.PURCHASING EXPEDITOR Work Phone: [facility] 07-28-2021 08:14-0400 SaO2% (BldA) [Mass fraction] 95 % Ana María Yvette BUN MACHINE OPERATOR.PURCHASING EXPEDITOR Work Phone: [facility] 07-28-2021 08:14-0400 Systolic blood pressure 124 mm[Hg] Ana María Yvette BUN MACHINE OPERATOR.PURCHASING EXPEDITOR Work Phone: [facility] 07-22-2021 10:12-0400 Body weight 110.68 kg Eduar King PA-C Work Phone: [facility] 07-22-2021 10:12-0400 Diastolic blood pressure 62 mm[Hg] Eduar King PA-C Work Phone: [facility] 07-22-2021 10:12-0400 Heart rate 74 /min Eduar King PA-C Work Phone: [facility] 07-22-2021 10:12-0400 SaO2% (BldA) [Mass fraction] 96 % Eduar King PA-C Work Phone: [facility] 07-22-2021 10:12-0400 Systolic blood pressure 110 mm[Hg] Eduar King PA-C Work Phone: [facility] 06-30-2021 13:40-0400 Body weight 111.13 kg Adama Pride APRN.PURCHASING EXPEDITOR, DNP Work Phone: [facility] 06-30-2021 13:40-0400 Diastolic blood pressure 70 mm[Hg] Adama Pride APRN.PURCHASING EXPEDITOR, DNP Work Phone: [facility] 06-30-2021 13:40-0400 Heart rate 84 /min Adama Pride APRN.PURCHASING EXPEDITOR, DNP Work Phone: [facility] 06-30-2021 13:40-0400 Respiratory rate 14 /min Adama Pride APRN.PURCHASING EXPEDITOR, DNP Work Phone: [facility] 06-30-2021 13:40-0400 SaO2% (BldA) [Mass fraction] 97 % Adama Pride APRN.PURCHASING EXPEDITOR, DNP Work Phone: [facility] 06-30-2021 13:40-0400 Systolic blood pressure 122 mm[Hg] Adama Pride APRN.PURCHASING EXPEDITOR, DNP Work Phone: [facility] Encounters Encounter Date Encounter Type Care Provider Facility Start: 08-10-2024 End: 08-10-[address] Freddie Grande MD Work Phone: [facility] Work Phone: Start: 08-10-2024 End: 08-10-[address] Freddie Grande MD -Laboratory [facility] Start: 08-10-2024 End: 08-10-2024 ambulatory Freddie Grande Facility:[facility] Start: 04-05-2024 End: 04-05-2024 ambulatory Freddie Grande Facility:[facility] Start: 12-28-2023 End: 12-28-2023 Emergency department patient visit Freddie Grande Facility:[facility] Start: 12-01-2023 ambulatory Freddie Grande Faci lity:[facility] Start: 12-01-2023 End: 12-01-2023 ambulatory Freddie Grande Facility:[facility] Start: 11-19-2023 End: 11-19-2023 ambulatory Freddie Grande Facility:[facility] Start: 11-10-2023 End: 11-10-2023 [facility] Start: 11-04-2023 End: 11-04-2023 [facility] Facility[facility] Start: 10-07-2023 End: 10-07-2023 [facility]ulatory [facility] Facility:[facility] Start: 09-21-2023 End: 09-21-2023 [facility] Start: 08-31-2023 End: 08-31-2023 ambulatory Shukri SAMS [place] Start: 08-31-2023 End: 08-31-2023 ambulatory Shukri SAMS Facility:[facility] Start: 05-14-2023 End: 05-14-2023 ambulatory [facility] Work Phone: Start: 05-14-2023 End: 05-14-2023 Patient encounter procedure [facility] Start: 05-04-2023 End: 05-04-2023 Patient encounter procedure [facility] Start: 03-19-2023 End: 03-19-2023 ambulatory [facility] Work Phone: Start: 03-19-2023 End: 03-19-2023 Patient encounter procedure [facility] Start: 03-09-2023 End: 03-09-2023 ambulatory [facility] Work Phone: Start: 03-09-2023 End: 03-09-2023 [facility] Start: 12-18-2022 End: 12-18-2022 ambulatory [facility] Work Phone: Start: 12-18-2022 End: 12-18-2022 Patient encounter procedure [facility] Work Phone: Start: 06-25-2022 Orders Only Eduar King PA-C Work Phone: Urology Comment on above: Elevated PSA (Primar y Dx) Start: 01-06-2022 End: 01-06-2022 ambulatory SHANTANU MUNOZ Facility:[facility] Start: 01-06-2022 Telephone encounter Shantanu Munoz MD Work Phone: [facility] Comment on above: Results Start: 12-25-2021 End: 12-25-2021 ambulatory SHANTANU MUNOZ Facility:[facility] Start: 12-25-2021 End: 12-25-2021 Subsequent hospital visit by physician [facility] Work Phone: Radiology Comment on above: Ex-smoker [Z87.891] Start: 12-24-2021 Telephone encounter Avis cutler PA-C Work Phone: [facility] Comment on above: Results Start: 12-18-2021 End: 12-18-2021 [facility] Start: 12-18-2021 End: 12-18-2021 Subsequent hospital visit by physician [facility] [place] Work Phone: Radiology Comment on above: Ex-smoker [Z87.891] Start: 12-18-2021 End: 12-18-2021 Patient encounter procedure Shantanu Munoz MD Work Phone: [facility] Comment on above: Essential hypertensi on, benign (Primary Dx); Hyperlipidemia, mixed; Stage 3b chronic kidney disease (HCC); Elevated hemoglobin A1c; Obesity, Class II, BMI 35-39.9; Post herpetic neuralgia; Chronic gout without tophus, unspecified cause, unspecified site; Ex-smoker; Weight loss, unintentional; Encounter for immunization Start: 11-18-2021 End: 11-18-2021 ambulatory [facility] Facility:[facility] Start: 10-21-2021 Telephone encounter Carolyn Betancourt APRN.CNP Work Phone: Cardiology Comment on above: Appointment Cancelle d Start: 10-20-2021 End: 10-20-2021 ambulatory [facility] Facility:[facility] Start: 10-20-2021 End: 10-20-2021 Patient encounter procedure Ryan Mane MD Work Phone: Cardiology Comment on above: NSVT (nonsustained v entricular tachycardia) (HCC) (Primary Dx); Premature atrial complex; Essential hypertension; Mixed hyperlipidemia Start: 08-15-2021 End: 08-15-2021 ambulatory ADAMA PRIDE Facility:[facility] Start: 08-14-2021 End: 08-14-2021 ambulatory ADAMA PRIDE Facility:[facility] Start: 08-14-2021 End: 08-14-2021 Patient encounter procedure Adama Pride APRN.CNP, DNP Work Phone: [facility] [place] Comment on above: Localized swelling o f left lower leg (Primary Dx); Collapse fleeting; Stage 3a chronic kidney disease (HCC); Obesity, Class II, BMI 35-39.9; Prediabetes; Essential hypertension, benign Start: 08-05-2021 End: 08-05-2021 ambulatory ADAMA PRIDE Facility:[facility] Start: 08-05-2021 End: 08-05-2021 Office outpatient visit 15 minutes Adama Pride APRN.JESUS MANUEL BALTAZAR Work Phone: [facility] [place] Comment on above: Localized swelling o f left lower leg (Primary Dx); Collapse fleeting; Stage 3b chronic kidney disease (HCC); Obesity, Class II, BMI 35-39.9; Prediabetes; Essential hypertension, benign; Advanced care planning/counseling discussion Start: 08-04-2021 Telephone encounter Adama cortes APRN.CNP, DNP Work Phone: [facility] [place] Comment on above: Results; Orders Start: 07-31-2021 Telephone encounter Ryan Mane MD Work Phone: Cardiology Comment on above: Patient Question Start: 07-30-2021 Telephone encounter Adama cortes APRN.CNP, DNP Work Phone: [facility] [place] Comment on above: Results Start: 07-29-2021 End: 07-29-2021 ambulatory ADAMA PRIDE Facility:[facility] Start: 07-29-2021 End: 07-29-2021 Patient encounter procedure Adama Pride APRN.CNP, DNP Work Phone: [facility] Comment on above: Localized swelling o f left lower leg (Primary Dx); Collapse fleeting; Stage 3b chronic kidney disease (HCC); Obesity, Class II, BMI 35-39.9; Prediabetes; Essential hypertension, benign Start: 07-28-2021 Telephone encounter Ana María Crawford APRN.CNP Work Phone: [facility] Comment on above: Appointment Start: 07-28-2021 End: 07-28-2021 ambulatory ADAMA PRIDE Facility:[facility] Start: 07-28-2021 End: 07-28-2021 ambulatory ADAMA PRIDE Facility:[facility] Start: 07-28-2021 End: 07-28-2021 Patient encounter procedure Ana María Crawford APRN.CNP Work Phone: [facility] Comment on above: Left leg swelling (P rimary Dx) Start: 07-22-2021 Refill Adama VOGT RN.JESUS MANUEL BALTAZAR Work Phone: [facility] Comment on above: Refill Request Start: 07-22-2021 End: 07-22-2021 ambulatory ADAMA PRIDE Facility:[facility] Start: 07-22-2021 End: 07-22-2021 Patient encounter procedure Eduar King PA-C Work Phone: Urology Comment on above: Elevated PSA (Primar y Dx) Start: 07-18-2021 Telephone encounter Adama cortes APRN.CNP, DNP Work Phone: [facility] Comment on above: Results; Orders Start: 07-02-2021 Telephone encounter Adama cortes APRN.CNP, DNP Work Phone: [facility] Comment on above: Orders Start: 06-30-2021 End: 06-30-2021 Patient encounter procedure Adama Pride APRN.CNP, DNP Work Phone: [facility] [place] Comment on above: Collapse fleeting (P rimary Dx); Stage 3b chronic kidney disease (HCC); Obesity, Class II, BMI 35-39.9; Elevated PSA; Prediabetes; Essential hypertension, benign; Gout, unspecified; Hyperlipidemia, mixed; Post herpetic neuralgia; 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 Freddie Grande MD Work Phone: Start: 08-10-2024 Vitamin D, 25-hydrox y measurement Dr. Freddie Grande MD Work Phone: Comment on above: Vitamin D StatusDefi ciency: <20 ng/mL (50nmol/L)Insufficiency: 20-30 ng/mL (50-75 nmol/L)Sufficiency: 30-100 ng/mL (75-250 nmol/L)Toxicity: >100 ng/mL (>250 nmol/L) Start: 03-09-2023 Plain chest X-ray Start: 12-18-2021 Radiologic exam ches t 2 views Shantanu Munoz MD Work Phone: Start: 12-18-2021 INFLUENZA SEASONAL QUADRIVALENT HIGH DOSE AGE 65+ Shantanu Munoz MD Work Phone: Start: 07-22-2021 Urnls dip stick/tabl et rgnt auto w/o microscopy Eduar King PA-C Work Phone: Start: 06-30-2021 Adult depression scr eening assessment Adama Pride APRN.PURCHASING EXPEDITOR, DNP Work Phone: Plan of Treatment Date Care Activity Detail Author Start: 12-18-2024 DIABETES SCREEN DIABETES SCREEN [facility] Start: 12-18-2024 Diabetes Screening Diabetes Screenin g [facility] Start: 09-21-2024 Urine microalbumin profile DTa P,Tdap,Td Vaccine (2 - Td or Tdap) [facility] Start: 08-14-2024 DIABETES SCREEN DIABETES SCREEN [facility] Start: 07-29-2024 DIABETES SCREEN DIABETES SCREEN [facility] Start: 07-01-2024 DIABETES SCREEN DIABETES SCREEN [facility] Start: 01-07-2024 DIABETES SCREEN DIABETES SCREEN [facility] Start: 11-14-2023 Covid-19 Vaccine (6 - 2024-25 season) Covid-19 Vaccine ( season) [facility] Start: 11-14-2023 Influenza vaccination Influenza Vacc ine (#1) [facility] Start: 03-15-2023 Advance Directive Discussion Advance Directive Discussion [facility] Start: 12-18-2022 ANNUAL PCP TEAM URBAN RENEWAL MANAGER VÍCTOR DISEASE VISIT ANNUAL PCP TEAM CHRONIC DISEASE VISIT [facility] Start: 12-18-2022 BP CONTROLLED (<130/80) BP CONTROLLE D (<130/80) [facility] Start: 12-18-2022 Complete blood count Hemoglobin/Antoine tocrit [facility] Start: 12-18-2022 Creatinine measurement Serum Creatin ine [facility] Start: 12-18-2022 HEMOGLOBIN/HEMATOCRIT HEMOGLOBIN/HEM ATOCRIT [facility] Start: 12-18-2022 SERUM CREATININE SERUM CREATININE [facility] Start: 12-18-2022 Urine microalbumin profile DTAP,TDAP ,TD (1 - Tdap) [facility] Comment on above: Postponed from 04/16 (Declined at this time) Start: 10-20-2022 BP CONTROLLED (<130/80) BP CONTROLLE D (<130/80) [facility] Start: 08-14-2022 ANNUAL PCP TEAM URBAN RENEWAL MANAGER VÍCTOR DISEASE VISIT ANNUAL PCP TEAM CHRONIC DISEASE VISIT [facility] Start: 08-14-2022 BP CONTROLLED (<130/80) BP CONTROLLE D (<130/80) [facility] Start: 08-14-2022 SERUM CREATININE SERUM CREATININE [facility] Start: 08-05-2022 ANNUAL PCP TEAM URBAN RENEWAL MANAGER VÍCTOR DISEASE VISIT ANNUAL PCP TEAM CHRONIC DISEASE VISIT [facility] Start: 08-05-2022 BP CONTROLLED (<130/80) BP CONTROLLE D (<130/80) [facility] Start: 07-29-2022 ANNUAL PCP TEAM URBAN RENEWAL MANAGER VÍCTOR DISEASE VISIT ANNUAL PCP TEAM CHRONIC DISEASE VISIT [facility] Start: 07-29-2022 BP CONTROLLED (<130/80) BP CONTROLLE D (<130/80) [facility] Start: 07-29-2022 SERUM CREATININE SERUM CREATININE [facility] Start: 07-22-2022 BP CONTROLLED (<130/80) BP CONTROLLE D (<130/80) [facility] Start: 07-22-2022 End: 09-21-2022 Prostate specific Ag [Mass/volume] in Serum or Plasma PSA/PROSTSPECAG DIAG Lab Routine Elevated PSA Expected: 07/22/2022 (Approximate), Expires: 09/21/2022 [facility] Work Phone: Comment on above: Expected: 07/22/2022 (Approximate), Expires: 09/21/2022 Start: 07-15-2022 End: 09-14-2022 Prostate specific Ag [Mass/volume] in Serum or Plasma PSA/PROSTSPECAG DIAG Lab Routine Elevated PSA Expected: 07/15/2022 (Approximate), Expires: 09/14/2022 [facility] Work Phone: Comment on above: Expected: 07/15/2022 (Approximate), Expires: 09/14/2022 Start: 07-01-2022 HEMOGLOBIN/HEMATOCRIT HEMOGLOBIN/HEM ATOCRIT [facility] Start: 07-01-2022 SERUM CREATININE SERUM CREATININE [facility] Start: 06-30-2022 Adult depression scr eening assessment DEPRESSION SCREENING [facility] Start: 06-30-2022 ANNUAL PCP TEAM URBAN RENEWAL MANAGER VÍCTOR DISEASE VISIT ANNUAL PCP TEAM CHRONIC DISEASE VISIT [facility] Start: 06-30-2022 BP CONTROLLED (<130/80) BP CONTROLLE D (<130/80) [facility] Start: 03-15-2022 ADVANCE DIRECTIVE DISCUSSION ADVANCE DIRECTIVE DISCUSSION [facility] Start: 03-15-2022 DEPRESSION ASSESSMENT DEPRESSION ASS ESSMENT [facility] Start: 01-06-2022 SERUM CREATININE SERUM CREATININE [facility] Start: 12-18-2021 End: 02-17-2022 Urinalysis complete panel - Urine [facility] Work Phone: Comment on above: Expected: 12/18/2021 , Expires: 02/17/2022 Start: 11-13-2021 Influenza vaccination INFLUENZA (#1) [facility] Start: 08-14-2021 End: 10-14-2021 Basic metabolic 2000 panel - Serum or Plasma [facility] Work Phone: Comment on above: Expected: 08/14/2021 , Expires: 10/14/2021 Start: 08-11-2021 End: 08-04-2022 US CAROTID ARTERIES [facility] US CAROTID ARTERIES [facility] Vascular Lab Routine Collapse fleeting Expected: 08/11/2021, Expires: 08/04/2022 [facility] Work Phone: Comment on above: Expected: 08/11/2021 , Expires: 08/04/2022 Start: 07-29-2021 End: 09-28-2021 Comprehensive metabolic 2000 panel - Serum or Plasma [facility] Work Phone: Comment on above: Expected: 07/29/2021 , Expires: 09/28/2021 Start: 07-29-2021 End: 09-28-2021 Natriuretic peptide.B prohormone N-Terminal [Mass/volume] in Serum or Plasma [facility] Work Phone: Comment on above: Expected: 07/29/2021 , Expires: 09/28/2021 Start: 07-08-2021 HEMOGLOBIN/HEMATOCRIT HEMOGLOBIN/HEM ATOCRIT [facility] Start: 06-30-2021 End: 08-30-2021 CBC W Auto Differential panel - Blood CBC + DIFF Lab Routine Essential hypertension, benign Collapse fleeting Expected: 06/30/2021, Expires: 08/30/2021 [facility] Work Phone: Comment on above: Expected: 06/30/2021 , Expires: 08/30/2021 Start: 06-30-2021 End: 08-30-2021 Comprehensive metabolic 2000 panel - Serum or Plasma COMP METABOLIC PANEL Lab Routine Essential hypertension, benign Collapse fleeting Expected: 06/30/2021, Expires: 08/30/2021 [facility] Work Phone: Comment on above: Expected: 06/30/2021 , Expires: 08/30/2021 Start: 06-30-2021 End: 08-30-2021 Erythrocyte sedimentation rate SED RATE WESTERGREN Lab Routine Collapse fleeting Expected: 06/30/2021, Expires: 08/30/2021 [facility] Work Phone: Comment on above: Expected: 06/30/2021 , Expires: 08/30/2021 Start: 06-30-2021 End: 08-30-2021 Hemoglobin A1c/Hemoglobin.total in Blood HGB A1C Lab Routine Essential hypertension, benign Collapse fleeting Expected: 06/30/2021, Expires: 08/30/2021 [facility] Work Phone: Comment on above: Expected: 06/30/2021 , Expires: 08/30/2021 Start: 06-30-2021 End: 08-30-2021 LIPID PANEL BASIC LIPID PANEL BASIC Lab Routine Essential hypertension, benign Obesity, Class II, BMI 35-39.9 Prediabetes Expected: 06/30/2021, Expires: 08/30/2021 [facility] Work Phone: Comment on above: Expected: 06/30/2021 , Expires: 08/30/2021 Start: 06-30-2021 End: 08-30-2021 Prostate specific Ag [Mass/volume] in Serum or Plasma PSA/PROSTSPECAG DIAG Lab Routine Elevated PSA Expected: 06/30/2021, Expires: 08/30/2021 [facility] Work Phone: Comment on above: Expected: 06/30/2021 , Expires: 08/30/2021 Start: 03-15-2021 ADVANCE DIRECTIVE DISCUSSION ADVANCE DIRECTIVE DISCUSSION [facility] Start: 2018 RSV Vaccine (1 - 1-d ose 75+ series) RSV Vaccine (1 - 1-dose 75+ series) [facility] Start: 12-01-2009 PNEUMOCOCCAL: 65+ (1 - PCV) PNEUMOCOCCAL: 65+ (1 - PCV) [facility] Start: 12-01-2009 PNEUMOCOCCAL: 65+ (2 - PCV) PNEUMOCOCCAL: 65+ (2 - PCV) [facility] Start: 04-16-2007 Urine microalbumin profile DTAP,TDAP ,TD (1 - Tdap) [facility] Start: 1993 SHINGRIX VACCINE (1 of 2) RAYMUNDO GRIX VACCINE (1 of 2) [facility] Start: 1961 Anxiety Screening Anxiety Screening [facility] Start: 1961 BP Controlled (<130/80) BP Controlle d (<130/80) [facility] Start: 1961 Depression Screening Depression Scre ening [facility] End: 06-30-2022 ECG COMPLETE ECG COMPLETE ECG Routine Essential hypertension, benign Collapse fleeting 1 Occurrences starting 06/30/2021 until 06/30/2022 [facility] Work Phone: Comment on above: 1 Occurrences starti ng 06/30/2021 until 06/30/2022 End: 10-20-2022 Echocardiography ECHO Cardiology Routine NSVT (nonsustained ventricular tachycardia) (HCC) 1 Occurrences starting 10/20/2021 until 10/20/2022 [facility] Work Phone: Comment on above: 1 Occurrences starti ng 10/20/2021 until 10/20/2022 OUTSIDE VENDOR CARDI AC OUTPATIENT EXTENDED RHYTHM RECORDING (WITHOUT TELEMETRY) OUTSIDE VENDOR CARDIAC OUTPATIENT EXTENDED RHYTHM RECORDING (WITHOUT TELEMETRY) Holter Routine Collapse fleeting Ordered: 06/30/2021 [facility] Work Phone: Comment on above: Ordered: 06/30/2021 OUTSIDE VENDOR CARDI AC OUTPATIENT EXTENDED RHYTHM RECORDING (WITHOUT TELEMETRY) OUTSIDE VENDOR CARDIAC OUTPATIENT EXTENDED RHYTHM RECORDING (WITHOUT TELEMETRY) Holter Routine Collapse fleeting Ordered: 07/02/2021 [facility] Work Phone: Comment on above: Ordered: 07/02/2021 End: 01-17-2023 Us abdominal real time w/image documentation US ABDOMEN COMPLETE Radiology Routine Ex-smoker Weight loss, unintentional 1 Occurrences starting 12/18/2021 until 01/17/2023 [facility] Work Phone: Comment on above: 1 Occurrences starti ng 12/18/2021 until 01/17/2023 End: 12-25-2021 Us abdominal real time w/image documentation [facility] Work Phone: Comment on above: 1 Occurrences starti ng 12/25/2021 until 12/25/2021 [facility] Immunizations Immunization Date Immunization Notes Care Provider Jennifer zavala 12-18-2021 influenza, high-dose , quadrivalent vaccine (FLUZONE HIGH DOSE QUADRIVALENT) Shantanu Munoz MD Work Phone: [facility] 12-18-2021 pneumococcal (PCV20) vaccine, 20 valent (PREVNAR 20) Shantanu Munoz MD Work Phone: [facility] 12-18-2021 pneumococcal Conjuga te, unspecified formulation Shantanu Munoz MD Work Phone: [facility] Work Phone: 12-18-2021 influenza virus vacc ine, unspecified formulation Xr [place] Work Phone: [facility] 12-11-2021 COVID-19 booster vaccine, age 12+ yr, bivalent (Swift Endeavor) Shantanu Munoz MD Work Phone: [facility] 01-09-2021 influenza, high-dose , quadrivalent vaccine (FLUZONE HIGH DOSE QUADRIVALENT) Adama Pride APRN.[facility] Work Phone: [facility] 04-16-2020 influenza, high-dose , quadrivalent vaccine (FLUZONE HIGH DOSE QUADRIVALENT) Adama Pride APRN.[facility] Work Phone: [facility] 12-01-2008 influenza virus vacc ine, unspecified formulation Adama Pride APRN.[facility] Work Phone: [facility] Work Phone: 12-01-2008 pneumococcal polysaccharide vaccine, 23 valent Adama Pride APRN.[facility] Work Phone: [facility] Work Phone: 04-15-2007 tetanus and diphther ia toxoids, adsorbed, preservative free, for adult use (2 Lf of tetanus toxoid and 2 Lf of diphtheria toxoid) Adama Pride APRN.[facility] Work Phone: [facility] Work Phone: Payers Date Payer Category Payer Self-pay 2017 Medicare [id number] 2014 Medicare HUMANA MEDICARE HU[employer]NA GOLD PLUS [id number] 2014-Present [phone] [address] [address] [place] [address] [facility] [id number] 2014 Private Health Insurance [id number] 2008 Medicare [employer] MEDICARE [id number] 700 [id number] Unknown AARP MCR ADV [id number] Unknown [id number] Unknown [id number] Unknown [id number] Unknown [id number] Unknown [id number] Unknown [id number] Unknown [id number] Unknown [id number] Unknown [id number] Unknown [id number] Unknown [id number] Unknown [id number] Social History Date Type Detail Facility Start: 04-16-2020 End: 12-28-2023 Tobacco smoking status NHIS Ex-smoker [facility] Work Phone: Start: 04-15-1957 End: 04-15-1972 History of tobacco use Current smoker [facility] Work Phone: Start: 01-09-2021 End: 12-18-2021 Alcohol intake Current drinker of alcohol (finding) [facility] Start: 08-12-2011 History SDOH Alcohol Comment once q 2mo. [facility] Start: 1945 Sex Assigned At Male [facility] Work Phone: Start: 06-13-2021 End: 12-18-2021 Exposure to SARS-CoV-2 (event) Not sure [facility] Start: 07-21-2021 End: 07-31-2021 Exposure to SARS-CoV-2 (event) Unable to assess [facility] Work Phone: Start: 04-15-1957 End: 04-15-1972 History of tobacco use Cigarette Smoker [facility] Work Phone: Start: 04-16-2020 End: 08-05-2021 Cigarettes smoked current (pack per day) - Reported 2 [facility] Start: 04-16-2020 End: 12-18-2021 Tobacco use and exposure Smokeless tobacco non-user [facility] Work Phone: Start: 12-18-2022 End: 12-18-2022 Tobacco smoking status NHIS Unknown if ever smoked [facility] Start: 12-18-2022 Rare [facility] Start: 12-18-2022 Non-smoker [facility] Start: 08-05-2021 End: 12-18-2021 Tobacco use panel [facility] Adult Depression Screening Assessment 0 [facility] Start: 04-16-2020 Gender identity Identifies as male gender (finding) [facility] Start: 04-16-2020 Sexual orientation Heterosexual (agustín tate) [facility] Clinical Notes 06-13-2008 to 06-25-2022 Josette Diaz LPN - 06/25/2022 2:17 PM EDTTelephone Encounter - Modesto Kc LPN - 01/07/2022 10:18 AM EDTTelephone Encounter - Shantanu Munoz MD - 01/06/2022 9:40 PM EDTPatient Instructions Note Date & Type Note [facility] 06-25-2022 Note HNO ID: [id number] Author: Josette Diaz LPN Service: ? Author Type: ? Type: Progress Notes Filed: 07/15/2022 8:28 PM Note Text: Patient has appointment July 17, 2022 for yearly. Last office visit 07/19/2021 to follow up with PSA a week prior. PSA done 08/14/2021. Josette Diaz LPN [facility] 06-25-2022 History of Present illness Narrative Patient has appointment July 17, 2022 for yearly. Last office visit 07/19/2021 to follow up with PSA a week prior. PSA done 08/14/2021. Josette Diaz LPN documented in this encounter [facility] 01-07-2022 Miscellaneous Notes Pt notified of same. Modesto Kc LPN Let patient know urine test was ok. No blood. documented in this encounter [facility] 12-25-2021 Note HNO ID: [id number] Author: Clau Ugalde RDMS Service: ? Author Type: Prompt Care Rn Type: Progress Notes Filed: 12/25/2021 10:49 AM Note Text: Radiology Service Progress Note PATIENT NAME: Ag Jones DATE OF SERVICE: December 25, 2021 TIME: [...] Ugalde RDMS December 25, 2021 10:49 AM [facility] 12-25-2021 History of Present illness Narrative Radiology Service Progress Note PATIENT NAME: Ag Jones DATE OF SERVICE: December 25, 2021 TIME: [...] 2021 10:49 AM documented in this encounter [facility] 12-24-2021 Miscellaneous Notes Patient notified and voiced understanding. Candelaria Horton MA Let patient know that his a1c is 5.8% which is still prediabetes but pretty stable/slightly improved. Kidney function is stable. Cholesterol normal Thyroid normal Blood counts are normal. Uric acid level in okay range Urine is still in process. Will call only if abnormal Thanks. Avis Gonzalez PA-C documented in this encounter [facility] 12-18-2021 Note HNO ID: [id number] Author: Crissy Miller RT(R) Service: Radiology Author Type: Technologist Type: Progress Notes Filed: 12/18/2021 10:46 AM Note Text: Radiology Service Progress Note PATIENT NAME: Ag Jones DATE OF SERVICE: December 18, 2021 TIME: [...] RT Shira(R) December 18, 2021 10:20 AM [facility] 12-18-2021 Note HNO ID: [id number] Author: Shantanu Munoz MD Service: ? Author Type: Physician Type: Progress Notes Filed: 12/18/2021 8:16 PM Note Text: Chief Complaint Patient presents with: [facility] Care HPI Ag Jones is a 76 year old male who [...] (BP Site: Le (more content not included)... [facility] 12-18-2021 History of Present illness Narrative Radiology Service Progress Note PATIENT NAME: Ag Jones DATE OF SERVICE: December 18, 2021 TIME: [...] RT Shira(R) December 18, 2021 10:20 AM documented in this encounter [facility] 12-18-2021 History of Present illness Narrative Chief Complaint Patient presents with: Establish Care HPI Ag Jones is a 76 year old male who [...] Abs Lymph 1.00 - 4.00 k/uL 1.71 Childress% % 6.4 Abs Childress <0.87 k/uL 0.38 Eosin% % 2.2 Abs [...] which included preparing to see the patient, [id number] patient care, completing clinical documentation, performing a medically appropriate examination, counseling and educating the patient/family/caregiver and ordering medications, tests, or procedures. Shantanu Munoz MD documented in this encounter [facility] 10-23-2021 Miscellaneous Notes Patient called. Verified name and date of . Informed of message from Carolyn Betancourt CNP. Patient states he doesn't care what [...] the original note were not included. Carolyn Betancourt APRN.PURCHASING EXPEDITOR You 3 hours ago (9:49 AM) It looks like Dr. Mane ordered an echocardiogram for further evaluation of syncope. It is usually standard to evaluate cardiac structure and function with an echocardiogram in a work-up for cause of syncope. Of course, it is the patient's right to decline if he does not want further testing and evaluation. Thank you, Carolyn Betancourt APRN.DELANEY Patient called in very upset about an echo being order. He feels that this test was only ordered to collect money from he, he cancelled and refused to reschedule. documented in this encounter [facility] 10-20-2021 Note HNO ID: [id number] Author: Ryan Mane MD Service: ? Author Type: Physician Type: Progress Notes Filed: 10/20/2021 11:47 AM Note Text: CARDIOLOGY CLINIC CONSULT NOTE REASON FOR CONSULT: Abnormal Holter monitor Episode of syncope REQUESTING PHYSICIAN: Adama Pride CNP HPI: Mr. Jones is a 76 year old male with [...] lead EKG 06/30/2021 shows normal sinus rhythm. MS and QT intervals are normal. There are no ST segment changes suggestive of ischemia or infarction. Holter monitor Patient had a min HR of 54 bpm, max HR of 182 bpm, and avg HR of 70 bpm. Predominant underlying rhythm was Sinus Rhythm. 1 run of Ventricular Tachyc (more content not included)... [facility] 10-20-2021 History of Present illness Narrative CARDIOLOGY CLINIC CONSULT NOTE REASON FOR CONSULT: Abnormal Holter monitor Episode of syncope REQUESTING PHYSICIAN: Adama Pride CNP HPI: Mr. Jones is a 76 year old male with [...] 07/01/2021 HDL Cholesterol 43 07/01/2021 LDL Chol, [place] 69 07/01/2021 Cholesterol, Total 130 07/01/2021 EK lead EKG 06/30/2021 shows normal sinus rhythm. MS and QT intervals are normal. There are [...] of our mutual patient. Ryan Mane MD, [facility] Cardiovascular Medicine Pager: [phone] October 20, 2021 documented in this encounter [facility] 08-14-2021 Note HNO ID: [id number] Author: Adama Pride APRN.DELANEY, JESUS MANUEL Service: ? Author Type: Nurse Practitioner Type: Progress Notes Filed: 08/14/2021 11:31 AM Note Text: Chief Complaint Patient presents with: Recheck HPI Ag Jones is a 76 year old male who presents here today for a follow up on leg swelling. Presents to the [facility] as an established patient of mine. New [...] color, texture, turgor (more content not included)... [facility] 08-14-2021 Instructions Adama Pride APRN.JESUS MANUEL BALTAZAR - 08/14/2021 11:16 AM [...] you again and maintaining your health. Adama Pride APRN.JESUS MANUEL BALTAZAR documented in this encounter [facility] 08-14-2021 History of Present illness Narrative Chief Complaint Patient presents with: Recheck HPI Ag Jones is a 76 year old male who presents here today for a follow up on leg swelling. Presents to the [facility] as an established patient of mine. New [...] 08/05/2021 Results US DVT LOWER LT (Order [id number]) Patient Info Patient Name Sex Ag Lugo ([id number]) Male 1945 07/28/2021 12:08 PM - Radiology, [place] In Impression IMPRESSION: Negative study for proximal DVT in the left lower extremity. Negative study for calf DVT in the left lower extremity. Negative study for superficial thrombophlebitis in the imaged segments of the left lower extremity. Kelly Machine Operator: PSCB Transcribe Date/Time: Jul 28 2021 [...] Result History US DVT LOWER LT (Order #[id number]) on 07/28/2021 - Order Result History Report [...] monitoring follow up in 6 months Adama Pride APRN.PURCHASING EXPEDITOR, DNP This note was completed with [employer] dictation software. Note was reviewed for accuracy. There may be minor misspellings or grammar miscues with [employer] Dictation. I spent a total of 26 minutes on the date of the service which included preparing to see the patient, [id number] patient care, completing clinical documentation, performing a medically appropriate examination, counseling and educating the patient/family/caregiver and ordering medications, tests, or procedures. [place] [phone] This note was copied from previous note and exam dated 08/05/21 . Author is Adama Pride APRN.JESUS MANUEL BALTAZAR note reviewed and changes have been made or updates noted in the copy & paste portion of an encounter. documented in this encounter [facility] 08-05-2021 Note HNO ID: [id number] Author: Adama Pride APRN.JESUS MANUEL BALTAZAR Service: ? Author Type: Nurse Practitioner Type: Progress Notes Filed: 08/05/2021 10:14 AM Note Text: Chief Complaint Patient presents with: Recheck HPI Ag Jones is a 76 year old male who presents here today for a follow up from urgent care. Presents to the [facility] as an established patient of mine. New [...] urinary symptoms. Elevated PSA: Recently seen by Eduar King in urology on July 22. Repeat [...] No swelling HEMATOLO (more content not included)... [facility] 08-05-2021 Instructions Adama Pride APRN.CNP, DNP - 08/05/2021 9:48 AM EDT Follow up with Adama Pride APRN.CNP, DNP in 1 week Schedule carotid [...] you again and maintaining your health. Adama Pride APRN.CNP, DNP documented in this encounter [facility] 08-05-2021 History of Present illness Narrative Chief Complaint Patient presents with: Recheck HPI Ag Jones is a 76 year old male who presents here today for a follow up from urgent care. Presents to the [facility] as an established patient of mine. New patient of [facility] [facility] [employer]. No recent urgent care visits, ER visits, [...] urinary symptoms. Elevated PSA: Recently seen by Eduar King in urology on July 22. Repeat [...] in 3 years PAST SURGICAL HISTORY OF 2000 lump removed from left breast PAST SURGICAL [...] 08/05/2021 Results US DVT LOWER LT (Order [id number]) Patient Info Patient Name Sex Ag Batres ([id number]) Male 1945 07/28/2021 12:08 PM - Radiology, [place] In Impression IMPRESSION: Negative study for proximal DVT in the left lower extremity. Negative study for calf DVT in the left lower extremity. Negative study for superficial thrombophlebitis in the imaged segments of the left lower extremity. Kelly Machine Operator: PSCB Transcribe Date/Time: Jul 28 2021 [...] Result History US DVT LOWER LT (Order #[id number]) on 07/28/2021 - Order Result History Report [...] Z71.89 - ADVANCE CARE PLAN DISCUSSION Adama Pride APRN.JESUS MANUEL BALTAZAR This note was completed with [employer] dictation software. Note was reviewed for accuracy. There may be minor misspellings or grammar miscues with [employer] Dictation. I spent a total of 22 minutes on the date of the service which included preparing to see the patient, kcfw-fg-geeh patient care, completing clinical documentation, performing a medically appropriate examination, counseling and educating the patient/family/caregiver and ordering medications, tests, or procedures. [place] [id number] This note was copied from previous note and exam dated 07/29/21 . Author is Adama Pride APRN.JESUS MANUEL BALTAZAR note reviewed and changes have been made or updates noted in the copy & paste portion of an encounter. documented in this encounter [facility] 08-05-2021 Miscellaneous Notes Patient notified and verbalized understanding Arabella Lombardo Cma Team - Inform the patient [...] Status: Future Standing Expiration Date: 08/04/2022 Adama Pride DNP, DELANEY [facility] documented in this encounter [facility] 07-31-2021 Miscellaneous Notes Attempted to contact pt, phone number listed not working. Patient called stating he has received multiple calls regarding his appt. Please call patient and advise. I have been unable to find any documentation other than that patient is to be scheduled on 10/20. He is upset and wants to know why calls are being made. documented in this encounter [facility] 07-30-2021 Miscellaneous Notes Pt notified of lab results & states understanding. Liz Elias LPN Left message for patient to return call to office Arabella Lombardo Cma ----- Message from Adama Pride APRN.JESUS MANUEL BALTAZAR sent at 07/30/2021 7:41 AM EDT ----- Please inform the patient: Lab results show, slightly improved kidney function. Potassium was just slightly low. Recommend eating potassium rich foods. Otherwise the rest of his lab work was in the acceptable range. Continue with current plan Adama Pride APRN.JESUS MANUEL BALTAZAR documented in this encounter [facility] 07-29-2021 Note HNO ID: [id number] Author: Adama Pride APRN.JESUS MANUEL BALTAZAR Service: ? Author Type: Nurse Practitioner Type: Progress Notes Filed: 08/03/2021 1:51 PM Note Text: Chief Complaint Patient presents with: Leg Edema: left leg HPI Ag Jones is a 76 year old male who presents here today for a follow up from urgent care. Presents to the [facility] as an established patient of [facility] [employer] [facility]. New patient of [facility] [facility] [employer]. No recent urgent care visits, ER visits, [...] urinary symptoms. Elevated PSA: Recently seen by Eduar King in urology on July 22. Repeat [...] hematuria. MUSCULOSKELETAL: generalized joint pain. No swelling ANTOINE (more content not included)... [facility] 07-29-2021 Instructions Adama Pride APRN.CNP, DNP - 07/29/2021 9:36 AM EDT Follow up with Adama Pride APRN.CNP, DNP in 1 week Trial of [...] you again and maintaining your health. Adama Pride APRN.CNP, DNP documented in this encounter [facility] 07-29-2021 History of Present illness Narrative Chief Complaint Patient presents with: Leg Edema: left leg HPI Ag Jones is a 76 year old male who presents here today for a follow up from urgent care. [facility]. [...] urinary symptoms. Elevated PSA: Recently seen by Eduar King in urology on July 22. Repeat [...] 07/29/2021 Results US DVT LOWER LT (Order [id number]) Patient Info Patient Name Sex Ag Lugo ([id number]) Male 1945 07/28/2021 12:08 PM - Radiology, [place] In Impression IMPRESSION: Negative study for proximal DVT in the left lower extremity. Negative study for calf DVT in the left lower extremity. Negative study for superficial thrombophlebitis in the imaged segments of the left lower extremity. Kelly Machine Operator: [id number] Transcribe Date/Time: Jul 28 2021 [...] Result History US DVT LOWER LT (Order #[id number]) on 07/28/2021 - Order Result History Report [...] home or pharmacy blood pressure monitoring Adama Pride This note was completed with [employer] dictation software. Note was reviewed for accuracy. There may be minor misspellings or grammar miscues with [employer] Dictation. I spent a total of 35 minutes on the date of the service which included preparing to see the patient, nmhz-an-akij patient care, completing clinical documentation, performing a medically appropriate examination, counseling and educating the patient/family/caregiver and ordering medications, tests, or procedures. [place] [id number] This note was copied from previous note and exam dated 06/30/21 . Author is Adama Pride APRN.JESUS MANUEL BALTAZAR note reviewed and changes have been made or updates noted in the copy & paste portion of an encounter. documented in this encounter [facility] 07-28-2021 Miscellaneous Notes Patient notified that US did not show any DVT. Advise that we will set up follow up with PCP for further evaluation documented in this encounter [facility] 07-28-2021 Note HNO ID: [id number] Author: Ana María Crawford APRN.DELANEY Service: ? Author Type: Nurse Practitioner Type: Progress Notes Filed: 07/29/2021 2:34 PM Note Text: Subjective The history is provided by the patient. No fisher purse seine was used. HPI Ag Jones is a 76 year old male who [...] have confirmed and edited as necessary, the [facility] Review of Systems Constitutional: Negative for chills [...] time. Psychiatric: Mood and Affect: Affect normal. [facility] 07-28-2021 Instructions Ana María Crawford APRN.CNP - 07/28/2021 8:42 AM EDT Left lower leg swelling Will check ultrasound to check for clot If negative, would recommend to follow up with PCP for further treatment and evaluation. Ana María Crawford APRN.DELANEY documented in this encounter [facility] 07-28-2021 History of Present illness Narrative Subjective The history is provided by the patient. No fisher purse seine was used. HPI Ag Jones is a 76 year old male who [...] have confirmed and edited as necessary, the [facility]\ Review of Systems Constitutional: Negative for chills [...] Affect: Affect normal. documented in this encounter [facility] 07-22-2021 Miscellaneous Notes Team - Inform [...] daily for 14 days. BRIEN: No Adama Pride APRN.JESUS MANUEL BALTAZAR Patient has been identified [...] Tamie Shah LPN documented in this encounter [facility] 07-22-2021 Note HNO ID: [id number] Author: Eduar King PA-C Service: ? Author Type: Physician Leather Fitter Type: Progress Notes Filed: 07/22/2021 3:43 PM Note Text: [facility] UROLOGY CONSULT PATIENT INFO: Ag Jones 76 year old HPI: Ag Jones 5 year old male who presents today [...] 1 year Appt maye/ CHEKO Lassiter MT, PA-C with PSA prior CHEKO Castro MT, PA-C [facility] 07-22-2021 History of Present illness Narrative Images from the original note were not included. [facility] UROLOGY CONSULT PATIENT INFO: Ag Jones 76 year old HPI: Ag Jones 5 year old male who presents today [...] > No LUTS > 1 year Appt CHEKO Us MT, PA-C with PSA prior CHEKO Castro MT, PA-C documented in this encounter [facility] 07-18-2021 Miscellaneous Notes Patient contacted and given provider's message below and patient verbalized understanding. Transferred to leave coordinator to make cardiology appt. Frankie Ibrahim RN [...] have [facility] Epic access? Answer: Yes Adama Pride DNP, DELANEY [facility] documented in this encounter [facility] 07-02-2021 Miscellaneous Notes Orders signed. Patch [...] Question: Prior Testing Performed? Answer: Holter Adama Pride DNP, DELANEY [facility] ----- Message from Maria Guadalupe Krishna sent at 07/02/2021 11:48 AM EDT ----- Regarding: zio patch Hello May you place another zio order, we had a mail out on accident and it was actually placed in office. Sorry for the inconvenience Thank you! Maria Guadalupe Krishna documented in this encounter [facility] 06-30-2021 History of Present illness Narrative EVENT MONITOR DISPOSABLE PATCH INSTRUCTIONS Patient Name: Ag Jones [facility] Number: [id number] Skin prepped and cleansed with alcohol Patch secured to prepped area Monitor Activated Serial #: [id number] Patient Instructed: 1.) Prescribed order timeframe 2.) Bathing guidelines 3.) Usage of event button and diary documentation 4.) Return of monitor at the end of prescribed order 5.) Call with problems [phone] or [phone] ext. [phone] Patient expresses a good understanding of instructions Arabella Lombardo Cma Chief Complaint Patient presents with: F/U 6 months HPI Ag Jones is a 76 year old male who presents here today for a established physical exam. Presents to the [facility] as an established patient of mine. [...] urine. Otherwise feeling well. Was seen by Eduar King for urology. Plan is continue to monitor and follow up in July of 2021 with Eduar King. Past medical history, appointments, medications, allergies [...] from left breast PAST SURGICAL HISTORY OF 1977 pilonidal cyst PAST SURGICAL HISTORY OF 09/12/2009 [...] Abs Lymph 1.00 - 4.00 k/uL 1.59 Childress% % 7.0 Abs Childress <0.87 k/uL 0.48 Eosin% % 1.6 Abs [...] T wave changes. Ventricular rate was 73. MS interval was 146 and QRS was 96. [...] acute ST-T wave changes. Reviewed by Adama Pride, DNP, PURCHASING EXPEDITOR Plan: Ziopatch, labs, and go to ER for any further episodes or worsening symptoms. Pending results consider Cardiology consult. - ZIOPACTH SWIMMING COACH OR INSTRUCTOR - HGB A1C - COMP METABOLIC PANEL [...] TABLET - GABAPENTIN 300 MG CAPSULE Adama Pride This note was completed with [employer] dictation software. Note was reviewed for accuracy. There may be minor misspellings or grammar miscues with [employer] Dictation. I spent a total of 35 minutes on the date of the service which included preparing to see the patient, esrt-dc-yptm patient care, completing clinical documentation, performing a medically appropriate examination, counseling and educating the patient/family/caregiver and ordering medications, tests, or procedures. [place] [id number] This note was copied from previous note and exam dated 01/09/21 . Author is Adama Pride APRN.JESUS MANUEL BALTAZAR note reviewed and changes have been made or updates noted in the copy & paste portion of an encounter. documented in this encounter [facility] 06-30-2021 Instructions Adama Pride APRN.JESUS MANUEL BALTAZAR - 06/30/2021 2:32 PM EDT Follow up with Adama Pride APRN.CNP, DNP in 6 months - Heart [...] you again and maintaining your health. Adama Pride APRN.JESUS MANUEL BALTAZAR documented in this encounter [facility] 06-13-2008 History of Past i llness Narrative Problem Noted Date Resolved Date Chronic kidney disease, unspecified 06/13/2008 08/14/2021 Overview: Creat 1.8-2.1 dating back to 2006, per old records review 07/05/08 -- [facility] documented as of this encounter (statuses as of 08/14/2021) [facility] History of Past illness Narrative* Problem Noted Date Resolved Date Chronic kidney disease, unspecified 06/13/2008 08/14/2021 Overview: Creat 1.8-2.1 dating back to 2006, per old records review 07/05/08 -- [facility] documented as of this encounter (statuses as of 09/03/2021) [facility] History of Past illness Narrative* Problem Noted Date Resolved Date Chronic kidney disease, unspecified 06/13/2008 08/14/2021 Overview: Creat 1.8-2.1 dating back to 2005, per old records review 07/05/08 -- [facility] documented as of this encounter (statuses as of 10/20/2021) [facility] History of Past illness Narrative* Problem Noted Date Resolved Date Chronic kidney disease, unspecified 06/13/2008 08/14/2021 Overview: Creat 1.8-2.1 dating back to 2005, per old records review 07/05/08 -- [facility] documented as of this encounter (statuses as of 12/19/2021) [facility] History of Past illness Narrative* Problem Noted Date Resolved Date Chronic kidney disease, unspecified 06/13/2008 08/14/2021 Overview: Creat 1.8-2.1 dating back to 2005, per old records review 07/05/08 -- [facility] documented as of this encounter (statuses as of 12/24/2021) [facility] History of Past illness Narrative* Problem Noted Date Resolved Date Chronic kidney disease, unspecified 06/13/2008 08/14/2021 Overview: Creat 1.8-2.1 dating back to 2005, per old records review 07/05/08 -- [facility] documented as of this encounter (statuses as of 12/26/2021) [facility] History of Past illness Narrative* Problem Noted Date Resolved Date Chronic kidney disease, unspecified 06/13/2008 08/14/2021 Overview: Creat 1.8-2.1 dating back to 2005, per old records review 07/05/08 -- [facility] documented as of this encounter (statuses as of 01/07/2022) [facility] History of Past illness Narrative* Problem Noted Date Resolved Date Chronic kidney disease, unspecified 06/13/2008 08/14/2021 Overview: Creat 1.8-2.1 dating back to 2005, per old records review 07/05/08 -- [facility] documented as of this encounter (statuses as of 01/18/2022) [facility] History of Past illness Narrative* Problem Noted Date Resolved Date Chronic kidney disease, unspecified 06/13/2008 08/14/2021 Overview: Creat 1.8-2.1 dating back to 2005, per old records review 07/05/08 -- [facility] documented as of this encounter (statuses as of 07/16/2022) [facility] note* Diagnosis Collapse fleeting- Primary Syncope and [...] tophus, unspecified laterality [facility] Diagnosis Collapse fleeting- Primary Syncope and collapse [facility] [place] [facility] Diagnosis Collapse fleeting- Primary Syncope and collapse Abnormal Holter monitor finding Nonspecific abnormal electrocardiogram (ECG) (EKG) [facility] [place] [facility]* Diagnosis Dermatitis due to plants, including poison taurus, sumac, and oak Contact dermatitis and other eczema due to plants (except food) [facility] [place] [facility] Diagnosis Elevated PSA- Primary Elevated prostate specific antigen (PSA) [facility] Diagnosis Localized swelling of left lower leg- Primary Collapse fleeting Syncope and collapse Stage 3b chronic kidney disease (HCC) Obesity, Class II, BMI 35-39.9 Obesity, unspecified Prediabetes Other abnormal glucose Essential hypertension, benign [facility] Diagnosis Left leg swelling- Primary Swelling of limb [facility] Diagnosis Collapse fleeting- Primary Syncope and collapse [facility] [place] [facility] Diagnosis Localized swelling of left lower leg- Primary Collapse fleeting Syncope and collapse Stage 3b chronic kidney disease (HCC) Obesity, Class II, BMI 35-39.9 Obesity, unspecified Prediabetes Other abnormal glucose Essential hypertension, benign Advanced care planning/counseling discussion Other specified counseling documented in this encounter [facility] note* Diagnosis Localized swelling of left lower leg- Primary Collapse fleeting Syncope and collapse Stage 3a chronic kidney disease (HCC) Obesity, Class II, BMI 35-39.9 Obesity, unspecified Prediabetes Other abnormal glucose Essential hypertension, benign documented in this encounter [facility] note* Diagnosis NSVT (nonsustained ventricular tachycardia) ([facility])- Primary Paroxysmal ventricular tachycardia Premature atrial complex Supraventricular premature beats Essential hypertension Unspecified essential hypertension Mixed hyperlipidemia documented in this encounter [facility] note* Diagnosis Essential hypertension, benign- Primary Hyperlipidemia, mixed Mixed hyperlipidemia Stage 3b chronic kidney disease ([facility]) Elevated hemoglobin A1c Other abnormal blood chemistry [...] single bacterial disease documented in this encounter [facility] note* Diagnosis Ex-smoker Personal history of tobacco use, presenting hazards to health Weight loss, unintentional Loss of weight documented in this encounter [facility] note* Diagnosis Elevated PSA- Primary Elevated prostate specific antigen (PSA) documented in this encounter [facility] noteNo assessment information availableWTrumbull [facility] Work Phone: Evaluation note* Diagnosis Ex-smoker Personal history of tobacco use, presenting hazards to health Weight loss, unintentional Loss of weight documented in this encounter [facility] for referral (narrative)* Outpatient Procedure (Routine) - Pending Review Specialty Diagnoses / Procedures Referred By Contac t Referred To [facility] Diagnoses Essential hypertension, benign Collapse fleeting Procedures ECG COMPLETE ECG ROUTINE ECG W/LEAST 12 LDS W/I&R Adama Pride, BUN MACHINE OPERATOR.PURCHASING EXPEDITOR, DNP [address] [place] [address] [facility] [address] [place] [address] Referral ID Status Reason Start Date Expiration Date Visits Requested Visits Authorized [id number] Pending Review Auto-Generat ed Referral 06/30/2021 06/30/2022 1 1 [facility] for referral (narrative)* Diagnostic Procedure Only (Urgent) - Closed Specialty Diagnoses / Procedures Referred By Contac t Referred To Contact US IMAGING Diagnoses Left leg swelling Procedures US DVT LOWER LT DUP-SCAN XTR VEINS UNILATERAL/LIMITED STUDY Ana María Crawford APRN.CNP [address] [place] [address] Us Imaging Referral ID Status Reason Start Date Expiration Date V isits Requested Visits Authorized [id number] Closed Auto-Generate d Referral 07/28/2021 08/27/2022 1 1 [facility] for referral (narrative)* Outpatient Procedure (Routine) - Authorized Specialty Diagnoses / Procedures Referred By Contac t Referred To Contact [facility] Diagnoses Collapse fleeting Procedures US CAROTID ARTERIES EMELY VAS LAB DUPLEX SCAN EXTRACRANIAL ART COMPL BI STUDY Adama Pride APRN.CNP, DNP [address] [place] [address] [facility] [address] [place] [address] Referral ID Status Reason Start Date Expiration Date Visits Requested Visits Authorized [id number] Authorized Auto-Generat ed Referral 08/11/2021 08/04/2022 1 1 [facility] for referral (narrative)* Outpatient Procedure (Routine) - Pending Review Specialty Diagnoses / Procedures Referred By Contac t Referred To Contact [facility] Diagnoses NSVT (nonsustained ventricular tachycardia) (HCC) Procedures ECHO ECHO TTHRC R-T 2D W/WOM-MODE COMPL SPEC&COLR D Ryan Mane MD [address] [place] [address] [facility] [address] [place] [address] Referral ID Status Reason Start Date Expiration Date Visits Requested Visits Authorized [id number] Pending Review Auto-Generat ed Referral 10/20/2021 10/20/2022 1 1 [facility] for referral (narrative)* Diagnostic Procedure Only (Routine) - Closed Specialty Diagnoses / Procedures Referred By Contac t Referred To Contact US IMAGING Diagnoses Ex-smoker Weight loss, unintentional Procedures US ABDOMEN COMPLETE US ABDOMINAL REAL TIME W/IMAGE DOCUMENTATION Shantanu Munoz MD [address] [place] [address] Us Imaging Referral ID Status Reason Start Date Expiration Date V isits Requested Visits Authorized [id number] Closed Auto-Generate d Referral 12/18/2021 01/17/2023 1 1 [facility] for referral (narrative)No reason for referral information availableWTrumbull [facility] Center Work Phone: Advance Directives Documents on File Type Date Recorded Patient Statistical Geneticist Expl anation Advance Directive(s) 01/12/2017 7:27 AM Documents on File Type Date Recorded Patient Statistical Geneticist Expl anation Advance Directive(s) 01/12/2017 7:27 AM Documents on File Type Date Recorded Patient Statistical Geneticist Expl anation Advance Directive(s) 11/03/2021 1:18 PM Documents on File Type Date Recorded Patient Statistical Geneticist Expl anation Advance Directive(s) 11/03/2021 1:18 PM Reason for Referral Specialty Diagnoses / Procedures Referred By Contac t Referred To Contact Cardiology Diagnoses Collapse fleeting Abnormal Holter monitor finding Procedures CONSULT TO CARDIOLOGY OFFICE/OUTPATIENT NEW HIGH MDM 60-74 MINUTES Adama Pride, BALJEET.PURCHASING EXPEDITOR, DNP [address] [place] [address] Referral ID Status Reason Start Date Expiration Date Visits Requested Visits Authorized [id number] Pending Review PCP Requested Referral 08/01/2021 07/18/2022 1 1 Specialty Diagnoses / Procedures Referred By Contac t Referred To Contact Nephrology Diagnoses Stage 3b chronic kidney disease (HCC) Procedures CONSULT TO NEPHROLOGY OFFICE/OUTPATIENT NEW HIGH MDM 60-74 MINUTES Shantanu Munoz MD [address] [place] [address] Referral ID Status Reason Start Date Expiration Date Visits Requested Visits Authorized [id number] Pending Review PCP Requested Referral 12/18/2021 12/18/2022 1 1 Specialty Diagnoses / Procedures Referred By Contac t Referred To Contact US IMAGING Diagnoses Ex-smoker Weight loss, unintentional Procedures US ABDOMEN COMPLETE US ABDOMINAL REAL TIME W/IMAGE DOCUMENTATION Shantanu Munoz MD [address] [place] [address] Us Imaging Referral ID Status Reason Start Date Expiration Date Visits Requested Visits Authorized [id number] Authorized Auto-Generat ed Referral 12/18/2021 01/17/2023 1 1 Summary Purpose Family History No Family History Records FoundNo Family History Records Found Chief Complaint and Reason for Visit Chief Complaint EORDER Chief Complaint EORDER EORDER Additional Source Comments Source Comments (unrecognize d section and content) In the event this informatio n is protected by the Federal Confidentiality of Alcohol and Drug Abuse Patient Records regulations: The Federal rules restrict any use of the information to criminally investigate or prosecute any alcohol or drug abuse patient.[facility]In the event this information is protected by the Federal Confidentiality of Alcohol and Drug Abuse Patient Records regulations: The Federal rules restrict any use of the information to criminally investigate or prosecute any alcohol or drug abuse patient.[facility] HospitalIn the event this information is protected by the Federal Confidentiality of Alcohol and Drug Abuse Patient Records regulations: The Federal rules restrict any use of the information to criminally investigate or prosecute any alcohol or drug abuse patient.[facility] HospitalIn the event this information is protected by the Federal Confidentiality of Alcohol and Drug Abuse Patient Records regulations: The Federal rules restrict any use of the information to criminally investigate or prosecute any alcohol or drug abuse patient.[facility] HospitalIn the event this information is protected by the Federal Confidentiality of Alcohol and Drug Abuse Patient Records regulations: The Federal rules restrict any use of the information to criminally investigate or prosecute any alcohol or drug abuse patient.[facility] HospitalIn the event this information is protected by the Federal Confidentiality of Alcohol and Drug Abuse Patient Records regulations: The Federal rules restrict any use of the information to criminally investigate or prosecute any alcohol or drug abuse patient.[facility] HospitalIn the event this information is protected by the Federal Confidentiality of Alcohol and Drug Abuse Patient Records regulations: The Federal rules restrict any use of the information to criminally investigate or prosecute any alcohol or drug abuse patient.[facility] HospitalIn the event this information is protected by the Federal Confidentiality of Alcohol and Drug Abuse Patient Records regulations: The Federal rules restrict any use of the information to criminally investigate or prosecute any alcohol or drug abuse patient.[facility] HospitalIn the event this information is protected by the Federal Confidentiality of Alcohol and Drug Abuse Patient Records regulations: The Federal rules restrict any use of the information to criminally investigate or prosecute any alcohol or drug abuse patient.[facility] HospitalIn the event this information is protected by the Federal Confidentiality of Alcohol and Drug Abuse Patient Records regulations: The Federal rules restrict any use of the information to criminally investigate or prosecute any alcohol or drug abuse patient.[facility] HospitalIn the event this information is protected by the Federal Confidentiality of Alcohol and Drug Abuse Patient Records regulations: The Federal rules restrict any use of the information to criminally investigate or prosecute any alcohol or drug abuse patient.[facility] HospitalIn the event this information is protected by the Federal Confidentiality of Alcohol and Drug Abuse Patient Records regulations: The Federal rules restrict any use of the information to criminally investigate or prosecute any alcohol or drug abuse patient.[facility] HospitalIn the event this information is protected by the Federal Confidentiality of Alcohol and Drug Abuse Patient Records regulations: The Federal rules restrict any use of the information to criminally investigate or prosecute any alcohol or drug abuse patient.[facility] HospitalIn the event this information is protected by the Federal Confidentiality of Alcohol and Drug Abuse Patient Records regulations: The Federal rules restrict any use of the information to criminally investigate or prosecute any alcohol or drug abuse patient.[facility] HospitalIn the event this information is protected by the Federal Confidentiality of Alcohol and Drug Abuse Patient Records regulations: The Federal rules restrict any use of the information to criminally investigate or prosecute any alcohol or drug abuse patient.[facility] HospitalIn the event this information is protected by the Federal Confidentiality of Alcohol and Drug Abuse Patient Records regulations: The Federal rules restrict any use of the information to criminally investigate or prosecute any alcohol or drug abuse patient.[facility] HospitalIn the event this information is protected by the Federal Confidentiality of Alcohol and Drug Abuse Patient Records regulations: The Federal rules restrict any use of the information to criminally investigate or prosecute any alcohol or drug abuse patient.[facility] HospitalIn the event this information is protected by the Federal Confidentiality of Alcohol and Drug Abuse Patient Records regulations: The Federal rules restrict any use of the information to criminally investigate or prosecute any alcohol or drug abuse patient.[facility] HospitalIn the event this information is protected by the Federal Confidentiality of Alcohol and Drug Abuse Patient Records regulations: The Federal rules restrict any use of the information to criminally investigate or prosecute any alcohol or drug abuse patient.[facility] HospitalIn the event this information is protected by the Federal Confidentiality of Alcohol and Drug Abuse Patient Records regulations: The Federal rules restrict any use of the information to criminally investigate or prosecute any alcohol or drug abuse patient.[facility] HospitalIn the event this information is protected by the Federal Confidentiality of Alcohol and Drug Abuse Patient Records regulations: The Federal rules restrict any use of the information to criminally investigate or prosecute any alcohol or drug abuse patient.[facility] Reason for Visit (unrecogniz ed section and content) Reason Comments F/U 6 months Reason Comments Orders Reason Comments Results Orders [...] monitor finding Procedures CONSULT TO CARDIOLOGY OFFICE/OUTPATIENT NEW HIGH MDM 60-74 MINUTES Adama Pride APRN.JESUS MANUEL BALTAZAR [address] [place] [address] Referral ID Status Reason Start Date Expiration Date Visits Requested Visits Authorized [id number] Pending Review PCP Requested Referral 08/01/2021 07/18/2022 1 1 Reason Comments Establish Care Reason Comments Radiology US Specialty Diagnoses / Procedures Referred By Contac t Referred To Contact US IMAGING Diagnoses Ex-smoker Weight loss, unintentional Procedures US ABDOMEN COMPLETE US ABDOMINAL REAL TIME W/IMAGE DOCUMENTATION Shantanu Munoz MD [address] [place] [address] Us Imaging Referral ID Status Reason Start Date Expiration Date V isits Requested Visits Authorized [id number] Closed Auto-Generate d Referral 12/18/2021 01/17/2023 1 1 Reason Comments Appointment Cancelled Care Teams (unrecognized sec tion and content) Bottling Attendant Relationship Specialty Start Date End Date Adama Pride, BALJEET.JESUS MANUEL BALTAZAR [address] [place], [place] [id number] PCP - General Family Practice 04/16/20 Bottling Attendant Relationship Specialty Start Date End Date Adama Pride APRN.JESUS MANUEL BALTAZAR [address] [place], [place] [id number] PCP - General Family Practice 04/16/20 Bottling Attendant Relationship Specialty Start Date End Date Adama Pride, BALJEET.JESUS MANUEL BALTAZAR [address] [place], [place] [id number] PCP - General Family Practice 04/16/20 Bottling Attendant Relationship Specialty Start Date End Date Adama Pride, BUN MACHINE OPERATOR.PURCHASING EXPEDITOR, DNP [address] [place] [place] [address] PCP - General Family Practice 04/16/20 Bottling Attendant Relationship Specialty Start Date End Date Adama Pride APRN.PURCHASING EXPEDITOR, DNP [address] [place] [place] [address] PCP - General Family Practice 04/16/20 Bottling Attendant Relationship Specialty Start Date End Date Adama Pride, BUN MACHINE OPERATOR.PURCHASING EXPEDITOR, DNP [address] [place] [place] [address] PCP - General Family Practice 04/16/20 Bottling Attendant Relationship Specialty Start Date End Date Adama Pride, BUN MACHINE OPERATOR.PURCHASING EXPEDITOR, JESUS MANUEL [address] [place] [place] [address] PCP - General Family Practice 04/16/20 Bottling Attendant Relationship Specialty Start Date End Date Adama Pride, BUN MACHINE OPERATOR.PURCHASING EXPEDITOR, DNP [address] [place] [address] PCP - General Family Practice 04/16/20 Bottling Attendant Relationship Specialty Start Date End Date Adama Pride, BUN MACHINE OPERATOR.PURCHASING EXPEDITOR, JESUS MANUEL [address] [place] [address] PCP - General Family Practice 04/16/20 Bottling Attendant Relationship Specialty Start Date End Date Adama Pride, BUN MACHINE OPERATOR.PURCHASING EXPEDITOR, DNP [address] [place] [address] PCP - General Family Practice 04/16/20 Bottling Attendant Relationship Specialty Start Date End Date Adama Pride, BUN MACHINE OPERATOR.PURCHASING EXPEDITOR, DNP [address] [place] [address] PCP - General Family Practice 04/16/20 Bottling Attendant Relationship Specialty Start Date End Date Shantanu Munoz MD [address] [place] [address] PCP - General Family Medicine 12/18/21 Bottling Attendant Relationship Specialty Start Date End Date Shantanu Munoz MD [address] [place] [address] PCP - General Family Medicine 12/18/21 Bottling Attendant Relationship Specialty Start Date End Date Shantanu Munoz MD [address] [place] [address] PCP - General Family Medicine 12/18/21 Bottling Attendant Relationship Specialty [place] [address] [place] [id number] PCP - General Family Medicine 12/18/21 Bottling Attendant Relationship Specialty Start Date End Date Adama Pride APRN.PURCHASING EXPEDITOR, DNP [address] [place] [address] PCP - General Family Medicine 04/16/20 12/17/21 Shantanu Munoz MD [address] [place] [address] PCP - General Family Medicine 12/18/21 Bottling Attendant Relationship Specialty Start Date End Date Shantanu Munoz MD [address] [place] [address] PCP - General Family Medicine 12/18/21 Team Status: Active Member Role Status Dates Dr. Son Grande MD Primary Care Provider Activ e Team Status: Inactive Member Role Status Dates Dr. Son Grande MD Primary Care Provider, Attending Provider, Referring Provider Active Team Status: Inactive Member Role Status Dates Dr. Son Grande MD Primary Care Provider, Atte nding Provider Active Bottling Attendant Relationship Specialty Start Date End Date Shantanu Munoz MD [address] [place] [address] PCP - General Family Medicine 12/18/21 Team Status: Active Member Role Status Dates Dr. Freddie Grande MD Primary Care Provider Acti ve Team Status: Inactive Member Role Status Dates Dr. Freddie Grande MD Primary Care Provider Acti ve Start: August 10, 2024 End: August 10, 2024 Dr. Freddie Grande MD Attending Provider Active Start: August 10, 2024 End: August 10, 2024 Dr. Freddie Grande MD Referring Provider Active Start: August 10, 2024 End: August 10, 2024 (unrecognized sect ion and content) No Status Records FoundNo Status Records Found INFORMATION SOURCE (unrecogn ized section and content) DATE CREATED AUTHOR 07/17/2022 [facility] DATE CREATED AUTHOR AUTHOR'S ORGANIZ ATION 08/16/2024 [facility] Goals (unrecognized section and content) Goals may be documented in a n alternate sectionGoals may be documented in an alternate sectionGoals may be documented in an alternate sectionGoals may be documented in an alternate sectionGoals may be documented in an alternate section FOR RECORDS PERTAINING TO PATIENTS WHO ARE [...] BE BASED ON THE PRIMARY CLINICAL RECORDS. [employer] provides no warranty or guarantee of the accuracy or completeness of information in this document.
--- NOTE | 2024-11-25 19:58 | CM.ED ---
Social Work Date of referral: 11/25/24 Reason for referral: No Advanced Care Directives (ACD's) on file. Referred by: Social Work Identification Patient provided consent to social work visit. Procurement Officer requested patient to bring in a copy of his ACD's when able which patient declined to do. Procurement Officer provided education. Georgina Davenport, DRYING MACHINE TENDER, PATCH MACHINE OPERATOR
--- NOTE | 2024-11-25 20:06 | EDS_ITS ---
HPI History of Present Illness Chief Complaint: Abscess Detail of Chief Complaint: Patient presents because he thinks he has a abscess where his scrotum attac Informant: patient Onset/Context/Timing Onset: Yesterday Context: Sudden Onset Timing: Continuous Quality: Lump that is painful with the bloody drainage Location: Near the attachment of the scrotum to perineum Current Severity: Mild Maximum Severity: Moderate Worsened by: Pain with palpation Relieved by: Nothing slight discomfort otherwise Associated Symptoms Associated Symptoms: Drainage mostly bloody per patient Narrative Narrative: Patient is a 79-year-old male. He has history of gout, hypertension, who presents because of abscess where his scrotum attaches to the perineum. He st ates today when he wiped he noted some blood and dark drainage. He denies hemorrhoids. Denies rectal pain. He denies fever, chills night sweats. He denies diabetes. He has no symptoms of hyperglycemia. He is not on any immunosuppressive meds. He states he had some similar several years ago and Dr. Gambino opened it up. Prior similar symptoms: Yes Recent [facility] Medical History Edema of both legs Backache Arthritis Home Medications ?Medication ?Instructions ?Recorded ?Last Taken ?Type B-complex with vitamin C 1 cap PO DAILY 08/31/23 Unkn own History allopurinol 300 mg tablet 300 mg PO DAILY 08/31/23 Unk nown History amlodipine 5 mg tablet 5 mg PO QDAY 08/31/23 Unknow n History atorvastatin 20 mg tablet 20 mg PO QHS 08/31/23 Unknow n History cholecalciferol (vitamin D3) 50 50 mcg PO DAILY Unknown History mcg (2,000 unit) capsule gabapentin 600 mg tablet 1,200 mg PO BID 08/31/23 Unk nown History hydrochlorothiazide 12.5 mg capsule 12.5 mg PO DAILY # 14 caps 08/31/23 Unknown Rx mecobalamin (vitamin B12) 1,000 1,000 mcg sublingual D AILY 08/31/23 Unknown History mcg disintegrating tablet,sublingual milk thistle 175 mg tablet 175 mg PO BID 08/31/23 Unkn own History psyllium husk 0.4 gram capsule 0.4 g PO DAILY 08/31/23 Unknown History (Daily Fiber) benzonatate 200 mg capsule 200 mg PO TID PRN cough #20 caps 04/05/24 Unknown Rx methylprednisolone 4 mg tablets in See Rx Instructions PO PER PKG DIR 04/05/24 Unknown Rx a dose pack (Medrol (Jefry)) #21 tabs cephalexin 500 mg capsule 500 mg PO Q6 #28 CAPSULES Unknown Rx sulfamethoxazole 800 1 tab PO BID #14 TABLETS Unknown Rx mg-trimethoprim 160 mg tablet Allergy/AdvReac Type Severity Reaction Status Date / Time No Known Allergies Allergy Verified 11/25/24 18:38 Social History Smoking Status: Former smoker ROS ROS ED Constitutional Constitutional ED: Denies chills, fever(s), subjective, sweats or weight loss Eyes Eyes: Denies blurry vision or change in vision ENT ENT ED: Denies ear pain, rhinorrhea or sore throat Cardiovascular Cardiovascular: Denies chest pain, palpitations or racing heartbeat Respiratory/Chest Respiratory/Chest: Denies cough or dyspnea Gastrointestinal Gastrointestinal: Denies constipation, diarrhea, nausea or vomiting Genitourinary Genitourinary ED: Denies dysuria, hematuria or urinary frequency Integumentary Reports abscess; Denies rash Hematologic/Lymphatic Hematologic/Lymphatic: Denies easy bleeding or easy bruising EXAM Physical Exam Const Vital Signs: 11/25/24 18:36 Temperature 98.1 F Temperature Source Oral Pulse Rate 92 Respiratory Rate 18 Blood Pressure 120/70 Blood Pressure Mean 86 Pulse Ox 96 Oxygen Delivery Method Room Air Positive well nourished and well developed General Appearance ED: well developed and NAD HEENT Reports moist mucous membranes HEENT Narrative: Head is atraumatic normocephalic Eyes PERRL and EOMs intact bilaterally Neck no lymphadenopathy, supple and no JVD Resp normal respiratory effort and clear to auscultation bilaterally Cardio regular rate, regular rhythm, S1 normal heart sound, S2 normal heart sound and no murmurs GI normal to inspection, nondistended, normoactive bowel sounds, non-tender and non-distended; Negative for hepatosplenomegaly or no masses Narrative: Normal external genitalia i.e. penis and anterior portion of the scrotum. When rectal exam was performed where the scrotum attaches to the perineum there is an abscess. There is also a small varicose vein which bled. The area is fluctuant. There is slight erythema. There is no induration. Patient has no history of inflammatory bowel disorder. There is no fissures or fistulas noted. Extremity General Extremety ED: Yes edema General Extremity: edema Neuro oriented x3 and CN's II-XII intact bilaterally Sensorium / Orientation: alert Psych mental status grossly normal Skin no rashes or lesions noted, no wounds and skin turgor normal MDM MDM MDM Narrative Medical decision making narrative: Patient has a scrotal abscess which required I&D. He does not have a urologist. He states his primary care physician is Dr. Khanna. Patient was consented for I&D. Nurse was in the room as bookkeeping machine operator. Patient was prepped and sterile manner. The area anesthetized with 1% lidocaine. A 1.5 cm laceration was made using a 15 blade. Purulent brown fluid was under pressure and freely flowed from the incision site. Culture was obtained. Blunt dissection was undertaken. There was additional brown murky fluid noted. Cavity was irrigated. To facilitate further drainage and prevent closure. Discharge Plan Triage Chief Complaint: Abscess ED Provider: Logan Oleary Dx/Rx/DC Orders Clinical Impression: Abscess of scrotum, Edema of both legs Instructions: ED Abscess Incision And Drainage Prescriptions: New sulfamethoxazole-trimethoprim 800-160 mg tablet 1 tab PO BID Qty: 14 0RF cephalexin 500 mg capsule 500 mg PO Q6 Qty: 28 0RF No Action gabapentin 600 mg tablet 1,200 mg PO BID milk thistle 175 mg tablet 175 mg PO BID Rx Instructions: give with meal/snack allopurinol 300 mg tablet 300 mg PO DAILY atorvastatin 20 mg tablet 20 mg PO QHS amlodipine 5 mg tablet 5 mg PO QDAY mecobalamin (vitamin B12) 1,000 mcg tablet,disintegrating 1,000 mcg sublingual DAILY Rx Instructions: place tablet under tongue and allow to dissolve for at least30 secs before swallowing psyllium husk [Daily Fiber] 0.4 gram capsule 0.4 g PO DAILY B-complex with vitamin C Capsule 1 cap PO DAILY cholecalciferol (vitamin D3) 50 mcg (2,000 unit) capsule 50 mcg PO DAILY hydrochlorothiazide 12.5 mg capsule 12.5 mg PO DAILY Qty: 14 0RF methylprednisolone [Medrol (Jefry)] 4 mg tablets,dose pack See Rx Instructions PO PER PKG DIR Qty: 21 0RF Rx Instructions: PO PER PKG DIR benzonatate 200 mg capsule 200 mg PO TID PRN (Reason: cough) Qty: 20 0RF Primary Care Provider: Freddie Grande Referrals: Freddie Grande MD [Primary Care Provider] - 2 Days for wound check Print Language: Latvian Disposition Disposition: Home, Self Care
[2024-11-25 20:35] VITALS: BP 107/54; PULSE 76; RESP 20; TEMP 36.5; O2SAT 100
[2024-11-25 21:08] VITALS: BP 107/54; PULSE 76; RESP 20; TEMP 36.5; O2SAT 100
[2024-11-25] MEDS: Smz/Tmp Ds Tablet 1 TABLET PO (21:09)
== END 2024-11-25 21:12 | disposition home or self-care (01) ==
PROVIDERS: Emergency Provider Emergency Medicine; PCP Family Medicine; Visit Provider Emergency Medicine
DX: L02.214 Cutaneous abscess of groin (principal); R60.0 Localized edema; Z87.891 Personal history of nicotine dependence; I10 Essential (primary) hypertension
CPT/HCPCS: 55100; 87070; 87205; 99284; A4216

== ENCOUNTER → 2024-12-18 | Outpatient (CLI) | payer MEDICARE, SELFPAY ==
[2024-12-18 15:55] LABS: Anion Gap 11 (5-15); BUN 18 mg/dL (4-19); BUN/Creat Ratio 10.9 RATIO (10-20); Calcium,Total 8.8 mg/dL (7.6-11.0); Carbon Dioxide 25.1 mmol/L (21.0-32.0); Chloride 109 mmol/L (98-108); Glucose 88 mg/dL (70-99); Iron 57 ug/dL (65-175); Potassium 3.8 mmol/L (3.3-5.1); Vitamin D,25 Hydroxy 69.0 ng/mL (30-100)
== END | disposition home or self-care (01) ==
LOC: MFPLAB 11:09
PROVIDERS: PCP Family Medicine; Visit Provider Family Medicine
DX: N18.30 Chronic kidney disease, stage 3 unspecified (principal)
CPT/HCPCS: 36415; 80048; 82306; 83540